=== PATIENT | female | born 1945 | race Caucasian/White ===

== ENCOUNTER 2022-11-18 10:42 | Inpatient (IN) | payer OTHER ==
[2022-11-18 11:19] LABS: Absolute Lymphocytes (CBC) 1.4 K/uL (0.7-4.9); Hematocrit 30.8 % (36.0-45.0); Lymphocytes % 15.8 % (15.3-44.8); MCV 83.5 fL (80-100); MPV 6.8 fL (7.6-11.3); RBC Red Blood Cell Count 3.69 M/uL (3.86-4.86)
[2022-11-18 11:48] LABS: Potassium 4.5 mmol/L (3.5-5.1)
--- NOTE | 2022-11-18 12:35 | EDPHYS ---
Physician Documentation [facility] Name: Trinidad Cardenas Age: 77 yrs Sex: Female : 1945 Arrival Date: 11/18/2022 Time: 10:48 Bed 14 Private MD: ED Physician Ridge Barillas HPI: 11/18 11:14 This 77 yrs old Female presents to ER via EMS with complaints of Abnormal Lab Results. ms3 11:14 77-year-old female with past medical history of COPD, diabetes, GERD presents via clued ms3 EMS for abnormal labs that were drawn earlier today. Patient's sodium returned at 116 and chloride at 82. Patient is asymptomatic at this time.. Historical: - Allergies: 10:53 Sulfa (Sulfonamide Antibiotics); db - PMHx: 10:56 chronic obstructive pulmonary disease; Diabetes mellitus; Gastroesophageal reflux db disease; Cerebrovascular accident; Hypothyroidism; Hypercholesterolemia; Congestive heart failure; - Immunization history:: Client reports receiving the 2nd dose of the Covid vaccine. - Social history:: Smoking status: Patient denies any tobacco usage or history of. ROS: 11:14 Constitutional: Negative for fever, and chills. Neck: Negative for injury, pain, and ms3 swelling, Cardiovascular: Negative for chest pain, and palpitations. Respiratory: Negative for shortness of breath, cough, wheezing, and pleuritic chest pain, Abdomen/GI: Negative for abdominal pain, nausea, vomiting, diarrhea, and constipation, MS/Extremity: Negative for injury and deformity, Skin: Negative for injury, rash, and discoloration, Neuro: Negative for headache, weakness, numbness, tingling. Exam: 11:14 Constitutional: This is a well developed, well nourished patient who is awake, alert, ms3 and in no acute distress. Head/Face: Normocephalic, atraumatic. Neck: Trachea midline, no cervical lymphadenopathy. Supple, full range of motion without nuchal rigidity, or vertebral point tenderness. No Meningismus. Chest/axilla: Normal chest wall appearance and motion. Nontender with no deformity. Cardiovascular: Regular rate and rhythm with a normal S1 and S2. No gallops, murmurs, or rubs. Normal PMI, no JVD. No pulse deficits. Respiratory: Lungs have equal breath sounds bilaterally, clear to auscultation and percussion. No rales, rhonchi or wheezes noted. No increased work of breathing, no retractions or nasal flaring. Abdomen/GI: Soft, non-tender, with normal bowel sounds. No distension or tympany. No guarding or rebound. No evidence of tenderness throughout. Skin: Warm, dry with normal turgor. Normal color with no rashes, no lesions, and no evidence of cellulitis. MS/ Extremity: Pulses equal, no cyanosis. Neurovascular intact. Full, normal range of motion. Vital Signs: 10:42 BP 155 / 67; Pulse 67; Resp 18; Temp 98.1(O); Pulse Ox 97% on R/A; db 10:54 Weight 51.26 kg; Height 4 ft. 11 in. (149.86 cm); db 12:20 BP 118 / 49; Pulse 68; Resp 16; Pulse Ox 95% on R/A; db 13:15 BP 133 / 52; Pulse 75; Resp 18; Pulse Ox 97% on R/A; db 14:00 BP 154 / 56; Pulse 77; Resp 18; Pulse Ox 96% on R/A; db 15:00 BP 152 / 52; Pulse 79; Resp 18; Pulse Ox 96% on R/A; db 16:00 Pulse 82; Resp 16; Pulse Ox 97% ; db 17:00 BP 134 / 48; Pulse 76; Resp 18; Pulse Ox 95% on R/A; db 10:54 Body Mass Index 22.82 (51.26 kg, 149.86 cm) db MDM: 10:57 Patient medically screened. ms3 11:14 Differential Diagnosis Hyponatremia vs hypochloremia vs lab abnormality. ms3 12:35 Data reviewed: vital signs, nurses notes, lab test result(s), and as a result, I will ms3 admit patient. Consideration of Admission/Observation Patient was admitted/placed on observation. Management of patient was discussed with the following: Hospitalist: Dr Yang. Independent interpretation of the following test(s) in the Emergency Department. Historians other than the Patient: EMS: [place]. Counseling: I had a detailed discussion with the patient and/or guardian regarding: the historical points, exam findings, and any diagnostic results supporting the discharge/admit diagnosis, lab results, the need for further work-up and treatment in the hospital. ED course: Discussed case with Dr. Salamanca. He accepts patient as admission. All questions were answered.. 11/18 10:55 Order name: CBC with Diff; Complete Time: 12:31 ms3 11/18 10:55 Order name: BMP; Complete Time: 12:31 ms3 11/18 12:32 Order name: Urine Sodium Random ms3 11/18 12:32 Order name: Urine Osmolality ms3 11/18 13:06 Order name: SARS RAPID ms3 11/18 14:32 Order name: Urine Dipstick-Ancillary EDMS 11/18 15:30 Order name: Creatine Phosphokinase EDMS 11/18 15:30 Order name: Lipid Profile EDMS 11/18 15:30 Order name: Magnesium EDMS 11/18 15:30 Order name: Phosphorus EDMS 11/18 15:30 Order name: T4 Free EDMS 11/18 15:30 Order name: Thyroid Stimulating Hormone EDMS 11/18 15:30 Order name: Urinalysis EDMS 11/18 15:30 Order name: Basic Metabolic Panel EDMS 11/18 15:30 Order name: 60g Consistent Carbohydrate (ADA 1800/2000) EDMS 11/18 15:30 Order name: Basic Metabolic Panel EDMS 11/18 15:30 Order name: CBC with Automated Diff EDMS 11/18 15:30 Order name: CBC with Automated Diff EDMS 11/18 17:02 Order name: Sodium Level EDMS Administered Medications: No medications were administered Disposition Summary: 11/18/22 12:35 Hospitalization Ordered Hospitalization Status: Inpatient Admission ms3 Provider: Deborah Yang ms3 Location: Intensive Care Unit ms3 Condition: Stable ms3 Problem: new ms3 Bed/Room Type: Standard ms3 Symptoms: are unchanged(11/18/22 12:35) ms3 Room Assignment: 3-(11/18/22 17:07) bd Diagnosis - Hypo-osmolality and hyponatremia ms3 - Anemia, unspecified ms3 - Hypochloremia ms3 - Essential (primary) hypertension ms3 Forms: - Medication Reconciliation Form ms3 - SBAR form ms3 Signatures: Dispatcher [employer] EDMS Ariana Tanner Irene, RN RN iw Sims, Marcus, DO DO ms3 Sandra Spicer RN RN db Corrections: (The following items were deleted from the chart) 12:35 12:35 are resolved ms3 ms3 16:25 12:35 ms3 bd 16: 16:25 7- bd iw 17:07 16:31 1- iw bd
--- NOTE | 2022-11-18 12:35 | ER ---
Nurse's Notes [facility] Name: Trinidad Cardenas Age: 77 yrs Sex: Female : 1945 Arrival Date: 11/18/2022 Time: 10:48 Bed 14 Private MD: Diagnosis: Hypo-osmolality and hyponatremia;Anemia, unspecified;Hypochloremia;Essential (primary) hypertension Presentation: 11/18 10:42 Chief complaint: EMS states: patient from [place]. came to ER for low Na and low Cl. db patient is tired. Coronavirus screen: Client denies travel out of the [place] in the last 14 days. At this time, the client does not indicate any symptoms associated with coronavirus-19. Ebola Screen: Patient negative for fever greater than or equal to 101.5 degrees Fahrenheit, and additional compatible Ebola Virus Disease symptoms Patient denies exposure to infectious person. Patient denies travel to an Ebola-affected area in the 21 days before illness onset. No symptoms or risks identified at this time. Initial Sepsis Screen: Does the patient meet any 2 criteria? No. Patient's initial sepsis screen is negative. Does the patient have a suspected source of infection? No. Patient's initial sepsis screen is negative. Risk Assessment: Do you want to hurt yourself or someone else? Patient reports no desire to harm self or others. Onset of symptoms was November 18, 2022. 10:42 Method Of Arrival: EMS db 10:42 Acuity: JOHN 3 db Triage Assessment: 10:54 General: Appears in no apparent distress. comfortable, Behavior is calm, cooperative. db Pain: Denies pain. Historical: - Allergies: 10:53 Sulfa (Sulfonamide Antibiotics); db - PMHx: 10:56 chronic obstructive pulmonary disease; Diabetes mellitus; Gastroesophageal reflux db disease; Cerebrovascular accident; Hypothyroidism; Hypercholesterolemia; Congestive heart failure; - Immunization history:: Client reports receiving the 2nd dose of the Covid vaccine. - Social history:: Smoking status: Patient denies any tobacco usage or history of. Screenin:46 [facility] ED Fall Risk Assessment (Adult) History of falling in the last 3 months, db including since admission No falls in past 3 months (0 pts) Confusion or Disorientation No (0 pts) Intoxicated or Sedated No (0 pts) Impaired Gait Yes (1 pt) Mobility Assist Device Used Yes (1 pt) Altered Elimination Yes (1 pt) Score/Fall Risk Level 3 or more points = High Risk Oriented to surroundings, Maintained a safe environment, Educated pt \T\ family on fall prevention, incl call for assistance when getting out of bed. [facility] ED Fall Risk Assessment (Adult) Score/Fall Risk Level 3 or more points = High Risk Hourly rounding (assess needs \T\ fall precautionary measures) done. Abuse screen: Denies threats or abuse. Denies injuries from another. Nutritional screening: No deficits noted. Tuberculosis screening: No symptoms or risk factors identified. Assessment: 10:58 Reassessment: Patient appears in no apparent distress at this time. Patient and/or db family updated on plan of care and expected duration. Pain level reassessed. Patient is alert, oriented x 3, equal unlabored respirations, skin warm/dry/pink. SEE TRIAGE FOR INITIAL ASSESSMENT, PATIENT HERE FOR abnormal labs. 11:00 Reassessment: Patient appears in no apparent distress at this time. General: Appears in db no apparent distress. comfortable, Behavior is calm, cooperative, appropriate for age, quiet. Pain: Denies pain. Neuro: Level of Consciousness is awake, alert, obeys commands, Oriented to person, place, time, situation, Moves all extremities. Speech is normal, Facial symmetry appears normal. Cardiovascular: No deficits noted. Respiratory: No deficits noted. Airway is patent Respiratory effort is even, labored, Respiratory pattern is regular, symmetrical. GI: No deficits noted. No signs and/or symptoms were reported involving the gastrointestinal system. : No deficits noted. No signs and/or symptoms were reported regarding the genitourinary system. EENT: No deficits noted. No signs and/or symptoms were reported regarding the EENT system. Derm: No deficits noted. No signs and/or symptoms reported regarding the dermatologic system. 12:00 Reassessment: Patient appears in no apparent distress at this time. Patient and/or db family updated on plan of care and expected duration. Pain level reassessed. Patient is alert, oriented x 3, equal unlabored respirations, skin warm/dry/pink. 13:00 Reassessment: Patient ambulatory to the restroom. Steady gate. States sometimes uses a db walker. 14:30 Reassessment: Patient appears in no apparent distress at this time. Patient is alert, db oriented x 3, equal unlabored respirations, skin warm/dry/pink. PATIENT talkative and social. No complaints. Lights dimmed. 15:37 Reassessment: Patient appears in no apparent distress at this time. No changes from db previously documented assessment. Patient and/or family updated on plan of care and expected duration. Pain level reassessed. Patient is alert, oriented x 3, equal unlabored respirations, skin warm/dry/pink. 16:00 Reassessment: Patient appears in no apparent distress at this time. Patient and/or db family updated on plan of care and expected duration. Pain level reassessed. Patient is alert, oriented x 3, equal unlabored respirations, skin warm/dry/pink. PATIENT RESTING watching tv. 17:00 Reassessment: Patient appears in no apparent distress at this time. Patient and/or db family updated on plan of care and expected duration. Pain level reassessed. Patient is alert, oriented x 3, equal unlabored respirations, skin warm/dry/pink. Vital Signs: 10:42 BP 155 / 67; Pulse 67; Resp 18; Temp 98.1(O); Pulse Ox 97% on R/A; db 10:54 Weight 51.26 kg; Height 4 ft. 11 in. (149.86 cm); db 12:20 BP 118 / 49; Pulse 68; Resp 16; Pulse Ox 95% on R/A; db 13:15 BP 133 / 52; Pulse 75; Resp 18; Pulse Ox 97% on R/A; db 14:00 BP 154 / 56; Pulse 77; Resp 18; Pulse Ox 96% on R/A; db 15:00 BP 152 / 52; Pulse 79; Resp 18; Pulse Ox 96% on R/A; db 16:00 Pulse 82; Resp 16; Pulse Ox 97% ; db 17:00 BP 134 / 48; Pulse 76; Resp 18; Pulse Ox 95% on R/A; db 10:54 Body Mass Index 22.82 (51.26 kg, 149.86 cm) db Vitals: 17:00 Cardiac Rhythm Assessment Sinus rhythm. db ED Course: 10:48 Patient arrived in ED. iw 10:49 Ridge Barillas DO is Attending Physician. ms3 10:50 Sandra Spicer, RN is Primary Nurse. db 10:53 Triage completed. db 10:56 Arm band placed on right wrist. db 12:03 Inserted saline lock: 22 gauge in left antecubital area, using aseptic technique. Blood rs5 collected. 12:30 Patient has correct armband on for positive identification. Bed in low position. Call db light in reach. Side rails up X2. Client placed on continuous cardiac and pulse oximetry monitoring. NIBP monitoring applied. Door closed. Lights dimmed. Warm blanket given. 12:34 Deborah Yang MD is Hospitalizing Provider. ms3 17:42 No provider procedures requiring assistance completed. Patient admitted, IV remains in db place. Administered Medications: No medications were administered Medication: 17:42 VIS not applicable for this client. db Outcome: 12:35 Decision to Hospitalize by Provider. ms3 17:38 Patient left the ED. zm 17:42 Admitted to ICU accompanied by nurse, via stretcher, with oxygen, on monitor. db 17:42 Condition: stable 17:42 Instructed on the need for admit. Signatures: Nicolasa Bustamante, RN MONTEZ iw Ridge Barillas DO DO ms3 Delmy Martin zm Sandra Spicer, RN RN db Baldemar Levine rs5 Corrections: (The following items were deleted from the chart) 15:37 13:00 Reassessment: Patient appears in no apparent distress at this time. No changes db from previously documented assessment. Patient and/or family updated on plan of care and expected duration. Pain level reassessed. Patient is alert, oriented x 3, equal unlabored respirations, skin warm/dry/pink. db
[2022-11-18 14:32] LABS: Urine Blood Negative (Negative); Urine Glucose Negative (Negative); Urine Protein 2+ (Negative); Urine pH 5.5 (5.0-7.0)
[2022-11-18] MEDS ORDERED: HYDROCODONE/APAP 5/325 MG TAB PO PRN (15:23)
[2022-11-18] MEDS ORDERED: ACETAMINOPHEN 325 MG TABLET PO PRN (15:23)
[2022-11-18] MEDS ORDERED: ONDANSETRON 4 MG/2 ML VIAL IV PRN (15:27)
--- NOTE | 2022-11-18 15:33 | P.HP ---
Certification for Inpatient Patient admitted to: Inpatient With expected LOS: >2 Midnights Patient will require the following post-hospital care: None Practitioner: I am a practitioner with admitting privileges, knowledge of patient current condition, hospital course, and medical plan of care. Services: Services provided to patient in accordance with Admission requirements found in Title 42 Section 412.3 of the Code of Federal Regulations Patient History Date of Service: 11/18/22 Reason for admission: Abnormal labs History of Present Illness: Patient is a 77-year-old female with a past medical history significant for COPD, DM 2, GERD, CVA, hypothyroidism, HLD, who presents with complaint of abnormal labs. Patient is a resident of a longterm [place] longterm. Patient reported that she has been having bilateral lower extremity cramping for the past 3 days and had labs drawn in a longterm. Patient sodium level was noted to be low. Patient reports low back pain rated as 7/10 in severity and described as aching in quality. Patient reported that back pain has been ongoing for the past 1 week. Patient denies any other signs or symptoms. Symptoms are aggravated or relieved by nothing. Patient was brought to the hospital for medical management. Allergies Sulfa (Sulfonamide Antibiotics) Allergy (Verified 11/18/22 18:57) Rash Home Medications: Acetaminophen [Tylenol] 650 mg PO Q6H PRN 11/18/22 Amlodipine [Norvasc*] 10 mg PO DAILY 11/18/22 Atorvastatin Calcium [Lipitor] 20 mg PO BEDTIME 11/18/22 Carboxymethylcellulose Sodium [Artificial Tears] 1 drop EACH EYE TID 11/18/22 Carvedilol [Coreg] 25 mg PO BID 11/18/22 Cholecalciferol (Vitamin D3) [Vitamin D3] 50 mcg PO DAILY 11/18/22 Cranberry Conc/C/Bacill Coag [Cranberry Tablet] 450 mg PO DAILY 11/18/22 Fluticasone/Umeclidin/Vilanter [Trelegy Ellipta 100-62.5-25] 1 puff IH BID 11/18/22 Furosemide 40 mg PO DAILY 11/18/22 Hydralazine HCl 100 mg PO Q8H 11/18/22 Loratadine [Claritin*] 10 mg PO DAILY 11/18/22 Losartan Potassium [Cozaar*] 100 mg PO DAILY 11/18/22 Metformin HCl [Glucophage*] 500 mg PO BIDAC 11/18/22 Olopatadine HCl 1 gtt EACH EYE BID 11/18/22 Pantoprazole Sodium [Protonix] 20 mg PO DAILY 11/18/22 Polyethylene Glycol 3350 [Miralax] 17 gm PO DAILY PRN 11/18/22 Promethazine Tab [Phenergan*] 1 tab PO Q8H PRN 11/18/22 Spironolactone [Aldactone*] 25 mg PO DAILY 11/18/22 - Past Medical/Surgical History -: GERD -: HTN -: CVA -: HLD Past Surgical History: Reviewed- Non-Contributory - Family History Father -: Heart disease, Liver disease Mother -: Heart disease Brother -: Diabetes, Cancer Notes: COPD - Social History Smoking Status: Former smoker Alcohol use: No CD- Drugs: No Caffeine use: Yes Place of Residence: Home Review of Systems General: Unremarkable Eyes: Unremarkable ENT: Unremarkable Respiratory: Unremarkable Cardiovascular: Unremarkable Gastrointestinal: Unremarkable Genitourinary: Unremarkable Musculoskeletal: Back Pain, Other (BLE cramping) Integumentary: Unremarkable Neurological: Unremarkable Lymphatics: Unremarkable Physical Examination - Physical Exam General: Alert, In no apparent distress, Oriented x3, Cooperative HEENT: Atraumatic, PERRLA, Mucous membr. moist/pink, EOMI, Sclerae nonicteric Neck: Supple, 2+ carotid pulse no bruit, No LAD, Without JVD or thyroid abnormality Respiratory: Clear to auscultation bilaterally, Normal air movement Cardiovascular: No edema, Regular rate/rhythm, Normal S1 S2 Capillary refill: <2 Seconds Gastrointestinal: Normal bowel sounds, Soft and benign, No tenderness Musculoskeletal: No clubbing, No swelling, No contractures, No tenderness Integumentary: No rashes, No significant lesion, No tenderness/swelling Neurological: Normal speech, Normal tone, Normal affect Lymphatics: No axilla or inguinal lymphadenopathy - Studies Laboratory Data (last 24 hrs) 11/18/22 11:05: Sodium 115 L*, Potassium 4.5 D, BUN 18, Creatinine 1.06 H, Glucose 135 H 11/18/22 11:05: WBC 8.70, Hgb 10.7 L, Hct 30.8 L, Plt Count 242 Assessment and Plan - Plan --Hyponatremia. Urine\serum osmolality, urine\serum sodium pending. Nephrology consulted. We will await further recommendations -- COPD. Stable. Continue home medications. --DM2. BS monitoring with sliding scale insulin. --Hyperlipidemia. Continue statin. --History of CVA. Continue aspirin and statin. --Hypertension. Poorly controlled. Continue home medications and hydralazine. -- GERD. Continue home medication. --Anemia of chronic disease. H&H stable. We will continue to monitor hemoglobin and transfuse if less than 7.0. --CHU on CKD 2. Further management per eap specialist. --UTI POA. Continue antibiotics. Urine cultures pending. Acute pain. We will manage pain on current pain medication regimen. -- Allergic rhinitis. Continue home medications. --DVT prophylaxis with heparin subQ. Discharge Plan: Home Plan to discharge in: Greater than 2 days - Advance Directives Does patient have a Living Will: No Does patient have a Durable POA for Healthcare: No - Code Status/Comfort Care Code Status Assessed: Yes Physician Review: Patient Assessed, Agree with Above Assessment and Plan Critical Care: Yes
[2022-11-18 15:57] LABS: SARS-CoV-2 Antigen Rapid Res Negative (Negative)
[2022-11-18] MEDS: INSULIN -REGULAR HUMAN 50 UNIT/0.5 ML ML SQ SCH ×2 (16:30→21:00)
[2022-11-18 16:52] LABS: Magnesium 1.7 mg/dL (1.6-2.4); Phosphorus 2.6 mg/dL (2.5-4.9); Thyroid Stimulating Hormone 0.831 uIU/mL (0.358-3.740)
--- NOTE | 2022-11-18 16:58 | P.PN ---
Brief Renal note (Chart review only, full consult to follow). Acute on chronic hyponatremia with Na level 127 earlier in the mo, no other historic labs present with which to compare. Pt asymptomatic per reports. 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 No therapy administered yet per SCENE PAINTER. Na level recheck ordered by admitting team. Will order hypertonic saline bolus with 100 ml of 3%NS as Na level was < 120 on admission. Requested RN to place a larger peripheral IV to support the bolus which can be given slowly at 40 cc/hr. Will assess response to that and f/u with additional orders. Bennie Hyde MD, MARIA R
[2022-11-18] MEDS ORDERED: NA CHLORIDE 3% 100 ML IV SCH (17:00)
[2022-11-18 17:07] VITALS: BMI 22.8
[2022-11-18] MEDS: CEFTRIAXONE 1,000 MG in NA CHLORIDE 0.9% 50 ML IVPB SCH (18:21)
[2022-11-18] MEDS ORDERED: POLYETHYL GLY 3350 17 GM/DOSE PO PRN (20:51)
[2022-11-18] MEDS: OLOPATADINE EYE OPTH SCH (21:00)
[2022-11-18] MEDS: HYDRALAZINE HCL 25 MG TABLET PO SCH (22:08)
[2022-11-18] MEDS: carvediloL 25 MG TAB PO SCH (22:08)
[2022-11-18] MEDS: HEPARIN 5000 UNIT/ML 1 ML VIAL SQ SCH (22:09)
[2022-11-18] MEDS: ATORVASTATIN 20 MG TAB PO SCH (22:09)
[2022-11-18 22:41] LABS: Potassium 3.8 mmol/L (3.5-5.1)
[2022-11-18] MEDS ORDERED: NA CHLORIDE 3% 500 ML IV SCH (23:45)
[2022-11-19] MEDS ORDERED: NA CHLORIDE 3% 500 ML IV SCH (03:00)
--- NOTE | 2022-11-19 03:48 | P.PN ---
Subjective Date of Service: 11/19/22 Patient with chronic hyponatremia-patient has been dealing with this for the last 2-3 years. Sodium normally runs in the 120s according to the pt. Correcting real slowly at this time. We restarted on 3% saline this morning. Review of Systems 10-point ROS is otherwise unremarkable Physical Examination - Vital Signs Temperature: 98.1 F Blood Pressure: 128/36 Pulse: 71 Respirations: 14 Pulse Ox (%): 96 - Physical Exam General: Alert, In no apparent distress, Oriented x2 Neck: Supple, JVD not distended Respiratory: Clear to auscultation bilaterally, Normal air movement Cardiovascular: Regular rate/rhythm, Normal S1 S2 Gastrointestinal: Normal bowel sounds, No tenderness Musculoskeletal: No tenderness Integumentary: No rashes Neurological: Normal speech, Normal tone, Normal affect Lymphatics: No axilla or inguinal lymphadenopathy - Studies Laboratory Data (last 24 hrs) 11/18/22 11:05: Sodium 115 L*, Potassium 4.5 D, BUN 18, Creatinine 1.06 H, Glucose 135 H 11/18/22 11:05: WBC 8.70, Hgb 10.7 L, Hct 30.8 L, Plt Count 242 Medications List Reviewed: Yes Assessment & Plan - Problems (Diagnosis) (1) Hyponatremia Current Visit: Yes Status: Acute (2) HTN (hypertension) Current Visit: Yes Status: Acute (3) COPD (chronic obstructive pulmonary disease) Current Visit: Yes Status: Acute - Plan 1. Continue with 3% saline; correct sodium level by no more than 10 meq/day 2. Continue monitoring labs closely; once patient is in the 120s patient should be stable for discharge. Fluid restriction and possibly salt tablets at discharge. 3. Strict blood pressure control 4. Monitor labs closely; most likely SIADH 5. Appreciate nephrology consultation 6. Gi DVT prophylaxis Discharge Plan: Home Plan to discharge in: Greater than 2 days - Advance Directives Does patient have a Living Will: No Does patient have a Durable POA for Healthcare: No - Code Status/Comfort Care Code Status Assessed: Yes Code Status: Full Code Critical Care: No Time Spent Managing PTS Care (In Minutes): 35
[2022-11-19 04:20] LABS: Absolute Lymphocytes (CBC) 1.1 K/uL (0.7-4.9); Hematocrit 29.4 % (36.0-45.0); Lymphocytes % 18.4 % (15.3-44.8); MCV 83.7 fL (80-100); MPV 7.2 fL (7.6-11.3); RBC Red Blood Cell Count 3.51 M/uL (3.86-4.86)
[2022-11-19 04:49] LABS: Potassium 3.7 mmol/L (3.5-5.1)
--- NOTE | 2022-11-19 07:09 | RAD REPORT ---
EXAM DESCRIPTION: RAD - Chest Single View - 11/19/2022 5:20 am CLINICAL HISTORY: pneumonia COMPARISON: None TECHNIQUE: AP portable chest image was obtained 11/19/2022 5:20 am . FINDINGS: Prominent interstitial pattern is present probably baseline for the patient. There are no comparison studies. Acute failure or volume overload are doubtful. Retrocardiac left base is dense wi th obscured left hemidiaphragm. Left base pneumonia is suspected but can be correlated with two-view chest imaging if tolerable by the patient. Heart and vasculature are normal. No measurable pleural effusion and no pneumothorax. No acute bony abnormality seen. No acute aortic findings suspected. IMPRESSION: Suspected retrocardiac left base pneumonia.
[2022-11-19] MEDS: ASPIRIN 81 MG CHEWABLE TABLET PO SCH (07:21)
[2022-11-19] MEDS: HYDRALAZINE HCL 25 MG TABLET PO SCH ×2 (07:21→17:38)
[2022-11-19] MEDS: LORATADINE 10 MG TAB PO SCH (07:22)
[2022-11-19] MEDS: carvediloL 25 MG TAB PO SCH ×2 (07:22→19:34)
[2022-11-19] MEDS: AMLODIPINE 10 MG TAB PO SCH (07:23)
[2022-11-19] MEDS: HEPARIN 5000 UNIT/ML 1 ML VIAL SQ SCH ×2 (07:23→19:35)
[2022-11-19] MEDS: VITAMIN D 1000 UNIT TAB PO SCH (07:25)
[2022-11-19] MEDS: CEFTRIAXONE 1,000 MG in NA CHLORIDE 0.9% 50 ML IVPB SCH (07:25)
[2022-11-19] MEDS ORDERED: PANTOPRAZOLE 40MG TABLET PO SCH (07:30)
[2022-11-19] MEDS: INSULIN -REGULAR HUMAN 50 UNIT/0.5 ML ML SQ SCH ×4 (07:30→21:00)
[2022-11-19] MEDS: ARTIFICIAL TEARS OPTH SCH ×3 (09:00→21:00)
[2022-11-19] MEDS: OLOPATADINE EYE OPTH SCH ×2 (09:00→21:00)
[2022-11-19] MEDS ORDERED: NA CHLORIDE 3% 250 ML IV SCH (09:20)
--- NOTE | 2022-11-19 09:24 | P.CNS ---
Date of Consult: 11/19/22 Reason for Consult: Hyponatremia Requesting Physician: Deborah Yang Chief Complaint: Abnormal labs History of Present Illness: Patient is a elderly female with a past medical history significant for COPD, chronic HTN on anti hypertensives, GERD, reports of prior unspecified CVA, and other who has a hx of hyponatremia and reports a prior hospitalization at [facility] two years ago for it and who reports recent fatigue, weakness, intermittent nausea and treatment for a U[place] where she [facility] a [facility]. Pt was apparently referred over for abnormal labs including marked hyponatremia with Na level < 120 on admission. She has received hypertonic saline boluses with only mild rise in Na levels thus far. Allergies Sulfa (Sulfonamide Antibiotics) Allergy (Verified 11/18/22 18:57) Rash Home Medications: Acetaminophen [Tylenol] 650 mg PO Q6H PRN 11/18/22 Amlodipine [Norvasc*] 10 mg PO DAILY 11/18/22 Atorvastatin Calcium [Lipitor] 20 mg PO BEDTIME 11/18/22 Carboxymethylcellulose Sodium [Artificial Tears] 1 drop EACH EYE TID 11/18/22 Carvedilol [Coreg] 25 mg PO BID 11/18/22 Cholecalciferol (Vitamin D3) [Vitamin D3] 50 mcg PO DAILY 11/18/22 Cranberry Conc/C/Bacill Coag [Cranberry Tablet] 450 mg PO DAILY 11/18/22 Fluticasone/Umeclidin/Vilanter [Trelegy Ellipta 100-62.5-25] 1 puff IH BID 11/18/22 Furosemide 40 mg PO DAILY 11/18/22 Hydralazine HCl 100 mg PO Q8H 11/18/22 Loratadine [Claritin*] 10 mg PO DAILY 11/18/22 Losartan Potassium [Cozaar*] 100 mg PO DAILY 11/18/22 Metformin HCl [Glucophage*] 500 mg PO BIDAC 11/18/22 Olopatadine HCl 1 gtt EACH EYE BID 11/18/22 Pantoprazole Sodium [Protonix] 20 mg PO DAILY 11/18/22 Polyethylene Glycol 3350 [Miralax] 17 gm PO DAILY PRN 11/18/22 Promethazine Tab [Phenergan*] 1 tab PO Q8H PRN 11/18/22 Spironolactone [Aldactone*] 25 mg PO DAILY 11/18/22 - Past Medical/Surgical History Diabetic: No -: GERD -: HTN -: CVA -: HLD -: Gallbladder -: Hysterectomy -: Teeth pulled - Family History Father Medical History: Heart disease, Liver disease Mother Medical History: Heart disease Brother Medical History: Diabetes, Cancer Notes: COPD - Social History Alcohol use: No CD- Drugs: No Caffeine use: Yes Place of Residence: Home Review of Systems General: Weakness, Other (Fatigue) Eyes: Unremarkable ENT: Unremarkable Respiratory: Shortness of Breath, As per HPI Cardiovascular: As per HPI Gastrointestinal: Nausea, Other, As per HPI Genitourinary: As per HPI Musculoskeletal: As per HPI Integumentary: Unremarkable Neurological: As per HPI Lymphatics: Unremarkable Physical Examination Temp Pulse Resp BP Pulse Ox 98.4 F 76 16 154/54 H 99 11/19/22 04:00 11/19/22 07:23 11/19/22 06:00 11/19/22 07:23 11/19/22 06:00 General: Alert, In no apparent distress, Oriented x3 HEENT: Atraumatic, Normocephalic, PERRLA Neck: Supple Respiratory: Normal air movement, Diminished (slightly reduced BS Lt base) Cardiovascular: No edema, Regular rate/rhythm, Normal S1 S2 Gastrointestinal: Soft and benign, Non-distended, No tenderness Musculoskeletal: No swelling, No contractures, No erythema Integumentary: No rashes, No breakdown Neurological: Normal speech, Normal tone, Normal affect Laboratory Data (last 24 hrs) 11/18/22 11:05: Sodium 115 L*, Potassium 4.5 D, BUN 18, Creatinine 1.06 H, Glucose 135 H 11/18/22 11:05: WBC 8.70, Hgb 10.7 L, Hct 30.8 L, Plt Count 242 Conclusions/Impression: A/P) 1 Acute on chronic hyponatremia with Na level 127 earlier in the mo, no other historic labs present with which to compare. Pt symptomatic but not confused. Random Valeria > 40, Uosm > 100 on admission would appear c/w SIADH, cause unspecified although there may be drug contributing such as PPI other. Pt may have also been on chronic loop diuretic therapy so that may be contributory but if hypovolemia alone was to account for Na, we would have seen greater improve ment with saline administration thus far. 2. S/p hypertonic saline boluses of 3%NS as Na level was < 120 on admission. Na level slow to improve, 118 this AM. Will order additional bolus of 250 ml at 40 ml/hr and recheck Na level 4h after. 3. Will inquire if pharmacy can obtain Tolvaptan dose. 4. Will place on free water restriction of < 1000 cc/24h for now 5. BP mod elevated, ok to cont home anti hypertensives 6. Abnormal findings in urine unspecified. Reports of recent UTI, check UCx Bennie Hyde MD, FASN
[2022-11-19 10:51] LABS: Potassium 3.8 mmol/L (3.5-5.1)
[2022-11-19 14:43] LABS: Potassium 4.2 mmol/L (3.5-5.1)
[2022-11-19 14:51] LABS: Specific Gravity 1.009 (1.005-1.030); Urine Bacteria 20-50 /HPF (<20); Urine Bilirubin NEGATIVE (Negative); Urine Blood Trace (Negative); Urine Clarity Turbid (Clear); Urine Color Light-Yellow (Yellow); Urine Glucose NEGATIVE (Negative); Urine Protein TRACE (Negative); Urine RBC 21-50 /HPF (None Seen); Urine Urobilinogen Normal (Normal); Urine WBC Clump Occasional /HPF (None Seen); Urine pH 6.5 (5.0-7.0)
[2022-11-19] MEDS ORDERED: TOLVAPTAN 15 MG TABLET PO ONE (17:00)
[2022-11-19] MEDS: ATORVASTATIN 20 MG TAB PO SCH (19:35)
[2022-11-19 21:08] LABS: Potassium 3.9 mmol/L (3.5-5.1)
[2022-11-20] MEDS: HYDRALAZINE HCL 25 MG TABLET PO SCH ×2 (02:00→08:41)
[2022-11-20 05:22] LABS: Albumin 3.6 g/dL (3.4-5.0); Bilirubin Direct 0.1 mg/dL (0-0.2); Bilirubin Total 0.4 mg/dL (0.2-1.0); Potassium 3.9 mmol/L (3.5-5.1)
--- NOTE | 2022-11-20 05:50 | P.PN ---
Date of Service: 11/20/22 Subjective Review of Systems 10-point ROS is otherwise unremarkable Physical Examination - Vital Signs reviewed - Physical Exam General: Alert, In no apparent distress, Oriented x2 Respiratory: Clear to auscultation bilaterally, Normal air movement Cardiovascular: Regular rate/rhythm, Normal S1 S2 Gastrointestinal: Normal bowel sounds, No tenderness Neurological: Normal speech, Normal tone, Normal affect Assessment & Plan - Problems (Diagnosis) (1) Hyponatremia Current Visit: Yes Status: Acute (2) HTN (hypertension) Current Visit: Yes Status: Acute (3) COPD (chronic obstructive pulmonary disease) Current Visit: Yes Status: Acute - Plan Continue with plan of care as mentioned below: 1. Continue with 3% saline; correct sodium level by no more than 10 meq/day 2. Continue monitoring labs closely; once patient is in the 120s patient should be stable for discharge. Fluid restriction and possibly salt tablets at discharge. 3. Strict blood pressure control 4. Monitor labs closely; most likely SIADH 5. Appreciate nephrology consultation 6. GI/DVT prophylaxis
[2022-11-20] MEDS ORDERED: D5W 250 ML IV SCH (06:00)
[2022-11-20] MEDS: INSULIN -REGULAR HUMAN 50 UNIT/0.5 ML ML SQ SCH ×2 (07:10→11:30)
[2022-11-20] MEDS: ARTIFICIAL TEARS OPTH SCH ×2 (07:11→13:43)
[2022-11-20] MEDS: OLOPATADINE EYE OPTH SCH (07:14)
[2022-11-20] MEDS: VITAMIN D 1000 UNIT TAB PO SCH (08:38)
[2022-11-20] MEDS: AMLODIPINE 10 MG TAB PO SCH (08:39)
[2022-11-20] MEDS: carvediloL 25 MG TAB PO SCH (08:40)
[2022-11-20] MEDS: HEPARIN 5000 UNIT/ML 1 ML VIAL SQ SCH (08:41)
[2022-11-20] MEDS: LORATADINE 10 MG TAB PO SCH (08:41)
[2022-11-20] MEDS: ASPIRIN 81 MG CHEWABLE TABLET PO SCH (08:41)
[2022-11-20] MEDS: CEFTRIAXONE 1,000 MG in NA CHLORIDE 0.9% 50 ML IVPB SCH (08:42)
[2022-11-20] MEDS ORDERED: FAMOTIDINE 20 MG TAB PO SCH (09:00)
--- NOTE | 2022-11-20 10:08 | P.PN ---
Nephrology note: (S) Na level has improved s/p Tolvaptan 7.5 mg dose x 1, pt feels much better, denies nausea, has had appropriate free water diuresis General: Alert, In no apparent distress, Oriented x3 HEENT: Atraumatic, Normocephalic, PERRLA Neck: Supple Respiratory: Normal air movement, Diminished (slightly reduced BS Lt base) Cardiovascular: No edema, Regular rate/rhythm, Normal S1 S2 Gastrointestinal: Soft and benign, Non-distended, No tenderness Musculoskeletal: No swelling, No contractures, No erythema Integumentary: No rashes, No breakdown Neurological: Normal speech, Normal tone, Normal affect Laboratory Data (last 24 hrs) Reviewed in the EMR Conclusions/Impression: A/P) 1 Acute on chronic hyponatremia with Na level 127 earlier in the mo, no other historic labs present with which to compare. Pt symptomatic but was not confused. Random Valeria > 40, Uosm > 100 on admission would appear c/w SIADH, cause unspecified although there may be drug contributing such as PPI other. Pt may have also been on chronic loop diuretic therapy so that may be contributory but if hypovolemia alone was to account for Na, we would have seen greater improvement with saline administration thus far. 2. S/p hypertonic saline boluses of 3%NS as Na level was < 120 on admission. Na level slow to improve. Did dose Tolvaptan 7.5 mg once yesterday at 5 PM and Na level now 127-128, no further doses planned today 3. Will temp lift fluid restriction given the slightly rapid rise and during the half life of Tolvaptan 4. On discharge, will consider placing pt on urea-Na to maintain Na levels through osmotic diuresis 5. BP better post water diuresis 6. Abnormal findings in urine unspecified on admission. Reports of recent UTI, f/u UCx Bennie Hyde MD, MARIA R
[2022-11-20 11:07] VITALS: TEMP 97.1
[2022-11-20 13:01] VITALS: O2SAT 98
[2022-11-20 13:30] VITALS: BP 132/40
--- NOTE | 2022-11-28 00:41 | P.DS ---
Discharge Date: 11/20/22 Disposition: TRANSFER TO SNF - MEDICAL Discharge Condition: GOOD Reason for Admission: Abnormal labs - Problems (1) Hyponatremia Status: Acute (2) HTN (hypertension) Status: Acute (3) COPD (chronic obstructive pulmonary disease) Status: Acute Brief History of Present Illness: Patient is a 77-year-old female with a past medical history significant for COPD, DM 2, GERD, CVA, hypothyroidism, HLD, who presents with complaint of abnormal labs. Patient is a resident of a long term [facility] long term. Patient reported that she has been having bilateral lower extremity cramping for the past 3 days and had labs drawn in a long term. Patient sodium level was noted to be low. Patient reports low back pain rated as 7/10 in severity and described as aching in quality. Patient reported that back pain has been ongoing for the past 1 week. Patient denies any other signs or symptoms. Symptoms are aggravated or relieved by nothing. Patient was brought to the hospital for medical management. Hospital Course: Patient has done well during hospital stay. Clinically, patient is much better. At this time, patient is stable for discharge home. Patient will follow-up with consultants and PCP as an outpatient. Vital Signs/Physical Exam: Temp Pulse Resp BP Pulse Ox 97.1 F 73 20 132/40 L 97 11/20/22 12:00 11/20/22 13:00 11/20/22 13:00 11/20/22 13:00 11/20/22 13:00 General: Alert, In no apparent distress, Oriented x3 Laboratory Data at Discharge: WBC Cancelled 11/19/22 23:45 Hgb Cancelled 11/19/22 23:45 Hct Cancelled 11/19/22 23:45 Plt Count Cancelled 11/19/22 23:45 Sodium 127 mmol/L (136-145) L 11/20/22 09:05 Potassium Cancelled 11/20/22 09:00 BUN Cancelled 11/20/22 09:00 Creatinine Cancelled 11/20/22 09:00 Glucose Cancelled 11/20/22 09:00 Phosphorus 2.6 mg/dL (2.5-4.9) 11/18/22 16:14 Magnesium 1.7 mg/dL (1.6-2.4) 11/18/22 16:14 Total Bilirubin 0.4 mg/dL (0.2-1.0) 11/20/22 04:34 AST 22 U/L (15-37) 11/20/22 04:34 ALT 25 U/L (13-56) 11/20/22 04:34 Alkaline Phosphatase 77 U/L (45-117) 11/20/22 04:34 Triglycerides 133 mg/dL (<150) 11/19/22 03:44 Cholesterol 133 mg/dL (<200) 11/19/22 03:44 HDL Cholesterol 45 mg/dL (40-60) 11/19/22 03:44 Cholesterol/HDL Ratio 2.96 11/19/22 03:44 Home Medications: Acetaminophen [Tylenol] 650 mg PO Q6H PRN 11/18/22 Amlodipine [Norvasc*] 10 mg PO DAILY 11/18/22 Atorvastatin Calcium [Lipitor*] 20 mg PO BEDTIME 11/18/22 Carboxymethylcellulose Sodium [Artificial Tears] 1 drop EACH EYE TID 11/18/22 Carvedilol [Coreg] 25 mg PO BID 11/18/22 Cholecalciferol (Vitamin D3) [Vitamin D3] 50 mcg PO DAILY 11/18/22 Cranberry Conc/C/Bacill Coag [Cranberry Tablet] 450 mg PO DAILY 11/18/22 Fluticasone/Umeclidin/Vilanter [Trelegy Ellipta 100-62.5-25] 1 puff IH BID 11/18/22 Furosemide 40 mg PO DAILY 11/18/22 Hydralazine HCl 100 mg PO Q8H 11/18/22 Loratadine [Claritin*] 10 mg PO DAILY 11/18/22 Losartan Potassium [Cozaar*] 100 mg PO DAILY 11/18/22 Metformin HCl [Glucophage*] 500 mg PO BIDAC 11/18/22 Olopatadine HCl 1 gtt EACH EYE BID 11/18/22 Pantoprazole Sodium [Protonix] 20 mg PO DAILY 11/18/22 Polyethylene Glycol 3350 [Miralax] 17 gm PO DAILY PRN 11/18/22 Promethazine Tab [Phenergan*] 1 tab PO Q8H PRN 11/18/22 Spironolactone [Aldactone*] 25 mg PO DAILY 11/18/22 Aspirin Chewable [Aspirin Chewable*] 81 mg PO DAILY #30 tab.chew 11/20/22 Urea [Ure-Na] 15 gm PO DAILY #30 packet 11/20/22 New Medications: Aspirin Chewable [Aspirin Chewable*] 81 mg PO DAILY #30 tab.chew Urea [Ure-Na] 15 gm PO DAILY #30 packet Physician Discharge Instructions: PROBLEM: Hyponatremia GOAL: Clear understanding of disease process INSTRUCTIONS: PHYSICIAN'S DISCHARGE INSTRUCTIONS -DC IV and DC to long term -Follow-up with PCP in 1 to 2 weeks -Follow-up with Nephrology, Dr. Hyde, in 1 to 2 weeks -Please call Dr. Yang at [phone] if any questions regarding hospital stay -Please call nursing station at [phone] if any nursing or medication questions -Return to the emergency room if symptoms worsen Follow up with a Cab Supervisor of your choice: MAUREEN CERVANTES DO [address] [place] [address] OTTO SANCHEZ, [facility] [address] [place] [address] SHRADDHA SANCHEZ, [facility] [address], [place] [address] [address], [address] [place] [address] DEENA CARPENTER MD [address] [place] [address] DODIE LOMELI MDITH [address], [facility] [place] [address] KELLY OLIVER MD[address] [address] Diet: Regular Activity: Fall precautions DME DME: Date Ordered: Name of Company: [employer] Services Needed: Senior Living Name of Company: Date or Referral: IMMUNIZATION Influenza Vaccine Indicated: No Influenza Vaccine Given: Date Given: Pneumonia Vaccine Indicated: No Pneumonia Vaccine Given: Date Given: PHYSICIAN'S DISCHARGE INSTRUCTIONS -DC IV and DC to long term -Follow-up with PCP in 1 to 2 weeks -Follow-up with Nephrology, Dr. Hyde, in 1 to 2 weeks -Please call Dr. Yang at [phone] if any questions regarding hospital stay -Please call nursing station at [phone] if any nursing or medication questions -Return to the emergency room if symptoms worsen Diet: Regular Activity: Fall precautions Followup: NONE,NONE [Primary Care Provider] - Time spent managing pt's care (in minutes): 35
== END 2022-11-20 15:10 | DRG 644 ==
LOC: ER 10:42 → ERHOLD 15:19 → 3RD-ICU 17:05
PROVIDERS: ADMIT Hospitalist; ATTEND Hospitalist
DX: E22.2 Syndrome of inappropriate secretion of antidiuretic hormone (principal); N17.9 Acute kidney failure, unspecified; N39.0 Urinary tract infection, site not specified; J44.9 Chronic obstructive pulmonary disease, unspecified; I12.9 Hypertensive chronic kidney disease with stage 1 through stage 4 chronic kidney disease, or unspecified chronic kidney disease; N18.2 Chronic kidney disease, stage 2 (mild); E11.22 Type 2 diabetes mellitus with diabetic chronic kidney disease; K21.9 Gastro-esophageal reflux disease without esophagitis; E03.9 Hypothyroidism, unspecified; D64.9 Anemia, unspecified; J30.9 Allergic rhinitis, unspecified; E87.8 Other disorders of electrolyte and fluid balance, not elsewhere classified; E78.5 Hyperlipidemia, unspecified; M54.9 Dorsalgia, unspecified; Z88.1 Allergy status to other antibiotic agents; Z79.01 Long term (current) use of anticoagulants; Z79.82 Long term (current) use of aspirin; Z86.73 Personal history of transient ischemic attack (TIA), and cerebral infarction without residual deficits; Z79.84 Long term (current) use of oral hypoglycemic drugs; Z90.710 Acquired absence of both cervix and uterus; Z79.899 Other long term (current) drug therapy; Z87.891 Personal history of nicotine dependence; Z20.822 Contact with and (suspected) exposure to COVID-19
CPT/HCPCS: 36415; 71045; 80048; 80061; 80076; 81001; 81003; 82533; 82550; 82947; 83036; 83735; 83930; 83935; 84100; 84145; 84295; 84300; 84439; 84443; 85025; 87086; 87088; 87811; 99285; J1644; J7131; J8499

== ENCOUNTER 2023-03-25 09:29 | Inpatient (IN) | payer OTHER ==
--- OUTSIDE RECORDS SUMMARY | 2023-03-25 09:43 | XMS REPORT | Continuity of Care Document ---
:[address] [facility] t Address [address] [place] [address] Care Team Providers Name Role Phone CLAUDIO VIDAL Primary Care Physician Unavailable Nubia Solis RN Attending Clinician Unavailable DEBORAH YANG Attending Clinician Unavailable Poonam High MD Attending Clinician Deborah Yang MD Attending Clinician IZABELLA GUERIN Attending Clinician Unavailable Eric Hirsch DO Attending Clinician Stas Massey DO Attending Clinician Izabella Guerin MD Attending Clinician Po Peña MD Attending Clinician POONAM HIGH Attending Clinician Unavailable SEBAS WHELAN Attending Clinician Unavailable DEBORAH YANG Admitting Clinician Unavailable Deborah Yang MD Admitting Clinician IZABELLA GUERIN Admitting Clinician Unavailable Izabella Guerin MD Admitting Clinician Po Peña MD Admitting Clinician PO PEÑA Admitting Clinician Unavailable Payers Payer Name Policy Type Policy Number Effective Date Expiration Date S nettie TAYLOR 3 [id number] 2021 00:00:00 Problems Condition Condition Condition Status Onset Resolution Last Treating Co mments Source Name Details Category Date Date Treatment Clinician Date SOB SOB Disease Active Univers (shortness (shortness 3-25 it y of of breath) [place] breath[place] 00 [place] Hyponatrem Hyponatrem Disease Active U nivers ia ia 3-15 ity of 00:00: [place] 00 Medical Branch COPD COPD Disease Active Univers exacerbati exacerbati 3-09 it y of on on 00:00: [place] [facility] Acute on Acute on Disease Active Unive rs chronic chronic 309 ity of diastolic diastolic 00:[place] congestive congestive 00 Me dical heart heart Branch failure failure Primary Primary Disease Active Univers hypertensi hypertensi 3-09 it y of on on 00:00: [place] 00 Medical Branch Other Other Disease Active Univers hyperlipid hyperlipid 309 it y of emia emia 00:00: [place] 00 Medical Branch Type 2 Type 2 Disease Active Univers diabetes diabetes 3-09 ity of mellitus mellitus 00:00: [place] without without 00 Medical complicati complicati Br anch on, on, without without long-term long-term current current use of use of insulin insulin Dyspnea Dyspnea Disease Active Univers 3-08 ity of 00:00: [place] 00 Medical Branch Allergies, Adverse Reactions, Alerts Allergy Allergy Status Severity Reaction(s) Onset Inactive Treating Comm ents Source Name Type Date Date Clinician Codeine Propensi Active Unknown - Univ ers ty to See comments 3 ity of adverse 00:00: [place] reaction 00 Medical s Branch CODEINE DRUG Active Unknown-Cmnt Uni vers INGREDI 3-08 ity of 00:00: [place] 00 Medical Branch NO KNOWN Drug Active Univers ALLERGIE Class ity of S [place] [facility] Social History Social Habit Start Date Stop Date Quantity Comments Source History of tobacco Current smoker Un iversity of use [place] [facility] History SDOH Social Unive rsity of [facility] Branch History SDOH Social Unive rsity of Connections [facility] [place] [facility] History SDOH Social Unive rsity of Connections [place] [facility] Membership Branch History SDOH Social Unive rsity of Connections [place] [facility] Meetings Branch History SDOH University o f Housing Places [place] Medi nelson Lived Branch History SDOH 2023-01-20 2023-01-20 1 University o f Alcohol Frequency 00:00:00 00:00:00 [place] M edical Branch History SDOH 2023-01-20 2023-01-20 0 University o f Alcohol Std Drinks 00:00:00 00:00:00 [place] [facility] History SDOH 2023-01-20 2023-01-20 1 University o f Alcohol Binge 00:00:00 00:00:00 [place] Medic al Branch History SDOH Social 2023-01-20 2023-01-20 5 Unive rsity of Connections Phone 00:00:00 00:00:00 [place] M edical Branch History SDOH Social 2023-01-20 2023-01-20 5 Unive rsity of Connections Living 00:00:00 00:00:00 [place] [facility] History SDOH 2023-01-20 2023-01-20 0 University o f Physical Activity 00:00:00 00:00:00 [place] M edical DPW Branch History SDOH 2023-01-20 2023-01-20 0 University o f Physical Activity 00:00:00 00:00:00 [place] M edical MPS Branch History SDOH 2023-01-20 2023-01-20 5 University o f Financial 00:00:00 00:00:00 [place] [facility] History SDOH Food 2023-01-20 2023-01-20 1 Univers ity of Worry 00:00:00 00:00:00 [place] [facility] History SDOH Food 2023-01-20 2023-01-20 1 Univers ity of Scarcity 00:00:00 00:00:00 [place] [facility] History SDOH 2023-01-20 2023-01-20 2 University o f Transport Med 00:00:00 00:00:00 [place] Medic al Branch History SDOH 2023-01-20 2023-01-20 2 University o f Transport Non-Med 00:00:00 00:00:00 [place] M edical Branch History SDOH 2023-01-20 2023-01-20 2 University o f Housing Unable to 00:00:00 00:00:00 [place] M edical Pay Branch History SDOH 2023-01-20 2023-01-20 2 University o f Housing Homeless 00:00:00 00:00:00 [place] Me dical Last Year Branch Exposure to 2023-01-08 2023-01-18 Not sure [facility] SARS-CoV-2 (event) 00:00:00 19:01:00 [facility] Alcohol intake 2023-01-18 2023-01-18 Ex-drinker [facility] 00:00:00 00:00:00 (finding) [facility] Tobacco use and 2022-01-08 2022-01-08 Former smokeless Uni versity of exposure 00:00:00 00:00:00 tobacco user [facility] Education 2022-01-08 2022-01-[address] [place] [address] 00:00:00 00:00:00 [facility] Tobacco Comment 2022-01-08 2022-01-08 quit 23 yrs ago [facility] of 00:00:00 00:00:00 [facility] Sex Ass[birth year] [facility] y of 00:00:00 00:00:00 [facility] Smoking Status Start Date Stop Date Source Ex-smoker 2022-01-08 00:00:00 2022-01-08 00:00:00 [facility] Medications Ordered Filled Start Stop Current Ordering Indication Dosage Frequency Signature Comments Components Source Medication Medication Date Date Medication? Clinician (SIG) Name Name furosemide Yes 20mg 20 mg, Unive rs (LASIX) 01-24 Oral, ity of tablet 20 14:00: DAILY, [place] mg 00 First dose Medical on Fri [place] 01/24/23 at 0900, Until Discontinu ed, Routine sodium Yes 1g 1 g, Oral, Unive rs chloride 01-24 BID, First ity o f tablet 1 g 01:00: dose on s [place] [facility] 01/23/23 at Branch 2000, Until Discontinu ed, Routine thiamine 2022- Yes [id number] 100mg Take 1 U nivers 100 mg 01-24 05- tablet by ity of tablet 00:00: 04:59 mouth in [place] 00 :00 the Medical morning Branch for 30 days. thiamine 0 2023- Yes [id number] 100mg Take 1 U nivers 100 mg 3-31 05-01 tablet by ity of tablet 00:00: 04:59 mouth in [place] 00 :00 the Medical morning Branch for 30 days. carvediloL 2022-0 Yes 25mg Take 1 Unive rs 25 mg 3-30 tablet by ity of tablet 16:33: mouth in [place] [address] the Medical morning Branch and 1 tablet in the evening. Take with meals. Hold if B/P <110/60 or HR <60 atorvastati 2022-0 Yes 20mg Take 20 mg Univers n 20 mg 3-30 by mouth ity of tablet 16:33: daily. [place] [address] Medical Branch fluticasone 2022-0 Yes 1{puff} Inhale 1 Univers /umeclidin/ 3-30 Puff 2 ity of vilanter 16:33: (two) [place] (TRELEGY 58 times Medical ELLIPTA daily. Branch INHALE) amLODIPine 0 Yes 10mg Take 1 Unive rs 10 mg 3-30 tablet by ity of tablet 16:33: mouth in [place] [address] the Medical morning. Branch Hold if B/P <110/60 or HR <60 dextran 2022-0 Yes 1[drp] Place 1 Unive rs 70-hypromel 3-30 Drop in ity o f lose 16:33: both eyes [place] (ARTIFICIAL 58 in the Medica l TEARS,DEXT7 morning Branc h 0-HYPRO,) and 1 Drop 0.1-0.3 % at noon and 1 Drop in the evening. losartan 2022-0 Yes 100mg Take 1 Univer s (COZAAR) 3-30 tablet by ity of 100 mg 16:33: mouth in [place] tablet 58 the Medical morning. Branch Hold if B/P <110/60 or HR <60 CRANBERRY 2022-0 Yes 450mg Take 450 Uni vers ORAL 3-30 mg by ity of 16:33: mouth in [place] [address] the Medical morning. Branch Give Two tablets a day prophylact ic supplement s guaiFENesin 2022-0 Yes 100mg Take 5 mL Univers 100 mg/5 mL 3-30 by mouth ity of solution 16:33: every 4 [place] [address] (four) Medical hours as Branch needed for Cough. ipratropium 2023-0 Yes 3mL 3 mL every Univers -albuteroL 3-30 8 (eight) ity of 0.5 mg-3 16:33: hours as [place] mg(2.5 mg 58 needed Medical base)/3 mL (Secretion [facility] nebulizer s). solution loratadine 2022-0 Yes 10mg Take 1 Unive rs 10 mg 3-30 tablet by ity of tablet 16:33: mouth in [place] 58 the Medical morning. Branch For Allergies Melatonin 5 2022-0 Yes 5mg Take 1 Univ ers mg tablet 3-30 tablet by ity o f 16:33: mouth at [place] 58 bedtime. Medical Branch metformin 2022-0 Yes 500mg Take 500 Uni vers HCl 3-30 mg by ity of (METFORMIN 16:33: mouth in [place] as ORAL) 58 the Medical morning Branch and 500 mg in the evening. One tab by mouth daily Olopatadine 2022-[address] in [place] 0.2 % 3-30 each eye ity of ophthalmic 16:33: daily. [place] drops 58 Both eyes Medical once a day Branch for seasonal allergies. tramadol 3-0 Yes 50mg Take 50 mg Uni vers HCl 3-30 by mouth ity of (TRAMADOL 16:33: every 6 [place] ORAL) 58 (six) Medical hours as Branch needed (Severe to moderate pain). One tablet by mouth every 6 hours as needed for moderate and severe pain acetaminoph 3-0 Yes 325mg Take 325 U nivers en 3-30 mg by ity of (TYLENOL) 16:33: mouth [place] 325 mg Cap 58 every 6 Medica l (six) Branch hours as needed for Fever (Mild pain). Cholecalcif 2022-0 Yes Take by Uni vers neal, 3-30 mouth ity of Vitamin D3, 16:33: daily. [place] 25 mcg 58 Give two Medical (1,000 tablets by Branch unit) mouth capsule daily. carvediloL 3-0 Yes 25mg Take 1 Unive rs 25 mg 3-30 tablet by ity of tablet 16:33: mouth in [place] 58 the Medical morning Branch and 1 tablet in the evening. Take with meals. Hold if B/P <110/60 or HR <60 atorvastati 3-0 Yes 20mg Take 20 mg Univers n 20 mg 3-30 by mouth ity of tablet 16:33: daily. [place] [address] Medical Branch fluticasone 2022-0 Yes 1{puff} Inhale 1 Univers /umeclidin/ 3-30 Puff 2 ity of vilanter 16:33: (two) [place] (TRELEGY 58 times Medical ELLIPTA daily. Branch INHALE) amLODIPine 2022-0 Yes 10mg Take 1 Unive rs 10 mg 3-30 tablet by ity of tablet 16:33: mouth in [place] [address] the Medical morning. Branch Hold if B/P <110/60 or HR <60 dextran 2022-0 Yes 1[drp] Place 1 Unive rs 70-hypromel 3-30 Drop in ity o f lose 16:33: both eyes [place] (ARTIFICIAL 58 in the Medica l TEARS,DEXT7 morning Branc h 0-HYPRO,) and 1 Drop 0.1-0.3 % at noon and 1 Drop in the evening. losartan 2022-0 Yes 100mg Take 1 Univer s (COZAAR) 3-30 tablet by ity of 100 mg 16:33: mouth in [place] tablet 58 the Medical morning. Branch Hold if B/P <110/60 or HR <60 CRANBERRY 2022-0 Yes 450mg Take 450 Uni vers ORAL 3-30 mg by ity of 16:33: mouth in [place] [address] the Medical morning. Branch Give Two tablets a day prophylact ic supplement s guaiFENesin 2022-0 Yes 100mg Take 5 mL Univers 100 mg/5 mL 3-30 by mouth ity of solution 16:33: every 4 [place] 58 (four) Medical hours as Branch needed for Cough. ipratropium 2022-0 Yes 3mL 3 mL every Univers -albuteroL 3-30 8 (eight) ity of 0.5 mg-3 16:33: hours as [place] mg(2.5 mg 58 needed Medical base)/3 mL (Secretion [facility] nebulizer s). solution loratadine 2022-0 Yes 10mg Take 1 Unive rs 10 mg 3-30 tablet by ity of tablet 16:33: mouth in [place] [address] the Medical morning. Branch For Allergies Melatonin 5 2022-0 Yes 5mg Take 1 Univ ers mg tablet 3-30 tablet by ity o f 16:33: mouth at [place] [address] bedtime. Medical Branch metformin 2023-0 Yes 500mg Take 500 Uni vers HCl 3-30 mg by ity of (METFORMIN 16:33: mouth in [place] as ORAL) 58 the Medical morning Branch and 500 mg in the evening. One tab by mouth daily Olopatadine Yes Place in Un [place] 0.2 % 3-30 each eye ity of ophthalmic 16:33: daily. [place] drops 58 Both eyes Medical once a day Branch for seasonal allergies. tramadol Yes 50mg Take 50 mg Uni vers HCl 3-30 by mouth ity of (TRAMADOL 16:33: every 6 [place] ORAL) 58 (six) Medical hours as Branch needed (Severe to moderate pain). One tablet by mouth every 6 hours as needed for moderate and severe pain acetaminoph Yes 325mg Take 325 U nivers en 3-30 mg by ity of (TYLENOL) 16:33: mouth [place] 325 mg Cap 58 every 6 Medica l (six) Branch hours as needed for Fever (Mild pain). Cholecalcif Yes Take by Uni vers neal, 3-30 mouth ity of Vitamin D3, 16:33: daily. [place] 25 mcg 58 Give two Medical (1,000 tablets by Branch unit) mouth capsule daily. spironolact 2022- No 25mg Take 1 Uni vers one 3-30 03-30 tablet by ity of (ALDACTONE) 14:14: 00:00 mouth in [place] 25 mg 06 :00 the Medical tablet morning. Branch hydrALAZINE 2022- No 100mg Take 2 Un [place] 50 mg 3-30 03-30 tablets by ity of tablet 14:14: 00:00 mouth [place] 06 :00 every 8 Medical (eight) Branch hours. Hold if B/P <110/60 or HR <60 related to Essential (primary) Hypertensi on SODIUM 2022- No 1000mg Take 1,000 [place] CHLORIDE 3-30 03-30 mg by ity of ORAL 14:14: 00:00 mouth in [place] 06 :00 the Medical morning. Branch Give one tablet daily related to Hypo-osmol ality and Hyponatrem ia trazodone 2022-0 2022- No 25mg Take 25 mg U nivers HCl 3-30 03-30 by mouth ity of (TRAZODONE 14:14: 00:00 at [place] ORAL) 06 :00 bedtime. Medical At bedtime Branch for restlessne ss losartan Yes 100mg 100 mg, Unive rs (COZAAR) 330 Oral, ity of tablet 100 14:00: DAILY, [place] mg 00 First dose Medical (after Branch last modificati on) on [place] 01/23/23 at 0900, Until Discontinu ed, Routine sodium 2022- Yes [id number] 1g Take 1 Univ ers chloride 1 01-23-30 tablet by ity of gram tablet 00:00: 04:59 mouth in [place] 00 :00 the Medical morning Branch and 1 tablet in the evening. Take with meals. Do all this for 30 days. sodium 2022- Yes [id number] 1g Take 1 Univ ers chloride 1 01-23-30 tablet by ity of gram tablet 00:00: 04:59 mouth in [place] 00 :00 the Medical morning Branch and 1 tablet in the evening. Take with meals. Do all this for 30 days. nystatin 2022- Yes [id number] Take 5 mL Univers 100,000 01-23-06 by mouth 4 ity o f unit/mL 00:00: 04:59 (four) [place] suspension 00 :00 times Medical daily for Branch 6 days. nystatin 2022- Yes [id number] Take 5 mL Univers 100,000 01-23 04-06 by mouth 4 ity o f unit/mL 00:00: 04:59 (four) [place] suspension 00 :00 times Medical daily for Branch 6 days. hydralAZINE Yes 10mg 10 mg, Univ ers (APRESOLINE 01-22 Slow IV ity o f ) injection 20:43: Push, [place] 10 mg 19 Q4HPRN, Medical Starting Branch on Fri01/22/23 at 1543, Until Discontinu ed, Routine, DBP=>10 0; SBP=>160, For SBP > 160 furosemide 2022-2022- No 20mg 20 mg, Univ ers (LASIX) 01-22 Slow IV ity of injection 17:15: 16:49 Push, [place] 20 mg 00 :00 ONCE, 1 Medical dose, On Branch Fri01/22/23 at 1215, Routine Vancomycin 2022- Yes 750mg 750 mg, IV Univers 750 mg in 01-22 04-12 Piggyback, ity of NaCl 0.9% 16:30: 16:29 Q12H ABX, [place] (NS) 250 mL 00 :00 28 doses, Med ical VIAL-learning support services director dose Bran ch on Fri01/22/23 at 1130, Last dose on Fri02/04/23 at 2330, Administer over 60 Minutes, 250 mL
Reas on for Anti-Infec tive: Documented Infection< br>Documen jasmin Infection Site: Respirator y
Durat ion of Therapy: 7 days nystatin Yes 5mL 500,000 Univer s (NILSTAT) 01-22 Units (5 ity of 100,000 03:45: mL), Oral, [place] unit/mL 00 QID, First Medica l suspension dose on Branch 500,000 Tue Units 01/21/23 at 2245, Until Discontinu ed, NOLBERTO losartan 2022- No 50mg 50 mg, Univer s (COZAAR) 01-21 Oral, ity of tablet 50 14:15: 17:21 DAILY, [place] mg 00 :25 First dose Medical on Fri01/21/23 at 0915, Until Discontinu ed, Routine thiamine Yes 100mg 100 mg, Unive rs (VITAMIN 01-21 Oral, ity of B1) tablet 14:00: DAILY, [place] 100 mg 00 First dose Medical on Fri01/21/23 at 0900, Until Discontinu ed, Routine azithromyci 2022- No 500mg 500 mg, U nivers n 01-21 Oral, ity of (ZITHROMAX) 14:00: 12:47 DAILY, 1 [place] tablet 500 00 :00 dose, Medical mg First dose Branch on Fri01/21/23 at 0900, NOLBERTO
Re ason for Anti-Infec tive: Documented Infection< br>Documen jasmin Infection Site: Respirator y
Durat ion of Therapy: Other (see Comments) acetaminoph 2023-0 Yes 650mg 650 mg, [place] en 01-21 Oral, ity of (TYLENOL) 02:36: Q6HPRN, [place] tablet 650 28 Starting Medic al mg on Fri01/20/23 at 2136, Until Discontinu ed, Routine, Pain (scale 1-3) traMADoL 0 Yes 50mg 50 mg, Univers (ULTRAM) 01-21 Oral, ity of tablet 50 02:36: Q6HPRN, [place] mg 00 Starting Medical on Fri01/20/23 at 2136, Until Discontinu ed, Routine, Pain (scale 4-6) budesonide- 0 Yes 2{puff} 2 Puff, Univers formoteroL 01-21 Inhalation ity of (SYMBICORT) 01:00: , BID, [place] 80-4.5 00 First dose Medical mcg/actuati on Fri on inhaler 01/20/23 at 2 Puff 1999, Until Discontinu ed, Routine cefTRIAXone 2022- Yes 1000mg 1,000 mg, Univers (ROCEPHIN) 01-21 04-04 IV ity of 1,000 mg in 01:00: 00:59 Piggyback, [place] NaCl 0.9% 00 :00 Q24H ABX, Medic al (NS) 100 mL 7 doses, Bran ch MINI-BAG First dose on Fri01/20/23 at 2000, Last dose on Fri01/26/23 at 1999, Administer over 30 Minutes, 100 mL
Reas on for Anti-Infec tive: Documented Infection< br>Documen jasmin Infection Site: Respirator y
Durat ion of Therapy: 7 days cetirizine Yes 10mg 10 mg, Unive rs (ZYRTEC) 01-20 Oral, ity of tablet 10 16:45: DAILY, [place] mg 00 First dose Medical on Fri Branch 01/20/23 at 1145, Until Discontinu ed, Routine D5W IV 2022- No 1000mL at 50 Univers infusion 01-20 03-28 mL/hr, IV ity o f 1,000 mL 15:00: 04:49 Infusion, [place] as 00 :00 ONCE, 1 Medical dose, On Branch Fri01/20/23 at 1000, Routine methylPREDN 2023-0 2023- No 40mg 40 mg, Uni vers ISolone sod 01-20 Intravenou i ty of succ 14:00: 13:27 s, DAILY, [place] (SOLU-MEDRO 00 :00 4 doses, Medi nelson L (PF)) First dose Branch injection (after 40 mg last modificati on) on Fri01/20/23 at 0900, Last dose on [place] 01/23/23 at 0900, 1 mL NaCl 0.9% 2022- No [id number] at 75 Un [place] (NS) IV 01-20 mL/hr, IV ity of infusion 11:00: 14:01 Infusion, [place] 00 :09 CONTINUOUS Medical , Starting Branch on Fri01/20/23 at 0600, Until Fri01/20/23 at 0901, NOLBERTO artificial Yes 1[drp] 1 Drop, [place] tears(hypro 01-20 Both Eyes, it y of mellose) 08:09: PRN, [place] (ISOPTO-TEA 07 Starting Medi nelson RS) 0.5 % on Fri Branch ophthalmic 01/20/23 at drops 1 0309, Drop Until Discontinu ed, Routine, Dry eyes azithromyci 2022- No 500mg 500 mg, IV Univers n 01-20 Piggyback, ity of (ZITHROMAX) 04:45: 15:22 Q24H ABX, [place] 500 mg in 00 :42 2 doses, Medica l NaCl 0.9% First dose Bran ch (NS) 250 mL on Sun VIAL-MATE 01/19/23 at IV 2345, Last piggyback dose on Fri01/20/23 at 2345, Administer over 60 Minutes, 250 mL
Reas on for Anti-Infec tive: Documented Infection& lt;br>Docu mented Infection Site: Respirator y
Durat ion of Therapy: Other (see Comments) vancomycin 2022- No 1000mg 1,000 mg, Univers (VANCOCIN) 01-20 IV ity of 1,000 mg in 04:30: 12:54 Piggyback, [place] NaCl 0.9% 00 :28 Q24H, 4 Medical (NS) 250 mL doses, Branch VIAL-learning support services director dose IV (after piggyback last modificati on) on [place] 01/19/23 at 2330, Last dose on Fri01/22/23 at 2330, Administer over 60 Minutes, 250 mL
Reas on for Anti-Infec tive: Documented Infection< br>Documen jasmin Infection Site: Respirator y
Durat ion of Therapy: 7 days clonazePAM 0 Yes .5mg 0.5 mg, Univ ers (KLONOPIN) 01-19 Oral, ity of tablet 0.5 17:32: BIDPRN, [place] mg 43 Starting Medical on [facility] 01/19/23 at 1232, Until Discontinu ed, Routine, Anxiety Sliding Yes Subcutaneo Univ ers Scale 01-19 us, TID ity of Insulin - 17:00: MEALS+HS, [place] as Lispro 00 First dose Medical (HumaLOG) + on [facility] Fsbg 01/19/23 at Testing 1200, Until Discontinu ed, Routine glucagon Yes 1mg 1 mg, Univers (GLUCAGEN 01-19 Intramuscu ity of DIAGNOSTIC 16:49: lar, PRN, [place] KIT) 09 Starting Medical injection 1 on [facility] mg 01/19/23 at 1149, Until Discontinu ed, NOLBERTO, Blood Glucose < or = 70 mg/dL and patient is NPO, unable to swallow or has mental changes. dextrose 50 Yes 25mL 25 mL, Univ ers % in water 01-19 Slow IV ity of (D50W) 16:49: Push, PRN, [place] injection 09 Starting Medica l 25 mL on [facility] 01/19/23 at 1149, Until Discontinu ed, NOLBERTO, Blood Glucose < or = 70 mg/dL and patient is NPO, unable to swallow or has mental status changes. polyethylen 0 Yes 17g 17 g, Unive rs e glycol 01-19 Oral, ity of 3350 powder 14:00: DAILY, [place] 17 g 00 First dose Medical on [facility] 01/19/23 at 0900, Until Discontinu ed, Routine atorvastati Yes 20mg 20 mg, Univ ers n (LIPITOR) 01-19 Oral, ity of tablet 20 14:00: DAILY, [place] mg 00 First dose Medical on [facility] 01/19/23 at 0900, Until Discontinu ed, Routine aspirin 0 Yes 81mg 81 mg, Univers chewable 01-19 Oral, ity of tablet 81 14:00: DAILY, [place] mg 00 First dose Medical on [facility] 01/19/23 at 0900, Until Discontinu ed, Routine pantoprazol Yes 40mg 40 mg, Univ ers e 01-19 Oral, ity of (PROTONIX) 14:00: DAILY, [place] EC tablet 00 First dose Medi nelson 40 mg on [facility] 01/19/23 at 0900, Until Discontinu ed, Routine
Indicatio n for use: Severe Sepsis enoxaparin Yes 40mg 40 mg, Unive rs (LOVENOX) 01-19 Subcutaneo ity of injection 14:00: us, DAILY, [place] 40 mg 00 First dose Medical on [facility] 01/19/23 at 0900, Until Discontinu ed, Routine carvediloL Yes 25mg 25 mg, Unive rs (COREG) 01-19 Oral, BID ity of tablet 25 13:00: MEALS, [place] mg 00 First dose Medical on [facility] 01/19/23 at 0800, Until Discontinu ed, Routine levalbutero 2022- No 1.25mg 1.25 mg, Univers l (XOPENEX) 01-19 Inhalation i ty of nebulizer 13:00: 16:47 , QID, [place] solution 00 :59 First dose Medic al 1.25 mg (after Branch last modificati on) on [place] 01/19/23 at 0800, Until Discontinu ed, Routine ceFEPIme 2022- No 1000mg 1,000 mg, U nivers (MAXIPIME) 01-19 IV ity of 1,000 mg in 13:00: 15:20 [place]back, [place] NaCl 0.9% 00 :51 Q12H, 7 Medical (NS) 100 mL doses, Branch MINI-BAG First dose on [place] 01/19/23 at 0800, Last dose on Fri01/22/23 at 0800, Administer over 4 Hours, 100 mL
Reas on for Anti-Infec tive: Documented Infection< br>Documen jasmin Infection Site: Respirator y
Durat ion of Therapy: 7 days magnesium 2022- No 2g 2 g, IV Univ ers sulfate in 01-19 Piggyback, it y of water 2 12:00: 13:46 Administer [place] gram/50 mL 00 :00 over 60 Medica l (4 %) Minutes, Branch infusion 2 ONCE, 1 g dose, On 01/19/23 at 0700, Routine NaCl 0.9% 2022- No 1000mL at 70 Univ ers (NS) IV 01-19 mL/hr, IV ity of infusion 11:30: 16:50 Infusion, [place] 1,000 mL 00 :32 CONTINUOUS Medic al , Starting Branch on 01/19/23 at 0630, Until 01/19/23 at 1150, Routine methylpredn 2022- No 60mg 60 mg, Uni vers isolone sod 01-19 Intravenou i ty of succ 09:15: 13:23 s, Q6H [place] (SOLU-MEDRO 00 :03 ABX, First Me dical L) dose on Branch injection Sun 60 mg 01/19/23 at 0415, Until Discontinu ed, 2 mL ipratropium Yes .5mg 0.5 mg, Uni vers (ATROVENT) 01-19 Inhalation ity of 0.02 % 09:00: , QID, [place] nebulizer 00 First dose Medi nelson solution on Sun Branch 0.5 mg 01/19/23 at 0400, Until Discontinu ed, Routine levalbutero 2022- No 1.25mg 1.25 mg, Univers l (XOPENEX) 01-19 Inhalation i ty of nebulizer 09:00: 12:00 , TID, [place] solution 00 :05 First dose Medic al 1.25 mg on Sun Branch 01/19/23 at 0400, Until Discontinu ed, Routine benzonatate Yes 200mg 200 mg, Un [place] (TESSALON 01-19 Oral, ity of PERLES) 07:58: Q8HPRN, [place] capsule 200 43 Starting Medi nelson mg on Sun Branch 01/19/23 at 0258, Until Discontinu ed, Routine, Cough, Other, cough NaCl 0.9% 2022- No 1000mL at 100 Uni vers (NS) IV 01-19 mL/hr, IV ity of infusion 05:30: 11:20 Infusion, [place] 1,000 mL 00 :47 CONTINUOUS Medic al , Starting Branch on 01/19/23 at 0030, Until 01/19/23 at 0620, Routine Vancomycin 2022- No 15mg/kg 750 mg U nivers 750 mg in 01-19 (rounded ity o f NaCl 0.9% 04:30: 21:06 from 694.5 [place] (NS) 250 mL 00 :46 mg = 15 Medic al VIAL-MATE mg/kg Branch ?46.3 kg), IV Piggyback, Q24H, 5 doses, First dose on 01/18/23 at 2330, Last dose on 01/22/23 at 2330, Administer over 60 Minutes, 250 mL
Reas on for Anti-Infec tive: Documented Infection< br>Documen jasmin Infection Site: Respirator y
Durat ion of Therapy: 7 days NaCl 0.9% Yes 5mL 5 mL, Slow Un roberth (NS) 01-19 IV Push, ity of injection 5 03:01: PRN - [place] mL 07 [facility] Medical NS, Branch Starting on 01/18/23 at 2201, Until Discontinu ed, 10 mL iopamidol 2022- No [id number] 100mL 100 mL, Univers (ISOVUE 01-19 Intravenou ity o f 370-500 mL) 03:00: 03:00 s, ONCE, 1 [place] injection 00 :00 dose, On Medica l 100 mL Sat Branch 01/18/23 at 2200, Routine magnesium 2022- No 800mg 800 mg, Uni vers oxide 01-19 Oral, ONCE ity of (MAG-OX 02:30: 02:17 NOW, 1 [place] 400) tablet 00 :00 dose, On Medi nelson 800 mg Sat Branch 01/18/23 at 2130, NOLBERTO magnesium 2022- No 2g 2 g, IV Univ ers sulfate in 01-19 Piggyback, it y of water 2 01:00: 01:28 Administer [place] gram/50 mL 00 :00 over 60 Medica l (4 %) Minutes, Branch infusion 2 ONCE, 1 g dose, On 01/18/23 at 1999, Routine levalbutero 2022- No 1.25mg 1.25 mg, Univers l (XOPENEX) 01-19 Inhalation i ty of nebulizer 01:00: 00:05 , ONCE, 1 [place] solution 00 :00 dose, On Medical 1.25 mg Sat Branch 01/18/23 at 1999, Routine morpHINE (2 2022- No 2mg 2 mg, Slow Univers mg/mL) 01-19 IV Push, ity of injection 2 00:15: 00:33 ONCE, 1 [place] mg 00 :00 dose, On Medical Sat Branch 01/18/23 at 1915, STAT aspirin 81 Yes [id number] 81mg Take 1 Univers mg chewable 3-22 tablet by ity of tablet 00:00: mouth [place] 00 daily. Medical Branch polyethylen Yes [id number] 17g Take 1 Univers e glycol 3-22 Packet by ity of 3350 17 00:00: mouth [place] gram powder 00 daily. Medica l Branch sennosides- Yes [id number] 1{tbl} Take 1 Univers docusate 3-22 tablet by ity of sodium 00:00: mouth [place] 8.6-50 mg 00 daily. Medical per tablet Branch aspirin 81 Yes [id number] 81mg Take 1 Univers mg chewable 3-22 tablet by ity of tablet 00:00: mouth [place] 00 daily. Medical Branch polyethylen Yes [id number] 17g Take 1 Univers e glycol 3-22 Packet by ity of 3350 17 00:00: mouth [place] gram powder 00 daily. Medica l Branch sennosides- Yes [id number] 1{tbl} Take 1 Univers docusate 3-22 tablet by ity of sodium 00:00: mouth [place] 8.6-50 mg 00 daily. Medical per tablet Branch aspirin 81 Yes [id number] 81mg Take 1 Univers mg chewable 3-22 tablet by ity of tablet 00:00: mouth [place] 00 daily. Medical Branch polyethylen Yes [id number] 17g Take 1 Univers e glycol 3-22 Packet by ity of 3350 17 00:00: mouth [place] gram powder 00 daily. Medica l Branch sennosides- Yes [id number] 1{tbl} Take 1 Univers docusate 3-22 tablet by ity of sodium 00:00: mouth [place] 8.6-50 mg 00 daily. Medical per tablet Branch aspirin 81 0 Yes [id number] 81mg Take 1 Univers mg chewable 3-22 tablet by ity of tablet 00:00: mouth [place] 00 daily. Medical Branch polyethylen Yes [id number] 17g Take 1 Univers e glycol 3-22 Packet by ity of 3350 17 00:00: mouth [place] gram powder 00 daily. Medica l Branch sennosides- Yes [id number] 1{tbl} Take 1 Univers docusate 3-22 tablet by ity of sodium 00:00: mouth [place] 8.6-50 mg 00 daily. Medical per tablet Branch aspirin 81 Yes [id number] 81mg Take 1 Univers mg chewable 3-22 tablet by ity of tablet 00:00: mouth [place] 00 daily. Medical Branch polyethylen Yes [id number] 17g Take 1 Univers e glycol 3-22 Packet by ity of 3350 17 00:00: mouth [place] gram powder 00 daily. Medica l Branch sennosides- Yes [id number] 1{tbl} Take 1 Univers docusate 3-22 tablet by ity of sodium 00:00: mouth [place] 8.6-50 mg 00 daily. Medical per tablet Branch losartan 2021- No [id number] 100mg Take 1 U nivers 100 mg 3-22 -22 tablet by ity of tablet 00:00: 04:59 mouth [place] 00 :00 daily for Medical 30 days. Branch amLODIPine 2021- No [id number] 5mg Take 1 Univers 5 mg tablet 3-22 -22 tablet by it y of 00:00: 04:59 mouth [place] 00 :00 daily for Medical 30 days. Branch losartan 2021- No [id number] 100mg Take 1 U nivers 100 mg 01-15- tablet by ity of tablet 00:00: 04:59 mouth [place] 00 :00 daily for Medical 30 days. Branch amLODIPine 2021-2021- No [id number] 5mg Take 1 Univers 5 mg tablet 01-15- tablet by it y of 00:00: 04:59 mouth [place] 00 :00 daily for Medical 30 days. Branch losartan 2021-0 2021- No [id number] 100mg Take 1 U nivers 100 mg -15 02- tablet by ity of tablet 00:00: 04:59 mouth [place] 00 :00 daily for Medical 30 days. Branch amLODIPine 2021-0 2021- No [id number] 5mg Take 1 Univers 5 mg tablet 01-15- tablet by it y of 00:00: 04:59 mouth [place] 00 :00 daily for Medical 30 days. Branch carvediloL 2021-0 Yes 25mg Take 25 mg U nivers (COREG) 25 3-21 by mouth 2 ity of mg tablet 19:01: (two) [place] [address] times Medical daily with Branch meals. atorvastati 2021-0 Yes 20mg Take 20 mg Univers n 20 mg 3-21 by mouth ity of tablet 19:01: daily. [place] [address] Medical Branch fluticasone 2021-0 Yes 1{puff} Inhale 1 Univers /umeclidin/ 3-21 Puff 2 ity of vilanter 19:01: (two) [place] [facility] ELLIPTA daily. Branch INHALE) carvediloL 2021-0 Yes 25mg Take 25 mg U nivers (COREG) 25 3-21 by mouth 2 ity of mg tablet 19:01: (two) [place] 43 times Medical daily with Branch meals. atorvastati 2021-0 Yes 20mg Take 20 mg Univers n 20 mg 3-21 by mouth ity of tablet 19:01: daily. [place] [address] Medical Branch fluticasone 2021-0 Yes 1{puff} Inhale 1 Univers /umeclidin/ 3-21 Puff 2 ity of vilanter 19:01: (two) [place] (TRELEGY 43 times Medical ELLIPTA daily. Branch INHALE) carvediloL 2021-0 Yes 25mg Take 25 mg U nivers (COREG) 25 01-14 by mouth 2 ity of mg tablet 19:01: (two) [place] 43 times Medical daily with Branch meals. atorvastati 0 Yes 20mg Take 20 mg Univers n 20 mg 01-14 by mouth ity of tablet 19:01: daily. [place] 43 Medical Branch fluticasone 2021-0 Yes 1{puff} Inhale 1 Univers /umeclidin/ 01-14 Puff 2 ity of vilanter 19:01: (two) [place] (TRELEGY 43 times Medical ELLIPTA daily. Branch INHALE) demeclocycl Yes 300mg 300 mg, Un roberth ine 3-21 Oral, ity of (DECLOMYCIN 15:30: DAILY, [place] ) tablet 00 First dose Medic al 300 mg on Fri [place] 01/14/22 at 1030, Until Discontinu ed, NOLBERTO
Re ason for Anti-Infec tive: Documented Infection< br>Documen jsamin Infection Site: Urine
D uration of Therapy: 7 days demeclocycl 2021-0 Yes 300mg 300 mg, Un roberth ine - Oral, ity of (DECLOMYCIN 15:30: DAILY, [place] ) tablet 00 First dose Medic al 300 mg on Fri [place] 01/14/22 at 1030, Until Discontinu ed, NOLBERTO
Re ason for Anti-Infec tive: Documented Infection< br>Documen jasmin Infection Site: Urine
D uration of Therapy: 7 days losartan 50 2021-0 2021- No 50mg Take 50 mg Univers mg tablet 01-14 by mouth ity o f 14:34: 00:00 daily. [place] 58 :00 [facility] predniSONE 2021-0 2021- No 10mg Take 10 mg Univers 10 mg 01-14 by mouth 2 ity of tablet 14:34: 00:00 (two) [place] 58 :00 times Medical daily. Branch losartan 50 2021-0 2021- No 50mg Take 50 mg Univers mg tablet 01-14 by mouth ity o f 14:34: 00:00 daily. [place] 58 :00 [facility] predniSONE 2-0 2022- No 10mg Take 10 mg Univers 10 mg 3-21 03-21 by mouth 2 ity of tablet 14:34: 00:00 (two) [place] 58 :00 times Medical daily. Branch demeclocycl 2021- No [id number] 150mg Take 1 Univers ine 150 mg 3-21 -21 tablet by ity of tablet 00:00: 04:59 mouth 2 [place] 00 :00 (two) Medical times Branch daily for 30 days. demeclocycl 2021- No [id number] 150mg Take 1 Univers ine 150 mg 3-21 04-21 tablet by ity of tablet 00:00: 04:59 mouth 2 [place] 00 :00 (two) Medical times Branch daily for 30 days. demeclocycl 2021- No [id number] 150mg Take 1 Univers ine 150 mg 3-21 -21 tablet by ity of tablet 00:00: 04:59 mouth 2 [place] 00 :00 (two) Medical times Branch daily for 30 days. tolvaptan 2021- No 15mg 15 mg, Unive rs (SAMSCA) 01-12 Oral, ONCE ity of tablet 15 22:15: 21:28 NOW, 1 [place] mg 00 :00 dose, On Medical Sat Branch 01/12/22 at 1715, Routine
member services representative approving Restricted medication : JI DE LA ROSA tolvaptan 2021- No 15mg 15 mg, Unive rs ([facility] UCL[facility]) 01-12 Oral, ONCE ity of tablet 15 22:15: 21:28 NOW, 1 [place] mg 00 :00 dose, On Medical Sat Branch 01/12/22 at 1715, Routine
member services representative approving Restricted medication : JI DE LA ROSA D5W IV 2021- No 1000mL at 75 Univers infusion 01-12 mL/hr, IV ity o f 1,000 mL 04:45: 04:06 Infusion, [place] 00 :00 ONCE, 1 Medical dose, On Branch 01/11/22 at 2345, Routine D5W IV 2021- No 1000mL at 75 Univers infusion 01-12 mL/hr, IV ity o f 1,000 mL 04:45: 04:06 Infusion, [place] 00 :00 ONCE, 1 Medical dose, On Branch Fri01/11/22 at 2345, Routine melatonin 2021-0 Yes 6mg 6 mg, Univers (MELATIN) 3-19 Oral, ity of tablet 6 mg 03:42: QHSPRN, [place] 06 Starting Medical on Fri [place] 01/11/22 at 2242, Until Discontinu ed, Routine, Insomnia melatonin 2022-0 Yes 6mg 6 mg, Univers (MELATIN) 3-19 Oral, ity of tablet 6 mg 03:42: QHSPRN, [place] 06 Starting Medical on Fri [place] 01/11/22 at 2242, Until Discontinu ed, Routine, Insomnia alum-mag 2021-0 Yes 30mL 30 mL, Univers hydroxide-s 3-19 Oral, ity of imeth 03:41: Q6HPRNCullen, [place] (MAALOX 57 Starting Medical PLUS / on Fri [facility] 01/11/22 at PLUS) 2241, 200-200-20 Until mg/5 mL Discontinu suspension ed, 30 mL Routine, Indigestio n alum-mag 2021-0 Yes 30mL 30 mL, Univers hydroxide-s 3-19 Oral, ity of imeth 03:41: Q6RNCullen, [place] (MAALOX 57 Starting Medical PLUS / on Fri [facility] 2241, 200-200-20 Until mg/5 mL Discontinu suspension ed, 30 mL Routine, Indigestio n amLODIPine 2021-0 Yes 5mg 5 mg, Univer s (NORVASC) 3-18 Oral, ity of tablet 5 mg 14:00: DAILY, [place] 00 First dose Medical on Fri [place] 01/11/22 at 0900, Until Discontinu ed, Routine KCL 2022-0 Yes 20meq 20 mEq, Univers (KLOR-CON 3-18 Oral, ity of M20) tablet 14:00: DAILY, [place] 20 mEq 00 First dose Medical on Fri [place] 01/11/22 at 0900, Until Discontinu ed, Routine losartan 2-0 Yes 100mg 100 mg, Unive rs (COZAAR) 3-18 Oral, ity of tablet 100 14:00: DAILY, [place] mg 00 First dose Medical (after Branch last modificati on) on Fri01/11/22 at 0900, Until Discontinu ed, Routine amLODIPine Yes 5mg 5 mg, Univer s (NORVASC) 18 Oral, ity of tablet 5 mg 14:00: DAILY, [place] 00 First dose Medical on Fri Branch 01/11/22 at 0900, Until Discontinu ed, Routine KCL Yes 20meq 20 mEq, Univers (KLOR-CON 01-11 Oral, ity of M20) tablet 14:00: DAILY, [place] 20 mEq 00 First dose Medical on Fri Branch 01/11/22 at 0900, Until Discontinu ed, Routine losartan Yes 100mg 100 mg, Unive rs (COZAAR) 01-11 Oral, ity of tablet 100 14:00: DAILY, [place] mg 00 First dose Medical (after Branch last modificati on) on Fri01/11/22 at 0900, Until Discontinu ed, Routine KCL 2021- No 20meq 20 mEq, Univers (KLOR-CON 01-11 Oral, ity of M20) tablet 14:00: 13:29 ONCE, 1 [place] 20 mEq 00 :00 dose, On Medical Fri Branch 01/11/22 at 0900, Routine tolvaptan 2021- No 15mg 15 mg, Unive rs (SAMSCA) 01-11 Oral, ity of tablet 15 14:00: 15:12 ONCE, 1 [place] mg 00 :00 dose, On Medical Fri Branch 01/11/22 at 0900, Routine
member services representative approving Restricted medication : JI DE LA ROSA KCL 2021- No 20meq 20 mEq, Univers (KLOR-CON 01-11 Oral, ity of M20) tablet 14:00: 13:29 ONCE, 1 [place] 20 mEq 00 :00 dose, On Medical Fri Branch 01/11/22 at 0900, Routine tolvaptan 2021- No 15mg 15 mg, Unive rs (SAMSCA) 01-11 Oral, ity of tablet 15 14:00: 15:12 ONCE, 1 [place] mg 00 :00 dose, On Medical Fri Branch 01/11/22 at 0900, Routine
member services representative approving Restricted medication : JI DE LA ROSA sodium 2021- No 1g 1 g, Oral, Univ ers chloride 01-1117 ONCE, 1 ity of tablet 1 g 00:00: 23:15 dose, On [place] 00 :00 [facility] 01/10/22 at Branch 1900, Routine sodium 2021- No 1g 1 g, Oral, Univ ers chloride 01-11 ONCE, 1 ity of tablet 1 g 00:00: 23:15 dose, On [place] 00 :00 [facility] 01/10/22 at Branch 1900, Routine ipratropium 2021-0 Yes 3mL 3 mL, Unive rs -albuteroL 17 Inhalation ity of (DUONEB) 21:00: , QIDPRN, [place] 0.5 mg-3 00 Starting Medical mg(2.5 mg on [facility] Branch base)/3 mL 01/10/22 at nebulizer 1600, solution 3 Until mL Discontinu ed, Routine, Wheezing ipratropium 0 Yes 3mL 3 mL, Unive rs -albuteroL -17 Inhalation ity of (DUONEB) 21:00: , QIDPRN, [place] 0.5 mg-3 00 Starting Medical mg(2.5 mg on [facility] Branch base)/3 mL 01/10/22 at nebulizer 1600, solution 3 Until mL Discontinu ed, Routine, Wheezing losartan No 50mg 50 mg, Univer s (COZAAR) 01-1017 Oral, ity of tablet 50 14:45: 14:03 ONCE, 1 [place] mg 00 :00 dose, On [facility] Branch 01/10/22 at 0945, Routine losartan 2021- No 50mg 50 mg, Univer s (COZAAR) 01-1017 Oral, ity of tablet 50 14:45: 14:03 ONCE, 1 [place] mg 00 :00 dose, On [facility] Branch 01/10/22 at 0945, Routine polyethylen 2021-0 Yes 17g 17 g, Unive rs e glycol 3-17 Oral, ity of 3350 powder 14:00: DAILY, [place] 17 g 00 First dose Medical on [facility] Branch 01/10/22 at 0900, Until Discontinu ed, Routine polyethylen 2021-0 Yes 17g 17 g, Unive rs e glycol 3-17 Oral, ity of 3350 powder 14:00: DAILY, [place] 17 g 00 First dose Medical on [facility] Branch 01/10/22 at 0900, Until Discontinu ed, Routine sodium 2021- No 1g 1 g, Oral, Univ ers chloride 01-10 ONCE, 1 ity of tablet 1 g 03:30: 02:34 dose, [place] 00 :00 [facility] Medical 01/09/22 at Branch 2230, Routine sodium 2021-2021- No 1g 1 g, Oral, [facility] ers chloride 01-10 ONCE, 1 ity of tablet 1 g 03:30: 02:34 dose, On [place] 00 :00 [facility] Medical 01/09/22 at Branch 2230, Routine furosemide 2021- No 20mg 20 mg, Univ ers (LASIX) 01-10-18 Slow IV ity of injection 01:00: 12:40 Push, [place] 20 mg 00 :42 Q12H, Medical First dose Branch on Fri01/09/22 at 2000, Until Discontinu ed, Routine furosemide 2021-0 2021- No 20mg 20 mg, Univ ers (LASIX) 01-10-18 Slow IV ity of injection 01:00: 12:40 Push, [place] 20 mg 00 :42 Q12H, Medical First dose Branch on Fri01/09/22 at 2000, Until Discontinu ed, Routine sennosides- 2021-0 Yes 1{tbl} 1 tablet, Univers docusate 3-16 Oral, ity of sodium 21:00: DAILY, [place] (SENOKOT-S) First dose Me dical 8.6-50 mg on [facility] Branch per tablet 01/09/22 at 1 tablet 1600, Until Discontinu ed, Routine sennosides- 2021-0 Yes 1{tbl} 1 tablet, Univers docusate 3-16 Oral, ity of sodium 21:00: DAILY, [place] (SENOKOT-S) 00 First dose Me dical 8.6-50 mg on Fri Branch per tablet 01/09/22 at 1 tablet 1600, Until Discontinu ed, Routine ondansetron 2022-0 Yes 4mg 4 mg, Slow Univers (ZOFRAN 3-16 IV Push, ity of (PF)) 18:12: Q6HPRN, [place] injection 4 31 Nausea and Me dical mg Vomiting Branch (N/V), Starting on Fri01/09/22 at 1312
Do ses of ondansetro n 16 mg and above need to be administer ed via IV piggyback. For Dose >=24mg ECG monitoring is advisable.
ondansetron 2022-0 Yes 4mg 4 mg, Slow Univers (ZOFRAN 3-16 IV Push, ity of (PF)) 18:12: Q6HPRN, [place] injection 4 31 Nausea and Me dical mg Vomiting Branch (N/V), Starting on Fri01/09/22 at 1312
Do ses of ondansetro n 16 mg and above need to be administer ed via IV piggyback. For Dose >=24mg ECG monitoring is advisable.
sodium 2022-0 2022- No 2g 2 g, Oral, Univ ers chloride 3-16 03-16 ONCE, 1 ity of tablet 2 g 18:00: 17:56 dose, On [place] 00 :00 [facility] Medical 01/09/22 at Branch 1300, Routine sodium 2022-0 2022- No 2g 2 g, Oral, Univ ers chloride 3- 03-16 ONCE, 1 ity of tablet 2 g 18:00: 17:56 dose, On [place] 00 :00 [facility] Medical 01/09/22 at Branch 1300, Routine aspirin 2-0 Yes 81mg 81 mg, Univers chewable 3-16 Oral, ity of tablet 81 14:00: DAILY, [place] mg 00 First dose Medical on Fri Branch 01/09/22 at 0900, Until Discontinu ed, Routine atorvastati 2-0 Yes 20mg 20 mg, Univ ers n (LIPITOR) 3-16 Oral, ity of tablet 20 14:00: DAILY, [place] mg 00 First dose Medical on Fri Branch 01/09/22 at 0900, Until Discontinu ed, Routine enoxaparin 2021-0 Yes 40mg 40 mg, Unive rs (LOVENOX) 3-16 Subcutaneo ity of injection 14:00: us, DAILY, [place] 40 mg 00 First dose Medical on Fri01/09/22 at 0900, Until Discontinu ed, Routine aspirin 2021-0 Yes 81mg 81 mg, Univers chewable 3-16 Oral, ity of tablet 81 14:00: DAILY, [place] mg 00 First dose Medical on Fri01/09/22 at 0900, Until Discontinu ed, Routine atorvastati 2021-0 Yes 20mg 20 mg, Univ ers n (LIPITOR) 3-16 Oral, ity of tablet 20 14:00: DAILY, [place] mg 00 First dose Medical on Fri01/09/22 at 0900, Until Discontinu ed, Routine enoxaparin 2021-0 Yes 40mg 40 mg, Unive rs (LOVENOX) 3-16 Subcutaneo ity of injection 14:00: us, DAILY, [place] 40 mg 00 First dose Medical on Fri [place] 01/09/22 at 0900, Until Discontinu ed, Routine losartan 2021-0 2021- No 50mg 50 mg, Univer s (COZAAR) 01-09-17 Oral, ity of tablet 50 14:00: 13:31 DAILY, [place] mg 00 :52 First dose Medical on Fri [place] 01/09/22 at 0900, Until Discontinu ed, Routine losartan 2021-0 2022- No 50mg 50 mg, Univer s (COZAAR) 01-09-17 Oral, ity of tablet 50 14:00: 13:31 DAILY, [place] mg 00 :52 First dose Medical on Fri [place] 01/09/22 at 0900, Until Discontinu ed, Routine famotidine 2021-0 Yes 20mg 20 mg, Unive rs (PEPCID AC) 3-16 Oral, BID, it y of tablet 20 13:00: First dose [place] mg 00 on Fri01/09/22 at Branch 0800, Until Discontinu ed, Routine famotidine 2021-0 Yes 20mg 20 mg, Unive rs (PEPCID AC) 3-16 Oral, BID, it y of tablet 20 13:00: First dose [place] mg 00 on Fri01/09/22 at Branch 0800, Until Discontinu ed, Routine KCL 2021- No 20meq 20 mEq, Univers (KLOR-CON 01-09 Oral, ity of M20) tablet 04:45: 05:02 ONCE, 1 [place] 20 mEq 00 :00 dose, On [facility] 01/08/22 at 2345, Routine KCL 2021- No 20meq 20 mEq, Univers (KLOR-CON 01-09 Oral, ity of M20) tablet 04:45: 05:02 ONCE, 1 [place] 20 mEq 00 :00 dose, On [facility] 01/08/22 at 2345, Routine [facility]iding [facility]-16 us, TID ity of Insulin - 02:00: MEALS+HS, [place] Lispro 00 First dose Medical (HumaLOG) + on [facility] 01/08/22 at Testing 2100, Until Discontinu ed, Routine Sliding Yes [facility] ers Scale 3-16 us, TID ity of Insulin - 02:00: MEALS+HS, [place] Lispro 00 First dose Medical (HumaLOG) + on [facility] 01/08/22 at Testing 2100, Until Discontinu ed, Routine desmopressi 2021- No 2ug 2 mcg, Uni vers n (DDAVP) 01-09 Intravenou ity of injection 2 01:15: 01:02 s, ONCE, 1 [place] mcg 00 :00 dose, On [facility] 01/08/22 at 2014, STAT D5W IV 2021- No 1000mL at 100 Univer s infusion 01-09 mL/hr, IV ity o f 1,000 mL 01:15: 01:02 Infusion, [place] 00 :00 ONCE, 1 Medical dose, On [facility] 01/08/22 at 2014, Routine desmopressi 2021- No 2ug 2 mcg, Uni vers n (DDAVP) 01-09 Intravenou ity of injection 2 01:15: 01:02 s, ONCE, 1 [place] mcg 00 :00 dose, On [facility] 01/08/22 at 2014, STAT D5W IV 2021-0 2021- No 1000mL at 100 Univer s infusion 16 -16 mL/hr, IV ity o f 1,000 mL 01:15: 01:02 Infusion, [place] 00 :00 ONCE, 1 Medical dose, On Branch 01/08/22 at 2015, Routine ipratropium 2021-0 2021- No 3mL 3 mL, Univ ers -albuteroL -16 -17 Inhalation it y of (DUONEB) 01:00: 21:00 , QID, [place] 0.5 mg-3 00 :02 First dose Medic al mg(2.5 mg (after Branch base)/3 mL last nebulizer modificati solution 3 on) on [facility] 01/08/22 at 1999, Until Discontinu ed, Routine ipratropium 2021-0 2021- No 3mL 3 mL, Univ ers -albuteroL 01-09-17 Inhalation it y of (DUONEB) 01:00: 21:00 , QID, [place] 0.5 mg-3 00 :02 First dose Medic al mg(2.5 mg (after Branch base)/3 mL last nebulizer modificati solution 3 on) on [facility] 01/08/22 at 2000, Until Discontinu ed, Routine carvediloL 2021-0 Yes 25mg 25 mg, Unive rs (COREG) 3-16 Oral, BID ity of tablet 25 00:30: MEALS, [place] mg 00 First dose Medical (after Branch last modificati on) on 01/08/22 at 1930, Until Discontinu ed, Routine carvediloL 2021-0 Yes 25mg 25 mg, Unive rs (COREG) 3-16 Oral, BID ity of tablet 25 00:30: MEALS, [place] mg 00 First dose Medical (after Branch last modificati on) on Fri01/08/22 at 1930, Until Discontinu ed, Routine hydralAZINE 2021-0 Yes 10mg 10 mg, Univ ers (APRESOLINE 3-16 Slow IV ity o f ) injection 00:25: Push, [place] 10 mg 21 Q6HPRN, Medical Starting Branch on Fri01/08/22 at 1925, Until Discontinu ed, Routine, DBP=>10 0; SBP=>160, For SBP > 160
Ind ication: Hypertensi ve Emergency hydralAZINE 2021-0 Yes 10mg 10 mg, Univ ers (APRESOLINE 3-16 Slow IV ity o f ) injection 00:25: Push, [place] 10 mg 21 Q6HPRN, Medical Starting Branch on [facility] 01/08/22 at 1925, Until Discontinu ed, Routine, DBP=>10 0; SBP=>160, For SBP > 160
Ind ication: Hypertensi ve Emergency artificial 2021-0 Yes 1[drp] 1 Drop, Un [place] tears(hypro 3-16 Both Eyes, it y of mellose) 00:09: PRNVijay (ISOPTO-TEA 23 Starting Medi nelson RS) 0.5 % on [facility] ophthalmic 01/08/22 at drops 1 1908, Drop Until Discontinu ed, Routine, Dry eyes artificial 2021-0 Yes 1[drp] 1 Drop, Un [place] tears(hypro 3-16 Both Eyes, it y of mellose) 00:09: PRNVijay (ISOPTO-TEA 23 Starting Medi nelson RS) 0.5 % on [facility] ophthalmic 01/08/22 at drops 1 1909, Drop Until Discontinu ed, Routine, Dry eyes acetaminoph 2-0 Yes 650mg 650 mg, Un roberth en 3-16 Oral, ity of (TYLENOL) 00:09: Q8HPRN, [place] tablet 650 20 Starting Medic al mg on [facility] Branch 01/08/22 at 1909, Until Discontinu ed, Routine, Pain (scale 1-3), Temp > 38.5 C acetaminoph 2022-0 Yes 650mg 650 mg, Un roberth en 3-16 Oral, ity of (TYLENOL) 00:09: Q8HPNCullen, [place] tablet 650 20 Starting Medic al mg on [facility] Branch 01/08/22 at 1909, Until Discontinu ed, Routine, Pain (scale 1-3), Temp > 38.5 C glucagon 2-0 Yes 1mg 1 mg, Univers (GLUCAGEN 3-16 Intramuscu ity of DIAGNOSTIC 00:08: lar, PRN, [place] KIT) 29 Starting Medical injection 1 on [facility] Branch mg 01/08/22 at 1908, Until Discontinu ed, NOLBERTO, Blood Glucose < or = 70 mg/dL and patient is unable to swallow or has mental changes. glucagon 2021-0 Yes 1mg 1 mg, Univers (GLUCAGEN -16 Intramuscu ity of DIAGNOSTIC 00:08: [place], PRN, [place] KIT) 29 Starting Medical injection 1 on [facility] mg 01/08/22 at 1908, Until Discontinu ed, NOLBERTO, Blood Glucose < or = 70 mg/dL and patient is unable to swallow or has mental changes. dextrose 50 2021-0 Yes 25mL 25 mL, Univ ers % in water 3-16 Slow IV ity of (D50W) 00:08: Push, PRN, [place] injection 28 Starting Medica l 25 mL on [facility] 01/08/22 at 1908, Until Discontinu ed, NOLBERTO, Blood Glucose < or = 70 mg/dL and patient is unable to swallow or has mental status changes. dextrose 50 2021-0 Yes 25mL 25 mL, Univ ers % in water 16 Slow IV ity of (D50W) 00:08: Push, PRN, [place] injection 28 Starting Medica l 25 mL on [facility] 01/08/22 at 1908, Until Discontinu ed, NOLBERTO, Blood Glucose < or = 70 mg/dL and patient is unable to swallow or has mental status changes. NaCl 0.9% 0 2021- No 1000mL at 200 Uni vers (NS) bolus 3 03-15 mL/hr, ity of infusion 18:00: 19:02 1,000 mL, [place] 1,000 mL 00 :00 IV Medical Infusion, Branch ONCE, 1 dose, On Fri01/08/22 at 1300, STAT NaCl 0.9% 2021-0 2021- No 1000mL at 200 Uni vers (NS) bolus 3 03-15 mL/hr, ity of infusion 18:00: 19:02 1,000 mL, [place] 1,000 mL 00 :00 IV Medical Infusion, Branch ONCE, 1 dose, On Fri01/08/22 at 1300, STAT furosemide 2021-0 2021- No 40mg 40 mg, Univ ers (LASIX) 3-15 03-15 Slow IV ity of injection 17:00: 22:00 Push, Q6H, [place] 40 mg 00 :58 First dose Medical on [facility] 01/08/22 at 1200, Until Discontinu ed, Routine furosemide No 40mg 40 mg, Univ ers (LASIX) 01-08 Slow IV ity of injection 17:00: 22:00 Push, Q6H, [place] 40 mg 00 :58 First dose Medical on [facility] 01/08/22 at 1200, Until Discontinu ed, Routine losartan 50 0 Yes 50mg Take 50 mg Univers mg tablet 3-12 by mouth ity of 12:53: daily. [address] carvediloL 0 Yes 25mg Take 25 mg U nivers (COREG) 25 3-12 by mouth 2 ity of mg tablet 12:53: (two) [place] [id number] times Medical daily with Branch meals. atorvastati 0 Yes 20mg Take 20 mg Univers n 20 mg 3-12 by mouth ity of tablet 12:53: daily. [address] predniSONE 0 Yes 10mg Take 10 mg U nivers 10 mg 3-12 by mouth 2 ity of tablet 12:53: (two) [place] 53 times Medical daily. [place] fluticasone Yes 1{puff} Inhale 1 Univers /umeclidin/ 3-12 Puff 2 ity of vilanter 12:53: (two) [place] (TRELEGY 53 times Medical ELLIPTA daily. Branch INHALE) losartan 50 0 Yes 50mg Take 50 mg Univers mg tablet 3-12 by mouth ity of 12:53: daily. [address] carvediloL 0 Yes 25mg Take 25 mg U nivers (COREG) 25 3-12 by mouth 2 ity of mg tablet 12:53: (two) [place] 53 times Medical daily with Branch meals. atorvastati 2021-0 Yes 20mg Take 20 mg Univers n 20 mg 3-12 by mouth ity of tablet 12:53: daily. [address] predniSONE 2021-0 Yes 10mg Take 10 mg U nivers 10 mg 3-12 by mouth 2 ity of tablet 12:53: (two) [place] 53 times Medical daily. [place] fluticasone Yes 1{puff} Inhale 1 Univers /umeclidin/ 3-12 Puff 2 ity of vilanter 12:53: (two) [place] (TRELEGY 53 times Medical ELLIPTA daily. Branch INHALE) amLODIPine 2021- No 10mg Take 10 mg Univers (NORVASC) 01-0512 by mouth ity o f 10 mg 10:37: 00:00 daily. [place] tablet 06 :00 Medical Branch furosemide 2021- No 20mg Take 20 mg Univers (LASIX) 20 01-05 by mouth ity of mg tablet 10:37: 00:00 daily. [place] 06 :00 Medical Branch traZODone 2021- No 50mg Take 50 mg U nivers 50 mg 01-05 by mouth ity of tablet 10:37: 00:00 at [place] 06 :00 bedtime. Medical Branch budesonide- 2021- No 160mg Inhale 160 Univers glycopyr-fo 01-0512 mg as ity of rmoterol 10:37: 00:00 needed. [place] (BREZTRI 06 :00 Medical AEROSPHERE) Branch 160-9-4.8 mcg/actuati on HFAA furosemide 2021- No [id number] 20mg Take 1 Univers 20 mg -09 29-12 tablet by ity of tablet 00:00: 04:59 mouth [place] 00 :00 every Medical morning Branch and evening for 30 days. metFORMIN 2021- No [id number] 500mg Take 1 Univers 500 mg 01-05-12 tablet by ity of tablet 00:00: 04:59 mouth 2 [place] 00 :00 (two) Medical times Branch daily with meals for 30 days. metFORMIN 2021- No [id number] 500mg Take 1 Univers 500 mg 3-12 04-12 tablet by ity of tablet 00:00: 04:59 mouth 2 [place] 00 :00 (two) Medical times Branch daily with meals for 30 days. furosemide 2021- No [id number] 20mg Take 1 Univers 20 mg -12 -12 tablet by ity of tablet 00:00: 04:59 mouth [place] 00 :00 every Medical morning Branch and evening for 30 days. metFORMIN 2021- No [id number] 500mg Take 1 Univers 500 mg 01-05-12 tablet by ity of tablet 00:00: 04:59 mouth 2 [place] 00 :00 ([facility]) Medical times Branch daily with meals for 30 days. metFORMIN 2021- No [id number] 500mg Take 1 Univers 500 mg 3-12 tablet by ity of tablet 00:00: 04:59 mouth 2 [place] 00 :00 ([facility]) Medical times Branch daily with meals for 30 days. metFORMIN 2021- No [id number] 500mg Take 1 Univers 500 mg 01-05-12 tablet by ity of tablet 00:00: 04:59 mouth 2 [place] 00 :00 ([facility]) Medical times [place] daily with meals for 30 days. furosemide 2021- No [id number] 20mg Take 1 Univers 20 mg 01-05- tablet by ity of tablet 00:00: 00:00 mouth [place] 00 :00 every Medical morning Branch and evening for 30 days. demeclocycl 2021- No [id number] 150mg Take 1 Univers ine 150 mg 01-05-21 tablet by ity of tablet 00:00: 00:00 mouth 2 [place] 00 :00 ([facility]) Medical times Branch daily for 7 days. furosemide 2021- No [id number] 20mg Take 1 Univers 20 mg 01-05-21 tablet by ity of tablet 00:00: 00:00 mouth [place] 00 :00 every Medical morning Branch and evening for 30 days. demeclocycl 2021- No [id number] 150mg Take 1 Univers ine 150 mg 01-05-21 tablet by ity of tablet 00:00: 00:00 mouth 2 [place] 00 :00 ([facility]) Medical times Branch daily for 7 days. demeclocycl 2021- No [id number] 150mg Take 1 Univers ine 150 mg 01-05-20 tablet by ity of tablet 00:00: 04:59 mouth 2 [place] 00 :00 (two) Medical times Branch daily for 7 days. furosemide Yes [id number] 20mg 20 mg, Univers (LASIX) 3-11 Oral, ity of tablet 20 23:00: QAM+PM, [place] mg 00 First dose Medical on Fri Branch 01/04/22 at 1700, Until Discontinu ed, Routine Sliding Yes Subcutaneo Univ ers Scale -11 us, TID ity of Insulin - 23:00: MEALS+HS, [place] Lispro 00 First dose Medical (HumaLOG) + on Fri Branch Fsbg 01/04/22 at Testing 1700, Until Discontinu ed, Routine glucagon Yes 1mg 1 mg, Univers (GLUCAGEN 01-04 Intramuscu ity of DIAGNOSTIC 19:22: lar, PRN, [place] KIT) 16 Starting Medical injection 1 on Fri Branch mg 01/04/22 at 1322, Until Discontinu ed, NOLBERTO, Blood Glucose < or = 70 mg/dL and patient is unable to swallow or has mental changes. dextrose 50 Yes 25mL 25 mL, Univ ers % in water 01-04 Slow IV ity of (D50W) 19:22: Push, PRN, [place] injection 16 Starting Medica l 25 mL on Fri Branch 01/04/22 at 1322, Until Discontinu ed, NOLBERTO, Blood Glucose < or = 70 mg/dL and patient is unable to swallow or has mental status changes. tolvaptan 2021- No [id number] 15mg 15 mg, U nivers (SAMSCA) 01-04 Oral, ity of tablet 15 16:15: 17:31 ONCE, 1 [place] mg 00 :00 dose, On Medical Fri Branch 01/04/22 at 1015, NOLBERTO
Fa culty member approving Restricted medication : JESÚSSAMIDRIS KCL 2021- No [id number] 20meq 20 mEq, Univ ers (KLOR-CON 01-03 Oral, ity of M20) tablet 14:45: 15:10 ONCE, 1 [place] 20 mEq 00 :00 dose, On Medical Ngoc Branch 01/03/22 at 0845, Routine tolvaptan 2021- No [id number] 15mg 15 mg, U nivers (SAMSCA) 01-03 Oral, ity of tablet 15 13:36: 15:13 ONCE, 1 [place] mg 00 :00 dose, On Medical Ngoc Branch 01/03/22 at 0745, NOLBERTO
Fa culty member approving Restricted medication : WALLY ESPINOSA metoclopram 2021- No 10mg 10 mg, Uni vers ganesh HCl 01-03 Slow IV ity of (REGLAN) 13:15: 12:15 Push, [place] injection 00 :00 ONCE, 1 Medical 10 mg dose, On Branch Ngoc 01/03/22 at 0715, Routine artificial Yes 1[drp] 1 Drop, Un roberth tears(hypro 01-03 Both Eyes, it y of mellose) 09:33: PRN, [place] (ISOPTO-TEA 23 Starting Medi nelson RS) 0.5 % on [facility] Branch ophthalmic 01/03/22 at drops 1 0333, Drop Until Discontinu ed, Routine, Dry eyes predniSONE 2021- No 20mg 20 mg, Univ ers (DELTASONE) 01-02 Oral, QPM, i ty of tablet 20 23:00: 21:59 4 doses, [place] mg 00 :00 First dose Medical on Fri Branch 01/02/22 at 1700, Last dose on 01/05/22 at 1700, Routine tolvaptan 2021- No [id number] 15mg 15 mg, U nivers (SAMSCA) 01-02 Oral, ity of tablet 15 17:30: 18:38 ONCE, 1 [place] mg 00 :00 dose, On Medical 01/02/22 Branch at 1130, NOLBERTO
Fa culty member approving Restricted medication : WALLY ESPINOSA losartan Yes 50mg 50 mg, Univers (COZAAR) 01-02 Oral, ity of tablet 50 15:00: DAILY, [place] mg 00 First dose Medical on Fri Branch 01/02/22 at 0900, Until Discontinu ed, Routine enoxaparin Yes 30mg 30 mg, Unive rs (LOVENOX) 01-02 Subcutaneo ity of injection 15:00: us, DAILY, [place] 30 mg 00 First dose Medical on Fri Branch 01/02/22 at 0900, Until Discontinu ed, Routine KCL 2021- No 40meq 40 mEq, Univers (KLOR-CON 01-0211 Oral, ity of M20) tablet 15:00: 15:16 DAILY, [place] 40 mEq 00 :56 First dose Medical on Fri Branch 01/02/22 at 0900, Until Discontinu ed, Routine carvediloL Yes 25mg 25 mg, Unive rs (COREG) 01-02 Oral, BID ity of tablet 25 14:00: MEALS, [place] mg 00 First dose Medical on Fri Branch 01/02/22 at 0800, Until Discontinu ed, Routine furosemide 2021- No 40mg 40 mg, IV U nivers (LASIX) 01-0211 Push, ity of injection 14:00: 20:24 Q12H, [place] 40 mg 00 :46 First dose Medical (after Branch last reorder) on Fri01/02/22 at 0800, Until Discontinu ed, NOLBERTO levoFLOXaci Yes 750mg 750 mg, IV Univers n in D5W 01-02 Piggyback, ity o f (LEVAQUIN) 08:15: Q24H ABX, [place] 750 mg/150 00 First dose Med ical mL on Fri Branch Piggyback 01/02/22 at 750 mg 0215, Until Discontinu ed, Administer over 90 Minutes, 150 mL
Reas on for Anti-Infec tive: Empiric Therapy for Suspected Infection< br>Empiric Therapy Site: Urine
D uration of therapy: 7 days budesonide Yes .5mg 0.5 mg, Univ ers (PULMICORT 01-02 Inhalation ity of RESPULE) 07:15: , BID, [place] nebulizer 00 First dose Medi nelson solution on Fri 0.5 mg 01/02/22 at 0115, Until Discontinu ed, Routine ipratropium Yes 3mL 3 mL, Unive rs -albuteroL 01-02 Inhalation ity of (DUONEB) 07:15: , QID, [place] 0.5 mg-3 00 First dose Medic al mg(2.5 mg on Fri Branch base)/3 mL 01/02/22 at nebulizer 0115, solution 3 Until mL Discontinu ed, Routine predniSONE 2022-0 Yes 10mg 10 mg, Unive rs (DELTASONE) 3 Oral, BID, it y of tablet 10 07:15: First dose [place] mg 00 on Fri Medical 01/02/22 at Branch 0115, Until Discontinu ed, Routine aspirin Yes 81mg 81 mg, Univers chewable 01-02 Oral, QAM ity of tablet 81 07:15: WITH [place] mg 00 BREAKFAST, Medical First dose Branch on Fri01/02/22 at 0115, Until Discontinu ed, Routine atorvastati Yes 40mg 40 mg, Univ ers n (LIPITOR) 01-02 Oral, QHS, it y of tablet 40 07:15: First dose [place] mg 00 on Fri Medical 01/02/22 at Branch 0115, Until Discontinu ed, Routine traZODone 2021- No 50mg 50 mg, Unive rs (DESYREL) 01-02-11 Oral, QHS, ity of tablet 50 07:15: 15:05 First dose [place] mg 00 :29 on Fri [facility] 01/02/22 at Branch 0115, Until Discontinu ed, Routine spironolact 2021- No 25mg 25 mg, Uni vers one 01-02 Oral, BID, ity of (ALDACTONE) 07:15: 20:27 First dose [place] tablet 25 00 :02 on Fri Medical mg 01/02/22 at Branch 0115, Until Discontinu ed, Routine acetaminoph Yes 650mg 650 mg, Un roberth en 01-02 Oral, ity of (TYLENOL) 07:04: Q8HPRN, [place] tablet 650 47 Starting Medic al mg on Fri Branch 01/02/22 at 0104, Until Discontinu ed, Routine, Pain (scale 1-3), Temp > 38.5 C FENTanyl PF Yes 50ug 50 mcg, Uni vers (SUBLIMAZE 01-02 Slow IV ity of (PF)) 07:04: Push, [place] injection 37 Q4HPRN, Medical 50 mcg Starting Branch on Fri01/02/22 at 0104, Until Discontinu ed, Routine, Pain (scale 7-10) docusate Yes 100mg 100 mg, Unive rs (COLACE) 3 Oral, BID, ity o f capsule 100 06:45: First dose [place] mg 00 on Fri Medical 01/02/22 at Branch 0045, Until Discontinu ed, Routine ondansetron Yes 4mg 4 mg, Slow Univers (ZOFRAN 01-02 IV Push, ity of (PF)) 06:30: Q6HPRN, [place] injection 4 45 Starting Medi nelson mg on Fri Branch 01/02/22 at 0030, Until Discontinu ed, Routine, Nausea and Vomiting (N/V) furosemide 2021- No 40mg 40 mg, IV U nivers (LASIX) 01-02 Push, ity of injection 01:15: 00:39 ONCE, 1 [place] 40 mg 00 :00 dose, On Fri01/01/22 Branch at 1915, NOLBERTO Immunizations Ordered Filled Immunization Date Status Comments [facility] e Immunization Name Name Pneumococcal 2022-01-14 Completed University o f Polysaccharide, 00:00:00 [place] Med ical PPSV23 (PNEUMOVAX) Branch Pneumococcal 2022-01-14 Completed University o f Polysaccharide, 00:00:00 [place] Med ical PPSV23 (PNEUMOVAX) Branch Pneumococcal 2022-01-14 Completed University o f Polysaccharide, 00:00:00 [place] Med ical PPSV23 (PNEUMOVAX) Branch Pneumococcal 2022-01-14 Completed University o f Polysaccharide, 00:00:00 [place] Med ical PPSV23 (PNEUMOVAX) Branch Pneumococcal 2022-01-14 Completed University o f Polysaccharide, 00:00:00 [place] Med ical PPSV23 (PNEUMOVAX) Branch SARS-COV-2 COVID-19 2021-04-10 Completed Unive rsity of MODERNA VACCINE 00:00:00 [place] Med ical Branch SARS-COV-2 COVID-19 2021-04-10 Completed Unive rsity of MODERNA VACCINE 00:00:00 [place] Med ical Branch SARS-COV-2 COVID-19 2021-04-10 Completed Unive rsity of MODERNA VACCINE 00:00:00 [place] Med ical Branch SARS-COV-2 COVID-19 2021-04-10 Completed Unive rsity of MODERNA 12+ YRS 00:00:00 [place] Med ical VACCINE Branch SARS-COV-2 COVID-19 2021-04-10 Completed Unive rsity of MODERNA 12+ YRS 00:00:00 [place] Med ical VACCINE Branch SARS-COV-2 COVID-19 2021-03-09 Completed Unive rsity of MODERNA VACCINE 00:00:00 [place] Med ical Branch SARS-COV-2 COVID-19 2021-03-09 Completed Unive rsity of MODERNA VACCINE 00:00:00 [place] Med ical Branch SARS-COV-2 COVID-19 2021-03-09 Completed Unive rsity of MODERNA VACCINE 00:00:00 [place] Med ical Branch SARS-COV-2 COVID-19 2021-03-09 Completed Unive rsity of MODERNA 12+ YRS 00:00:00 [place] Med ical VACCINE Branch SARS-COV-2 COVID-19 2021-03-09 Completed Unive rsity of MODERNA 12+ YRS 00:00:00 [facility] ical VACCINE Branch Vital Signs Vital Name Observation Time Observation Value Comments Source Systolic blood 2023-01-23 20:58:00 149 mm[Hg] Univer sity of pressure [facility] Diastolic blood 2023-01-23 20:58:00 72 mm[Hg] Unive rsity of pressure [facility] Heart rate 2023-01-23 20:58:00 78 /min General acute hospital Body temperature 2023-01-23 20:58:00 35.94 Dee [facility] Respiratory rate 2023-01-23 20:58:00 18 /min [facility] Oxygen saturation in 2023-01-23 20:58:00 96 /min [facility] Arterial blood by [facility] Pulse oximetry Branch Body weight 2023-01-23 09:00:00 48.988 kg General acute hospital BMI 2023-01-23 09:00:00 21.81 kg/m2 General acute hospital Body height 2023-01-19 05:26:00 149.9 cm General acute hospital Systolic blood 2022-01-14 21:31:00 152 mm[Hg] Univer sity of pressure [facility] Diastolic blood 2022-01-14 21:31:00 67 mm[Hg] Unive rsity of pressure [facility] Heart rate 2022-01-14 21:31:00 85 /min Universi ty of [facility] Body temperature 2022-01-14 21:31:00 36.78 Dee [facility] ersity of [facility] Respiratory rate 2022-01-14 21:31:00 18 /min [facility] ersity of [facility] Oxygen saturation in 2022-01-14 21:31:00 95 /min University of Arterial blood by [facility] Pulse oximetry Branch Body weight 2022-01-11 13:00:00 46.5 kg Universi ty of [facility] BMI 2022-01-11 13:00:00 20.71 kg/m2 Universi ty of [facility] Body height 2022-01-08 22:19:00 149.9 cm Universi ty of [facility] Systolic blood 2022-01-05 17:18:00 180 mm[Hg] Univer sit of [facility] Diastolic blood 2022-01-05 17:18:00 83 mm[Hg] [facility] Heart rate 2022-01-05 17:18:00 91 /min Universi ty of [facility] Body temperature 2022-01-05 17:18:00 36.67 Dee [facility] Respiratory rate 2022-01-05 17:18:00 20 /min [facility] Oxygen saturation in 2022-01-05 17:18:00 100 /min University of Arterial blood by [facility] Pulse oximetry Branch Body height 2022-01-02 21:10:00 149.9 cm Universi ty of [facility] Body weight 2022-01-02 21:10:00 49.896 kg Universi ty of [facility] BMI 2022-01-02 21:10:00 22.22 kg/m2 [facility] Procedures Procedure Date / Time Performing Clinician Source Performed COVID-19 (ID NOW RAPID 2023-01-23 17:46:00 [facility] TESTING) [facility] VANCOMYCIN TROUGH 2023-01-23 16:42:00 Samia Koenig [facility] POCT GLUCOSE (AUTOMATED) 2023-01-23 16:42:00 Deborah Yang [facility] POCT GLUCOSE (AUTOMATED) 2023-01-23 12:35:00 Deborah Yang A. U nivFormerly [facility] MAGNESIUM 2023-01-23 09:42:00 Nyssa [facility] BASIC METABOLIC PANEL 2023-01-23 09:42:00 Stas Massey [facility] (NA, K, CL, CO2, GLUCOSE, Medica l Branch BUN, CREATININE, CA) CBC WITH DIFF 2023-01-23 09:42:00 Nyssa [facility] POCT GLUCOSE (AUTOMATED) 2023-01-23 01:28:00 Bette Yangd A. U nivFormerly [facility] POCT GLUCOSE (AUTOMATED) 2023-01-22 21:32:00 Gladys Yangammad A. U nivFormerly [facility] POCT GLUCOSE (AUTOMATED) 2023-01-22 16:19:00 Gladys Yangammad A. U nivFormerly [facility] POCT GLUCOSE (AUTOMATED) 2023-01-22 12:33:00 Gladys Yangammad A. U nivFormerly [facility] PHOSPHORUS 2023-01-22 08:52:00 Truong [facility] MAGNESIUM 2023-01-22 08:52:00 [facility] 2023-01-22 08:52:00 [facility] (NA, K, CL, CO2, GLUCOSE, Medica l Branch BUN, CREATININE, CA) CBC WITH DIFF 2023-01-22 08:52:00 [facility] VANCOMYCIN TROUGH 2023-01-22 04:10:00 Samia Koenig [facility] POCT GLUCOSE (AUTOMATED) 2023-01-22 01:43:00 Gladys Yangammad A. U nivFormerly [facility] POCT GLUCOSE (AUTOMATED) 2023-01-21 22:40:00 Gladys Yangammad A. U nivFormerly [facility] POCT GLUCOSE (AUTOMATED) 2023-01-21 16:30:00 Edna Mohammad A. U [facility] POCT GLUCOSE (AUTOMATED) 2023-01-21 12:39:00 Deborah Yang [facility] CORTISOL AM 2023-01-21 09:05:00 Clem [facility] PHOSPHORUS 2023-01-21 09:04:00 Truong [facility] MAGNESIUM 2023-01-21 09:04:00 Truong [facility] FERRITIN SERUM 2023-01-21 09:04:00 Truong [facility] IRON 2023-01-21 09:04:00 Truong [facility] VITAMIN B12, LEVEL 2023-01-21 09:04:00 Truong [facility] FOLATE 2023-01-21 09:04:00 Truong [facility] TOTAL IRON BINDING 2023-01-21 09:04:00 Truong [facility] BASIC METABOLIC PANEL 2023-01-21 09:04:00 Clem, [facility] (NA, K, CL, CO2, GLUCOSE, [facility] BUN, CREATININE, CA) CBC WITH DIFF 2023-01-21 09:04:00 Truong [facility] N-TERMINAL PRO-BNP 2023-01-21 09:04:00 Truong [facility] MAGNESIUM, URINE RANDOM 2023-01-21 03:41:00 Clem [facility] BASIC METABOLIC PANEL 2023-01-21 03:41:00 Clem, [facility] (NA, K, CL, CO2, GLUCOSE, [facility] BUN, CREATININE, CA) TSH RECEPTOR ANTIBODY 2023-01-21 03:41:00 Clem, [facility] (TRAB) [facility] CREATININE, URINE RANDOM 2023-01-21 03:41:00 Mika Nj [facility] Ji J [facility] POCT GLUCOSE (AUTOMATED) 2023-01-21 02:22:00 Deborah Yang [facility] BASIC METABOLIC PANEL 2023-01-20 22:29:00 Clem [facility] (NA, K, CL, CO2, GLUCOSE, Ji J Medica l Branch BUN, CREATININE, CA) POCT GLUCOSE (AUTOMATED) 2023-01-20 21:14:00 Deborah Yang [facility] POCT GLUCOSE (AUTOMATED) 2023-01-20 16:48:00 Deborah Yang [facility] BASIC METABOLIC PANEL 2023-01-20 15:20:00 Clem [facility] (NA, K, CL, CO2, GLUCOSE, Ji J Medica l Branch BUN, CREATININE, CA) CBC WITH DIFF 2023-01-20 15:20:00 Izabella Guerin [facility] POCT GLUCOSE (AUTOMATED) 2023-01-20 12:47:00 Deborah Yang [facility] URIC ACID 2023-01-20 10:17:00 Jesús [facility] MAGNESIUM 2023-01-20 10:17:00 Jesús [facility] OSMOLALITY, SERUM OR 2023-01-20 10:17:00 Jesús [facility] PLASMA [facility] OSMOLALITY URINE 2023-01-20 10:17:00 Jesús [facility] RENAL PANEL 2023-01-20 10:17:00 Jesús [facility] COMP. METABOLIC PANEL 2023-01-20 10:17:00 Deborah Yang [facility] ([id number]) [facility] Branch CBC WITH DIFF 2023-01-20 10:17:00 Jesús [facility] N-TERMINAL PRO-BNP 2023-01-20 10:17:00 Jesús [facility] POTASSIUM, URINE RANDOM 2023-01-20 10:17:00 Jesús [facility] SODIUM, URINE RANDOM 2023-01-20 10:17:00 [facility] BASIC METABOLIC PANEL 2023-01-20 05:02:00 Deborah Yang [facility] (NA, K, CL, CO2, GLUCOSE, Medica l Branch BUN, CREATININE, CA) POCT GLUCOSE (AUTOMATED) 2023-01-20 04:19:00 Deborah Yang [facility] POCT GLUCOSE (AUTOMATED) 2023-01-20 01:13:00 Deborah Yang [facility] BASIC METABOLIC PANEL 2023-01-19 23:18:00 Deborah Yang [facility] (NA, K, CL, CO2, GLUCOSE, Medica l Branch BUN, CREATININE, CA) POCT GLUCOSE (AUTOMATED) 2023-01-19 21:41:00 Deborah Yang [facility] SPUTUM CULTURE 2023-01-19 18:28:00 [place] [facility] CBC WITH DIFF 2023-01-19 13:38[facility]00 [facility] 2023-01-19 13:31:00 Deborah Yang [facility] (NA, K, CL, CO2, GLUCOSE, Medica l Branch BUN, CREATININE, CA) N-TERMINAL PRO-BNP 2023-01-19 13:31:00 Deborah Yang [facility] POCT GLUCOSE (AUTOMATED) 2023-01-19 12:05:00 Deborah Yang [facility] LACTIC ACID WHOLE BLOOD 2023-01-19 08:24:00 Deborah Yang ivFormerly [facility] MAGNESIUM 2023-01-19 08:17:00 [facility] BASIC METABOLIC PANEL 2023-01-19 08:17:00 Deborah Yang [facility] (NA, K, CL, CO2, GLUCOSE, Medica l Branch BUN, CREATININE, CA) PNEUMOCOCCAL ANTIGEN 2023-01-19 04:36:00 [place] [facility] MRSA / MSSA SCREEN BY 2023-01-19 04:28:00 Deborah Yang [facility] A[facility] 2023-01-19 04:28:00 Deborah Yang [facility] SURVEILLANCE BY [facility] (INFECTION CONTROL PURPOSES) TROPONIN I 2023-01-19 02:17:00 [place] [facility] CT CHEST PULMONARY 2023-01-19 02:00:12 [place] High [facility] ANGIOGRAM [facility] Branch BLOOD CULTURE SCREEN 2023-01-19 00:26:00 [place] [facility] ACUTE CARE ARTERIAL BLOOD 2023-01-19 00:26:00 [facility] [facility] HB ECG ROUTINE & RHYTHM 2023-01-19 00:22:27 [place] [facility] STRIP [facility] RAPID INFLUENZA A/B 2023-01-19 00:18:00 [place] [facility] COVID-19 (ID NOW RAPID 2023-01-19 00:18:00 [place] [facility] TESTING) Medical Branch LAB ONLY COVID 2023-01-19 00:18:00 [place] [facility] INTERPRETATION [facility] Branch MAGNESIUM 2023-01-19 00:17:00 [place] [facility] COMP. METABOLIC PANEL 2023-01-19 00:17:00 [place]am High [facility] ([id number]) [facility] Branch CBC WITH DIFF 2023-01-19 00:17:00 [place] [facility] N-TERMINAL PRO-BNP 2023-01-19 00:17:00 [facility] [facility] POCT GLUCOSE (AUTOMATED) 2022-01-14 16:49:00 Izabella [facility] POCT GLUCOSE (AUTOMATED) 2022-01-14 12:40:00 Izabella [facility] BASIC METABOLIC PANEL 2022-01-14 10:06:00 [facility] (NA, K, CL, CO2, GLUCOSE, Medica l Branch BUN, CREATININE, CA) CBC WITH DIFF 2022-01-14 10:06:[address] [facility] BASIC METABOLIC PANEL 2022-01-14 03:24:00 Clem [facility] (NA, K, CL, CO2, GLUCOSE, Ji J Medica l Branch BUN, CREATININE, CA) POCT GLUCOSE (AUTOMATED) 2022-01-14 01:51:00 Izabella [facility] POCT GLUCOSE (AUTOMATED) 2022-01-13 22:05:00 Izabella [facility] POCT GLUCOSE (AUTOMATED) 2022-01-13 16:36:00 [facility]AUTOMATED) 2022-01-13 13:06:00 [facility] MAGNESIUM 2022-01-13 09:00:00 Truong [facility] BASIC METABOLIC PANEL 2022-01-13 09:00:00 [facility] (NA, K, CL, CO2, GLUCOSE, Medica l Branch BUN, CREATININE, CA) BASIC METABOLIC PANEL 2022-01-13 01:49:00 Clem [facility] (NA, K, CL, CO2, GLUCOSE, Ji J Medica l Branch BUN, CREATININE, CA) POCT GLUCOSE (AUTOMATED) 2022-01-12 21:52:00 [facility] BASIC METABOLIC PANEL 2022-01-12 18:44:00 Neville-Ene [facility] (NA, K, CL, CO2, GLUCOSE, Ji J Medica l Branch BUN, CREATININE, CA) POCT GLUCOSE (AUTOMATED) 2022-01-12 16:38:00 [facility] POCT GLUCOSE (AUTOMATED) 2022-01-12 13:21:00 Stas Massey [facility] PHOSPHORUS 2022-01-12 09:45:00 Truong [facility] ALBUMIN 2022-01-12 09:45:[address] [facility] MAGNESIUM 2022-01-12 09:45:00 Truong [facility] BASIC METABOLIC PANEL 2022-01-12 09:45:[facility] ([facility], K, CL, CO2, GLUCOSE, Medica l Branch BUN, CREATININE, CA) POCT GLUCOSE (AUTOMATED) 2022-01-12 01:37:00 [facility] POCT GLUCOSE (AUTOMATED) 2022-01-11 23:38:00 [facility] BASIC METABOLIC PANEL 2022-01-11 21:49:00 Clem [facility] (NA, K, CL, CO2, GLUCOSE, Ji J Medica l Branch BUN, CREATININE, CA) POCT GLUCOSE (AUTOMATED) 2022-01-11 21:04:00 Stas Massey [facility] POCT GLUCOSE (AUTOMATED) 2022-01-11 16:23:00 [facility] POCT GLUCOSE (AUTOMATED) 2022-01-11 12:35:00 [facility] OSMOLALITY URINE 2022-01-11 11:10:00 Wally Espinosa [facility] PHOSPHORUS 2022-01-11 10:00:00 Truong [facility] ALBUMIN 2022-01-11 10:00:[address] [facility] MAGNESIUM 2022-01-11 10:00:00 Truong [facility] BASIC METABOLIC PANEL 2022-01-11 10:00:00 [facility] ([facility], K, CL, CO2, GLUCOSE, Medica l Branch BUN, CREATININE, CA) BASIC METABOLIC PANEL 2022-01-11 02:08[facility] ([facility], [facility], CL, CO2, GLUCOSE, Ji J Medica l Branch BUN, CREATININE, CA) POCT GLUCOSE (AUTOMATED) 2022-01-11 01:33:00 [facility] BASIC METABOLIC PANEL 2022-01-10 21:15:00 Stas Massey [facility] (NA, K, CL, CO2, GLUCOSE, Medica l Branch BUN, CREATININE, CA) POCT GLUCOSE (AUTOMATED) 2022-01-10 17:17:00 [facility] POCT GLUCOSE (AUTOMATED) 2022-01-10 16:26:00 [facility] BASIC METABOLIC PANEL 2022-01-10 13:25:00 Stas Massey [facility] (NA, K, CL, CO2, GLUCOSE, Medica l Branch BUN, CREATININE, CA) POCT GLUCOSE (AUTOMATED) 2022-01-10 12:37:00 [facility] PHOSPHORUS 2022-01-10 09:30[facility]-10 [facility]:30[facility]00 [facility]UM 2022-01-10 09:30:00 [facility]OL[facility] PANEL 2022-01-10 09:30:00 Stas Massey [facility] (NA, K, CL, CO2, GLUCOSE, Medica l Branch BUN, CREATININE, CA) POCT GLUCOSE (AUTOMATED) 2022-01-10 02:21:00 [facility] TROPONIN I 2022-01-10 00:47:00 Stas Massey [facility] BASIC METABOLIC PANEL 2022-01-10 00:47:00 Stas Massey [facility] (NA, K, CL, CO2, GLUCOSE, Medica l Branch BUN, CREATININE, CA) POCT GLUCOSE (AUTOMATED) 2022-01-09 21:10:00 [facility] TROPONIN I 2022-01-09 20:21:00 Stas Massey [facility] BASIC METABOLIC PANEL 2022-01-09 20:21:00 Clem [facility] (NA, K, CL, CO2, GLUCOSE, Ji J Medica l Branch BUN, CREATININE, CA) POCT GLUCOSE (AUTOMATED) 2022-01-09 16:12:00 [facility] BASIC METABOLIC PANEL 2022-01-09 15:15:00 Clem [facility] (NA, K, CL, CO2, GLUCOSE, Ji J Medica l Branch BUN, CREATININE, CA) POCT GLUCOSE (AUTOMATED) 2022-01-09 12:16:00 [facility] OSMOLALITY URINE 2022-01-09 11:44:00 Jesús [facility] POTASSIUM, URINE RANDOM 2022-01-09 11:43:00 Jesús [facility] MAGNESIUM 2022-01-09 09:22:00 Jesús [facility] CORTISOL AM 2022-01-09 09:22:00 [facility] 2022-01-09 09:22:00 [facility] PANEL 2022-01-09 09:22:00 Clem [facility] (NA, K, CL, CO2, GLUCOSE, Ji J Medica l Branch BUN, CREATININE, CA) CBC WITH DIFF 2022-01-09 09:21:00 Jesús [facility] OSMOLALITY URINE 2022-01-09 03:52:00 [facility]OLIC PANEL 2022-01-09 03:52:00 Clem [facility] (NA, K, CL, CO2, GLUCOSE, Ji J Medica l Branch BUN, CREATININE, CA) POTASSIUM, URINE RANDOM 2022-01-09 03:52:00 Jesús [facility] SODIUM, URINE RANDOM 2022-01-09 03:52:00 Wally Espinosa [facility] POCT GLUCOSE (AUTOMATED) 2022-01-09 01:00:00 [facility] TSH RECEPTOR ANTIBODY 2022-01-09 00:52:00 Clem, [facility] (TRAB) [facility] SODIUM 2022-01-09 00:50:00 Clem, [facility] BASIC METABOLIC PANEL 2022-01-09 00:50:00 Clem, [facility] (NA, K, CL, CO2, GLUCOSE, Ji J Medica l Branch BUN, CREATININE, CA) LIPID PANEL ([id number])(TOTAL 2022-01-09 00:50:00 Clem, U [facility] CHOLESTEROL, [facility] TRIGLYCERIDES, HDL) GLYCOSYLATED HEMOGLOBIN 2022-01-09 00:50:00 Stas Massey [facility] (A1C) [facility] MRSA / MSSA SCREEN BY 2022-01-09 00:50:00 Stas Massey [facility] PCR, [facility] CORTISOL PM SERUM 2022-01-09 00:05:00 Clem, [facility] SODIUM 2022-01-08 21:55:00 Jesús [facility] PHOSPHORUS 2022-01-08 21:55:00 Jesús [facility] URIC ACID 2022-01-08 21:55:00 Jesús [facility] MAGNESIUM 2022-01-08 21:55:00 Jesús [facility] OSMOLALITY, SERUM OR 2022-01-08 21:55:00 Wally Espinosa [facility] PLASMA [facility] BASIC METABOLIC PANEL 2022-01-08 21:55:00 Stas Massey [facility] (NA, K, CL, CO2, GLUCOSE, Medica l Branch BUN, CREATININE, CA) COVID-19 (ID NOW RAPID 2022-01-08 19:04:00 Singer Eric [facility] TESTING) Medical Branch LAB ONLY COVID 2022-01-08 19:04:00 Singer [facility] INTERPRETATION [facility] BASIC METABOLIC PANEL 2022-01-08 18:13:00 [facility] (NA, K, CL, CO2, GLUCOSE, Medica l Branch BUN, CREATININE, CA) HB ECG ROUTINE & RHYTHM 2022-01-08 16:55:13 Singer [facility] STRIP Medical Branch URINALYSIS 2022-01-08 16:53:00 [facility] TROPONIN I 2022-01-08 16:47:00 [facility] COMP. METABOLIC PANEL 2022-01-08 16:47:00 [facility] ([id number]) Medical Branch CBC WITH DIFF 2022-01-08 16:47:00 Singer [facility] N-TERMINAL PRO-BNP 2022-01-08 16:47:00 [facility] XR CHEST 1 VW 2022-01-08 16:46:03 [facility] POCT GLUCOSE (AUTOMATED) 2022-01-05 17:25:00 [place] [facility] POCT GLUCOSE (AUTOMATED) 2022-01-05 14:23:00 [place] Un [facility] POCT GLUCOSE (AUTOMATED) 2022-01-05 13:26:00 [place] Un [facility] PHOSPHORUS 2022-01-05 09:26:00 Wally Espinosa [facility] MAGNESIUM 2022-01-05 09:26:00 Stas Massey [facility] BASIC METABOLIC PANEL 2022-01-05 09:26:00 Stas Massey [facility] (NA, K, CL, CO2, GLUCOSE, Medica l Branch BUN, CREATININE, CA) CBC WITH DIFF 2022-01-05 09:26:00 Stas Massey [facility] POCT GLUCOSE (AUTOMATED) 2022-01-05 02:18:00 [place] High [facility] POCT GLUCOSE (AUTOMATED) 2022-01-04 22:36:00 [place] [facility] POTASSIUM SERUM 2022-01-04 17:37:00 Jesús, [facility] OSMOLALITY URINE 2022-01-04 17:36:00 Jesús, [facility] SODIUM, URINE RANDOM 2022-01-04 17:36:00 Jesús, [facility] BASIC METABOLIC PANEL 2022-01-04 09:57:00 Thomas Maradiaga [facility] (NA, K, CL, CO2, GLUCOSE, Medica l Branch BUN, CREATININE, CA) [facility] 2022-01-03 10:31:00 Jesús, [facility] WITH RATIO Medical Branch PHOSPHORUS 2022-01-03 10:24:00 Mariana juanito [facility] MAGNESIUM 2022-01-03 10:24:00 Bryson [facility] COMP. METABOLIC PANEL 2022-01-03 10:24:00 Mariana juanito [facility] ([id number]) [facility] ANTI-NUCLEAR ANTIBODY 2022-01-03 10:24:00 Jesús, [facility] [place] SCREEN [facility] HEPATITIS B SURFACE 2022-01-03 10:24:00 Jesús, [facility] ANTIBODY [facility] HEPATITIS B SURFACE 2022-01-03 10:24:00 Jesús, [facility] ANTIGEN [facility] HCV ANTIBODY 2022-01-03 10:24:00 Jesús, [facility] HBC ANTIBODY (IGM & IGG) 2022-01-03 10:24:00 Jesús [facility] RPR (QUANTITATIVE) 2022-01-03 10:24:00 Jesús, [facility] N-TERMINAL PRO-BNP 2022-01-03 10:24:00 Po Peña [facility] HIV 1/2 AG-AB WITH REFLEX 2022-01-03 10:24:00 Wally Espinosa [facility] CBC WITH DIFF 2022-01-03 10:23:00 Stas Massey [facility] OSMOLALITY, SERUM OR 2022-01-03 01:50:00 JesúsWally bianchi [facility] PLASMA [facility] ELECTROLYTES PANEL 2022-01-03 00:48:00 [facility] ([id number])(NA, K, CL, CO2) Medical Branch TRANSTHORACIC ECHO (TTE) 2022-01-02 21:10:39 Po Peña [facility] ACUTE CARE ARTERIAL BLOOD 2022-01-02 17:20:00 JesúsWally bianchi [facility] GAS [facility] OSMOLALITY URINE 2022-01-02 17:15:00 Jesús, [facility] POTASSIUM, URINE RANDOM 2022-01-02 17:15:00 Wally Espinosa [facility] SODIUM, URINE RANDOM 2022-01-02 17:15:00 JesúsWally bianchi [facility] PROTEIN CREAT RATIO URINE 2022-01-02 17:15:00 Wally Espinosa [facility] OSMOLALITY URINE 2022-01-02 15:19:00 Po Peña [facility] UREA NITROGEN, URINE 2022-01-02 15:19:00 Po Peña [facility] SODIUM, URINE RANDOM 2022-01-02 15:19:00 Po Peña [facility] PROTEIN CREAT RATIO URINE 2022-01-02 15:19:00 Po Peña [facility] TROPONIN I 2022-01-02 15:18:00 Po Peña [facility] PHOSPHORUS 2022-01-02 11:28:00 Po Peña [facility] URIC ACID 2022-01-02 11:28:00 Po Peña [facility] MAGNESIUM 2022-01-02 11:28:00 Po Peña [facility] OSMOLALITY, SERUM OR 2022-01-02 11:28:00 Po Peña [facility] PLASMA [facility] TROPONIN I 2022-01-02 11:28:00 Mariana juanito [facility] THYROID STIMULATING 2022-01-02 11:28:00 Po Peña [facility] HORMONE [facility] COMP. METABOLIC PANEL 2022-01-02 11:28:00 Po Peña [facility] ([id number]) Medical Branch LIPID PANEL ([id number])(TOTAL 2022-01-02 11:28:00 Po Peña [facility] CHOLESTEROL, [facility] TRIGLYCERIDES, HDL) CBC WITH DIFF 2022-01-02 11:28:00 Mariana juanito [facility] PROTHROMBIN TIME / INR 2022-01-02 11:28:00 Po Peña [facility] N-TERMINAL PRO-BNP 2022-01-02 11:28:00 Po Peña [facility] PROCALCITONIN 2022-01-02 11:28:00 Mariana [facility] PHOSPHORUS 2022-01-02 07:35:00 Mariana [facility] MAGNESIUM 2022-01-02 07:35:00 Mariana [facility] TROPONIN I 2022-01-02 07:35:00 Mariana [facility] SEDIMENTATION RATE 2022-01-02 07:35:00 Po Peña [facility] HB ECG ROUTINE & RHYTHM 2022-01-02 07:24:[address] [facility] URINE CULTURE 2022-01-02 03:26:00 [place] [facility] URINALYSIS 2022-01-02 01:56:00 Singer Eric [facility] XR CHEST 1 VW 2022-01-02 00:31:49 Singer [facility] TROPONIN I 2022-01-02 00:29:00 Singer [facility] COMP. METABOLIC PANEL 2022-01-02 00:29:00 [facility] ([id number]) Medical Branch CBC WITH DIFF 2022-01-02 00:29:00 Singer [facility] GLYCOSYLATED HEMOGLOBIN 2022-01-02 00:29:00 Po Peña [facility] (A1C) Medical Branch RAPID INFLUENZA A/B 2022-01-02 00:29:00 Eric Hirsch [facility] ty [facility] N-TERMINAL PRO-BNP 2022-01-02 00:29:00 Eric Hirsch [facility] COVID-19 (ID NOW RAPID 2022-01-02 00:29:00 Eric Hirsch [facility] TESTING) Medical Branch LAB ONLY COVID 2022-01-02 00:29:00 Hirsch, [facility] INTERPRETATION [facility] NOTICE OF PRIVACY 2022-01-01 23:26:50 Doctor Unassigned, [facility] PRACTICES [place] Medical [facility] Encounters Start End Encounter Admission Attending Care Care Encounter Source Date/Time Date/Time Type Type Clinicians Facility Department ID 2023-01-24 2023-01-24 Transition CHER [facility]is [id number] Univers 00:00:00 00:00:00 of Care Nubia PARIKHY [id number] [facility] MAURY 4.2.7.2.686 [facility] [id number] [facility] 403 Branch 2023-01-18 2023-01-23 Inpatient X EDNA MIADITHYA [facility] [id number] Univers 18:59:00 16:17:00 DEBORAH tineo o [facility] 2023-01-18 2023-01-23 Hospital [facility] 1.2.840. [id number] Univers 18:59:00 16:17:00 Encounter Deborah Yang 350.1.13. 10 [facility] ASH 4.2.7.2.686 [facility] [id number] [facility] 080 Branch 2022-01-15 2022-01-15 Transition CHER [facility] [id number] Univers 00:00:00 00:00:00 of Care Nubia PARIKHY 350.1.13.10 [place] [id number] [facility] 403 Branch 2022-01-08 2022-01-14 Inpatient X TRUONG [facility] CJ [id number] Univers 11:37:00 19:01:00 [facility] 2022-01-08 2022-01-14 [facility] 1.2.840.1 [id number] Univers 11:37:00 19:01:00 Encounter Stas Massey 350.1.13.10 ity of Izabella Guerin 4.2.7.2.686 [facility] [id number] [facility] 081 Branch 2022-01-07 2022-01-07 Transition CHER [facility]is [id number] Univers 00:00:00 00:00:00 of Care Nubia PARIKHY 350.1.13.10 [place] [id number] [facility] 403 Branch 2022-01-01 2022-01-05 [facility] 1.2.840.1 [id number] Univers 17:38:00 12:30:00 Encounter [place] Hillary SELF 350.1.13.1 0 ity of [place] 4.2.7.2.686 [facility] [id number] [place] [id number] Branch 2022-01-01 2022-01-05 Inpatient X ABNER [facility] CJ [id number] Univers 17:38:00 12:30:00 POONAM tineo [facility] 2021-11-06 2021-11-06 Outpatient CECILE WHELAN [id number] Cecile 10:00:00 10:00:00 SEBAS granda 2021-07-29 2021-07-29 Outpatient PRIV PRIV [id number] [id number] [facility] 00:00:00 00:00:00 [id number] Medica l 2021-07-29 2021-07-29 Outpatient PRIV PRIV [id number] 1-2 [facility] 00:00:00 00:00:00 [id number] Medica l Results Test Description Test Time Test Comments Results Result Comments Source POCT GLUCOSE (AUTOMATED) 2023-01-23 16:55:07 Test Item Value Reference Range Interpretation Comme nts POCT GLU (test code = 1549141030) 214 mg/dL 70-110 H Lab Interpretation (test code = 18417-1) Abnormal [facility] GLUCOSE (AUTOMATED)2023-01-23 12:44:05 Test Item Value Reference Range Interpretation Comments POCT GLU (test code = 4691197249) 110 mg/dL 70-110 Lab Interpretation (test code = Normal 81914-2) [facility] GLUCOSE (AUTOMATED)2023-01-23 01:29:13 Test Item Value Reference Range Interpretation Comments POCT GLU (test code = 7557107756) 251 mg/dL 70-110 H Lab Interpretation (test code = Abnormal 60406-1) [facility] GLUCOSE (AUTOMATED)2023-01-22 21:37:10 Test Item Value Reference Range Interpretation Comments POCT GLU (test code = 5186666664) 192 mg/dL 70-110 H Lab Interpretation (test code = Abnormal 05597-2) [facility] RECEPTOR ANTIBODY (TRAB)2023-01-22 21:09:14 Test Item Value Reference Range Interpretation Comments TSH AB (test code = <0.80 See_Comment Performe d By: GERALD [id number]) [address] [address]Stgjovbuxy Director: Casper zimmerman MD, PhD [Automated mess age] The system which ge nerated this result transmit jasmin reference range : <=1.75 IU/L. The refer ence range was not used to interpret this result as normal/abnormal . [facility] GLUCOSE (AUTOMATED)2023-01-22 16:24:30 Test Item Value Reference Range Interpretation Comments POCT GLU (test code = 1034773632) 270 mg/dL 70-110 H Lab Interpretation (test code = Abnormal 72333-2) [facility] GLUCOSE (AUTOMATED)2023-01-22 12:44:39 Test Item Value Reference Range Interpretation Comments POCT GLU (test code = 1196539565) 137 mg/dL 70-110 H Lab Interpretation (test code = Abnormal 30578-0) [facility] 10:06:17 Test Item Value Reference Range Interpretation Comments MAGNESIUM (test code = 3622188919) 2.0 mg/dL 1.7-2.4 Lab Interpretation (test code = Normal 98200-7) [facility] (NA, K, CL, CO2, GLUCOSE, BUN, CREATININE, CA)2023-01-22 10:05:57 Test Item Value Reference Range Interpretation Comments NA (test code = 129 mmol/L 135-145 L 4141623305) K (test code = 4.8 mmol/L 3.5-5.0 8623317885) CL (test code = 98 mmol/L 98-108 4769276183) CO2 TOTAL (test code = 28 mmol/L 23-31 7492552656) AGAP (test code = 3 2-16 5054821495) BUN (test code = 10 mg/dL 7-23 9883810826) GLUCOSE (test code = 131 mg/dL 70-110 H 3304938443) CREATININE (test code = 0.45 mg/dL 0.50-1.04 L 9495029654) CALCIUM (test code = 8.8 mg/dL 8.6-10.6 4618421139) eGFR (test code = 134.4 mL/min/1.73m2 0593026552) EUGENIO (test code = EUGENIO) Association of Glomerular Filtration Rate (GFR) and Staging of Kidney Disease* + --+ --+ ------+| GFR (mL/min/1.73 m2) ?| With Kidney Damage ?| ?Without Kidney Damage+ --------+ --------+ +| ?>90 ?| ?Stage one ?| ? Normal ?+ ---+ ---+ -------+| ?60-89 ?| ?Stage two ?| ? Decreased GFR ? + --+ --+ ------+| ?30-59 ?| ?Stage three ?| ? Stage three ? + --+ --+ ------+| ?15-29 ?| ?Stage four ? | ? Stage four ?+ ---+ ---+ -------+| ?<15 (or dialysis) ? ?| ?Stage five ? | ? Stage five ?+ ---+ ---+ -------+ *Each stage assumes the associated GFR level has been in effect for at least three months. ?Stages 1 to 5, with or without kidney disease, indicate chronic kidney disease. Notes: Determination of stages one and two (with eGFR >59mL/min/1.73 m2) requires estimation of kidney damage for at least three months as defined by structural or functional abnormalities of the kidney, manifested by either:Pathological abnormalities or Markers of kidney damage (including abnormalities in the composition of the blood or urine or abnormalities in imaging tests). Lab Interpretation Abnormal (test code = 93640-6) [facility] 10:05:56 Test Item Value Reference Range Interpretation Comments PHOSPHORUS (test code = 8446838451) 2.3 mg/dL 2.5-5.0 L Lab Interpretation (test code = Abnormal 83323-3) [facility] WITH [id number] 09:49:55 Test Item Value Reference Range Interpretation Comments WBC (test code = 14.76 See_Comment H [Automated 8490-2) message] The system which generated this result transmit jasmin reference range : 4.30 - 11.10 10*3/?L. The reference range was not used to interpret this result as normal/abnormal . RBC (test code = 3.43 See_Comment L [Automated 009-8) message] The system which generated this result transmit jasmin reference range : 3.93 - 5.25 10*6/?L. The reference range was not used to interpret this result as normal/abnormal . HGB (test code = 9.4 g/dL 11.6-15.0 L 718-7) HCT (test code = 28.7 % 35.7-45.2 L 4544-3) MCV (test code = 83.7 fL 80.6-95.5 787-2) MCH (test code = 27.4 pg 25.9-32.8 785-6) MCHC (test code = 32.8 g/dL 31.6-35.1 786-4) RDW-SD (test code = 42.5 fL 39.0-49.9 95737-8) RDW-CV (test code = 13.9 % 12.0-15.5 788-0) PLT (test code = 219 See_Comment [Automated 777-3) message] The system which generated this result transmit jasmin reference range : 166 - 358 10*3/ ?L. The reference range was not u sed to interpret th is result as normal/abnormal . MPV (test code = 9.4 fL 9.5-12.9 L 34384-8) NRBC/100 WBC (test 0.0 See_Comment [Automat ed code = 2432650088) message] The system which generated this result transmit jasmin reference range : 0.0 - 10.0 /100 WBCs. The reference range was not used to interpret this result as normal/abnormal . NRBC x10^3 (test code See_Comment [Auto mated = 4716563833) message] The system which generated this result transmit jasmin reference range : 10*3/?L. The reference range was not used to interpret this result as normal/abnormal . GRAN MAT (NEUT) % 87.3 % (test code = 770-8) IMM GRAN % (test code 0.70 % = 9473341161) LYMPH % (test code = 5.8 % 736-9) MONO % (test code = 6.1 % 5905-5) EOS % (test code = 0.0 % 713-8) BASO % (test code = 0.1 % 706-2) GRAN MAT x10^3(ANC) 12.88 10*3/uL 1.88-7.09 H (test code = 8383380349) IMM GRAN x10^3 (test 0.11 10*3/uL 0.00-0.06 H code = 3216018189) LYMPH x10^3 (test code 0.85 10*3/uL 1.32-3.29 L = 731-0) MONO x10^3 (test code 0.90 10*3/uL 0.33-0.92 = 742-7) EOS x10^3 (test code = 0.03-0.39 L 711-2) BASO x10^3 (test code 0.01-0.07 = 704-7) Lab Interpretation Abnormal (test code = 14432-9) [facility] GLUCOSE (AUTOMATED)2023-01-22 01:45:57 Test Item Value Reference Range Interpretation Comments POCT GLU (test code = 0019298670) 211 mg/dL 70-110 H Lab Interpretation (test code = Abnormal 25491-1) [facility] GLUCOSE (AUTOMATED)2023-01-21 22:42:57 Test Item Value Reference Range Interpretation Comments POCT GLU (test code = 2263174634) 208 mg/dL 70-110 H Lab Interpretation (test code = Abnormal 10622-6) [facility], [id number] 17:20:14 Test Item Value Reference Range Interpretation Comments VIT B12 (test code = 420 pg/mL 240-930 8372692048) EUGENIO (test code = EUGENIO) Biotin has been reported to cause a positive bias, interpret results relative to patient's use of biotin. Lab Interpretation (test Normal code = 14323-1) [facility]23-[facility]28 17:20:14 Test Item Value Reference Range Interpretation Comments FOLATE SER (test code = 8.0 ng/mL 3.0-20.0 Slig ht hemolysis 6004127987) Lab Interpretation (test Normal code = 08680-8) [facility] GLUCOSE (AUTOMATED)2023-01-21 16:37:13 Test Item Value Reference Range Interpretation Comments POCT GLU (test code = 9146904982) 172 mg/dL 70-110 H Lab Interpretation (test code = Abnormal 59779-3) [facility] FQ1866-01-[facility] 15:39:05 Test Item Value Reference Range Interpretation Comments NARGIS AM (test code = 7.3 ug/dL 4.5-23.0 [id number]) EUGENIO (test code = EUGENIO) Biotin has been reported to cause a positive bias, interpret results relative to patient's use of biotin. Lab Interpretation (test Normal code = 15863-1) [facility] GLUCOSE (AUTOMATED)2023-01-21 12:41:36 Test Item Value Reference Range Interpretation Comments POCT GLU (test code = 4408165960) 191 mg/dL 70-110 H Lab Interpretation (test code = Abnormal 17102-0) [facility]59 Test Item Value Reference Range Interpretation Comments IRON (test code = 32 ug/dL 50-160 L Slight hem olysis 8448780734) Lab Interpretation (test Abnormal code = 79310-7) [facility] [id number] 11:25:35 Test Item Value Reference Range Interpretation Comments FERRITIN (test code = 124.0 ng/mL 11.0-264.0 6198391264) EUGENIO (test code = EUGENIO) Biotin has been reported to cause a negative bias, interpret results relative to patient's use of biotin. Lab Interpretation (test Normal code = 47629-9) [facility] WITH [id number] 11:09:19 Test Item Value Reference Range Interpretation Comments WBC (test code = 17.72 See_Comment H [Automated 4191-2) message] The system which generated this result transmit jasmin reference range : 4.30 - 11.10 10*3/?L. The reference range was not used to interpret this result as normal/abnormal . RBC (test code = 3.26 See_Comment L [Automated 799-8) message] The system which generated this result transmit jasmin reference range : 3.93 - 5.25 10*6/?L. The reference range was not used to interpret this result as normal/abnormal . HGB (test code = 8.8 g/dL 11.6-15.0 L 718-7) HCT (test code = 26.8 % 35.7-45.2 L 4544-3) MCV (test code = 82.2 fL 80.6-95.5 787-2) MCH (test code = 27.0 pg 25.9-32.8 785-6) MCHC (test code = 32.8 g/dL 31.6-35.1 786-4) RDW-SD (test code = 41.1 fL 39.0-49.9 42757-6) RDW-CV (test code = 13.9 % 12.0-15.5 788-0) PLT (test code = 210 See_Comment [Automated 497-3) message] The system which generated this result transmit jasmin reference range : 166 - 358 10*3/ ?L. The reference range was not u sed to interpret th is result as normal/abnormal . MPV (test code = 9.1 fL 9.5-12.9 L 90980-1) NRBC/100 WBC (test 0.0 See_Comment [Automat ed code = 0722278799) message] The system which generated this result transmit jasmin reference range : 0.0 - 10.0 /100 WBCs. The reference range was not used to interpret this result as normal/abnormal . NRBC x10^3 (test code See_Comment [Auto mated = 7749004229) message] The system which generated this result transmit jasmin reference range : 10*3/?L. The reference range was not used to interpret this result as normal/abnormal . SEG % (test code = 92 % 33-76 H 94370-3) LYMPH % (test code = 4 % 14-54 L 75986-3) MONO % (test code = 4 % 0-4 40757-9) ANC (test code = 16.30 10*3/uL 1.88-7.09 H 753-4) Lab Interpretation Abnormal (test code = 55794-4) [facility] METABOLIC PANEL (NA, K, CL, CO2, GLUCOSE, BUN, CREATININE, CA)2023-01-21 11:00:47 Test Item Value Reference Range Interpretation Comments NA (test code = 128 mmol/L 135-145 L 7847097068) K (test code = 5.0 mmol/L 3.5-5.0 5564089837) CL (test code = 99 mmol/L 98-108 7180247157) CO2 TOTAL (test code = 25 mmol/L 23-31 8125720857) AGAP (test code = 4 2-16 5806639855) BUN (test code = 13 mg/dL 7-23 8553358171) GLUCOSE (test code = 155 mg/dL 70-110 H 7046398003) CREATININE (test code = 0.59 mg/dL 0.50-1.04 6351968985) CALCIUM (test code = 8.4 mg/dL 8.6-10.6 L 6457395870) eGFR (test code = 98.3 mL/min/1.73m2 2569671744) EUGENIO (test code = EUGENIO) Association of Glomerular Filtration Rate (GFR) and Staging of Kidney Disease* + --+ --+ ------+| GFR (mL/min/1.73 m2) ?| With Kidney Damage ?| ?Without Kidney Damage+ --------+ --------+ +| ?>90 ?| ?Stage one ?| ? Normal ?+ ---+ ---+ -------+| ?60-89 ?| ?Stage two ?| ? Decreased GFR ? + --+ --+ ------+| ?30-59 ?| ?Stage three ?| ? Stage three ? + --+ --+ ------+| ?15-29 ?| ?Stage four ? | ? Stage four ?+ ---+ ---+ -------+| ?<15 (or dialysis) ? ?| ?Stage five ? | ? Stage five ?+ ---+ ---+ -------+ *Each stage assumes the associated GFR level has been in effect for at least three months. ?Stages 1 to 5, with or without kidney disease, indicate chronic kidney disease. Notes: Determination of stages one and two (with eGFR >59mL/min/1.73 m2) requires estimation of kidney damage for at least three months as defined by structural or functional abnormalities of the kidney, manifested by either:Pathological abnormalities or Markers of kidney damage (including abnormalities in the composition of the blood or urine or abnormalities in imaging tests). Lab Interpretation Abnormal (test code = 11475-3) [facility] [id number] 10:59:36 Test Item Value Reference Range Interpretation Comments NT-proBNP (test code = 1850 pg/mL <=450 H 3276443173) EUGENIO (test code = EUGENIO) Biotin has been reported to cause a negative bias, interpret results relative to patient's use of biotin. Lab Interpretation (test Abnormal code = 21373-2) [facility] [id number] 10:58:30 Test Item Value Reference Range Interpretation Comments TIBC (test code = 0980912427) 232 ug/dL 250-410 L Lab Interpretation (test code = Abnormal 26662-1) [facility]23-[facility]-28 10:48:31 Test Item Value Reference Range Interpretation Comments MAGNESIUM (test code = 1042387343) 2.4 mg/dL 1.7-2.4 Lab Interpretation (test code = Normal 60673-2) [facility]23-[facility]-28 10:48:11 Test Item Value Reference Range Interpretation Comments PHOSPHORUS (test code = 2458920078) 2.2 mg/dL 2.5-5.0 L Lab Interpretation (test code = Abnormal 23962-1) [facility] METABOLIC PANEL (NA, K, CL, CO2, GLUCOSE, BUN, CREATININE, CA)2023-01-21 04:18:49 Test Item Value Reference Range Interpretation Comments NA (test code = 123 mmol/L 135-145 L 1325825758) K (test code = 4.2 mmol/L 3.5-5.0 6524602788) CL (test code = 94 mmol/L 98-108 L 2916844551) CO2 TOTAL (test code = 22 mmol/L 23-31 L 7148335357) AGAP (test code = 7 2-16 0570448804) BUN (test code = 13 mg/dL 7-23 0407862752) GLUCOSE (test code = 276 mg/dL 70-110 H 0518166206) CREATININE (test code = 0.67 mg/dL 0.50-1.04 4088405047) CALCIUM (test code = 8.1 mg/dL 8.6-10.6 L 3697741255) eGFR (test code = 84.9 mL/min/1.73m2 3179544751) EUGENIO (test code = EUGENIO) Association of Glomerular Filtration Rate (GFR) and Staging of Kidney Disease* + --+ --+ ------+| GFR (mL/min/1.73 m2) ?| With Kidney Damage ?| ?Without Kidney Damage+ --------+ --------+ +| ?>90 ?| ?Stage one ?| ? Normal ?+ ---+ ---+ -------+| ?60-89 ?| ?Stage two ?| ? Decreased GFR ? + --+ --+ ------+| ?30-59 ?| ?Stage three ?| ? Stage three ? + --+ --+ ------+| ?15-29 ?| ?Stage four ? | ? Stage four ?+ ---+ ---+ -------+| ?<15 (or dialysis) ? ?| ?Stage five ? | ? Stage five ?+ ---+ ---+ -------+ *Each stage assumes the associated GFR level has been in effect for at least three months. ?Stages 1 to 5, with or without kidney disease, indicate chronic kidney disease. Notes: Determination of stages one and two (with eGFR >59mL/min/1.73 m2) requires estimation of kidney damage for at least three months as defined by structural or functional abnormalities of the kidney, manifested by either:Pathological abnormalities or Markers of kidney damage (including abnormalities in the composition of the blood or urine or abnormalities in imaging tests). Lab Interpretation Abnormal (test code = 37257-9) [facility] 04:18:49 Test Item Value Reference Range Interpretation Comments MAGNESIUM (test code = 9651982138) 2.4 mg/dL 1.7-2.4 Lab Interpretation (test code = Normal 48319-7) [facility] GLUCOSE (AUTOMATED)2023-01-21 02:24:25 Test Item Value Reference Range Interpretation Comments POCT GLU (test code = 1586105692) 258 mg/dL 70-110 H Lab Interpretation (test code = Abnormal 05349-3) [facility] GLUCOSE (AUTOMATED)2023-01-20 21:18:50 Test Item Value Reference Range Interpretation Comments POCT GLU (test code = 8319872336) 253 mg/dL 70-110 H Lab Interpretation (test code = Abnormal 93781-5) [facility] GLUCOSE (AUTOMATED)2023-01-20 16:50:26 Test Item Value Reference Range Interpretation Comments POCT GLU (test code = 4372096109) 196 mg/dL 70-110 H Lab Interpretation (test code = Abnormal 91284-1) [facility] GLUCOSE (AUTOMATED)2023-01-20 12:49:45 Test Item Value Reference Range Interpretation Comments POCT GLU (test code = 5607937762) 208 mg/dL 70-110 H Lab Interpretation (test code = Abnormal 55091-6) [facility] (NA, K, CL, CO2, GLUCOSE, BUN, CREATININE, CA)2023-01-20 05:54:42 Test Item Value Reference Range Interpretation Comments NA (test code = 120 mmol/L 135-145 L 1445622370) K (test code = 3.8 mmol/L 3.5-5.0 5798525564) CL (test code = 91 mmol/L 98-108 L 5411224241) CO2 TOTAL (test code = 22 mmol/L 23-31 L 3154138758) AGAP (test code = 7 2-16 4103366980) BUN (test code = 18 mg/dL 7-23 2773524918) GLUCOSE (test code = 141 mg/dL 70-110 H 8052188708) CREATININE (test code = 0.78 mg/dL 0.50-1.04 3669865273) CALCIUM (test code = 8.0 mg/dL 8.6-10.6 L 5352891459) eGFR (test code = 71.2 mL/min/1.73m2 2293814715) EUGENIO (test code = EUGENIO) Association of Glomerular Filtration Rate (GFR) and Staging of Kidney Disease* + --+ --+ ------+| GFR (mL/min/1.73 m2) ?| With Kidney Damage ?| ?Without Kidney Damage+ --------+ --------+ +| ?>90 ?| ?Stage one ?| ? Normal ?+ ---+ ---+ -------+| ?60-89 ?| ?Stage two ?| ? Decreased GFR ? + --+ --+ ------+| ?30-59 ?| ?Stage three ?| ? Stage three ? + --+ --+ ------+| ?15-29 ?| ?Stage four ? | ? Stage four ?+ ---+ ---+ -------+| ?<15 (or dialysis) ? ?| ?Stage five ? | ? Stage five ?+ ---+ ---+ -------+ *Each stage assumes the associated GFR level has been in effect for at least three months. ?Stages 1 to 5, with or without kidney disease, indicate chronic kidney disease. Notes: Determination of stages one and two (with eGFR >59mL/min/1.73 m2) requires estimation of kidney damage for at least three months as defined by structural or functional abnormalities of the kidney, manifested by either:Pathological abnormalities or Markers of kidney damage (including abnormalities in the composition of the blood or urine or abnormalities in imaging tests). Lab Interpretation Abnormal (test code = 09699-9) [facility] GLUCOSE (AUTOMATED)2023-01-20 04:20:27 Test Item Value Reference Range Interpretation Comments POCT GLU (test code = 4767295957) 184 mg/dL 70-110 H Lab Interpretation (test code = Abnormal 19893-7) [facility] GLUCOSE (AUTOMATED)2023-01-20 01:14:24 Test Item Value Reference Range Interpretation Comments POCT GLU (test code = 0239488532) 312 mg/dL 70-110 H Lab Interpretation (test code = Abnormal 25583-3) [facility] GLUCOSE (AUTOMATED)2023-01-19 21:42:42 Test Item Value Reference Range Interpretation Comments POCT GLU (test code = 0618517218) 185 mg/dL 70-110 H Lab Interpretation (test code = Abnormal 31029-8) [facility] GLUCOSE (AUTOMATED)2023-01-19 12:08:42 Test Item Value Reference Range Interpretation Comments POCT GLU (test code = 8536037509) 125 mg/dL 70-110 H Lab Interpretation (test code = Abnormal 76512-6) [facility] METABOLIC PANEL (54481)2023-01-19 01:08:59 Test Item Value Reference Range Interpretation Comments NA (test code = 116 mmol/L 135-145 LL 8091947218) K (test code = 4.6 mmol/L 3.5-5.0 1271485271) CL (test code = 84 mmol/L 98-108 L 5179093825) CO2 TOTAL (test code = 19 mmol/L 23-31 L 5420603786) AGAP (test code = 13 2-16 3174268683) BUN (test code = 14 mg/dL 7-23 4552941683) GLUCOSE (test code = 115 mg/dL 70-110 H 6364164725) CREATININE (test code = 0.91 mg/dL 0.50-1.04 8754308412) TOTAL BILI (test code = 0.9 mg/dL 0.1-1.7 5352194897) CALCIUM (test code = 8.6 mg/dL 8.6-10.6 2752179891) T PROTEIN (test code = 6.2 g/dL 6.3-8.2 L 5160887444) ALBUMIN (test code = 3.3 g/dL 3.5-5.0 L 7632501482) ALK PHOS (test code = 67 U/L 34-122 1205548994) ALTv (test code = 18 U/L 5-35 1742-6) AST(SGOT) (test code = 30 U/L 13-40 2284942110) eGFR (test code = 59.6 mL/min/1.73m2 6531835195) EUGENIO (test code = EUGENIO) Association of Glomerular Filtration Rate (GFR) and Staging of Kidney Disease* + --+ --+ ------+| GFR (mL/min/1.73 m2) ?| With Kidney Damage ?| ?Without Kidney Damage+ --------+ --------+ +| ?>90 ?| ?Stage one ?| ? Normal ?+ ---+ ---+ -------+| ?60-89 ?| ?Stage two ?| ? Decreased GFR ? + --+ --+ ------+| ?30-59 ?| ?Stage three ?| ? Stage three ? + --+ --+ ------+| ?15-29 ?| ?Stage four ? | ? Stage four ?+ ---+ ---+ -------+| ?<15 (or dialysis) ? ?| ?Stage five ? | ? Stage five ?+ ---+ ---+ -------+ *Each stage assumes the associated GFR level has been in effect for at least three months. ?Stages 1 to 5, with or without kidney disease, indicate chronic kidney disease. Notes: Determination of stages one and two (with eGFR >59mL/min/1.73 m2) requires estimation of kidney damage for at least three months as defined by structural or functional abnormalities of the kidney, manifested by either:Pathological abnormalities or Markers of kidney damage (including abnormalities in the composition of the blood or urine or abnormalities in imaging tests). Lab Interpretation Abnormal (test code = 32461-2) [facility] [id number] 01:08:54 Test Item Value Reference Range Interpretation Comments NT-proBNP (test code = 1490 pg/mL <=450 H 6922642908) EUGENIO (test code = EUGENIO) Biotin has been reported to cause a negative bias, interpret results relative to patient's use of biotin. Lab Interpretation (test Abnormal code = 90765-4) [facility] 01:00:11 Test Item Value Reference Range Interpretation Comments MAGNESIUM (test code = 8671672431) 1.6 mg/dL 1.7-2.4 L Lab Interpretation (test code = Abnormal 71818-6) [facility] WITH [id number] 00:50:10 Test Item Value Reference Range Interpretation Comments WBC (test code = 15.52 See_Comment H [Automated 0390-2) message] The system which generated this result transmit jasmin reference range : 4.30 - 11.10 10*3/?L. The reference range was not used to interpret this result as normal/abnormal . RBC (test code = 4.12 See_Comment [Automated 789-8) message] The system which generated this result transmit jasmin reference range : 3.93 - 5.25 10*6/?L. The reference range was not used to interpret this result as normal/abnormal . HGB (test code = 11.2 g/dL 11.6-15.0 L 718-7) HCT (test code = 33.3 % 35.7-45.2 L 4544-3) MCV (test code = 80.8 fL 80.6-95.5 787-2) MCH (test code = 27.2 pg 25.9-32.8 785-6) MCHC (test code = 33.6 g/dL 31.6-35.1 786-4) RDW-SD (test code = 39.3 fL 39.0-49.9 31597-9) RDW-CV (test code = 13.4 % 12.0-15.5 788-0) PLT (test code = 237 See_Comment [Automated 777-3) message] The system which generated this result transmit jasmin reference range : 166 - 358 10*3/ ?L. The reference range was not u sed to interpret th is result as normal/abnormal . MPV (test code = 9.2 fL 9.5-12.9 L 63998-4) NRBC/100 WBC (test 0.0 See_Comment [Automat ed code = 9986704079) message] The system which generated this result transmit jasmin reference range : 0.0 - 10.0 /100 WBCs. The reference range was not used to interpret this result as normal/abnormal . NRBC x10^3 (test code See_Comment [Auto mated = 4210060065) message] The system which generated this result transmit jasmin reference range : 10*3/?L. The reference range was not used to interpret this result as normal/abnormal . GRAN MAT (NEUT) % 86.3 % (test code = 770-8) IMM GRAN % (test code 0.60 % = 9110947885) LYMPH % (test code = 3.4 % 736-9) MONO % (test code = 9.4 % 5905-5) EOS % (test code = 0.1 % 713-8) BASO % (test code = 0.2 % 706-2) GRAN MAT x10^3(ANC) 13.39 10*3/uL 1.88-7.09 H (test code = 0459419815) IMM GRAN x10^3 (test 0.09 10*3/uL 0.00-0.06 H code = 2640820711) LYMPH x10^3 (test code 0.53 10*3/uL 1.32-3.29 L = 731-0) MONO x10^3 (test code 1.46 10*3/uL 0.33-0.92 H = 742-7) EOS x10^3 (test code = 0.03-0.39 L 711-2) BASO x10^3 (test code 0.03 10*3/uL 0.01-0.07 = 704-7) Lab Interpretation Abnormal (test code = 20490-7) [facility] GLUCOSE (AUTOMATED)2022-01-14 17:25:30 Test Item Value Reference Range Interpretation Comments POCT GLU (test code = 7398616238) 120 mg/dL 70-110 H Lab Interpretation (test code = Abnormal 33597-9) [facility] GLUCOSE (AUTOMATED)2022-01-14 17:25:30 Test Item Value Reference Range Interpretation Comments POCT GLU (test code = 4310495590) 120 mg/dL 70-110 H Lab Interpretation (test code = Abnormal 24334-0) [facility] GLUCOSE (AUTOMATED)2022-01-14 12:48:48 Test Item Value Reference Range Interpretation Comments POCT GLU (test code = 3428337596) 104 mg/dL 70-110 Lab Interpretation (test code = Normal 72626-7) [facility]-01-14 12:48:48 Test Item Value Reference Range Interpretation Comments POCT GLU (test code = 2335706348) 104 mg/dL 70-110 Lab Interpretation (test code = Normal 10181-4) [facility] METABOLIC PANEL (NA, K, CL, CO2, GLUCOSE, BUN, CREATININE, CA)2022-01-14 10:45:18 Test Item Value Reference Range Interpretation Comments NA (test code = 130 mmol/L 135-145 L 0895972881) K (test code = 4.6 mmol/L 3.5-5.0 1154498158) CL (test code = 96 mmol/L 98-108 L 2358032725) CO2 TOTAL (test code = 28 mmol/L 23-31 7437642753) AGAP (test code = 2-16 9009548406) BUN (test code = 19 mg/dL 7-23 7983921312) GLUCOSE (test code = 91 mg/dL 70-110 1988588499) CREATININE (test code = 0.90 mg/dL 0.50-1.04 6431020379) CALCIUM (test code = 8.4 mg/dL 8.6-10.6 L 7474239841) eGFR (test code = mL/min/1.73m2 3547073509) EUGENIO (test code = EUGENIO) Association of Glomerular Filtration Rate (GFR) and Staging of Kidney Disease* + --+ --+ ------+| GFR (mL/min/1.73 m2) ?| With Kidney Damage ?| ?Without Kidney Damage+ --------+ --------+ +| ?>90 ?| ?Stage one ?| ? Normal ?+ ---+ ---+ -------+| ?60-89 ?| ?Stage two ?| ? Decreased GFR ? + --+ --+ ------+| ?30-59 ?| ?Stage three ?| ? Stage three ? + --+ --+ ------+| ?15-29 ?| ?Stage four ? | ? Stage four ?+ ---+ ---+ -------+| ?<15 (or dialysis) ? ?| ?Stage five ? | ? Stage five ?+ ---+ ---+ -------+ *Each stage assumes the associated GFR level has been in effect for at least three months. ?Stages 1 to 5, with or without kidney disease, indicate chronic kidney disease. Notes: Determination of stages one and two (with eGFR >59mL/min/1.73 m2) requires estimation of kidney damage for at least three months as defined by structural or functional abnormalities of the kidney, manifested by either:Pathological abnormalities or Markers of kidney damage (including abnormalities in the composition of the blood or urine or abnormalities in imaging tests). Lab Interpretation Abnormal (test code = 41689-7) [facility] METABOLIC PANEL (NA, K, CL, CO2, GLUCOSE, BUN, CREATININE, CA)2022-01-14 10:45:18 Test Item Value Reference Range Interpretation Comments NA (test code = 130 mmol/L 135-145 L 7996958129) K (test code = 4.6 mmol/L 3.5-5.0 3369802833) CL (test code = 96 mmol/L 98-108 L 3135867556) CO2 TOTAL (test code = 28 mmol/L 23-31 5980460329) AGAP (test code = 2-16 1219652510) BUN (test code = 19 mg/dL 7-23 3905496046) GLUCOSE (test code = 91 mg/dL 70-110 8254352363) CREATININE (test code = 0.90 mg/dL 0.50-1.04 6915970128) CALCIUM (test code = 8.4 mg/dL 8.6-10.6 L 2323742840) eGFR (test code = mL/min/1.73m2 9590323236) EUGENIO (test code = EUGENIO) Association of Glomerular Filtration Rate (GFR) and Staging of Kidney Disease* + --+ --+ ------+| GFR (mL/min/1.73 m2) ?| With Kidney Damage ?| ?Without Kidney Damage+ --------+ --------+ +| ?>90 ?| ?Stage one ?| ? Normal ?+ ---+ ---+ -------+| ?60-89 ?| ?Stage two ?| ? Decreased GFR ? + --+ --+ ------+| ?30-59 ?| ?Stage three ?| ? Stage three ? + --+ --+ ------+| ?15-29 ?| ?Stage four ? | ? Stage four ?+ ---+ ---+ -------+| ?<15 (or dialysis) ? ?| ?Stage five ? | ? Stage five ?+ ---+ ---+ -------+ *Each stage assumes the associated GFR level has been in effect for at least three months. ?Stages 1 to 5, with or without kidney disease, indicate chronic kidney disease. Notes: Determination of stages one and two (with eGFR >59mL/min/1.73 m2) requires estimation of kidney damage for at least three months as defined by structural or functional abnormalities of the kidney, manifested by either:Pathological abnormalities or Markers of kidney damage (including abnormalities in the composition of the blood or urine or abnormalities in imaging tests). Lab Interpretation Abnormal (test code = 86609-8) [facility] WITH [id number] 10:25:36 Test Item Value Reference Range Interpretation Comments WBC (test code = See_Comment [Automated 6490-2) message] The sy stem which generated this result transmitted reference range : 4.30 - 11.10 10*3/?L. The reference range was not used to interpret this result as normal/abnormal . RBC (test code = See_Comment L [Automated 789-8) message] The sy stem which generated this result transmitted reference range : 3.93 - 5.25 10*6/?L. The reference range was not used to interpret this result as normal/abnormal . HGB (test code = 10.0 g/dL 11.6-15.0 L 718-7) HCT (test code = 30.3 % 35.7-45.2 L 4544-3) MCV (test code = 85.8 fL 80.6-95.5 787-2) MCH (test code = 28.3 pg 25.9-32.8 785-6) MCHC (test code = 33.0 g/dL 31.6-35.1 786-4) RDW-SD (test code = 44.8 fL 39.0-49.9 40488-7) RDW-CV (test code = 14.4 % 12.0-15.5 788-0) PLT (test code = See_Comment [Automated 777-3) message] The sy stem which generated this result transmitted reference range : 166 - 358 10*3/ ?L. The reference r rigo was not used to interpret this result as normal/abnormal . MPV (test code = 9.1 fL 9.5-12.9 L 98234-2) NRBC/100 WBC (test See_Comment [Automat ed code = 6531450732) message] The system which generated this result transmitted reference range : 0.0 - 10.0 /100 WBCs. The refer ence range was not u sed to interpret th is result as normal/abnormal . NRBC x10^3 (test code <0.01 See_Comment [Auto mated = 3914385581) message] The s ystem which generated this result transmitted reference range : 10*3/?L. The reference range was not used to interpret this result as normal/abnormal . GRAN MAT (NEUT) % 66.4 % (test code = 770-8) IMM GRAN % (test code 0.80 % = 3757375134) LYMPH % (test code = 16.1 % 736-9) MONO % (test code = 8.4 % 5905-5) EOS % (test code = 8.0 % 713-8) BASO % (test code = 0.3 % 706-2) GRAN MAT x10^3(ANC) 6.51 10*3/uL 1.88-7.09 (test code = 6618938594) IMM GRAN x10^3 (test 0.08 10*3/uL 0.00-0.06 H code = 7454345480) LYMPH x10^3 (test code 1.58 10*3/uL 1.32-3.29 = 731-0) MONO x10^3 (test code 0.82 10*3/uL 0.33-0.92 = 742-7) EOS x10^3 (test code = 0.78 10*3/uL 0.03-0.39 H 711-2) BASO x10^3 (test code 0.03 10*3/uL 0.01-0.07 = 704-7) Lab Interpretation Abnormal (test code = 26148-3) [facility] WITH [id number] 10:25:36 Test Item Value Reference Range Interpretation Comments WBC (test code = See_Comment [Automated 6690-2) message] The sy stem which generated this result transmitted reference range : 4.30 - 11.10 10*3/?L. The reference range was not used to interpret this result as normal/abnormal . RBC (test code = See_Comment L [Automated 789-8) message] The sy stem which generated this result transmitted reference range : 3.93 - 5.25 10*6/?L. The reference range was not used to interpret this result as normal/abnormal . HGB (test code = 10.0 g/dL 11.6-15.0 L 718-7) HCT (test code = 30.3 % 35.7-45.2 L 4544-3) MCV (test code = 85.8 fL 80.6-95.5 787-2) MCH (test code = 28.3 pg 25.9-32.8 785-6) MCHC (test code = 33.0 g/dL 31.6-35.1 786-4) RDW-SD (test code = 44.8 fL 39.0-49.9 76516-6) RDW-CV (test code = 14.4 % 12.0-15.5 788-0) PLT (test code = See_Comment [Automated 777-3) message] The sy stem which generated this result transmitted reference range : 166 - 358 10*3/ ?L. The reference r rigo was not used to interpret this result as normal/abnormal . MPV (test code = 9.1 fL 9.5-12.9 L 53773-5) NRBC/100 WBC (test See_Comment [Automat ed code = [id number]) message] The system which generated this result transmitted reference range : 0.0 - 10.0 /100 WBCs. The refer ence range was not u sed to interpret th is result as normal/abnormal . NRBC x10^3 (test code <0.01 See_Comment [Auto mated = [id number]) message] The s ystem which generated this result transmitted reference range : 10*3/?L. The reference range was not used to interpret this result as normal/abnormal . GRAN MAT (NEUT) % 66.4 % (test code = 770-8) IMM GRAN % (test code 0.80 % = 5095531374) LYMPH % (test code = 16.1 % 736-9) MONO % (test code = 8.4 % 5905-5) EOS % (test code = 8.0 % 713-8) BASO % (test code = 0.3 % 706-2) GRAN MAT x10^3(ANC) 6.51 10*3/uL 1.88-7.09 (test code = 6306885398) IMM GRAN x10^3 (test 0.08 10*3/uL 0.00-0.06 H code = 7427867832) LYMPH x10^3 (test code 1.58 10*3/uL 1.32-3.29 = 731-0) MONO x10^3 (test code 0.82 10*3/uL 0.33-0.92 = 742-7) EOS x10^3 (test code = 0.78 10*3/uL 0.03-0.39 H 711-2) BASO x10^3 (test code 0.03 10*3/uL 0.01-0.07 = 704-7) Lab Interpretation Abnormal (test code = 13021-1) [facility] METABOLIC PANEL (NA, K, CL, CO2, GLUCOSE, BUN, CREATININE, CA)2022-01-14 03:57:50 Test Item Value Reference Range Interpretation Comments NA (test code = 132 mmol/L 135-145 L 7635920447) K (test code = 4.7 mmol/L 3.5-5.0 1437876138) CL (test code = 98 mmol/L 98-108 9287849326) CO2 TOTAL (test code = 30 mmol/L 23-31 9608285397) AGAP (test code = 2-16 5622113829) BUN (test code = 22 mg/dL 7-23 5142774942) GLUCOSE (test code = 113 mg/dL 70-110 H 1446501997) CREATININE (test code = 1.00 mg/dL 0.50-1.04 9074883181) CALCIUM (test code = 8.9 mg/dL 8.6-10.6 2494751849) eGFR (test code = mL/min/1.73m2 7801835118) EUGENIO (test code = EUGENIO) Association of Glomerular Filtration Rate (GFR) and Staging of Kidney Disease* + --+ --+ ------+| GFR (mL/min/1.73 m2) ?| With Kidney Damage ?| ?Without Kidney Damage+ --------+ --------+ +| ?>90 ?| ?Stage one ?| ? Normal ?+ ---+ ---+ -------+| ?60-89 ?| ?Stage two ?| ? Decreased GFR ? + --+ --+ ------+| ?30-59 ?| ?Stage three ?| ? Stage three ? + --+ --+ ------+| ?15-29 ?| ?Stage four ? | ? Stage four ?+ ---+ ---+ -------+| ?<15 (or dialysis) ? ?| ?Stage five ? | ? Stage five ?+ ---+ ---+ -------+ *Each stage assumes the associated GFR level has been in effect for at least three months. ?Stages 1 to 5, with or without kidney disease, indicate chronic kidney disease. Notes: Determination of stages one and two (with eGFR >59mL/min/1.73 m2) requires estimation of kidney damage for at least three months as defined by structural or functional abnormalities of the kidney, manifested by either:Pathological abnormalities or Markers of kidney damage (including abnormalities in the composition of the blood or urine or abnormalities in imaging tests). Lab Interpretation Abnormal (test code = 06012-7) [facility] METABOLIC PANEL (NA, K, CL, CO2, GLUCOSE, BUN, CREATININE, CA)2022-01-14 03:57:50 Test Item Value Reference Range Interpretation Comments NA (test code = 132 mmol/L 135-145 L 0576481671) K (test code = 4.7 mmol/L 3.5-5.0 7829068839) CL (test code = 98 mmol/L 98-108 8515378719) CO2 TOTAL (test code = 30 mmol/L 23-31 7454911357) AGAP (test code = 2-16 0149642076) BUN (test code = 22 mg/dL 7-23 1381730420) GLUCOSE (test code = 113 mg/dL 70-110 H 0786454110) CREATININE (test code = 1.00 mg/dL 0.50-1.04 4959419508) CALCIUM (test code = 8.9 mg/dL 8.6-10.6 4397122367) eGFR (test code = mL/min/1.73m2 1545486131) EUGENIO (test code = EUGENIO) Association of Glomerular Filtration Rate (GFR) and Staging of Kidney Disease* + --+ --+ ------+| GFR (mL/min/1.73 m2) ?| With Kidney Damage ?| ?Without Kidney Damage+ --------+ --------+ +| ?>90 ?| ?Stage one ?| ? Normal ?+ ---+ ---+ -------+| ?60-89 ?| ?Stage two ?| ? Decreased GFR ? + --+ --+ ------+| ?30-59 ?| ?Stage three ?| ? Stage three ? + --+ --+ ------+| ?15-29 ?| ?Stage four ? | ? Stage four ?+ ---+ ---+ -------+| ?<15 (or dialysis) ? ?| ?Stage five ? | ? Stage five ?+ ---+ ---+ -------+ *Each stage assumes the associated GFR level has been in effect for at least three months. ?Stages 1 to 5, with or without kidney disease, indicate chronic kidney disease. Notes: Determination of stages one and two (with eGFR >59mL/min/1.73 m2) requires estimation of kidney damage for at least three months as defined by structural or functional abnormalities of the kidney, manifested by either:Pathological abnormalities or Markers of kidney damage (including abnormalities in the composition of the blood or urine or abnormalities in imaging tests). Lab Interpretation Abnormal (test code = 35442-4) [facility] GLUCOSE (AUTOMATED)2022-01-14 01:54:20 Test Item Value Reference Range Interpretation Comments POCT GLU (test code = 2622800991) 103 mg/dL 70-110 Lab Interpretation (test code = Normal 41675-3) [facility] GLUCOSE (AUTOMATED)2022-01-14 01:54:20 Test Item Value Reference Range Interpretation Comments POCT GLU (test code = 4644332928) 103 mg/dL 70-110 Lab Interpretation (test code = Normal 71856-7) [facility] GLUCOSE (AUTOMATED)2022-01-13 22:15:58 Test Item Value Reference Range Interpretation Comments POCT GLU (test code = 3187041296) 192 mg/dL 70-110 H Lab Interpretation (test code = Abnormal 38529-5) [facility] GLUCOSE (AUTOMATED)2022-01-13 22:15:58 Test Item Value Reference Range Interpretation Comments POCT GLU (test code = 3727120811) 192 mg/dL 70-110 H Lab Interpretation (test code = Abnormal 24858-1) [facility] RECEPTOR ANTIBODY (TRAB)2022-01-13 21:49:56 Test Item Value Reference Range Interpretation Comments TSH AB (test code = <0.80 See_Comment Performe d By: [facility] 5385-0) [address] [id number] Director: Yaneli Peña MD [Automated mess age] The system which ge nerated this result transmit jasmin reference range : <=1.75 IU/L. The refer ence range was not used to interpret this result as normal/abnormal . [facility] RECEPTOR ANTIBODY (TRAB)2022-01-13 21:49:56 Test Item Value Reference Range Interpretation Comments TSH AB (test code = <0.80 See_Comment Performe d By: [facility] 5385-0) [address] [address]Picihljlzo Director: Yaneli Peña MD [Automated mess age] The system which ge nerated this result transmit jasmin reference range : <=1.75 IU/L. The refer ence range was not used to interpret this result as normal/abnormal . [facility] GLUCOSE (AUTOMATED)2022-01-13 17:02:54 Test Item Value Reference Range Interpretation Comments POCT GLU (test code = 7087988247) 72 mg/dL 70-110 Lab Interpretation (test code = Normal 80404-3) [facility] GLUCOSE (AUTOMATED)2022-01-13 17:02:54 Test Item Value Reference Range Interpretation Comments POCT GLU (test code = 4572428319) 72 mg/dL 70-110 Lab Interpretation (test code = Normal 43970-2) [facility] GLUCOSE (AUTOMATED)2022-01-13 13:11:57 Test Item Value Reference Range Interpretation Comments POCT GLU (test code = 6469847773) 211 mg/dL 70-110 H Lab Interpretation (test code = Abnormal 25187-8) [facility] GLUCOSE (AUTOMATED)2022-01-13 13:11:57 Test Item Value Reference Range Interpretation Comments POCT GLU (test code = 0953631824) 211 mg/dL 70-110 H Lab Interpretation (test code = Abnormal 73558-0) [facility] Test Item Value Reference Range Interpretation Comments MAGNESIUM (test code = 7103135854) 2.2 mg/dL 1.7-2.4 Lab Interpretation (test code = Normal 32957-2) [facility] Test Item Value Reference Range Interpretation Comments MAGNESIUM (test code = 4704323165) 2.2 mg/dL 1.7-2.4 Lab Interpretation (test code = Normal 86421-5) [facility] METABOLIC PANEL (NA, K, CL, CO2, GLUCOSE, BUN, CREATININE, CA)2022-01-13 10:54:40 Test Item Value Reference Range Interpretation Comments NA (test code = 131 mmol/L 135-145 L 8381460608) K (test code = 4.8 mmol/L 3.5-5.0 2370169917) CL (test code = 94 mmol/L 98-108 L 3899315511) CO2 TOTAL (test code = 31 mmol/L 23-31 1670887993) AGAP (test code = 2-16 0232251238) BUN (test code = 17 mg/dL 7-23 0892544192) GLUCOSE (test code = 96 mg/dL 70-110 3788860560) CREATININE (test code = 0.88 mg/dL 0.50-1.04 2910217423) CALCIUM (test code = 9.2 mg/dL 8.6-10.6 8600521074) eGFR (test code = mL/min/1.73m2 1088235936) EUGENIO (test code = EUGENIO) Association of Glomerular Filtration Rate (GFR) and Staging of Kidney Disease* + --+ --+ ------+| GFR (mL/min/1.73 m2) ?| With Kidney Damage ?| ?Without Kidney Damage+ --------+ --------+ +| ?>90 ?| ?Stage one ?| ? Normal ?+ ---+ ---+ -------+| ?60-89 ?| ?Stage two ?| ? Decreased GFR ? + --+ --+ ------+| ?30-59 ?| ?Stage three ?| ? Stage three ? + --+ --+ ------+| ?15-29 ?| ?Stage four ? | ? Stage four ?+ ---+ ---+ -------+| ?<15 (or dialysis) ? ?| ?Stage five ? | ? Stage five ?+ ---+ ---+ -------+ *Each stage assumes the associated GFR level has been in effect for at least three months. ?Stages 1 to 5, with or without kidney disease, indicate chronic kidney disease. Notes: Determination of stages one and two (with eGFR >59mL/min/1.73 m2) requires estimation of kidney damage for at least three months as defined by structural or functional abnormalities of the kidney, manifested by either:Pathological abnormalities or Markers of kidney damage (including abnormalities in the composition of the blood or urine or abnormalities in imaging tests). Lab Interpretation Abnormal (test code = 34416-3) [facility] METABOLIC PANEL (NA, K, CL, CO2, GLUCOSE, BUN, CREATININE, CA)2022-01-13 10:54:40 Test Item Value Reference Range Interpretation Comments NA (test code = 131 mmol/L 135-145 L 4866531776) K (test code = 4.8 mmol/L 3.5-5.0 9397333457) CL (test code = 94 mmol/L 98-108 L 2410574442) CO2 TOTAL (test code = 31 mmol/L 23-31 4806502855) AGAP (test code = 2-16 6021202353) BUN (test code = 17 mg/dL 7-23 7743385958) GLUCOSE (test code = 96 mg/dL 70-110 8360933660) CREATININE (test code = 0.88 mg/dL 0.50-1.04 0780278708) CALCIUM (test code = 9.2 mg/dL 8.6-10.6 5335455096) eGFR (test code = mL/min/1.73m2 2551921434) EUGENIO (test code = EUGENIO) Association of Glomerular Filtration Rate (GFR) and Staging of Kidney Disease* + --+ --+ ------+| GFR (mL/min/1.73 m2) ?| With Kidney Damage ?| ?Without Kidney Damage+ --------+ --------+ +| ?>90 ?| ?Stage one ?| ? Normal ?+ ---+ ---+ -------+| ?60-89 ?| ?Stage two ?| ? Decreased GFR ? + --+ --+ ------+| ?30-59 ?| ?Stage three ?| ? Stage three ? + --+ --+ ------+| ?15-29 ?| ?Stage four ? | ? Stage four ?+ ---+ ---+ -------+| ?<15 (or dialysis) ? ?| ?Stage five ? | ? Stage five ?+ ---+ ---+ -------+ *Each stage assumes the associated GFR level has been in effect for at least three months. ?Stages 1 to 5, with or without kidney disease, indicate chronic kidney disease. Notes: Determination of stages one and two (with eGFR >59mL/min/1.73 m2) requires estimation of kidney damage for at least three months as defined by structural or functional abnormalities of the kidney, manifested by either:Pathological abnormalities or Markers of kidney damage (including abnormalities in the composition of the blood or urine or abnormalities in imaging tests). Lab Interpretation Abnormal (test code = 02069-5) [facility] (NA, K, CL, CO2, GLUCOSE, BUN, CREATININE, CA)2022-01-13 02:52:53 Test Item Value Reference Range Interpretation Comments NA (test code = 127 mmol/L 135-145 L 4132812876) K (test code = 4.8 mmol/L 3.5-5.0 5208839249) CL (test code = 94 mmol/L 98-108 L 8993224825) CO2 TOTAL (test code = 30 mmol/L 23-31 0804407852) AGAP (test code = 2-16 9429244761) BUN (test code = 18 mg/dL 7-23 0542267043) GLUCOSE (test code = 184 mg/dL 70-110 H 1243982614) CREATININE (test code = 0.99 mg/dL 0.50-1.04 7060052035) CALCIUM (test code = 8.6 mg/dL 8.6-10.6 9258390390) eGFR (test code = mL/min/1.73m2 8818407902) EUGENIO (test code = EUGENIO) Association of Glomerular Filtration Rate (GFR) and Staging of Kidney Disease* + --+ --+ ------+| GFR (mL/min/1.73 m2) ?| With Kidney Damage ?| ?Without Kidney Damage+ --------+ --------+ +| ?>90 ?| ?Stage one ?| ? Normal ?+ ---+ ---+ -------+| ?60-89 ?| ?Stage two ?| ? Decreased GFR ? + --+ --+ ------+| ?30-59 ?| ?Stage three ?| ? Stage three ? + --+ --+ ------+| ?15-29 ?| ?Stage four ? | ? Stage four ?+ ---+ ---+ -------+| ?<15 (or dialysis) ? ?| ?Stage five ? | ? Stage five ?+ ---+ ---+ -------+ *Each stage assumes the associated GFR level has been in effect for at least three months. ?Stages 1 to 5, with or without kidney disease, indicate chronic kidney disease. Notes: Determination of stages one and two (with eGFR >59mL/min/1.73 m2) requires estimation of kidney damage for at least three months as defined by structural or functional abnormalities of the kidney, manifested by either:Pathological abnormalities or Markers of kidney damage (including abnormalities in the composition of the blood or urine or abnormalities in imaging tests). Lab Interpretation Abnormal (test code = 33784-9) [facility] METABOLIC PANEL (NA, K, CL, CO2, GLUCOSE, BUN, CREATININE, CA)2022-01-13 02:52:53 Test Item Value Reference Range Interpretation Comments NA (test code = 127 mmol/L 135-145 L 7400223098) K (test code = 4.8 mmol/L 3.5-5.0 2084787683) CL (test code = 94 mmol/L 98-108 L 0790323513) CO2 TOTAL (test code = 30 mmol/L 23-31 3867571979) AGAP (test code = 2-16 5891232116) BUN (test code = 18 mg/dL 7-23 1129152060) GLUCOSE (test code = 184 mg/dL 70-110 H 7712211106) CREATININE (test code = 0.99 mg/dL 0.50-1.04 4526442768) CALCIUM (test code = 8.6 mg/dL 8.6-10.6 9492441625) eGFR (test code = mL/min/1.73m2 4633124268) EUGENIO (test code = EUGENIO) Association of Glomerular Filtration Rate (GFR) and Staging of Kidney Disease* + --+ --+ ------+| GFR (mL/min/1.73 m2) ?| With Kidney Damage ?| ?Without Kidney Damage+ --------+ --------+ +| ?>90 ?| ?Stage one ?| ? Normal ?+ ---+ ---+ -------+| ?60-89 ?| ?Stage two ?| ? Decreased GFR ? + --+ --+ ------+| ?30-59 ?| ?Stage three ?| ? Stage three ? + --+ --+ ------+| ?15-29 ?| ?Stage four ? | ? Stage four ?+ ---+ ---+ -------+| ?<15 (or dialysis) ? ?| ?Stage five ? | ? Stage five ?+ ---+ ---+ -------+ *Each stage assumes the associated GFR level has been in effect for at least three months. ?Stages 1 to 5, with or without kidney disease, indicate chronic kidney disease. Notes: Determination of stages one and two (with eGFR >59mL/min/1.73 m2) requires estimation of kidney damage for at least three months as defined by structural or functional abnormalities of the kidney, manifested by either:Pathological abnormalities or Markers of kidney damage (including abnormalities in the composition of the blood or urine or abnormalities in imaging tests). Lab Interpretation Abnormal (test code = 09313-9) [facility] GLUCOSE (AUTOMATED)2022-01-12 22:09:05 Test Item Value Reference Range Interpretation Comments POCT GLU (test code = 8672733868) 122 mg/dL 70-110 H Lab Interpretation (test code = Abnormal 89809-2) [facility] GLUCOSE (AUTOMATED)2022-01-12 22:09:05 Test Item Value Reference Range Interpretation Comments POCT GLU (test code = 7748575190) 122 mg/dL 70-110 H Lab Interpretation (test code = Abnormal 06184-8) [facility] METABOLIC PANEL (NA, K, CL, CO2, GLUCOSE, BUN, CREATININE, CA)2022-01-12 19:36:14 Test Item Value Reference Range Interpretation Comments NA (test code = 127 mmol/L 135-145 L 1557129551) K (test code = 5.0 mmol/L 3.5-5.0 7817959974) CL (test code = 92 mmol/L 98-108 L 2948256165) CO2 TOTAL (test code = 29 mmol/L 23-31 7580891139) AGAP (test code = 2-16 9703780231) BUN (test code = 14 mg/dL 7-23 1524641279) GLUCOSE (test code = 146 mg/dL 70-110 H 5975657551) CREATININE (test code = 0.79 mg/dL 0.50-1.04 8945646696) CALCIUM (test code = 8.5 mg/dL 8.6-10.6 L 3874307529) eGFR (test code = mL/min/1.73m2 7558652500) EUGENIO (test code = EUGENIO) Association of Glomerular Filtration Rate (GFR) and Staging of Kidney Disease* + --+ --+ ------+| GFR (mL/min/1.73 m2) ?| With Kidney Damage ?| ?Without Kidney Damage+ --------+ --------+ +| ?>90 ?| ?Stage one ?| ? Normal ?+ ---+ ---+ -------+| ?60-89 ?| ?Stage two ?| ? Decreased GFR ? + --+ --+ ------+| ?30-59 ?| ?Stage three ?| ? Stage three ? + --+ --+ ------+| ?15-29 ?| ?Stage four ? | ? Stage four ?+ ---+ ---+ -------+| ?<15 (or dialysis) ? ?| ?Stage five ? | ? Stage five ?+ ---+ ---+ -------+ *Each stage assumes the associated GFR level has been in effect for at least three months. ?Stages 1 to 5, with or without kidney disease, indicate chronic kidney disease. Notes: Determination of stages one and two (with eGFR >59mL/min/1.73 m2) requires estimation of kidney damage for at least three months as defined by structural or functional abnormalities of the kidney, manifested by either:Pathological abnormalities or Markers of kidney damage (including abnormalities in the composition of the blood or urine or abnormalities in imaging tests). Lab Interpretation Abnormal (test code = 43727-0) [facility] METABOLIC PANEL (NA, K, CL, CO2, GLUCOSE, BUN, CREATININE, CA)2022-01-12 19:36:14 Test Item Value Reference Range Interpretation Comments NA (test code = 127 mmol/L 135-145 L 1225458304) K (test code = 5.0 mmol/L 3.5-5.0 3119044307) CL (test code = 92 mmol/L 98-108 L 5047379710) CO2 TOTAL (test code = 29 mmol/L 23-31 6637759384) AGAP (test code = 2-16 8064568410) BUN (test code = 14 mg/dL 7-23 5975626957) GLUCOSE (test code = 146 mg/dL 70-110 H 4941216108) CREATININE (test code = 0.79 mg/dL 0.50-1.04 5740370763) CALCIUM (test code = 8.5 mg/dL 8.6-10.6 L 4403805976) eGFR (test code = mL/min/1.73m2 3720216236) EUGENIO (test code = EUGENIO) Association of Glomerular Filtration Rate (GFR) and Staging of Kidney Disease* + --+ --+ ------+| GFR (mL/min/1.73 m2) ?| With Kidney Damage ?| ?Without Kidney Damage+ --------+ --------+ +| ?>90 ?| ?Stage one ?| ? Normal ?+ ---+ ---+ -------+| ?60-89 ?| ?Stage two ?| ? Decreased GFR ? + --+ --+ ------+| ?30-59 ?| ?Stage three ?| ? Stage three ? + --+ --+ ------+| ?15-29 ?| ?Stage four ? | ? Stage four ?+ ---+ ---+ -------+| ?<15 (or dialysis) ? ?| ?Stage five ? | ? Stage five ?+ ---+ ---+ -------+ *Each stage assumes the associated GFR level has been in effect for at least three months. ?Stages 1 to 5, with or without kidney disease, indicate chronic kidney disease. Notes: Determination of stages one and two (with eGFR >59mL/min/1.73 m2) requires estimation of kidney damage for at least three months as defined by structural or functional abnormalities of the kidney, manifested by either:Pathological abnormalities or Markers of kidney damage (including abnormalities in the composition of the blood or urine or abnormalities in imaging tests). Lab Interpretation Abnormal (test code = 21234-8) [facility] GLUCOSE (AUTOMATED)2022-01-12 16:42:32 Test Item Value Reference Range Interpretation Comments POCT GLU (test code = 0640926906) 129 mg/dL 70-110 H Lab Interpretation (test code = Abnormal 53573-7) [facility] GLUCOSE (AUTOMATED)2022-01-12 16:42:32 Test Item Value Reference Range Interpretation Comments POCT GLU (test code = 4337448343) 129 mg/dL 70-110 H Lab Interpretation (test code = Abnormal 27071-8) [facility] GLUCOSE (AUTOMATED)2022-01-12 13:26:41 Test Item Value Reference Range Interpretation Comments POCT GLU (test code = 4280328016) 158 mg/dL 70-110 H Lab Interpretation (test code = Abnormal 32135-0) [facility] GLUCOSE (AUTOMATED)2022-01-12 13:26:41 Test Item Value Reference Range Interpretation Comments POCT GLU (test code = 8977964057) 158 mg/dL 70-110 H Lab Interpretation (test code = Abnormal 97484-8) [facility] METABOLIC PANEL (NA, K, CL, CO2, GLUCOSE, BUN, CREATININE, CA)2022-01-12 12:22:06 Test Item Value Reference Range Interpretation Comments NA (test code = 128 mmol/L 135-145 L 2672075551) K (test code = 4.5 mmol/L 3.5-5.0 4462589067) CL (test code = 92 mmol/L 98-108 L 6734089306) CO2 TOTAL (test code = 32 mmol/L 23-31 H 5305965768) AGAP (test code = 2-16 7324857305) BUN (test code = 15 mg/dL 7-23 5045820337) GLUCOSE (test code = 144 mg/dL 70-110 H 7119522338) CREATININE (test code = 0.66 mg/dL 0.50-1.04 7579720632) CALCIUM (test code = 8.4 mg/dL 8.6-10.6 L 1739533985) eGFR (test code = mL/min/1.73m2 3596141933) EUGENIO (test code = EUGENIO) Association of Glomerular Filtration Rate (GFR) and Staging of Kidney Disease* + --+ --+ ------+| GFR (mL/min/1.73 m2) ?| With Kidney Damage ?| ?Without Kidney Damage+ --------+ --------+ +| ?>90 ?| ?Stage one ?| ? Normal ?+ ---+ ---+ -------+| ?60-89 ?| ?Stage two ?| ? Decreased GFR ? + --+ --+ ------+| ?30-59 ?| ?Stage three ?| ? Stage three ? + --+ --+ ------+| ?15-29 ?| ?Stage four ? | ? Stage four ?+ ---+ ---+ -------+| ?<15 (or dialysis) ? ?| ?Stage five ? | ? Stage five ?+ ---+ ---+ -------+ *Each stage assumes the associated GFR level has been in effect for at least three months. ?Stages 1 to 5, with or without kidney disease, indicate chronic kidney disease. Notes: Determination of stages one and two (with eGFR >59mL/min/1.73 m2) requires estimation of kidney damage for at least three months as defined by structural or functional abnormalities of the kidney, manifested by either:Pathological abnormalities or Markers of kidney damage (including abnormalities in the composition of the blood or urine or abnormalities in imaging tests). Lab Interpretation Abnormal (test code = 59835-4) [facility]06 Test Item Value Reference Range Interpretation Comments MAGNESIUM (test code = 7772629918) 2.0 mg/dL 1.7-2.4 Lab Interpretation (test code = Normal 54933-0) [facility] (NA, K, CL, CO2, GLUCOSE, BUN, CREATININE, CA)2022-01-12 12:22:06 Test Item Value Reference Range Interpretation Comments NA (test code = 128 mmol/L 135-145 L 6116060574) K (test code = 4.5 mmol/L 3.5-5.0 0503769585) CL (test code = 92 mmol/L 98-108 L 1302751925) CO2 TOTAL (test code = 32 mmol/L 23-31 H 9646747389) AGAP (test code = 2-16 7268075021) BUN (test code = 15 mg/dL 7-23 2473872447) GLUCOSE (test code = 144 mg/dL 70-110 H 7122078429) CREATININE (test code = 0.66 mg/dL 0.50-1.04 0415432688) CALCIUM (test code = 8.4 mg/dL 8.6-10.6 L 2814040402) eGFR (test code = mL/min/1.73m2 0817913547) EUGENIO (test code = EUGENIO) Association of Glomerular Filtration Rate (GFR) and Staging of Kidney Disease* + --+ --+ ------+| GFR (mL/min/1.73 m2) ?| With Kidney Damage ?| ?Without Kidney Damage+ --------+ --------+ +| ?>90 ?| ?Stage one ?| ? Normal ?+ ---+ ---+ -------+| ?60-89 ?| ?Stage two ?| ? Decreased GFR ? + --+ --+ ------+| ?30-59 ?| ?Stage three ?| ? Stage three ? + --+ --+ ------+| ?15-29 ?| ?Stage four ? | ? Stage four ?+ ---+ ---+ -------+| ?<15 (or dialysis) ? ?| ?Stage five ? | ? Stage five ?+ ---+ ---+ -------+ *Each stage assumes the associated GFR level has been in effect for at least three months. ?Stages 1 to 5, with or without kidney disease, indicate chronic kidney disease. Notes: Determination of stages one and two (with eGFR >59mL/min/1.73 m2) requires estimation of kidney damage for at least three months as defined by structural or functional abnormalities of the kidney, manifested by either:Pathological abnormalities or Markers of kidney damage (including abnormalities in the composition of the blood or urine or abnormalities in imaging tests). Lab Interpretation Abnormal (test code = 71293-2) [facility] 12:22:06 Test Item Value Reference Range Interpretation Comments MAGNESIUM (test code = 5837243359) 2.0 mg/dL 1.7-2.4 Lab Interpretation (test code = Normal 27483-8) [facility] 12:21:46 Test Item Value Reference Range Interpretation Comments PHOSPHORUS (test code = 1448930311) 2.9 mg/dL 2.5-5.0 Lab Interpretation (test code = Normal 81024-0) [facility]46 Test Item Value Reference Range Interpretation Comments PHOSPHORUS (test code = 9558152174) 2.9 mg/dL 2.5-5.0 Lab Interpretation (test code = Normal 38704-5) [facility] 12:18[facility]25 Test Item Value Reference Range Interpretation Comments ALBUMIN (test code = 4812433709) 3.1 g/dL 3.5-5.0 L Lab Interpretation (test code = Abnormal 25707-8) [facility] 12:18:25 Test Item Value Reference Range Interpretation Comments ALBUMIN (test code = 3090620283) 3.1 g/dL 3.5-5.0 L Lab Interpretation (test code = Abnormal 94469-8) [facility]12 01:39:41 Test Item Value Reference Range Interpretation Comments POCT GLU (test code = 6327202530) 115 mg/dL 70-110 H Lab Interpretation (test code = Abnormal 00561-5) [facility] GLUCOSE (AUTOMATED)2022-01-12 01:39:41 Test Item Value Reference Range Interpretation Comments POCT GLU (test code = 8444086809) 115 mg/dL 70-110 H Lab Interpretation (test code = Abnormal 49223-0) [facility] GLUCOSE (AUTOMATED)2022-01-11 23:39:52 Test Item Value Reference Range Interpretation Comments POCT GLU (test code = 5790385053) 175 mg/dL 70-110 H Lab Interpretation (test code = Abnormal 44307-9) [facility] GLUCOSE (AUTOMATED)2022-01-11 23:39:52 Test Item Value Reference Range Interpretation Comments POCT GLU (test code = 1039457781) 175 mg/dL 70-110 H Lab Interpretation (test code = Abnormal 43240-3) [facility] METABOLIC PANEL (NA, K, CL, CO2, GLUCOSE, BUN, CREATININE, CA)2022-01-11 22:42:01 Test Item Value Reference Range Interpretation Comments NA (test code = 128 mmol/L 135-145 L 0521401585) K (test code = 3.7 mmol/L 3.5-5.0 5479188612) CL (test code = 98 mmol/L 98-108 8126093654) CO2 TOTAL (test code = 27 mmol/L 23-31 3070836686) AGAP (test code = 2-16 0674471134) BUN (test code = 15 mg/dL 7-23 7081674469) GLUCOSE (test code = 94 mg/dL 70-110 9405843978) CREATININE (test code = 0.58 mg/dL 0.50-1.04 3823233874) CALCIUM (test code = 7.4 mg/dL 8.6-10.6 L 5313520506) eGFR (test code = mL/min/1.73m2 1491520405) EUGENIO (test code = EUGENIO) Association of Glomerular Filtration Rate (GFR) and Staging of Kidney Disease* + --+ --+ ------+| GFR (mL/min/1.73 m2) ?| With Kidney Damage ?| ?Without Kidney Damage+ --------+ --------+ +| ?>90 ?| ?Stage one ?| ? Normal ?+ ---+ ---+ -------+| ?60-89 ?| ?Stage two ?| ? Decreased GFR ? + --+ --+ ------+| ?30-59 ?| ?Stage three ?| ? Stage three ? + --+ --+ ------+| ?15-29 ?| ?Stage four ? | ? Stage four ?+ ---+ ---+ -------+| ?<15 (or dialysis) ? ?| ?Stage five ? | ? Stage five ?+ ---+ ---+ -------+ *Each stage assumes the associated GFR level has been in effect for at least three months. ?Stages 1 to 5, with or without kidney disease, indicate chronic kidney disease. Notes: Determination of stages one and two (with eGFR >59mL/min/1.73 m2) requires estimation of kidney damage for at least three months as defined by structural or functional abnormalities of the kidney, manifested by either:Pathological abnormalities or Markers of kidney damage (including abnormalities in the composition of the blood or urine or abnormalities in imaging tests). Lab Interpretation Abnormal (test code = 39715-7) [facility] METABOLIC PANEL (NA, K, CL, CO2, GLUCOSE, BUN, CREATININE, CA)2022-01-11 22:42:01 Test Item Value Reference Range Interpretation Comments NA (test code = 128 mmol/L 135-145 L 0709558325) K (test code = 3.7 mmol/L 3.5-5.0 7337358417) CL (test code = 98 mmol/L 98-108 8478247311) CO2 TOTAL (test code = 27 mmol/L 23-31 2033481764) AGAP (test code = 2-16 8263203902) BUN (test code = 15 mg/dL 7-23 6225461395) GLUCOSE (test code = 94 mg/dL 70-110 1800202731) CREATININE (test code = 0.58 mg/dL 0.50-1.04 2172201919) CALCIUM (test code = 7.4 mg/dL 8.6-10.6 L 6274184795) eGFR (test code = mL/min/1.73m2 0034115601) EUGENIO (test code = EUGENIO) Association of Glomerular Filtration Rate (GFR) and Staging of Kidney Disease* + --+ --+ ------+| GFR (mL/min/1.73 m2) ?| With Kidney Damage ?| ?Without Kidney Damage+ --------+ --------+ +| ?>90 ?| ?Stage one ?| ? Normal ?+ ---+ ---+ -------+| ?60-89 ?| ?Stage two ?| ? Decreased GFR ? + --+ --+ ------+| ?30-59 ?| ?Stage three ?| ? Stage three ? + --+ --+ ------+| ?15-29 ?| ?Stage four ? | ? Stage four ?+ ---+ ---+ -------+| ?<15 (or dialysis) ? ?| ?Stage five ? | ? Stage five ?+ ---+ ---+ -------+ *Each stage assumes the associated GFR level has been in effect for at least three months. ?Stages 1 to 5, with or without kidney disease, indicate chronic kidney disease. Notes: Determination of stages one and two (with eGFR >59mL/min/1.73 m2) requires estimation of kidney damage for at least three months as defined by structural or functional abnormalities of the kidney, manifested by either:Pathological abnormalities or Markers of kidney damage (including abnormalities in the composition of the blood or urine or abnormalities in imaging tests). Lab Interpretation Abnormal (test code = 43804-6) [facility] GLUCOSE (AUTOMATED)2022-01-11 21:07:15 Test Item Value Reference Range Interpretation Comments POCT GLU (test code = 0061663430) 130 mg/dL 70-110 H Lab Interpretation (test code = Abnormal 35514-4) [facility] GLUCOSE (AUTOMATED)2022-01-11 21:07:15 Test Item Value Reference Range Interpretation Comments POCT GLU (test code = 1423675328) 130 mg/dL 70-110 H Lab Interpretation (test code = Abnormal 56750-7) [facility] GLUCOSE (AUTOMATED)2022-01-11 16:25:32 Test Item Value Reference Range Interpretation Comments POCT GLU (test code = 1436535280) 128 mg/dL 70-110 H Lab Interpretation (test code = Abnormal 44754-8) [facility] GLUCOSE (AUTOMATED)2022-01-11 16:25:32 Test Item Value Reference Range Interpretation Comments POCT GLU (test code = 3672678421) 128 mg/dL 70-110 H Lab Interpretation (test code = Abnormal 03277-2) [facility] GLUCOSE (AUTOMATED)2022-01-11 12:45:41 Test Item Value Reference Range Interpretation Comments POCT GLU (test code = 3504778289) 134 mg/dL 70-110 H Lab Interpretation (test code = Abnormal 43502-6) [facility] GLUCOSE (AUTOMATED)2022-01-11 12:45:41 Test Item Value Reference Range Interpretation Comments POCT GLU (test code = 9143099268) 134 mg/dL 70-110 H Lab Interpretation (test code = Abnormal 28592-1) [facility] Test Item Value Reference Range Interpretation Comments MAGNESIUM (test code = 0222065497) 1.8 mg/dL 1.7-2.4 Lab Interpretation (test code = Normal 10857-6) [facility]22 Test Item Value Reference Range Interpretation Comments MAGNESIUM (test code = 4629655204) 1.8 mg/dL 1.7-2.4 Lab Interpretation (test code = Normal 63419-2) [facility] METABOLIC PANEL (NA, K, CL, CO2, GLUCOSE, BUN, CREATININE, CA)2022-01-11 11:19:02 Test Item Value Reference Range Interpretation Comments NA (test code = 123 mmol/L 135-145 L 5110489985) K (test code = 3.7 mmol/L 3.5-5.0 2971406052) CL (test code = 89 mmol/L 98-108 L 3094599256) CO2 TOTAL (test code = 29 mmol/L 23-31 9865707426) AGAP (test code = 2-16 3194890726) BUN (test code = 14 mg/dL 7-23 7427464968) GLUCOSE (test code = 132 mg/dL 70-110 H 4353200597) CREATININE (test code = 0.63 mg/dL 0.50-1.04 9997015176) CALCIUM (test code = 8.1 mg/dL 8.6-10.6 L 1698055584) eGFR (test code = mL/min/1.73m2 3885209847) EUGENIO (test code = EUGENIO) Association of Glomerular Filtration Rate (GFR) and Staging of Kidney Disease* + --+ --+ ------+| GFR (mL/min/1.73 m2) ?| With Kidney Damage ?| ?Without Kidney Damage+ --------+ --------+ +| ?>90 ?| ?Stage one ?| ? Normal ?+ ---+ ---+ -------+| ?60-89 ?| ?Stage two ?| ? Decreased GFR ? + --+ --+ ------+| ?30-59 ?| ?Stage three ?| ? Stage three ? + --+ --+ ------+| ?15-29 ?| ?Stage four ? | ? Stage four ?+ ---+ ---+ -------+| ?<15 (or dialysis) ? ?| ?Stage five ? | ? Stage five ?+ ---+ ---+ -------+ *Each stage assumes the associated GFR level has been in effect for at least three months. ?Stages 1 to 5, with or without kidney disease, indicate chronic kidney disease. Notes: Determination of stages one and two (with eGFR >59mL/min/1.73 m2) requires estimation of kidney damage for at least three months as defined by structural or functional abnormalities of the kidney, manifested by either:Pathological abnormalities or Markers of kidney damage (including abnormalities in the composition of the blood or urine or abnormalities in imaging tests). Lab Interpretation Abnormal (test code = 79989-0) [facility]:02 Test Item Value Reference Range Interpretation Comments PHOSPHORUS (test code = 6974022186) 2.6 mg/dL 2.5-5.0 Lab Interpretation (test code = Normal 90679-6) [facility] (NA, K, CL, CO2, GLUCOSE, BUN, CREATININE, CA)2022-01-11 11:19:02 Test Item Value Reference Range Interpretation Comments NA (test code = 123 mmol/L 135-145 L 7916699012) K (test code = 3.7 mmol/L 3.5-5.0 5489099590) CL (test code = 89 mmol/L 98-108 L 8677647298) CO2 TOTAL (test code = 29 mmol/L 23-31 0252096823) AGAP (test code = 2-16 7437129397) BUN (test code = 14 mg/dL 7-23 4463148454) GLUCOSE (test code = 132 mg/dL 70-110 H 7644165828) CREATININE (test code = 0.63 mg/dL 0.50-1.04 9281344945) CALCIUM (test code = 8.1 mg/dL 8.6-10.6 L 3223616829) eGFR (test code = mL/min/1.73m2 1208323371) EUGENIO (test code = EUGENIO) Association of Glomerular Filtration Rate (GFR) and Staging of Kidney Disease* + --+ --+ ------+| GFR (mL/min/1.73 m2) ?| With Kidney Damage ?| ?Without Kidney Damage+ --------+ --------+ +| ?>90 ?| ?Stage one ?| ? Normal ?+ ---+ ---+ -------+| ?60-89 ?| ?Stage two ?| ? Decreased GFR ? + --+ --+ ------+| ?30-59 ?| ?Stage three ?| ? Stage three ? + --+ --+ ------+| ?15-29 ?| ?Stage four ? | ? Stage four ?+ ---+ ---+ -------+| ?<15 (or dialysis) ? ?| ?Stage five ? | ? Stage five ?+ ---+ ---+ -------+ *Each stage assumes the associated GFR level has been in effect for at least three months. ?Stages 1 to 5, with or without kidney disease, indicate chronic kidney disease. Notes: Determination of stages one and two (with eGFR >59mL/min/1.73 m2) requires estimation of kidney damage for at least three months as defined by structural or functional abnormalities of the kidney, manifested by either:Pathological abnormalities or Markers of kidney damage (including abnormalities in the composition of the blood or urine or abnormalities in imaging tests). Lab Interpretation Abnormal (test code = 76541-3) [facility] 11:[facility]:02 Test Item Value Reference Range Interpretation Comments PHOSPHORUS (test code = 2075804945) 2.6 mg/dL 2.5-5.0 Lab Interpretation (test code = Normal 63525-3) [facility] 11:12:37 Test Item Value Reference Range Interpretation Comments ALBUMIN (test code = 1080106867) 3.1 g/dL 3.5-5.0 L Lab Interpretation (test code = Abnormal 84362-2) [facility] 11:12:37 Test Item Value Reference Range Interpretation Comments ALBUMIN (test code = 6412537700) 3.1 g/dL 3.5-5.0 L Lab Interpretation (test code = Abnormal 22371-2) [facility] GLUCOSE (AUTOMATED)2022-01-11 05:53:24 Test Item Value Reference Range Interpretation Comments POCT GLU (test code = 9853416678) 132 mg/dL 70-110 H Lab Interpretation (test code = Abnormal 25028-5) [facility] GLUCOSE (AUTOMATED)2022-01-11 05:53:24 Test Item Value Reference Range Interpretation Comments POCT GLU (test code = 8580961667) 132 mg/dL 70-110 H Lab Interpretation (test code = Abnormal 64667-1) [facility] (NA, K, CL, CO2, GLUCOSE, BUN, CREATININE, CA)2022-01-11 03:02:36 Test Item Value Reference Range Interpretation Comments NA (test code = 124 mmol/L 135-145 L 9361846340) K (test code = 4.5 mmol/L 3.5-5.0 7631688861) CL (test code = 89 mmol/L 98-108 L 8788682391) CO2 TOTAL (test code = 29 mmol/L 23-31 4660847629) AGAP (test code = 2-16 8767119503) BUN (test code = 15 mg/dL 7-23 9631375047) GLUCOSE (test code = 127 mg/dL 70-110 H 2487767115) CREATININE (test code = 0.80 mg/dL 0.50-1.04 1973108712) CALCIUM (test code = 8.1 mg/dL 8.6-10.6 L 3975315868) eGFR (test code = mL/min/1.73m2 3010272221) EUGENIO (test code = EUGENIO) Association of Glomerular Filtration Rate (GFR) and Staging of Kidney Disease* + --+ --+ ------+| GFR (mL/min/1.73 m2) ?| With Kidney Damage ?| ?Without Kidney Damage+ --------+ --------+ +| ?>90 ?| ?Stage one ?| ? Normal ?+ ---+ ---+ -------+| ?60-89 ?| ?Stage two ?| ? Decreased GFR ? + --+ --+ ------+| ?30-59 ?| ?Stage three ?| ? Stage three ? + --+ --+ ------+| ?15-29 ?| ?Stage four ? | ? Stage four ?+ ---+ ---+ -------+| ?<15 (or dialysis) ? ?| ?Stage five ? | ? Stage five ?+ ---+ ---+ -------+ *Each stage assumes the associated GFR level has been in effect for at least three months. ?Stages 1 to 5, with or without kidney disease, indicate chronic kidney disease. Notes: Determination of stages one and two (with eGFR >59mL/min/1.73 m2) requires estimation of kidney damage for at least three months as defined by structural or functional abnormalities of the kidney, manifested by either:Pathological abnormalities or Markers of kidney damage (including abnormalities in the composition of the blood or urine or abnormalities in imaging tests). Lab Interpretation Abnormal (test code = 19496-6) [facility] METABOLIC PANEL (NA, K, CL, CO2, GLUCOSE, BUN, CREATININE, CA)2022-01-11 03:02:36 Test Item Value Reference Range Interpretation Comments NA (test code = 124 mmol/L 135-145 L 2582686653) K (test code = 4.5 mmol/L 3.5-5.0 2743744559) CL (test code = 89 mmol/L 98-108 L 4722622484) CO2 TOTAL (test code = 29 mmol/L 23-31 3747894079) AGAP (test code = 2-16 7549057757) BUN (test code = 15 mg/dL 7-23 3913373070) GLUCOSE (test code = 127 mg/dL 70-110 H 2632914530) CREATININE (test code = 0.80 mg/dL 0.50-1.04 2378349979) CALCIUM (test code = 8.1 mg/dL 8.6-10.6 L 3799198337) eGFR (test code = mL/min/1.73m2 4057091142) EUGENIO (test code = EUGENIO) Association of Glomerular Filtration Rate (GFR) and Staging of Kidney Disease* + --+ --+ ------+| GFR (mL/min/1.73 m2) ?| With Kidney Damage ?| ?Without Kidney Damage+ --------+ --------+ +| ?>90 ?| ?Stage one ?| ? Normal ?+ ---+ ---+ -------+| ?60-89 ?| ?Stage two ?| ? Decreased GFR ? + --+ --+ ------+| ?30-59 ?| ?Stage three ?| ? Stage three ? + --+ --+ ------+| ?15-29 ?| ?Stage four ? | ? Stage four ?+ ---+ ---+ -------+| ?<15 (or dialysis) ? ?| ?Stage five ? | ? Stage five ?+ ---+ ---+ -------+ *Each stage assumes the associated GFR level has been in effect for at least three months. ?Stages 1 to 5, with or without kidney disease, indicate chronic kidney disease. Notes: Determination of stages one and two (with eGFR >59mL/min/1.73 m2) requires estimation of kidney damage for at least three months as defined by structural or functional abnormalities of the kidney, manifested by either:Pathological abnormalities or Markers of kidney damage (including abnormalities in the composition of the blood or urine or abnormalities in imaging tests). Lab Interpretation Abnormal (test code = 55132-1) [facility] (NA, K, CL, CO2, GLUCOSE, BUN, CREATININE, CA)2022-01-10 22:12:33 Test Item Value Reference Range Interpretation Comments NA (test code = 123 mmol/L 135-145 L 7990054649) K (test code = 3.6 mmol/L 3.5-5.0 3831795887) CL (test code = 91 mmol/L 98-108 L 3066930637) CO2 TOTAL (test code = 28 mmol/L 23-31 9521866507) AGAP (test code = 2-16 9686306189) BUN (test code = 12 mg/dL 7-23 6567583960) GLUCOSE (test code = 134 mg/dL 70-110 H 7185819309) CREATININE (test code = 0.62 mg/dL 0.50-1.04 4544699127) CALCIUM (test code = 7.5 mg/dL 8.6-10.6 L 0457215879) eGFR (test code = mL/min/1.73m2 5449021297) EUGENIO (test code = EUGENIO) Association of Glomerular Filtration Rate (GFR) and Staging of Kidney Disease* + --+ --+ ------+| GFR (mL/min/1.73 m2) ?| With Kidney Damage ?| ?Without Kidney Damage+ --------+ --------+ +| ?>90 ?| ?Stage one ?| ? Normal ?+ ---+ ---+ -------+| ?60-89 ?| ?Stage two ?| ? Decreased GFR ? + --+ --+ ------+| ?30-59 ?| ?Stage three ?| ? Stage three ? + --+ --+ ------+| ?15-29 ?| ?Stage four ? | ? Stage four ?+ ---+ ---+ -------+| ?<15 (or dialysis) ? ?| ?Stage five ? | ? Stage five ?+ ---+ ---+ -------+ *Each stage assumes the associated GFR level has been in effect for at least three months. ?Stages 1 to 5, with or without kidney disease, indicate chronic kidney disease. Notes: Determination of stages one and two (with eGFR >59mL/min/1.73 m2) requires estimation of kidney damage for at least three months as defined by structural or functional abnormalities of the kidney, manifested by either:Pathological abnormalities or Markers of kidney damage (including abnormalities in the composition of the blood or urine or abnormalities in imaging tests). Lab Interpretation Abnormal (test code = 12615-6) [facility] METABOLIC PANEL (NA, K, CL, CO2, GLUCOSE, BUN, CREATININE, CA)2022-01-10 22:12:33 Test Item Value Reference Range Interpretation Comments NA (test code = 123 mmol/L 135-145 L 3962031083) K (test code = 3.6 mmol/L 3.5-5.0 8859765953) CL (test code = 91 mmol/L 98-108 L 3396704994) CO2 TOTAL (test code = 28 mmol/L 23-31 2296585258) AGAP (test code = 2-16 8084230395) BUN (test code = 12 mg/dL 7-23 3010734080) GLUCOSE (test code = 134 mg/dL 70-110 H 0138618743) CREATININE (test code = 0.62 mg/dL 0.50-1.04 1598677971) CALCIUM (test code = 7.5 mg/dL 8.6-10.6 L 7981940449) eGFR (test code = mL/min/1.73m2 6308450758) EUGENIO (test code = EUGENIO) Association of Glomerular Filtration Rate (GFR) and Staging of Kidney Disease* + --+ --+ ------+| GFR (mL/min/1.73 m2) ?| With Kidney Damage ?| ?Without Kidney Damage+ --------+ --------+ +| ?>90 ?| ?Stage one ?| ? Normal ?+ ---+ ---+ -------+| ?60-89 ?| ?Stage two ?| ? Decreased GFR ? + --+ --+ ------+| ?30-59 ?| ?Stage three ?| ? Stage three ? + --+ --+ ------+| ?15-29 ?| ?Stage four ? | ? Stage four ?+ ---+ ---+ -------+| ?<15 (or dialysis) ? ?| ?Stage five ? | ? Stage five ?+ ---+ ---+ -------+ *Each stage assumes the associated GFR level has been in effect for at least three months. ?Stages 1 to 5, with or without kidney disease, indicate chronic kidney disease. Notes: Determination of stages one and two (with eGFR >59mL/min/1.73 m2) requires estimation of kidney damage for at least three months as defined by structural or functional abnormalities of the kidney, manifested by either:Pathological abnormalities or Markers of kidney damage (including abnormalities in the composition of the blood or urine or abnormalities in imaging tests). Lab Interpretation Abnormal (test code = 07473-7) [facility] GLUCOSE (AUTOMATED)2022-01-10 17:19:48 Test Item Value Reference Range Interpretation Comments POCT GLU (test code = 8321521555) 200 mg/dL 70-110 H Lab Interpretation (test code = Abnormal 12737-8) [facility] GLUCOSE (AUTOMATED)2022-01-10 17:19:48 Test Item Value Reference Range Interpretation Comments POCT GLU (test code = 3858100005) 200 mg/dL 70-110 H Lab Interpretation (test code = Abnormal 90180-3) [facility] GLUCOSE (AUTOMATED)2022-01-10 16:30:13 Test Item Value Reference Range Interpretation Comments POCT GLU (test code = 7007485146) 65 mg/dL 70-110 L Lab Interpretation (test code = Abnormal 07648-9) [facility] GLUCOSE (AUTOMATED)2022-01-10 16:30:13 Test Item Value Reference Range Interpretation Comments POCT GLU (test code = 1025949044) 65 mg/dL 70-110 L Lab Interpretation (test code = Abnormal 40523-7) [facility] METABOLIC PANEL (NA, K, CL, CO2, GLUCOSE, BUN, CREATININE, CA)2022-01-10 14:43:12 Test Item Value Reference Range Interpretation Comments NA (test code = 124 mmol/L 135-145 L 8475645440) K (test code = 3.7 mmol/L 3.5-5.0 7664599011) CL (test code = 93 mmol/L 98-108 L 8548334559) CO2 TOTAL (test code = 24 mmol/L 23-31 4446967965) AGAP (test code = 2-16 3465653205) BUN (test code = 9 mg/dL 7-23 5683554111) GLUCOSE (test code = 101 mg/dL 70-110 3312498018) CREATININE (test code = 0.59 mg/dL 0.50-1.04 9500333029) CALCIUM (test code = 7.8 mg/dL 8.6-10.6 L 8235420647) eGFR (test code = mL/min/1.73m2 1111522924) EUGENIO (test code = EUGENIO) Association of Glomerular Filtration Rate (GFR) and Staging of Kidney Disease* + --+ --+ ------+| GFR (mL/min/1.73 m2) ?| With Kidney Damage ?| ?Without Kidney Damage+ --------+ --------+ +| ?>90 ?| ?Stage one ?| ? Normal ?+ ---+ ---+ -------+| ?60-89 ?| ?Stage two ?| ? Decreased GFR ? + --+ --+ ------+| ?30-59 ?| ?Stage three ?| ? Stage three ? + --+ --+ ------+| ?15-29 ?| ?Stage four ? | ? Stage four ?+ ---+ ---+ -------+| ?<15 (or dialysis) ? ?| ?Stage five ? | ? Stage five ?+ ---+ ---+ -------+ *Each stage assumes the associated GFR level has been in effect for at least three months. ?Stages 1 to 5, with or without kidney disease, indicate chronic kidney disease. Notes: Determination of stages one and two (with eGFR >59mL/min/1.73 m2) requires estimation of kidney damage for at least three months as defined by structural or functional abnormalities of the kidney, manifested by either:Pathological abnormalities or Markers of kidney damage (including abnormalities in the composition of the blood or urine or abnormalities in imaging tests). Lab Interpretation Abnormal (test code = 14315-1) [facility] METABOLIC PANEL (NA, K, CL, CO2, GLUCOSE, BUN, CREATININE, CA)2022-01-10 14:43:12 Test Item Value Reference Range Interpretation Comments NA (test code = 124 mmol/L 135-145 L 1069091540) K (test code = 3.7 mmol/L 3.5-5.0 4566222951) CL (test code = 93 mmol/L 98-108 L 7808556880) CO2 TOTAL (test code = 24 mmol/L 23-31 1295749812) AGAP (test code = 2-16 0984788615) BUN (test code = 9 mg/dL 7-23 2651801769) GLUCOSE (test code = 101 mg/dL 70-110 1701849347) CREATININE (test code = 0.59 mg/dL 0.50-1.04 5833627191) CALCIUM (test code = 7.8 mg/dL 8.6-10.6 L 6029746252) eGFR (test code = mL/min/1.73m2 9475644735) EUGENIO (test code = EUGENIO) Association of Glomerular Filtration Rate (GFR) and Staging of Kidney Disease* + --+ --+ ------+| GFR (mL/min/1.73 m2) ?| With Kidney Damage ?| ?Without Kidney Damage+ --------+ --------+ +| ?>90 ?| ?Stage one ?| ? Normal ?+ ---+ ---+ -------+| ?60-89 ?| ?Stage two ?| ? Decreased GFR ? + --+ --+ ------+| ?30-59 ?| ?Stage three ?| ? Stage three ? + --+ --+ ------+| ?15-29 ?| ?Stage four ? | ? Stage four ?+ ---+ ---+ -------+| ?<15 (or dialysis) ? ?| ?Stage five ? | ? Stage five ?+ ---+ ---+ -------+ *Each stage assumes the associated GFR level has been in effect for at least three months. ?Stages 1 to 5, with or without kidney disease, indicate chronic kidney disease. Notes: Determination of stages one and two (with eGFR >59mL/min/1.73 m2) requires estimation of kidney damage for at least three months as defined by structural or functional abnormalities of the kidney, manifested by either:Pathological abnormalities or Markers of kidney damage (including abnormalities in the composition of the blood or urine or abnormalities in imaging tests). Lab Interpretation Abnormal (test code = 61343-4) [facility] (NA, K, CL, CO2, GLUCOSE, BUN, CREATININE, CA)2022-01-10 14:11:30 Test Item Value Reference Range Interpretation Comments NA (test code = 124 mmol/L 135-145 L 2452632064) K (test code = 3.5 mmol/L 3.5-5.0 4851475742) CL (test code = 91 mmol/L 98-108 L 1883733078) CO2 TOTAL (test code = 26 mmol/L 23-31 4756834215) AGAP (test code = 2-16 5223012771) BUN (test code = 8 mg/dL 7-23 5659750110) GLUCOSE (test code = 182 mg/dL 70-110 H 8175397501) CREATININE (test code = 0.52 mg/dL 0.50-1.04 8616824450) CALCIUM (test code = 7.6 mg/dL 8.6-10.6 L 2571471016) eGFR (test code = mL/min/1.73m2 6623703042) EUGENIO (test code = EUGENIO) Association of Glomerular Filtration Rate (GFR) and Staging of Kidney Disease* + --+ --+ ------+| GFR (mL/min/1.73 m2) ?| With Kidney Damage ?| ?Without Kidney Damage+ --------+ --------+ +| ?>90 ?| ?Stage one ?| ? Normal ?+ ---+ ---+ -------+| ?60-89 ?| ?Stage two ?| ? Decreased GFR ? + --+ --+ ------+| ?30-59 ?| ?Stage three ?| ? Stage three ? + --+ --+ ------+| ?15-29 ?| ?Stage four ? | ? Stage four ?+ ---+ ---+ -------+| ?<15 (or dialysis) ? ?| ?Stage five ? | ? Stage five ?+ ---+ ---+ -------+ *Each stage assumes the associated GFR level has been in effect for at least three months. ?Stages 1 to 5, with or without kidney disease, indicate chronic kidney disease. Notes: Determination of stages one and two (with eGFR >59mL/min/1.73 m2) requires estimation of kidney damage for at least three months as defined by structural or functional abnormalities of the kidney, manifested by either:Pathological abnormalities or Markers of kidney damage (including abnormalities in the composition of the blood or urine or abnormalities in imaging tests). Lab Interpretation Abnormal (test code = 35475-9) [facility] METABOLIC PANEL (NA, K, CL, CO2, GLUCOSE, BUN, CREATININE, CA)2022-01-10 14:11:30 Test Item Value Reference Range Interpretation Comments NA (test code = 124 mmol/L 135-145 L 8708780667) K (test code = 3.5 mmol/L 3.5-5.0 8304402826) CL (test code = 91 mmol/L 98-108 L 7197462095) CO2 TOTAL (test code = 26 mmol/L 23-31 0699228048) AGAP (test code = 2-16 5247252898) BUN (test code = 8 mg/dL 7-23 3822298594) GLUCOSE (test code = 182 mg/dL 70-110 H 4484186777) CREATININE (test code = 0.52 mg/dL 0.50-1.04 6654612965) CALCIUM (test code = 7.6 mg/dL 8.6-10.6 L 8523588241) eGFR (test code = mL/min/1.73m2 6549399378) EUGENIO (test code = EUGENIO) Association of Glomerular Filtration Rate (GFR) and Staging of Kidney Disease* + --+ --+ ------+| GFR (mL/min/1.73 m2) ?| With Kidney Damage ?| ?Without Kidney Damage+ --------+ --------+ +| ?>90 ?| ?Stage one ?| ? Normal ?+ ---+ ---+ -------+| ?60-89 ?| ?Stage two ?| ? Decreased GFR ? + --+ --+ ------+| ?30-59 ?| ?Stage three ?| ? Stage three ? + --+ --+ ------+| ?15-29 ?| ?Stage four ? | ? Stage four ?+ ---+ ---+ -------+| ?<15 (or dialysis) ? ?| ?Stage five ? | ? Stage five ?+ ---+ ---+ -------+ *Each stage assumes the associated GFR level has been in effect for at least three months. ?Stages 1 to 5, with or without kidney disease, indicate chronic kidney disease. Notes: Determination of stages one and two (with eGFR >59mL/min/1.73 m2) requires estimation of kidney damage for at least three months as defined by structural or functional abnormalities of the kidney, manifested by either:Pathological abnormalities or Markers of kidney damage (including abnormalities in the composition of the blood or urine or abnormalities in imaging tests). Lab Interpretation Abnormal (test code = 91718-1) [facility] Test Item Value Reference Range Interpretation Comments MAGNESIUM (test code = 3152516120) 1.8 mg/dL 1.7-2.4 Lab Interpretation (test code = Normal 90521-0) [facility]02 Test Item Value Reference Range Interpretation Comments MAGNESIUM (test code = 1935676432) 1.8 mg/dL 1.7-2.4 Lab Interpretation (test code = Normal 41971-3) [facility] 13:30:42 Test Item Value Reference Range Interpretation Comments PHOSPHORUS (test code = 6340446109) 2.3 mg/dL 2.5-5.0 L Lab Interpretation (test code = Abnormal 93592-8) [facility] 13:30:42 Test Item Value Reference Range Interpretation Comments PHOSPHORUS (test code = 4656942432) 2.3 mg/dL 2.5-5.0 L Lab Interpretation (test code = Abnormal 57424-5) [facility] 13:27:46 Test Item Value Reference Range Interpretation Comments ALBUMIN (test code = 8947748560) 2.9 g/dL 3.5-5.0 L Lab Interpretation (test code = Abnormal 02208-6) [facility] 13:27:46 Test Item Value Reference Range Interpretation Comments ALBUMIN (test code = 2377165404) 2.9 g/dL 3.5-5.0 L Lab Interpretation (test code = Abnormal 78327-0) [facility] GLUCOSE (AUTOMATED)2022-01-10 12:40:09 Test Item Value Reference Range Interpretation Comments POCT GLU (test code = 4103807477) 227 mg/dL 70-110 H Lab Interpretation (test code = Abnormal 96141-0) [facility] GLUCOSE (AUTOMATED)2022-01-10 12:40:09 Test Item Value Reference Range Interpretation Comments POCT GLU (test code = 6496502265) 227 mg/dL 70-110 H Lab Interpretation (test code = Abnormal 10234-5) [facility] GLUCOSE (AUTOMATED)2022-01-10 02:24:28 Test Item Value Reference Range Interpretation Comments POCT GLU (test code = 3580019438) 130 mg/dL 70-110 H Lab Interpretation (test code = Abnormal 85595-8) [facility]22-[facility]-10 02:24:28 Test Item Value Reference Range Interpretation Comments POCT GLU (test code = 8178581630) 130 mg/dL 70-110 H Lab Interpretation (test code = Abnormal 20961-0) [facility] [id number] 01:30:29 Test Item Value Reference Interpretation Comments Range TROPONIN I (test 0.007 ng/mL See_Comment [Automated code = 5780383962) message] The system which generated this result transmitted reference range : <=0.034. The reference range was not used to interpret this result as normal/abnormal . EUGENIO (test code = Reference (Normal) EUGENIO) Range (defined by the 99th percentile reference limit): <= 0.034 ng/mL Note: Cardiac troponin begins to rise 3-4 hours after the onset of ischemia. Repeat in 4-6 hours if the sample was drawn within 3-4 hours of the onset of the symptom and found normal. Diagnosis of myocardial injury is made with acute changes in cTn concentrations with at least one serial sample above the 99th percentile upper reference limit (URL), taken together with the patient's clinical presentation. Biotin has been reported to cause a negative bias, interpret results relative to patient's use of biotin. Lab Interpretation Normal (test code = 63907-6) [facility] [id number] 01:30:29 Test Item Value Reference Interpretation Comments Range TROPONIN I (test 0.007 ng/mL See_Comment [Automated code = 0947511667) message] The system which generated this result transmitted reference range : <=0.034. The reference range was not used to interpret this result as normal/abnormal . EUGENIO (test code = Reference (Normal) EUGENIO) Range (defined by the 99th percentile reference limit): <= 0.034 ng/mL Note: Cardiac troponin begins to rise 3-4 hours after the onset of ischemia. Repeat in 4-6 hours if the sample was drawn within 3-4 hours of the onset of the symptom and found normal. Diagnosis of myocardial injury is made with acute changes in cTn concentrations with at least one serial sample above the 99th percentile upper reference limit (URL), taken together with the patient's clinical presentation. Biotin has been reported to cause a negative bias, interpret results relative to patient's use of biotin. Lab Interpretation Normal (test code = 72963-0) [facility] METABOLIC PANEL (NA, K, CL, CO2, GLUCOSE, BUN, CREATININE, CA)2022-01-10 01:20:26 Test Item Value Reference Range Interpretation Comments NA (test code = 120 mmol/L 135-145 L 4821475697) K (test code = 3.9 mmol/L 3.5-5.0 4382142630) CL (test code = 89 mmol/L 98-108 L 5667512154) CO2 TOTAL (test code = 29 mmol/L 23-31 8895978275) AGAP (test code = 2-16 0817590001) BUN (test code = 11 mg/dL 7-23 8887742894) GLUCOSE (test code = 140 mg/dL 70-110 H 0243012615) CREATININE (test code = 0.65 mg/dL 0.50-1.04 4655353820) CALCIUM (test code = 7.3 mg/dL 8.6-10.6 L 6079121366) eGFR (test code = mL/min/1.73m2 4746936283) EUGENIO (test code = EUGENIO) Association of Glomerular Filtration Rate (GFR) and Staging of Kidney Disease* + --+ --+ ------+| GFR (mL/min/1.73 m2) ?| With Kidney Damage ?| ?Without Kidney Damage+ --------+ --------+ +| ?>90 ?| ?Stage one ?| ? Normal ?+ ---+ ---+ -------+| ?60-89 ?| ?Stage two ?| ? Decreased GFR ? + --+ --+ ------+| ?30-59 ?| ?Stage three ?| ? Stage three ? + --+ --+ ------+| ?15-29 ?| ?Stage four ? | ? Stage four ?+ ---+ ---+ -------+| ?<15 (or dialysis) ? ?| ?Stage five ? | ? Stage five ?+ ---+ ---+ -------+ *Each stage assumes the associated GFR level has been in effect for at least three months. ?Stages 1 to 5, with or without kidney disease, indicate chronic kidney disease. Notes: Determination of stages one and two (with eGFR >59mL/min/1.73 m2) requires estimation of kidney damage for at least three months as defined by structural or functional abnormalities of the kidney, manifested by either:Pathological abnormalities or Markers of kidney damage (including abnormalities in the composition of the blood or urine or abnormalities in imaging tests). Lab Interpretation Abnormal (test code = 86933-4) [facility] METABOLIC PANEL (NA, K, CL, CO2, GLUCOSE, BUN, CREATININE, CA)2022-01-10 01:20:26 Test Item Value Reference Range Interpretation Comments NA (test code = 120 mmol/L 135-145 L 2109656742) K (test code = 3.9 mmol/L 3.5-5.0 2283545781) CL (test code = 89 mmol/L 98-108 L 0100633521) CO2 TOTAL (test code = 29 mmol/L 23-31 5032252356) AGAP (test code = 2-16 6536185508) BUN (test code = 11 mg/dL 7-23 2272323425) GLUCOSE (test code = 140 mg/dL 70-110 H 3213425004) CREATININE (test code = 0.65 mg/dL 0.50-1.04 2468737255) CALCIUM (test code = 7.3 mg/dL 8.6-10.6 L 3167396032) eGFR (test code = mL/min/1.73m2 7747980289) EUGENIO (test code = EUGENIO) Association of Glomerular Filtration Rate (GFR) and Staging of Kidney Disease* + --+ --+ ------+| GFR (mL/min/1.73 m2) ?| With Kidney Damage ?| ?Without Kidney Damage+ --------+ --------+ +| ?>90 ?| ?Stage one ?| ? Normal ?+ ---+ ---+ -------+| ?60-89 ?| ?Stage two ?| ? Decreased GFR ? + --+ --+ ------+| ?30-59 ?| ?Stage three ?| ? Stage three ? + --+ --+ ------+| ?15-29 ?| ?Stage four ? | ? Stage four ?+ ---+ ---+ -------+| ?<15 (or dialysis) ? ?| ?Stage five ? | ? Stage five ?+ ---+ ---+ -------+ *Each stage assumes the associated GFR level has been in effect for at least three months. ?Stages 1 to 5, with or without kidney disease, indicate chronic kidney disease. Notes: Determination of stages one and two (with eGFR >59mL/min/1.73 m2) requires estimation of kidney damage for at least three months as defined by structural or functional abnormalities of the kidney, manifested by either:Pathological abnormalities or Markers of kidney damage (including abnormalities in the composition of the blood or urine or abnormalities in imaging tests). Lab Interpretation Abnormal (test code = 78926-9) [facility] [id number] 23:23:21 Test Item Value Reference Interpretation Comments Range TROPONIN I (test 0.008 ng/mL See_Comment [Automated code = 2126387064) message] The system which generated this result transmitted reference range : <=0.034. The reference range was not used to interpret this result as normal/abnormal . EUGENIO (test code = Reference (Normal) EUGENIO) Range (defined by the 99th percentile reference limit): <= 0.034 ng/mL Note: Cardiac troponin begins to rise 3-4 hours after the onset of ischemia. Repeat in 4-6 hours if the sample was drawn within 3-4 hours of the onset of the symptom and found normal. Diagnosis of myocardial injury is made with acute changes in cTn concentrations with at least one serial sample above the 99th percentile upper reference limit (URL), taken together with the patient's clinical presentation. Biotin has been reported to cause a negative bias, interpret results relative to patient's use of biotin. Lab Interpretation Normal (test code = 62391-4) [facility] [id number] 23:23:21 Test Item Value Reference Interpretation Comments Range TROPONIN I (test 0.008 ng/mL See_Comment [Automated code = 9842333297) message] The system which generated this result transmitted reference range : <=0.034. The reference range was not used to interpret this result as normal/abnormal . EUGENIO (test code = Reference (Normal) EUGENIO) Range (defined by the 99th percentile reference limit): <= 0.034 ng/mL Note: Cardiac troponin begins to rise 3-4 hours after the onset of ischemia. Repeat in 4-6 hours if the sample was drawn within 3-4 hours of the onset of the symptom and found normal. Diagnosis of myocardial injury is made with acute changes in cTn concentrations with at least one serial sample above the 99th percentile upper reference limit (URL), taken together with the patient's clinical presentation. Biotin has been reported to cause a negative bias, interpret results relative to patient's use of biotin. Lab Interpretation Normal (test code = 74838-6) [facility] GLUCOSE (AUTOMATED)2022-01-09 21:14:40 Test Item Value Reference Range Interpretation Comments POCT GLU (test code = 0172840472) 165 mg/dL 70-110 H Lab Interpretation (test code = Abnormal 55320-5) [facility] GLUCOSE (AUTOMATED)2022-01-09 21:14:40 Test Item Value Reference Range Interpretation Comments POCT GLU (test code = 1911174544) 165 mg/dL 70-110 H Lab Interpretation (test code = Abnormal 04220-1) [facility] (NA, K, CL, CO2, GLUCOSE, BUN, CREATININE, CA)2022-01-09 21:06:29 Test Item Value Reference Range Interpretation Comments NA (test code = 119 mmol/L 135-145 LL 6943188442) K (test code = 4.3 mmol/L 3.5-5.0 9566101092) CL (test code = 91 mmol/L 98-108 L 0718748269) CO2 TOTAL (test code = 26 mmol/L 23-31 6536700753) AGAP (test code = 2-16 2544929716) BUN (test code = 12 mg/dL 7-23 9696837894) GLUCOSE (test code = 169 mg/dL 70-110 H 8698625972) CREATININE (test code = 0.56 mg/dL 0.50-1.04 9251261511) CALCIUM (test code = 7.4 mg/dL 8.6-10.6 L 3393562612) eGFR (test code = mL/min/1.73m2 4821435157) EUGENIO (test code = EUGENIO) Association of Glomerular Filtration Rate (GFR) and Staging of Kidney Disease* + --+ --+ ------+| GFR (mL/min/1.73 m2) ?| With Kidney Damage ?| ?Without Kidney Damage+ --------+ --------+ +| ?>90 ?| ?Stage one ?| ? Normal ?+ ---+ ---+ -------+| ?60-89 ?| ?Stage two ?| ? Decreased GFR ? + --+ --+ ------+| ?30-59 ?| ?Stage three ?| ? Stage three ? + --+ --+ ------+| ?15-29 ?| ?Stage four ? | ? Stage four ?+ ---+ ---+ -------+| ?<15 (or dialysis) ? ?| ?Stage five ? | ? Stage five ?+ ---+ ---+ -------+ *Each stage assumes the associated GFR level has been in effect for at least three months. ?Stages 1 to 5, with or without kidney disease, indicate chronic kidney disease. Notes: Determination of stages one and two (with eGFR >59mL/min/1.73 m2) requires estimation of kidney damage for at least three months as defined by structural or functional abnormalities of the kidney, manifested by either:Pathological abnormalities or Markers of kidney damage (including abnormalities in the composition of the blood or urine or abnormalities in imaging tests). Lab Interpretation Abnormal (test code = 53697-2) [facility] (NA, K, CL, CO2, GLUCOSE, BUN, CREATININE, CA)2022-01-09 21:06:29 Test Item Value Reference Range Interpretation Comments NA (test code = 119 mmol/L 135-145 LL 0864403358) K (test code = 4.3 mmol/L 3.5-5.0 7342715533) CL (test code = 91 mmol/L 98-108 L 3313227523) CO2 TOTAL (test code = 26 mmol/L 23-31 3650452280) AGAP (test code = 2-16 4662444974) BUN (test code = 12 mg/dL 7-23 6082665292) GLUCOSE (test code = 169 mg/dL 70-110 H 1168536707) CREATININE (test code = 0.56 mg/dL 0.50-1.04 4133933154) CALCIUM (test code = 7.4 mg/dL 8.6-10.6 L 1622245562) eGFR (test code = mL/min/1.73m2 4234043621) EUGENIO (test code = EUGENIO) Association of Glomerular Filtration Rate (GFR) and Staging of Kidney Disease* + --+ --+ ------+| GFR (mL/min/1.73 m2) ?| With Kidney Damage ?| ?Without Kidney Damage+ --------+ --------+ +| ?>90 ?| ?Stage one ?| ? Normal ?+ ---+ ---+ -------+| ?60-89 ?| ?Stage two ?| ? Decreased GFR ? + --+ --+ ------+| ?30-59 ?| ?Stage three ?| ? Stage three ? + --+ --+ ------+| ?15-29 ?| ?Stage four ? | ? Stage four ?+ ---+ ---+ -------+| ?<15 (or dialysis) ? ?| ?Stage five ? | ? Stage five ?+ ---+ ---+ -------+ *Each stage assumes the associated GFR level has been in effect for at least three months. ?Stages 1 to 5, with or without kidney disease, indicate chronic kidney disease. Notes: Determination of stages one and two (with eGFR >59mL/min/1.73 m2) requires estimation of kidney damage for at least three months as defined by structural or functional abnormalities of the kidney, manifested by either:Pathological abnormalities or Markers of kidney damage (including abnormalities in the composition of the blood or urine or abnormalities in imaging tests). Lab Interpretation Abnormal (test code = 45258-1) [facility] [id number] 17:29:16 Test Item Value Reference Range Interpretation Comments NARGIS AM (test code = 12.0 ug/dL 4.5-23.0 0217562797) EUGENIO (test code = EUGENIO) Biotin has been reported to cause a positive bias, interpret results relative to patient's use of biotin. Lab Interpretation (test Normal code = 88894-6) [facility] [id number] 17:29:16 Test Item Value Reference Range Interpretation Comments NARGIS AM (test code = 12.0 ug/dL 4.5-23.0 5050988699) EUGENIO (test code = EUGENIO) Biotin has been reported to cause a positive bias, interpret results relative to patient's use of biotin. Lab Interpretation (test Normal code = 04237-7) [facility] GLUCOSE (AUTOMATED)2022-01-09 16:15:39 Test Item Value Reference Range Interpretation Comments POCT GLU (test code = 2224639548) 143 mg/dL 70-110 H Lab Interpretation (test code = Abnormal 62929-2) [facility] GLUCOSE (AUTOMATED)2022-01-09 16:15:39 Test Item Value Reference Range Interpretation Comments POCT GLU (test code = 5611412515) 143 mg/dL 70-110 H Lab Interpretation (test code = Abnormal 51204-8) [facility] METABOLIC PANEL (NA, K, CL, CO2, GLUCOSE, BUN, CREATININE, CA)2022-01-09 16:07:27 Test Item Value Reference Range Interpretation Comments NA (test code = 117 mmol/L 135-145 LL 7966231939) K (test code = 4.2 mmol/L 3.5-5.0 5032874433) CL (test code = 88 mmol/L 98-108 L 3922923381) CO2 TOTAL (test code = 25 mmol/L 23-31 6162858588) AGAP (test code = 2-16 6872818057) BUN (test code = 11 mg/dL 7-23 4332001975) GLUCOSE (test code = 159 mg/dL 70-110 H 9016484371) CREATININE (test code = 0.55 mg/dL 0.50-1.04 7956880280) CALCIUM (test code = 7.5 mg/dL 8.6-10.6 L 4342640654) eGFR (test code = mL/min/1.73m2 8676605635) EUGENIO (test code = UEGENIO) Association of Glomerular Filtration Rate (GFR) and Staging of Kidney Disease* + --+ --+ ------+| GFR (mL/min/1.73 m2) ?| With Kidney Damage ?| ?Without Kidney Damage+ --------+ --------+ +| ?>90 ?| ?Stage one ?| ? Normal ?+ ---+ ---+ -------+| ?60-89 ?| ?Stage two ?| ? Decreased GFR ? + --+ --+ ------+| ?30-59 ?| ?Stage three ?| ? Stage three ? + --+ --+ ------+| ?15-29 ?| ?Stage four ? | ? Stage four ?+ ---+ ---+ -------+| ?<15 (or dialysis) ? ?| ?Stage five ? | ? Stage five ?+ ---+ ---+ -------+ *Each stage assumes the associated GFR level has been in effect for at least three months. ?Stages 1 to 5, with or without kidney disease, indicate chronic kidney disease. Notes: Determination of stages one and two (with eGFR >59mL/min/1.73 m2) requires estimation of kidney damage for at least three months as defined by structural or functional abnormalities of the kidney, manifested by either:Pathological abnormalities or Markers of kidney damage (including abnormalities in the composition of the blood or urine or abnormalities in imaging tests). Lab Interpretation Abnormal (test code = 36994-4) [facility] (NA, K, CL, CO2, GLUCOSE, BUN, CREATININE, CA)2022-01-09 16:07:27 Test Item Value Reference Range Interpretation Comments NA (test code = 117 mmol/L 135-145 LL 4852070646) K (test code = 4.2 mmol/L 3.5-5.0 1396683973) CL (test code = 88 mmol/L 98-108 L 5613266807) CO2 TOTAL (test code = 25 mmol/L 23-31 5298984690) AGAP (test code = 2-16 1557395018) BUN (test code = 11 mg/dL 7-23 0953794322) GLUCOSE (test code = 159 mg/dL 70-110 H 2272884553) CREATININE (test code = 0.55 mg/dL 0.50-1.04 6444922496) CALCIUM (test code = 7.5 mg/dL 8.6-10.6 L 5890566042) eGFR (test code = mL/min/1.73m2 4755663962) EUGENIO (test code = EUGENIO) Association of Glomerular Filtration Rate (GFR) and Staging of Kidney Disease* + --+ --+ ------+| GFR (mL/min/1.73 m2) ?| With Kidney Damage ?| ?Without Kidney Damage+ --------+ --------+ +| ?>90 ?| ?Stage one ?| ? Normal ?+ ---+ ---+ -------+| ?60-89 ?| ?Stage two ?| ? Decreased GFR ? + --+ --+ ------+| ?30-59 ?| ?Stage three ?| ? Stage three ? + --+ --+ ------+| ?15-29 ?| ?Stage four ? | ? Stage four ?+ ---+ ---+ -------+| ?<15 (or dialysis) ? ?| ?Stage five ? | ? Stage five ?+ ---+ ---+ -------+ *Each stage assumes the associated GFR level has been in effect for at least three months. ?Stages 1 to 5, with or without kidney disease, indicate chronic kidney disease. Notes: Determination of stages one and two (with eGFR >59mL/min/1.73 m2) requires estimation of kidney damage for at least three months as defined by structural or functional abnormalities of the kidney, manifested by either:Pathological abnormalities or Markers of kidney damage (including abnormalities in the composition of the blood or urine or abnormalities in imaging tests). Lab Interpretation Abnormal (test code = 34683-7) [facility] GLUCOSE (AUTOMATED)2022-01-09 13:19:34 Test Item Value Reference Range Interpretation Comments POCT GLU (test code = 2939366164) 134 mg/dL 70-110 H Lab Interpretation (test code = Abnormal 57019-6) [facility] GLUCOSE (AUTOMATED)2022-01-09 13:19:34 Test Item Value Reference Range Interpretation Comments POCT GLU (test code = 0173431045) 134 mg/dL 70-110 H Lab Interpretation (test code = Abnormal 81629-3) [facility] METABOLIC PANEL (NA, K, CL, CO2, GLUCOSE, BUN, CREATININE, CA)2022-01-09 11:28:51 Test Item Value Reference Range Interpretation Comments NA (test code = 118 mmol/L 135-145 LL 0392910983) K (test code = 3.6 mmol/L 3.5-5.0 8322756103) CL (test code = 88 mmol/L 98-108 L 6289471635) CO2 TOTAL (test code = 27 mmol/L 23-31 0675026895) AGAP (test code = 2-16 6263064554) BUN (test code = 13 mg/dL 7-23 0213373150) GLUCOSE (test code = 134 mg/dL 70-110 H 6008922159) CREATININE (test code = 0.47 mg/dL 0.50-1.04 L 5716708620) CALCIUM (test code = 7.4 mg/dL 8.6-10.6 L 3271544172) eGFR (test code = mL/min/1.73m2 4516011050) EUGENIO (test code = EUGENIO) Association of Glomerular Filtration Rate (GFR) and Staging of Kidney Disease* + --+ --+ ------+| GFR (mL/min/1.73 m2) ?| With Kidney Damage ?| ?Without Kidney Damage+ --------+ --------+ +| ?>90 ?| ?Stage one ?| ? Normal ?+ ---+ ---+ -------+| ?60-89 ?| ?Stage two ?| ? Decreased GFR ? + --+ --+ ------+| ?30-59 ?| ?Stage three ?| ? Stage three ? + --+ --+ ------+| ?15-29 ?| ?Stage four ? | ? Stage four ?+ ---+ ---+ -------+| ?<15 (or dialysis) ? ?| ?Stage five ? | ? Stage five ?+ ---+ ---+ -------+ *Each stage assumes the associated GFR level has been in effect for at least three months. ?Stages 1 to 5, with or without kidney disease, indicate chronic kidney disease. Notes: Determination of stages one and two (with eGFR >59mL/min/1.73 m2) requires estimation of kidney damage for at least three months as defined by structural or functional abnormalities of the kidney, manifested by either:Pathological abnormalities or Markers of kidney damage (including abnormalities in the composition of the blood or urine or abnormalities in imaging tests). Lab Interpretation Abnormal (test code = 03065-8) [facility] METABOLIC PANEL (NA, K, CL, CO2, GLUCOSE, BUN, CREATININE, [place])2022-01-09 11:28:51 Test Item Value Reference Range Interpretation Comments NA (test code = 118 mmol/L 135-145 LL [id number]) K (test code = 3.6 mmol/L 3.5-5.0 4120194050) CL (test code = 88 mmol/L 98-108 L 0213956429) CO2 TOTAL (test code = 27 mmol/L 23-31 8922927298) AGAP (test code = 2-16 2374995369) BUN (test code = 13 mg/dL 7-23 6203246247) GLUCOSE (test code = 134 mg/dL 70-110 H 2925104498) CREATININE (test code = 0.47 mg/dL 0.50-1.04 L 5888097895) CALCIUM (test code = 7.4 mg/dL 8.6-10.6 L 9100294270) eGFR (test code = mL/min/1.73m2 6812949429) EUGENIO (test code = EUGENIO) Association of Glomerular Filtration Rate (GFR) and Staging of Kidney Disease* + --+ --+ ------+| GFR (mL/min/1.73 m2) ?| With Kidney Damage ?| ?Without Kidney Damage+ --------+ --------+ +| ?>90 ?| ?Stage one ?| ? Normal ?+ ---+ ---+ -------+| ?60-89 ?| ?Stage two ?| ? Decreased GFR ? + --+ --+ ------+| ?30-59 ?| ?Stage three ?| ? Stage three ? + --+ --+ ------+| ?15-29 ?| ?Stage four ? | ? Stage four ?+ ---+ ---+ -------+| ?<15 (or dialysis) ? ?| ?Stage five ? | ? Stage five ?+ ---+ ---+ -------+ *Each stage assumes the associated GFR level has been in effect for at least three months. ?Stages 1 to 5, with or without kidney disease, indicate chronic kidney disease. Notes: Determination of stages one and two (with eGFR >59mL/min/1.73 m2) requires estimation of kidney damage for at least three months as defined by structural or functional abnormalities of the kidney, manifested by either:Pathological abnormalities or Markers of kidney damage (including abnormalities in the composition of the blood or urine or abnormalities in imaging tests). Lab Interpretation Abnormal (test code = 22881-0) [id number] 11:27:40 Test Item Value Reference Range Interpretation Comments ALBUMIN (test code = 2.8 g/dL 3.5-5.0 L 3179024976) CALCIUM (test code = 7.4 mg/dL 8.6-10.6 L 3039647190) CO2 TOTAL (test code = 27 mmol/L 23-31 0294800221) CREATININE (test code = 0.47 mg/dL 0.50-1.04 L 7237139331) GLUCOSE (test code = 134 mg/dL 70-110 H 6982189640) K (test code = 3.6 mmol/L 3.5-5.0 7932683431) NA (test code = 118 mmol/L 135-145 LL 9398773920) BUN (test code = 13 mg/dL 7-23 9588910909) PHOSPHORUS (test code = 2.5 mg/dL 2.5-5.0 1797364383) eGFR (test code = mL/min/1.73m2 6164394696) EUGENIO (test code = EUGENIO) Association of Glomerular Filtration Rate (GFR) and Staging of Kidney Disease* + --+ --+ ------+| GFR (mL/min/1.73 m2) ?| With Kidney Damage ?| ?Without Kidney Damage+ --------+ --------+ +| ?>90 ?| ?Stage one ?| ? Normal ?+ ---+ ---+ -------+| ?60-89 ?| ?Stage two ?| ? Decreased GFR ? + --+ --+ ------+| ?30-59 ?| ?Stage three ?| ? Stage three ? + --+ --+ ------+| ?15-29 ?| ?Stage four ? | ? Stage four ?+ ---+ ---+ -------+| ?<15 (or dialysis) ? ?| ?Stage five ? | ? Stage five ?+ ---+ ---+ -------+ *Each stage assumes the associated GFR level has been in effect for at least three months. ?Stages 1 to 5, with or without kidney disease, indicate chronic kidney disease. Notes: Determination of stages one and two (with eGFR >59mL/min/1.73 m2) requires estimation of kidney damage for at least three months as defined by structural or functional abnormalities of the kidney, manifested by either:Pathological abnormalities or Markers of kidney damage (including abnormalities in the composition of the blood or urine or abnormalities in imaging tests). Lab Interpretation Abnormal (test code = 89774-0) [facility] [id number] 11:27:40 Test Item Value Reference Range Interpretation Comments ALBUMIN (test code = 2.8 g/dL 3.5-5.0 L 7861338707) CALCIUM (test code = 7.4 mg/dL 8.6-10.6 L 8243115701) CO2 TOTAL (test code = 27 mmol/L 23-31 1413838743) CREATININE (test code = 0.47 mg/dL 0.50-1.04 L 2013616003) GLUCOSE (test code = 134 mg/dL 70-110 H 4957332597) K (test code = 3.6 mmol/L 3.5-5.0 6306283801) NA (test code = 118 mmol/L 135-145 LL 1441241935) BUN (test code = 13 mg/dL 7-23 9257153926) PHOSPHORUS (test code = 2.5 mg/dL 2.5-5.0 0969581264) eGFR (test code = mL/min/1.73m2 9124589300) EUGENIO (test code = EUGENIO) Association of Glomerular Filtration Rate (GFR) and Staging of Kidney Disease* + --+ --+ ------+| GFR (mL/min/1.73 m2) ?| With Kidney Damage ?| ?Without Kidney Damage+ --------+ --------+ +| ?>90 ?| ?Stage one ?| ? Normal ?+ ---+ ---+ -------+| ?60-89 ?| ?Stage two ?| ? Decreased GFR ? + --+ --+ ------+| ?30-59 ?| ?Stage three ?| ? Stage three ? + --+ --+ ------+| ?15-29 ?| ?Stage four ? | ? Stage four ?+ ---+ ---+ -------+| ?<15 (or dialysis) ? ?| ?Stage five ? | ? Stage five ?+ ---+ ---+ -------+ *Each stage assumes the associated GFR level has been in effect for at least three months. ?Stages 1 to 5, with or without kidney disease, indicate chronic kidney disease. Notes: Determination of stages one and two (with eGFR >59mL/min/1.73 m2) requires estimation of kidney damage for at least three months as defined by structural or functional abnormalities of the kidney, manifested by either:Pathological abnormalities or Markers of kidney damage (including abnormalities in the composition of the blood or urine or abnormalities in imaging tests). Lab Interpretation Abnormal (test code = 79769-3) [facility] Test Item Value Reference Range Interpretation Comments MAGNESIUM (test code = 6681517465) 1.7 mg/dL 1.7-2.4 Lab Interpretation (test code = Normal 94906-1) [facility] 11[facility]21[facility]32 Test Item Value Reference Range Interpretation Comments MAGNESIUM (test code = 9049725788) 1.7 mg/dL 1.7-2.4 Lab Interpretation (test code = Normal 05286-9) [facility] WITH [id number] 10:54:06 Test Item Value Reference Range Interpretation Comments WBC (test code = See_Comment [Automated 6690-2) message] The sy stem which generated this result transmitted reference range : 4.30 - 11.10 10*3/?L. The reference range was not used to interpret this result as normal/abnormal . RBC (test code = See_Comment L [Automated 089-8) message] The sy stem which generated this result transmitted reference range : 3.93 - 5.25 10*6/?L. The reference range was not used to interpret this result as normal/abnormal . HGB (test code = 10.0 g/dL 11.6-15.0 L 718-7) HCT (test code = 29.1 % 35.7-45.2 L 4544-3) MCV (test code = 82.2 fL 80.6-95.5 787-2) MCH (test code = 28.2 pg 25.9-32.8 785-6) MCHC (test code = 34.4 g/dL 31.6-35.1 786-4) RDW-SD (test code = 40.4 fL 39.0-49.9 53244-0) RDW-CV (test code = 13.4 % 12.0-15.5 788-0) PLT (test code = See_Comment [Automated 777-3) message] The sy stem which generated this result transmitted reference range : 166 - 358 10*3/ ?L. The reference r rigo was not used to interpret this result as normal/abnormal . MPV (test code = 9.4 fL 9.5-12.9 L 49747-4) NRBC/100 WBC (test See_Comment [Automat ed code = 5011793202) message] The system which generated this result transmitted reference range : 0.0 - 10.0 /100 WBCs. The refer ence range was not u sed to interpret th is result as normal/abnormal . NRBC x10^3 (test code <0.01 See_Comment [Auto mated = 2136622894) message] The s ystem which generated this result transmitted reference range : 10*3/?L. The reference range was not used to interpret this result as normal/abnormal . GRAN MAT (NEUT) % 73.9 % (test code = 770-8) IMM GRAN % (test code 1.00 % = 5005325795) LYMPH % (test code = 11.4 % 736-9) MONO % (test code = 9.3 % 5905-5) EOS % (test code = 4.1 % 713-8) BASO % (test code = 0.3 % 706-2) GRAN MAT x10^3(ANC) 7.26 10*3/uL 1.88-7.09 H (test code = 3186554644) IMM GRAN x10^3 (test 0.10 10*3/uL 0.00-0.06 H code = 8028315755) LYMPH x10^3 (test code 1.12 10*3/uL 1.32-3.29 L = 731-0) MONO x10^3 (test code 0.91 10*3/uL 0.33-0.92 = 742-7) EOS x10^3 (test code = 0.40 10*3/uL 0.03-0.39 H 711-2) BASO x10^3 (test code 0.03 10*3/uL 0.01-0.07 = 704-7) Lab Interpretation Abnormal (test code = 98758-8) [facility] WITH [id number] 10:54:06 Test Item Value Reference Range Interpretation Comments WBC (test code = See_Comment [Automated 6690-2) message] The sy stem which generated this result transmitted reference range : 4.30 - 11.10 10*3/?L. The reference range was not used to interpret this result as normal/abnormal . RBC (test code = See_Comment L [Automated 789-8) message] The sy stem which generated this result transmitted reference range : 3.93 - 5.25 10*6/?L. The reference range was not used to interpret this result as normal/abnormal . HGB (test code = 10.0 g/dL 11.6-15.0 L 718-7) HCT (test code = 29.1 % 35.7-45.2 L 4544-3) MCV (test code = 82.2 fL 80.6-95.5 787-2) MCH (test code = 28.2 pg 25.9-32.8 785-6) MCHC (test code = 34.4 g/dL 31.6-35.1 786-4) RDW-SD (test code = 40.4 fL 39.0-49.9 87232-5) RDW-CV (test code = 13.4 % 12.0-15.5 788-0) PLT (test code = See_Comment [Automated 777-3) message] The sy stem which generated this result transmitted reference range : 166 - 358 10*3/ ?L. The reference r rigo was not used to interpret this result as normal/abnormal . MPV (test code = 9.4 fL 9.5-12.9 L 08641-1) NRBC/100 WBC (test See_Comment [Automat ed code = 9891278341) message] The system which generated this result transmitted reference range : 0.0 - 10.0 /100 WBCs. The refer ence range was not u sed to interpret th is result as normal/abnormal . NRBC x10^3 (test code <0.01 See_Comment [Auto mated = 5993263513) message] The s ystem which generated this result transmitted reference range : 10*3/?L. The reference range was not used to interpret this result as normal/abnormal . GRAN MAT (NEUT) % 73.9 % (test code = 770-8) IMM GRAN % (test code 1.00 % = 2956244105) LYMPH % (test code = 11.4 % 736-9) MONO % (test code = 9.3 % 5905-5) EOS % (test code = 4.1 % 713-8) BASO % (test code = 0.3 % 706-2) GRAN MAT x10^3(ANC) 7.26 10*3/uL 1.88-7.09 H (test code = 7626252330) IMM GRAN x10^3 (test 0.10 10*3/uL 0.00-0.06 H code = 3847025855) LYMPH x10^3 (test code 1.12 10*3/uL 1.32-3.29 L = 731-0) MONO x10^3 (test code 0.91 10*3/uL 0.33-0.92 = 742-7) EOS x10^3 (test code = 0.40 10*3/uL 0.03-0.39 H 711-2) BASO x10^3 (test code 0.03 10*3/uL 0.01-0.07 = 704-7) Lab Interpretation Abnormal (test code = 78288-5) [facility] [id number] 06:38:53 Test Item Value Reference Range Interpretation Comments NARGIS PM (test code = 12.9 ug/dL 1.7-14.0 3342802540) EUGENIO (test code = EUGENIO) Biotin has been reported to cause a positive bias, interpret results relative to patient's use of biotin. Lab Interpretation (test Normal code = 93726-1) [facility] [id number] 06:38:53 Test Item Value Reference Range Interpretation Comments NARGIS PM (test code = 12.9 ug/dL 1.7-14.0 1337387039) EUGENIO (test code = EUGENIO) Biotin has been reported to cause a positive bias, interpret results relative to patient's use of biotin. Lab Interpretation (test Normal code = 03800-8) [facility] METABOLIC PANEL (NA, K, CL, CO2, GLUCOSE, BUN, CREATININE, CA)2022-01-09 04:17:37 Test Item Value Reference Range Interpretation Comments NA (test code = 119 mmol/L 135-145 LL 1816737714) K (test code = 3.3 mmol/L 3.5-5.0 L 1527660331) CL (test code = 88 mmol/L 98-108 L 1227320757) CO2 TOTAL (test code = 29 mmol/L 23-31 7260817343) AGAP (test code = 2-16 1282098249) BUN (test code = 17 mg/dL 7-23 9063862736) GLUCOSE (test code = 151 mg/dL 70-110 H 9717180944) CREATININE (test code = 0.46 mg/dL 0.50-1.04 L 0550248699) CALCIUM (test code = 6.7 mg/dL 8.6-10.6 L 2027219792) eGFR (test code = mL/min/1.73m2 1259332046) EUGENIO (test code = EUGENIO) Association of Glomerular Filtration Rate (GFR) and Staging of Kidney Disease* + --+ --+ ------+| GFR (mL/min/1.73 m2) ?| With Kidney Damage ?| ?Without Kidney Damage+ --------+ --------+ +| ?>90 ?| ?Stage one ?| ? Normal ?+ ---+ ---+ -------+| ?60-89 ?| ?Stage two ?| ? Decreased GFR ? + --+ --+ ------+| ?30-59 ?| ?Stage three ?| ? Stage three ? + --+ --+ ------+| ?15-29 ?| ?Stage four ? | ? Stage four ?+ ---+ ---+ -------+| ?<15 (or dialysis) ? ?| ?Stage five ? | ? Stage five ?+ ---+ ---+ -------+ *Each stage assumes the associated GFR level has been in effect for at least three months. ?Stages 1 to 5, with or without kidney disease, indicate chronic kidney disease. Notes: Determination of stages one and two (with eGFR >59mL/min/1.73 m2) requires estimation of kidney damage for at least three months as defined by structural or functional abnormalities of the kidney, manifested by either:Pathological abnormalities or Markers of kidney damage (including abnormalities in the composition of the blood or urine or abnormalities in imaging tests). Lab Interpretation Abnormal (test code = 21585-1) [facility] METABOLIC PANEL (NA, K, CL, CO2, GLUCOSE, BUN, CREATININE, CA)2022-01-09 04:17:37 Test Item Value Reference Range Interpretation Comments NA (test code = 119 mmol/L 135-145 LL 9883072748) K (test code = 3.3 mmol/L 3.5-5.0 L 8017719676) CL (test code = 88 mmol/L 98-108 L 4527902094) CO2 TOTAL (test code = 29 mmol/L 23-31 2988376308) AGAP (test code = 2-16 7513705375) BUN (test code = 17 mg/dL 7-23 8210631017) GLUCOSE (test code = 151 mg/dL 70-110 H 3141240132) CREATININE (test code = 0.46 mg/dL 0.50-1.04 L 9447743881) CALCIUM (test code = 6.7 mg/dL 8.6-10.6 L 3907333936) eGFR (test code = mL/min/1.73m2 9764232651) EUGENIO (test code = EUGENIO) Association of Glomerular Filtration Rate (GFR) and Staging of Kidney Disease* + --+ --+ ------+| GFR (mL/min/1.73 m2) ?| With Kidney Damage ?| ?Without Kidney Damage+ --------+ --------+ +| ?>90 ?| ?Stage one ?| ? Normal ?+ ---+ ---+ -------+| ?60-89 ?| ?Stage two ?| ? Decreased GFR ? + --+ --+ ------+| ?30-59 ?| ?Stage three ?| ? Stage three ? + --+ --+ ------+| ?15-29 ?| ?Stage four ? | ? Stage four ?+ ---+ ---+ -------+| ?<15 (or dialysis) ? ?| ?Stage five ? | ? Stage five ?+ ---+ ---+ -------+ *Each stage assumes the associated GFR level has been in effect for at least three months. ?Stages 1 to 5, with or without kidney disease, indicate chronic kidney disease. Notes: Determination of stages one and two (with eGFR >59mL/min/1.73 m2) requires estimation of kidney damage for at least three months as defined by structural or functional abnormalities of the kidney, manifested by either:Pathological abnormalities or Markers of kidney damage (including abnormalities in the composition of the blood or urine or abnormalities in imaging tests). Lab Interpretation Abnormal (test code = 16290-2) [facility] OR [id number] 04:15:11 Test Item Value Reference Range Interpretation Comments OSMOLALITY (test code = See_Comment L [Au tomated message] 2692-2) The system IPXI generated this result transmitted ref erence range: 278 - 30 5 mOsm/kg. The reference range was not used to int erpret this result as normal/abnormal . Lab Interpretation (test Abnormal code = 70735-4) [facility], SERUM OR [id number] 04:15:11 Test Item Value Reference Range Interpretation Comments OSMOLALITY (test code = See_Comment L [Au tomated message] 2692-2) The system IPXI generated this result transmitted ref erence range: 278 - 30 5 mOsm/kg. The reference range was not used to int erpret this result as normal/abnormal . Lab Interpretation (test Abnormal code = 13292-8) [facility]wood[facility]cosylated Hemoglobin (A1C)2022-01-09 01:56:54 Test Item Value Reference Range Interpretation Comments HGB A1C (test code = 6.8 % 4.0-5.7 H 4548-4) EUGENIO (test code = EUGENIO) Reference RangesNormal: <5.7%Prediabetes: 5.7 - 6.4%Diabetes: > 6.5% Lab Interpretation (test Abnormal code = 38624-9) [facility]woodGlycos[facility] Hemoglobin (A1C)2022-01-09 01:56:54 Test Item Value Reference Range Interpretation Comments HGB A1C (test code = 6.8 % 4.0-5.7 H 4548-4) EUGENIO (test code = EUGENIO) Reference RangesNormal: <5.7%Prediabetes: 5.7 - 6.4%Diabetes: > 6.5% Lab Interpretation (test Abnormal code = 89589-5) [facility]woodLIPID PAN[facility] (00291)(TOTAL CHOLESTEROL, TRIGLYCERIDES, HDL)2022-01-09 01:25:15 Test Item Value Reference Range Interpretation Comments CHOL (test code = 133 mg/dL 120-200 2754520957) HDL (test code = 41 mg/dL >50 L 9290089953) HDLC RATIO (test code = See_Comment [Au tomated message] 6667294919) The system IPXI generated this result transmit jasmin reference range : <=4.5. The refe rence range was not u sed to interpret th is result as normal/abnormal . TRIG (test code = 109 mg/dL 30-170 8724298580) LDL CHOL (test code = 70 mg/dL See_Comment [Auto mated message] 39450-9) The system IPXI generated this result transmit jasmin reference range : <=160. The refe rence range was not u sed to interpret th is result as normal/abnormal . VLDL (test code = 22 mg/dL 5-60 9435362318) Lab Interpretation (test Abnormal code = 22371-1) [facility]wood[facility] (35410)(TOTAL CHOLESTEROL, TRIGLYCERIDES, HDL)2022-01-09 01:25:15 Test Item Value Reference Range Interpretation Comments CHOL (test code = 133 mg/dL 120-200 7036984211) HDL (test code = 41 mg/dL >50 L 4398465901) HDLC RATIO (test code = See_Comment [Au tomated message] 1449508684) The system IPXI generated this result transmit jasmin reference range : <=4.5. The refe rence range was not u sed to interpret th is result as normal/abnormal . TRIG (test code = 109 mg/dL 30-170 9198200090) LDL CHOL (test code = 70 mg/dL See_Comment [Auto mated message] 80223-3) The system whic h generated this result transmit jasmin reference range : <=160. The refe rence range was not u sed to interpret th is result as normal/abnormal . VLDL (test code = 22 mg/dL 5-60 4276593942) Lab Interpretation (test Abnormal code = 99315-9) [facility] METABOLIC PANEL (NA, K, CL, CO2, GLUCOSE, BUN, CREATININE, CA)2022-01-09 01:24:55 Test Item Value Reference Range Interpretation Comments NA (test code = 121 mmol/L 135-145 L 6617424555) K (test code = 3.8 mmol/L 3.5-5.0 3755661524) CL (test code = 88 mmol/L 98-108 L 2026472511) CO2 TOTAL (test code = 30 mmol/L 23-31 0774852594) AGAP (test code = 2-16 2610524344) BUN (test code = 16 mg/dL 7-23 6201285677) GLUCOSE (test code = 136 mg/dL 70-110 H 1610038054) CREATININE (test code = 0.55 mg/dL 0.50-1.04 4508670857) CALCIUM (test code = 7.1 mg/dL 8.6-10.6 L 7570925074) eGFR (test code = mL/min/1.73m2 2540560604) EUGENIO (test code = EUGENIO) Association of Glomerular Filtration Rate (GFR) and Staging of Kidney Disease* + --+ --+ ------+| GFR (mL/min/1.73 m2) ?| With Kidney Damage ?| ?Without Kidney Damage+ --------+ --------+ +| ?>90 ?| ?Stage one ?| ? Normal ?+ ---+ ---+ -------+| ?60-89 ?| ?Stage two ?| ? Decreased GFR ? + --+ --+ ------+| ?30-59 ?| ?Stage three ?| ? Stage three ? + --+ --+ ------+| ?15-29 ?| ?Stage four ? | ? Stage four ?+ ---+ ---+ -------+| ?<15 (or dialysis) ? ?| ?Stage five ? | ? Stage five ?+ ---+ ---+ -------+ *Each stage assumes the associated GFR level has been in effect for at least three months. ?Stages 1 to 5, with or without kidney disease, indicate chronic kidney disease. Notes: Determination of stages one and two (with eGFR >59mL/min/1.73 m2) requires estimation of kidney damage for at least three months as defined by structural or functional abnormalities of the kidney, manifested by either:Pathological abnormalities or Markers of kidney damage (including abnormalities in the composition of the blood or urine or abnormalities in imaging tests). Lab Interpretation Abnormal (test code = 35127-6) [facility] METABOLIC PANEL (NA, K, CL, CO2, GLUCOSE, BUN, CREATININE, CA)2022-01-09 01:24:55 Test Item Value Reference Range Interpretation Comments NA (test code = 121 mmol/L 135-145 L 7142875330) K (test code = 3.8 mmol/L 3.5-5.0 0892567977) CL (test code = 88 mmol/L 98-108 L 6033774710) CO2 TOTAL (test code = 30 mmol/L 23-31 8946733538) AGAP (test code = 2-16 5491754408) BUN (test code = 16 mg/dL 7-23 0390038964) GLUCOSE (test code = 136 mg/dL 70-110 H 8491931217) CREATININE (test code = 0.55 mg/dL 0.50-1.04 5575281538) CALCIUM (test code = 7.1 mg/dL 8.6-10.6 L 9449347481) eGFR (test code = mL/min/1.73m2 0488027066) EUGENIO (test code = EUGENIO) Association of Glomerular Filtration Rate (GFR) and Staging of Kidney Disease* + --+ --+ ------+| GFR (mL/min/1.73 m2) ?| With Kidney Damage ?| ?Without Kidney Damage+ --------+ --------+ +| ?>90 ?| ?Stage one ?| ? Normal ?+ ---+ ---+ -------+| ?60-89 ?| ?Stage two ?| ? Decreased GFR ? + --+ --+ ------+| ?30-59 ?| ?Stage three ?| ? Stage three ? + --+ --+ ------+| ?15-29 ?| ?Stage four ? | ? Stage four ?+ ---+ ---+ -------+| ?<15 (or dialysis) ? ?| ?Stage five ? | ? Stage five ?+ ---+ ---+ -------+ *Each stage assumes the associated GFR level has been in effect for at least three months. ?Stages 1 to 5, with or without kidney disease, indicate chronic kidney disease. Notes: Determination of stages one and two (with eGFR >59mL/min/1.73 m2) requires estimation of kidney damage for at least three months as defined by structural or functional abnormalities of the kidney, manifested by either:Pathological abnormalities or Markers of kidney damage (including abnormalities in the composition of the blood or urine or abnormalities in imaging tests). Lab Interpretation Abnormal (test code = 32743-9) [facility]2022-03-16 01:21:34 Test Item Value Reference Range Interpretation Comments NA (test code = 5461658759) 121 mmol/L 135-145 L Lab Interpretation (test code = Abnormal 35495-5) [facility]2022-03-16 01:21:34 Test Item Value Reference Range Interpretation Comments NA (test code = 2560644208) 121 mmol/L 135-145 L Lab Interpretation (test code = Abnormal 30825-6) [facility] GLUCOSE (AUTOMATED)2022-01-09 01:16:52 Test Item Value Reference Range Interpretation Comments POCT GLU (test code = 5294912425) 167 mg/dL 70-110 H Lab Interpretation (test code = Abnormal 85623-2) [facility] GLUCOSE (AUTOMATED)2022-01-09 01:16:52 Test Item Value Reference Range Interpretation Comments POCT GLU (test code = 8346239333) 167 mg/dL 70-110 H Lab Interpretation (test code = Abnormal 22254-3) [facility] METABOLIC PANEL (NA, K, CL, CO2, GLUCOSE, BUN, CREATININE, CA)2022-01-08 22:56:40 Test Item Value Reference Range Interpretation Comments NA (test code = 121 mmol/L 135-145 L 5511430203) K (test code = 3.4 mmol/L 3.5-5.0 L 0024851903) CL (test code = 87 mmol/L 98-108 L 6381053312) CO2 TOTAL (test code = 27 mmol/L 23-31 0401783560) AGAP (test code = 2-16 2539244448) BUN (test code = 17 mg/dL 7-23 6378380005) GLUCOSE (test code = 122 mg/dL 70-110 H 8640701441) CREATININE (test code = 0.55 mg/dL 0.50-1.04 9643562889) CALCIUM (test code = 7.4 mg/dL 8.6-10.6 L 0212692928) eGFR (test code = mL/min/1.73m2 0551976887) EUGENIO (test code = EUGENIO) Association of Glomerular Filtration Rate (GFR) and Staging of Kidney Disease* + --+ --+ ------+| GFR (mL/min/1.73 m2) ?| With Kidney Damage ?| ?Without Kidney Damage+ --------+ --------+ +| ?>90 ?| ?Stage one ?| ? Normal ?+ ---+ ---+ -------+| ?60-89 ?| ?Stage two ?| ? Decreased GFR ? + --+ --+ ------+| ?30-59 ?| ?Stage three ?| ? Stage three ? + --+ --+ ------+| ?15-29 ?| ?Stage four ? | ? Stage four ?+ ---+ ---+ -------+| ?<15 (or dialysis) ? ?| ?Stage five ? | ? Stage five ?+ ---+ ---+ -------+ *Each stage assumes the associated GFR level has been in effect for at least three months. ?Stages 1 to 5, with or without kidney disease, indicate chronic kidney disease. Notes: Determination of stages one and two (with eGFR >59mL/min/1.73 m2) requires estimation of kidney damage for at least three months as defined by structural or functional abnormalities of the kidney, manifested by either:Pathological abnormalities or Markers of kidney damage (including abnormalities in the composition of the blood or urine or abnormalities in imaging tests). Lab Interpretation Abnormal (test code = 36962-0) [facility] METABOLIC PANEL (NA, K, CL, CO2, GLUCOSE, BUN, CREATININE, CA)2022-01-08 22:56:40 Test Item Value Reference Range Interpretation Comments NA (test code = 121 mmol/L 135-145 L 6349817682) K (test code = 3.4 mmol/L 3.5-5.0 L 9929817141) CL (test code = 87 mmol/L 98-108 L 1944391938) CO2 TOTAL (test code = 27 mmol/L 23-31 9008743715) AGAP (test code = 2-16 2224873279) BUN (test code = 17 mg/dL 7-23 9846037484) GLUCOSE (test code = 122 mg/dL 70-110 H 0429675745) CREATININE (test code = 0.55 mg/dL 0.50-1.04 1036962322) CALCIUM (test code = 7.4 mg/dL 8.6-10.6 L 6062614268) eGFR (test code = mL/min/1.73m2 9184621967) EUGENIO (test code = EUGENIO) Association of Glomerular Filtration Rate (GFR) and Staging of Kidney Disease* + --+ --+ ------+| GFR (mL/min/1.73 m2) ?| With Kidney Damage ?| ?Without Kidney Damage+ --------+ --------+ +| ?>90 ?| ?Stage one ?| ? Normal ?+ ---+ ---+ -------+| ?60-89 ?| ?Stage two ?| ? Decreased GFR ? + --+ --+ ------+| ?30-59 ?| ?Stage three ?| ? Stage three ? + --+ --+ ------+| ?15-29 ?| ?Stage four ? | ? Stage four ?+ ---+ ---+ -------+| ?<15 (or dialysis) ? ?| ?Stage five ? | ? Stage five ?+ ---+ ---+ -------+ *Each stage assumes the associated GFR level has been in effect for at least three months. ?Stages 1 to 5, with or without kidney disease, indicate chronic kidney disease. Notes: Determination of stages one and two (with eGFR >59mL/min/1.73 m2) requires estimation of kidney damage for at least three months as defined by structural or functional abnormalities of the kidney, manifested by either:Pathological abnormalities or Markers of kidney damage (including abnormalities in the composition of the blood or urine or abnormalities in imaging tests). Lab Interpretation Abnormal (test code = 81185-2) [facility] [id number] 22:16:45 Test Item Value Reference Range Interpretation Comments MAGNESIUM (test code = 2176691526) 1.7 mg/dL 1.7-2.4 Lab Interpretation (test code = Normal 97671-5) [facility] 22:16:45 Test Item Value Reference Range Interpretation Comments MAGNESIUM (test code = 6788368610) 1.7 mg/dL 1.7-2.4 Lab Interpretation (test code = Normal 49184-7) [facility]wood[facility]osph[facility] [id number] 22:16:25 Test Item Value Reference Range Interpretation Comments PHOSPHORUS (test code = 7745057979) 3.0 mg/dL 2.5-5.0 Lab Interpretation (test code = Normal 22158-5) [facility]wood[facility] [id number] 22:16:25 Test Item Value Reference Range Interpretation Comments PHOSPHORUS (test code = 3461056273) 3.0 mg/dL 2.5-5.0 Lab Interpretation (test code = Normal 82957-1) [facility]woodURIC [id number] 22:16:05 Test Item Value Reference Range Interpretation Comments URIC ACID (test code = 0187508579) 3.5 mg/dL 2.9-6.0 Lab Interpretation (test code = Normal 52257-6) [facility] [id number] 22:16:05 Test Item Value Reference Range Interpretation Comments URIC ACID (test code = 3555964437) 3.5 mg/dL 2.9-6.0 Lab Interpretation (test code = Normal 73672-2) [facility]wood[facility]2022-03-15 22:12:26 Test Item Value Reference Range Interpretation Comments NA (test code = 4284953051) 121 mmol/L 135-145 L Lab Interpretation (test code = Abnormal 16100-3) [facility]2022-[facility]-15 22:12:26 Test Item Value Reference Range Interpretation Comments NA (test code = 0577850412) 121 mmol/L 135-145 L Lab Interpretation (test code = Abnormal 72412-2) [facility] (NA, K, CL, CO2, GLUCOSE, BUN, CREATININE, CA)2022-01-08 18:38:48 Test Item Value Reference Range Interpretation Comments NA (test code = 114 mmol/L 135-145 LL 0842148941) K (test code = 4.1 mmol/L 3.5-5.0 8974730199) CL (test code = 81 mmol/L 98-108 L 2128194019) CO2 TOTAL (test code = 27 mmol/L 23-31 6214235718) AGAP (test code = 2-16 4815961642) BUN (test code = 20 mg/dL 7-23 1759509221) GLUCOSE (test code = 126 mg/dL 70-110 H 5227775138) CREATININE (test code = 0.60 mg/dL 0.50-1.04 3130730401) CALCIUM (test code = 7.7 mg/dL 8.6-10.6 L 5733422283) eGFR (test code = mL/min/1.73m2 7366548745) EUGENIO (test code = EUGENIO) Association of Glomerular Filtration Rate (GFR) and Staging of Kidney Disease* + --+ --+ ------+| GFR (mL/min/1.73 m2) ?| With Kidney Damage ?| ?Without Kidney Damage+ --------+ --------+ +| ?>90 ?| ?Stage one ?| ? Normal ?+ ---+ ---+ -------+| ?60-89 ?| ?Stage two ?| ? Decreased GFR ? + --+ --+ ------+| ?30-59 ?| ?Stage three ?| ? Stage three ? + --+ --+ ------+| ?15-29 ?| ?Stage four ? | ? Stage four ?+ ---+ ---+ -------+| ?<15 (or dialysis) ? ?| ?Stage five ? | ? Stage five ?+ ---+ ---+ -------+ *Each stage assumes the associated GFR level has been in effect for at least three months. ?Stages 1 to 5, with or without kidney disease, indicate chronic kidney disease. Notes: Determination of stages one and two (with eGFR >59mL/min/1.73 m2) requires estimation of kidney damage for at least three months as defined by structural or functional abnormalities of the kidney, manifested by either:Pathological abnormalities or Markers of kidney damage (including abnormalities in the composition of the blood or urine or abnormalities in imaging tests). Lab Interpretation Abnormal (test code = 40215-0) [facility] METABOLIC PANEL (NA, K, CL, CO2, GLUCOSE, BUN, CREATININE, CA)2022-01-08 18:38:48 Test Item Value Reference Range Interpretation Comments NA (test code = 114 mmol/L 135-145 LL 3063885960) K (test code = 4.1 mmol/L 3.5-5.0 4059645927) CL (test code = 81 mmol/L 98-108 L 1547570564) CO2 TOTAL (test code = 27 mmol/L 23-31 4255442149) AGAP (test code = 2-16 8405333002) BUN (test code = 20 mg/dL 7-23 4458928918) GLUCOSE (test code = 126 mg/dL 70-110 H 8969822090) CREATININE (test code = 0.60 mg/dL 0.50-1.04 2922439031) CALCIUM (test code = 7.7 mg/dL 8.6-10.6 L 1054390499) eGFR (test code = mL/min/1.73m2 8961129720) EUGENIO (test code = EUGENIO) Association of Glomerular Filtration Rate (GFR) and Staging of Kidney Disease* + --+ --+ ------+| GFR (mL/min/1.73 m2) ?| With Kidney Damage ?| ?Without Kidney Damage+ --------+ --------+ +| ?>90 ?| ?Stage one ?| ? Normal ?+ ---+ ---+ -------+| ?60-89 ?| ?Stage two ?| ? Decreased GFR ? + --+ --+ ------+| ?30-59 ?| ?Stage three ?| ? Stage three ? + --+ --+ ------+| ?15-29 ?| ?Stage four ? | ? Stage four ?+ ---+ ---+ -------+| ?<15 (or dialysis) ? ?| ?Stage five ? | ? Stage five ?+ ---+ ---+ -------+ *Each stage assumes the associated GFR level has been in effect for at least three months. ?Stages 1 to 5, with or without kidney disease, indicate chronic kidney disease. Notes: Determination of stages one and two (with eGFR >59mL/min/1.73 m2) requires estimation of kidney damage for at least three months as defined by structural or functional abnormalities of the kidney, manifested by either:Pathological abnormalities or Markers of kidney damage (including abnormalities in the composition of the blood or urine or abnormalities in imaging tests). Lab Interpretation Abnormal (test code = 07731-1) [facility]. METABOLIC PANEL ([id number])2022-01-08 17:39:48 Test Item Value Reference Range Interpretation Comments NA (test code = 112 mmol/L 135-145 LL 1946783951) K (test code = 4.7 mmol/L 3.5-5.0 1733682531) CL (test code = 80 mmol/L 98-108 L 0259051752) CO2 TOTAL (test code = 25 mmol/L 23-31 3563098181) AGAP (test code = 2-16 0993196354) BUN (test code = 21 mg/dL 7-23 5872627805) GLUCOSE (test code = 148 mg/dL 70-110 H 7820700894) CREATININE (test code = 0.65 mg/dL 0.50-1.04 8540817717) TOTAL BILI (test code = 0.7 mg/dL 0.1-1.3 5084979843) CALCIUM (test code = 7.6 mg/dL 8.6-10.6 L 9838343740) T PROTEIN (test code = 5.4 g/dL 6.3-8.2 L 7879207067) ALBUMIN (test code = 3.0 g/dL 3.5-5.0 L 5729481010) ALK PHOS (test code = 55 U/L 34-122 4260075265) ALTv (test code = 20 U/L 5-35 1742-6) AST(SGOT) (test code = 33 U/L 13-40 8771010632) eGFR (test code = mL/min/1.73m2 3352900040) EUGENIO (test code = EUGENIO) Association of Glomerular Filtration Rate (GFR) and Staging of Kidney Disease* + --+ --+ ------+| GFR (mL/min/1.73 m2) ?| With Kidney Damage ?| ?Without Kidney Damage+ --------+ --------+ +| ?>90 ?| ?Stage one ?| ? Normal ?+ ---+ ---+ -------+| ?60-89 ?| ?Stage two ?| ? Decreased GFR ? + --+ --+ ------+| ?30-59 ?| ?Stage three ?| ? Stage three ? + --+ --+ ------+| ?15-29 ?| ?Stage four ? | ? Stage four ?+ ---+ ---+ -------+| ?<15 (or dialysis) ? ?| ?Stage five ? | ? Stage five ?+ ---+ ---+ -------+ *Each stage assumes the associated GFR level has been in effect for at least three months. ?Stages 1 to 5, with or without kidney disease, indicate chronic kidney disease. Notes: Determination of stages one and two (with eGFR >59mL/min/1.73 m2) requires estimation of kidney damage for at least three months as defined by structural or functional abnormalities of the kidney, manifested by either:Pathological abnormalities or Markers of kidney damage (including abnormalities in the composition of the blood or urine or abnormalities in imaging tests). Lab Interpretation Abnormal (test code = 37605-0) [facility]. METABOLIC PANEL ([id number])2022-01-08 17:39:48 Test Item Value Reference Range Interpretation Comments NA (test code = 112 mmol/L 135-145 LL 0493019893) K (test code = 4.7 mmol/L 3.5-5.0 0423581904) CL (test code = 80 mmol/L 98-108 L 1677434468) CO2 TOTAL (test code = 25 mmol/L 23-31 8079842523) AGAP (test code = 2-16 8806387398) BUN (test code = 21 mg/dL 7-23 9404755022) GLUCOSE (test code = 148 mg/dL 70-110 H 3537517414) CREATININE (test code = 0.65 mg/dL 0.50-1.04 2545923925) TOTAL BILI (test code = 0.7 mg/dL 0.1-1.5 8454300487) CALCIUM (test code = 7.6 mg/dL 8.6-10.6 L 5897429393) T PROTEIN (test code = 5.4 g/dL 6.3-8.2 L 0165470532) ALBUMIN (test code = 3.0 g/dL 3.5-5.0 L 5782116893) ALK PHOS (test code = 55 U/L 34-122 8207421455) ALTv (test code = 20 U/L 5-35 1742-6) AST(SGOT) (test code = 33 U/L 13-40 7735887266) eGFR (test code = mL/min/1.73m2 1067820042) EUGENIO (test code = EUGENIO) Association of Glomerular Filtration Rate (GFR) and Staging of Kidney Disease* + --+ --+ ------+| GFR (mL/min/1.73 m2) ?| With Kidney Damage ?| ?Without Kidney Damage+ --------+ --------+ +| ?>90 ?| ?Stage one ?| ? Normal ?+ ---+ ---+ -------+| ?60-89 ?| ?Stage two ?| ? Decreased GFR ? + --+ --+ ------+| ?30-59 ?| ?Stage three ?| ? Stage three ? + --+ --+ ------+| ?15-29 ?| ?Stage four ? | ? Stage four ?+ ---+ ---+ -------+| ?<15 (or dialysis) ? ?| ?Stage five ? | ? Stage five ?+ ---+ ---+ -------+ *Each stage assumes the associated GFR level has been in effect for at least three months. ?Stages 1 to 5, with or without kidney disease, indicate chronic kidney disease. Notes: Determination of stages one and two (with eGFR >59mL/min/1.73 m2) requires estimation of kidney damage for at least three months as defined by structural or functional abnormalities of the kidney, manifested by either:Pathological abnormalities or Markers of kidney damage (including abnormalities in the composition of the blood or urine or abnormalities in imaging tests). Lab Interpretation Abnormal (test code = 71348-3) [facility]wood[facility] [id number] 17:31:41 Test Item Value Reference Interpretation Comments Range TROPONIN I (test 0.008 ng/mL See_Comment [Automated code = 0000292742) message] The system which generated this result transmitted reference range : <=0.034. The reference range was not used to interpret this result as normal/abnormal . EUGENIO (test code = Reference (Normal) EUGENIO) Range (defined by the 99th percentile reference limit): <= 0.034 ng/mL Note: Cardiac troponin begins to rise 3-4 hours after the onset of ischemia. Repeat in 4-6 hours if the sample was drawn within 3-4 hours of the onset of the symptom and found normal. Diagnosis of myocardial injury is made with acute changes in cTn concentrations with at least one serial sample above the 99th percentile upper reference limit (URL), taken together with the patient's clinical presentation. Biotin has been reported to cause a negative bias, interpret results relative to patient's use of biotin. Lab Interpretation Normal (test code = 41413-9) [facility]woodTROP[facility] [id number] 17:31:41 Test Item Value Reference Interpretation Comments Range TROPONIN I (test 0.008 ng/mL See_Comment [Automated code = 7223271391) message] The system which generated this result transmitted reference range : <=0.034. The reference range was not used to interpret this result as normal/abnormal . EUGENIO (test code = Reference (Normal) EUGENIO) Range (defined by the 99th percentile reference limit): <= 0.034 ng/mL Note: Cardiac troponin begins to rise 3-4 hours after the onset of ischemia. Repeat in 4-6 hours if the sample was drawn within 3-4 hours of the onset of the symptom and found normal. Diagnosis of myocardial injury is made with acute changes in cTn concentrations with at least one serial sample above the 99th percentile upper reference limit (URL), taken together with the patient's clinical presentation. Biotin has been reported to cause a negative bias, interpret results relative to patient's use of biotin. Lab Interpretation Normal (test code = 86232-1) [facility]wood[facility]-TERMINAL [id number] 17:28:24 Test Item Value Reference Range Interpretation Comments NT-proBNP (test code 1490 pg/mL See_Comment H [Autom ated = 3285412506) message] The system which generated this result transmitted reference range : <=450. The reference range was not used to interpret this result as normal/abnormal . EUGENIO (test code = EUGENIO) Biotin has been reported to cause a negative bias, interpret results relative to patient's use of biotin. Lab Interpretation Abnormal (test code = 28133-0) [facility] [id number] 17:28:24 Test Item Value Reference Range Interpretation Comments NT-proBNP (test code 1490 pg/mL See_Comment H [Autom ated = 2163500826) message] The system which generated this result transmitted reference range : <=450. The reference range was not used to interpret this result as normal/abnormal . EUGENIO (test code = EUGENIO) Biotin has been reported to cause a negative bias, interpret results relative to patient's use of biotin. Lab Interpretation Abnormal (test code = 38335-0) [facility]woodCB WITH [id number] 17:04:37 Test Item Value Reference Range Interpretation Comments WBC (test code = See_Comment H [Automated 3990-2) message] The sy stem which generated this result transmitted reference range : 4.30 - 11.10 10*3/?L. The reference range was not used to interpret this result as normal/abnormal . RBC (test code = See_Comment L [Automated 789-8) message] The sy stem which generated this result transmitted reference range : 3.93 - 5.25 10*6/?L. The reference range was not used to interpret this result as normal/abnormal . HGB (test code = 10.4 g/dL 11.6-15.0 L 718-7) HCT (test code = 29.3 % 35.7-45.2 L 4544-3) MCV (test code = 80.3 fL 80.6-95.5 L 787-2) MCH (test code = 28.5 pg 25.9-32.8 785-6) MCHC (test code = 35.5 g/dL 31.6-35.1 H 786-4) RDW-SD (test code = 38.4 fL 39.0-49.9 L 77690-3) RDW-CV (test code = 13.2 % 12.0-15.5 788-0) PLT (test code = See_Comment [Automated 777-3) message] The sy stem which generated this result transmitted reference range : 166 - 358 10*3/ ?L. The reference r rigo was not used to interpret this result as normal/abnormal . MPV (test code = 8.7 fL 9.5-12.9 L 17903-6) NRBC/100 WBC (test See_Comment [Automat ed code = 9039549979) message] The system which generated this result transmitted reference range : 0.0 - 10.0 /100 WBCs. The refer ence range was not u sed to interpret th is result as normal/abnormal . NRBC x10^3 (test code <0.01 See_Comment [Auto mated = 7256934927) message] The s ystem which generated this result transmitted reference range : 10*3/?L. The reference range was not used to interpret this result as normal/abnormal . GRAN MAT (NEUT) % 70.8 % (test code = 770-8) IMM GRAN % (test code 1.70 % = 1390868387) LYMPH % (test code = 13.9 % 736-9) MONO % (test code = 9.3 % 5905-5) EOS % (test code = 4.1 % 713-8) BASO % (test code = 0.2 % 706-2) GRAN MAT x10^3(ANC) 8.53 10*3/uL 1.88-7.09 H (test code = 5602348712) IMM GRAN x10^3 (test 0.20 10*3/uL 0.00-0.06 H code = 8597221550) LYMPH x10^3 (test code 1.67 10*3/uL 1.32-3.29 = 731-0) MONO x10^3 (test code 1.12 10*3/uL 0.33-0.92 H = 742-7) EOS x10^3 (test code = 0.49 10*3/uL 0.03-0.39 H 711-2) BASO x10^3 (test code <0.03 0.01-0.07 = 704-7) Lab Interpretation Abnormal (test code = 58953-0) [facility] WITH [id number] 17:04:37 Test Item Value Reference Range Interpretation Comments WBC (test code = See_Comment H [Automated 6690-2) message] The sy stem which generated this result transmitted reference range : 4.30 - 11.10 10*3/?L. The reference range was not used to interpret this result as normal/abnormal . RBC (test code = See_Comment L [Automated 789-8) message] The sy stem which generated this result transmitted reference range : 3.93 - 5.25 10*6/?L. The reference range was not used to interpret this result as normal/abnormal . HGB (test code = 10.4 g/dL 11.6-15.0 L 718-7) HCT (test code = 29.3 % 35.7-45.2 L 4544-3) MCV (test code = 80.3 fL 80.6-95.5 L 787-2) MCH (test code = 28.5 pg 25.9-32.8 785-6) MCHC (test code = 35.5 g/dL 31.6-35.1 H 786-4) RDW-SD (test code = 38.4 fL 39.0-49.9 L 79022-5) RDW-CV (test code = 13.2 % 12.0-15.5 788-0) PLT (test code = See_Comment [Automated 777-3) message] The sy stem which generated this result transmitted reference range : 166 - 358 10*3/ ?L. The reference r rigo was not used to interpret this result as normal/abnormal . MPV (test code = 8.7 fL 9.5-12.9 L 78578-4) NRBC/100 WBC (test See_Comment [Automat ed code = 3275349836) message] The system which generated this result transmitted reference range : 0.0 - 10.0 /100 WBCs. The refer ence range was not u sed to interpret th is result as normal/abnormal . NRBC x10^3 (test code <0.01 See_Comment [Auto mated = 4121182235) message] The s ystem which generated this result transmitted reference range : 10*3/?L. The reference range was not used to interpret this result as normal/abnormal . GRAN MAT (NEUT) % 70.8 % (test code = 770-8) IMM GRAN % (test code 1.70 % = 7684371987) LYMPH % (test code = 13.9 % 736-9) MONO % (test code = 9.3 % 5905-5) EOS % (test code = 4.1 % 713-8) BASO % (test code = 0.2 % 706-2) GRAN MAT x10^3(ANC) 8.53 10*3/uL 1.88-7.09 H (test code = 3598039850) IMM GRAN x10^3 (test 0.20 10*3/uL 0.00-0.06 H code = 5482665293) LYMPH x10^3 (test code 1.67 10*3/uL 1.32-3.29 = 731-0) MONO x10^3 (test code 1.12 10*3/uL 0.33-0.92 H = 742-7) EOS x10^3 (test code = 0.49 10*3/uL 0.03-0.39 H 711-2) BASO x10^3 (test code <0.03 0.01-0.07 = 704-7) Lab Interpretation Abnormal (test code = 68155-0) [facility] GLUCOSE (AUTOMATED)2022-01-05 17:44:16 Test Item Value Reference Range Interpretation Comments POCT GLU (test code = 3003182537) 239 mg/dL 70-110 H Lab Interpretation (test code = Abnormal 05347-4) [facility] GLUCOSE (AUTOMATED)2022-01-05 14:43:53 Test Item Value Reference Range Interpretation Comments POCT GLU (test code = 5702158708) 138 mg/dL 70-110 H Lab Interpretation (test code = Abnormal 35154-1) [facility] GLUCOSE (AUTOMATED)2022-01-05 14:07:01 Test Item Value Reference Range Interpretation Comments POCT GLU (test code = 5173017243) 152 mg/dL 70-110 H Lab Interpretation (test code = Abnormal 38197-5) [facility] METABOLIC PANEL (NA, K, CL, CO2, GLUCOSE, BUN, CREATININE, CA)2022-01-05 12:30:01 Test Item Value Reference Range Interpretation Comments NA (test code = 128 mmol/L 135-145 L 3282327088) K (test code = 4.3 mmol/L 3.5-5.0 0763818009) CL (test code = 89 mmol/L 98-108 L 6555439803) CO2 TOTAL (test code = 33 mmol/L 23-31 H 2734756099) AGAP (test code = 2-16 4926898323) BUN (test code = 29 mg/dL 7-23 H 1666860629) GLUCOSE (test code = 174 mg/dL 70-110 H 9982936459) CREATININE (test code = 0.80 mg/dL 0.50-1.04 2098512578) CALCIUM (test code = 9.1 mg/dL 8.6-10.6 8265597753) eGFR (test code = mL/min/1.73m2 5976489228) EUGENIO (test code = EUGENIO) Association of Glomerular Filtration Rate (GFR) and Staging of Kidney Disease* + --+ --+ ------+| GFR (mL/min/1.73 m2) ?| With Kidney Damage ?| ?Without Kidney Damage+ --------+ --------+ +| ?>90 ?| ?Stage one ?| ? Normal ?+ ---+ ---+ -------+| ?60-89 ?| ?Stage two ?| ? Decreased GFR ? + --+ --+ ------+| ?30-59 ?| ?Stage three ?| ? Stage three ? + --+ --+ ------+| ?15-29 ?| ?Stage four ? | ? Stage four ?+ ---+ ---+ -------+| ?<15 (or dialysis) ? ?| ?Stage five ? | ? Stage five ?+ ---+ ---+ -------+ *Each stage assumes the associated GFR level has been in effect for at least three months. ?Stages 1 to 5, with or without kidney disease, indicate chronic kidney disease. Notes: Determination of stages one and two (with eGFR >59mL/min/1.73 m2) requires estimation of kidney damage for at least three months as defined by structural or functional abnormalities of the kidney, manifested by either:Pathological abnormalities or Markers of kidney damage (including abnormalities in the composition of the blood or urine or abnormalities in imaging tests). Lab Interpretation Abnormal (test code = 93469-5) [facility] 12:30:01 Test Item Value Reference Range Interpretation Comments MAGNESIUM (test code = 9583878163) 2.1 mg/dL 1.7-2.4 Lab Interpretation (test code = Normal 19482-6) [facility]woodPhosph[facility] [id number] 12:29:40 Test Item Value Reference Range Interpretation Comments PHOSPHORUS (test code = 8731229067) 4.5 mg/dL 2.5-5.0 Lab Interpretation (test code = Normal 12281-8) [facility] WITH [id number] 10:41:24 Test Item Value Reference Range Interpretation Comments WBC (test code = See_Comment H [Automated 8090-2) message] The sy stem which generated this result transmitted reference range : 4.30 - 11.10 10*3/?L. The reference range was not used to interpret this result as normal/abnormal . RBC (test code = See_Comment [Automated 214-8) message] The sy stem which generated this result transmitted reference range : 3.93 - 5.25 10*6/?L. The reference range was not used to interpret this result as normal/abnormal . HGB (test code = 12.2 g/dL 11.6-15.0 718-7) HCT (test code = 36.9 % 35.7-45.2 4544-3) MCV (test code = 85.4 fL 80.6-95.5 787-2) MCH (test code = 28.2 pg 25.9-32.8 785-6) MCHC (test code = 33.1 g/dL 31.6-35.1 786-4) RDW-SD (test code = 43.9 fL 39.0-49.9 03859-6) RDW-CV (test code = 14.1 % 12.0-15.5 788-0) PLT (test code = See_Comment [Automated 777-3) message] The sy stem which generated this result transmitted reference range : 166 - 358 10*3/ ?L. The reference r rigo was not used to interpret this result as normal/abnormal . MPV (test code = 9.1 fL 9.5-12.9 L 12122-6) NRBC/100 WBC (test See_Comment [Automat ed code = 1992833161) message] The system which generated this result transmitted reference range : 0.0 - 10.0 /100 WBCs. The refer ence range was not u sed to interpret th is result as normal/abnormal . NRBC x10^3 (test code <0.01 See_Comment [Auto mated = 1539645505) message] The s ystem which generated this result transmitted reference range : 10*3/?L. The reference range was not used to interpret this result as normal/abnormal . GRAN MAT (NEUT) % 85.3 % (test code = 770-8) IMM GRAN % (test code 0.60 % = 1333283454) LYMPH % (test code = 9.3 % 736-9) MONO % (test code = 4.7 % 5905-5) EOS % (test code = 0.0 % 713-8) BASO % (test code = 0.1 % 706-2) GRAN MAT x10^3(ANC) 9.73 10*3/uL 1.88-7.09 H (test code = 2842389344) IMM GRAN x10^3 (test 0.07 10*3/uL 0.00-0.06 H code = 2190424434) LYMPH x10^3 (test code 1.06 10*3/uL 1.32-3.29 L = 731-0) MONO x10^3 (test code 0.54 10*3/uL 0.33-0.92 = 742-7) EOS x10^3 (test code = <0.03 0.03-0.39 L 711-2) BASO x10^3 (test code <0.03 0.01-0.07 = 704-7) Lab Interpretation Abnormal (test code = 41061-6) [facility]woodKappa[facility]Lambda Quant. FLC with [id number] 06:15:29 Test Item Value Reference Range Interpretation Comments Gays Qnt Free Light 29.72 mg/L 3.30-19.40 H INTERPR ETIVE Chains (test code = INFORMAT ION: Gays 12536-8) Qnt Free Light Chains Undetect ed antigen excess is a rare event but cannot be exclu ded. Free light faisal n results should always be interpreted in conjunction wit h other clinical and laboratory find ings. Lambda Qnt Free Light 18.23 mg/L 5.71-26.30 INTERP RETIVE Chains (test code = INFORMAT ION: Lambda 12636-6) Qnt Free Light Chains Undetect ed antigen excess is a rare event but cannot be exclu ded. Free light faisal n results should always be interpreted in conjunction wit h other clinical and laboratory find ings. Gays/Lambda Free Light 0.26-1.65 Perf ormed By: [facility] Chain Ratio (test code Labor [id number] = 25399-8) [place], [place] [address]Swzqpalibj Director: Yaneli Peña MD Lab Interpretation Abnormal (test code = 57417-1) [facility] GLUCOSE (AUTOMATED)2022-01-05 02:22:11 Test Item Value Reference Range Interpretation Comments POCT GLU (test code = 5009984066) 166 mg/dL 70-110 H Lab Interpretation (test code = Abnormal 23203-5) [facility] GLUCOSE (AUTOMATED)2022-01-04 22:39:00 Test Item Value Reference Range Interpretation Comments POCT GLU (test code = 8205635094) 239 mg/dL 70-110 H Lab Interpretation (test code = Abnormal 85521-7) [facility]woodRPR (QUANTITATIVE)2022-01-04 21:15:56 Test Item Value Reference Range Interpretation Comments RPR (Quantitative) (test code = Nonreactive Nonreactive 31296-2) Lab Interpretation (test code = Normal 12623-0) [facility]woodANTI-NUCLEAR ANTIBODY [id number] 19:27:50 Test Item Value Reference Range Interpretation Comments VALE (test code = Negative Negative 5563534671) EUGENIO (test code = EUGENIO) Negative - No Anti-Nuclear Antibodies detected by IFA.Positive - VALE IFA screen performed with a 1:80 dilution in adults and a 1:40 dilution in pediatrics. Any VALE "Positive" will have titer performed and reported separately.Negative - No Anti-Nuclear Antibodies detected by IFA.Positive - VALE IFA screen performed with a 1:80 dilution in adults and a 1:40 dilution in pediatrics. Any VALE "Positive" will have titer performed and reported separately. Lab Interpretation (test Normal code = 91861-7) [facility]woodPOTASSIUM [id number] 18:38:39 Test Item Value Reference Range Interpretation Comments K (test code = 8698425157) 4.6 mmol/L 3.5-5.0 Lab Interpretation (test code = Normal 92356-0) [facility] (NA, K, CL, CO2, GLUCOSE, BUN, CREATININE, CA)2022-01-04 13:14:56 Test Item Value Reference Range Interpretation Comments NA (test code = 127 mmol/L 135-145 L 4588998322) K (test code = 4.6 mmol/L 3.5-5.0 6153895836) CL (test code = 89 mmol/L 98-108 L 5759348829) CO2 TOTAL (test code = 31 mmol/L 23-31 0466002522) AGAP (test code = 2-16 7345435292) BUN (test code = 29 mg/dL 7-23 H 2218714063) GLUCOSE (test code = 216 mg/dL 70-110 H 5625265998) CREATININE (test code = 0.72 mg/dL 0.50-1.04 8677790522) CALCIUM (test code = 8.5 mg/dL 8.6-10.6 L 1964229342) eGFR (test code = mL/min/1.73m2 3118701943) EUGENIO (test code = EUGENIO) Association of Glomerular Filtration Rate (GFR) and Staging of Kidney Disease* + --+ --+ ------+| GFR (mL/min/1.73 m2) ?| With Kidney Damage ?| ?Without Kidney Damage+ --------+ --------+ +| ?>90 ?| ?Stage one ?| ? Normal ?+ ---+ ---+ -------+| ?60-89 ?| ?Stage two ?| ? Decreased GFR ? + --+ --+ ------+| ?30-59 ?| ?Stage three ?| ? Stage three ? + --+ --+ ------+| ?15-29 ?| ?Stage four ? | ? Stage four ?+ ---+ ---+ -------+| ?<15 (or dialysis) ? ?| ?Stage five ? | ? Stage five ?+ ---+ ---+ -------+ *Each stage assumes the associated GFR level has been in effect for at least three months. ?Stages 1 to 5, with or without kidney disease, indicate chronic kidney disease. Notes: Determination of stages one and two (with eGFR >59mL/min/1.73 m2) requires estimation of kidney damage for at least three months as defined by structural or functional abnormalities of the kidney, manifested by either:Pathological abnormalities or Markers of kidney damage (including abnormalities in the composition of the blood or urine or abnormalities in imaging tests). Lab Interpretation Abnormal (test code = 21327-2) [facility] B Core Antibody, [id number] 17:01:07 Test Item Value Reference Range Interpretation Comments HBC (test code = 8882066780) Negative HBC Semi-Quantitative (test code = 2782090023) [facility] B Surface Antibody (HBsAb)2022-01-03 17:01:06 Test Item Value Reference Range Interpretation Comments HBsAB (test code = Negative 6815728998) HBsAb mIU/mL Semi-Quantitative (test code = 4570019856) EUGENIO (test code = Interpretation: EUGENIO) ?Hepatitis B Surface Antibody ? Negative - Patient is considered to be not immune to infection with HBV. ? ? Positive - Anti-HBs detected at greater than or equal to 12 mIU/mL. ?Patient is considered to be immune to infection with HBV. ? [facility]woodHCV [id number] 17:01:06 Test Item Value Reference Range Interpretation Comments HCV Ab (test code = 15713-4) Negative HCV Semi-Quantitative (test code = 88582-6) [facility] B Surface Antigen (HBsAg)2022-01-03 16:43:02 Test Item Value Reference Range Interpretation Comments HBsAg Semi-Quantitative (test code = Negative Negative 5195-3) [facility]woodHI 1/2 AG-AB WITH [id number] 13:26:29 Test Item Value Reference Range Interpretation Comments HIV Negative Negative Semi-quantitative (test code = 14209-5) EUGENIO (test code = Non-reactive for HIV-1 EUGENIO) antigen and HIV-1/HIV-2 antibodies. ?No laboratory evidence of HIV infection. ?Repeat in 2-4 weeks if acute HIV infection is suspected. [facility] BrownwoodN-TERMINAL [id number] 12:55:08 Test Item Value Reference Range Interpretation Comments NT-proBNP (test code 1580 pg/mL See_Comment H [Autom ated = 6269776755) message] The system which generated this result transmitted reference range : <=450. The reference range was not used to interpret this result as normal/abnormal . EUGENIO (test code = EUGENIO) Biotin has been reported to cause a negative bias, interpret results relative to patient's use of biotin. Lab Interpretation Abnormal (test code = 53053-7) [facility]woodMAGNESIUM2022-03-10 12:46:05 Test Item Value Reference Range Interpretation Comments MAGNESIUM (test code = 2627637188) 1.9 mg/dL 1.7-2.4 Lab Interpretation (test code = Normal 34323-8) [facility]woodCOMP. METABOLIC PANEL (88372)2022-01-03 12:46:05 Test Item Value Reference Range Interpretation Comments NA (test code = 129 mmol/L 135-145 L 4765228721) K (test code = 3.9 mmol/L 3.5-5.0 1334989117) CL (test code = 90 mmol/L 98-108 L 7855975772) CO2 TOTAL (test code = 32 mmol/L 23-31 H 3437527904) AGAP (test code = 2-16 3327432939) BUN (test code = 17 mg/dL 7-23 8672481628) GLUCOSE (test code = 192 mg/dL 70-110 H 1728718365) CREATININE (test code = 0.66 mg/dL 0.50-1.04 3145604875) TOTAL BILI (test code = 0.4 mg/dL 0.1-1.1 7536903915) CALCIUM (test code = 8.6 mg/dL 8.6-10.6 4639018949) T PROTEIN (test code = 5.7 g/dL 6.3-8.2 L 4656808596) ALBUMIN (test code = 3.1 g/dL 3.5-5.0 L 8988889859) ALK PHOS (test code = 60 U/L 34-122 9022799426) ALTv (test code = 20 U/L 5-35 1742-6) AST(SGOT) (test code = 28 U/L 13-40 2024462381) eGFR (test code = mL/min/1.73m2 3767249015) EUGENIO (test code = EUGENIO) Association of Glomerular Filtration Rate (GFR) and Staging of Kidney Disease* + --+ --+ ------+| GFR (mL/min/1.73 m2) ?| With Kidney Damage ?| ?Without Kidney Damage+ --------+ --------+ +| ?>90 ?| ?Stage one ?| ? Normal ?+ ---+ ---+ -------+| ?60-89 ?| ?Stage two ?| ? Decreased GFR ? + --+ --+ ------+| ?30-59 ?| ?Stage three ?| ? Stage three ? + --+ --+ ------+| ?15-29 ?| ?Stage four ? | ? Stage four ?+ ---+ ---+ -------+| ?<15 (or dialysis) ? ?| ?Stage five ? | ? Stage five ?+ ---+ ---+ -------+ *Each stage assumes the associated GFR level has been in effect for at least three months. ?Stages 1 to 5, with or without kidney disease, indicate chronic kidney disease. Notes: Determination of stages one and two (with eGFR >59mL/min/1.73 m2) requires estimation of kidney damage for at least three months as defined by structural or functional abnormalities of the kidney, manifested by either:Pathological abnormalities or Markers of kidney damage (including abnormalities in the composition of the blood or urine or abnormalities in imaging tests). Lab Interpretation Abnormal (test code = 76052-2) [facility]woodPHOSPHORUS2022-[facility]-10 12:45:45 Test Item Value Reference Range Interpretation Comments PHOSPHORUS (test code = 5080463101) 3.8 mg/dL 2.5-5.0 Lab Interpretation (test code = Normal 00848-5) [facility] WITH [id number] 12:11:15 Test Item Value Reference Range Interpretation Comments WBC (test code = See_Comment [Automated 9890-2) message] The sy stem which generated this result transmitted reference range : 4.30 - 11.10 10*3/?L. The reference range was not used to interpret this result as normal/abnormal . RBC (test code = See_Comment L [Automated 789-8) message] The sy stem which generated this result transmitted reference range : 3.93 - 5.25 10*6/?L. The reference range was not used to interpret this result as normal/abnormal . HGB (test code = 10.7 g/dL 11.6-15.0 L 718-7) HCT (test code = 32.0 % 35.7-45.2 L 4544-3) MCV (test code = 84.7 fL 80.6-95.5 787-2) MCH (test code = 28.3 pg 25.9-32.8 785-6) MCHC (test code = 33.4 g/dL 31.6-35.1 786-4) RDW-SD (test code = 44.3 fL 39.0-49.9 04131-3) RDW-CV (test code = 14.4 % 12.0-15.5 788-0) PLT (test code = See_Comment [Automated 777-3) message] The sy stem which generated this result transmitted reference range : 166 - 358 10*3/ ?L. The reference r rigo was not used to interpret this result as normal/abnormal . MPV (test code = 9.4 fL 9.5-12.9 L 36407-8) NRBC/100 WBC (test See_Comment [Automat ed code = 9623772785) message] The system which generated this result transmitted reference range : 0.0 - 10.0 /100 WBCs. The refer ence range was not u sed to interpret th is result as normal/abnormal . NRBC x10^3 (test code <0.01 See_Comment [Auto mated = 8717762837) message] The s ystem which generated this result transmitted reference range : 10*3/?L. The reference range was not used to interpret this result as normal/abnormal . GRAN MAT (NEUT) % 87.4 % (test code = 770-8) IMM GRAN % (test code 1.10 % = 8715861527) LYMPH % (test code = 8.0 % 736-9) MONO % (test code = 3.4 % 5905-5) EOS % (test code = 0.0 % 713-8) BASO % (test code = 0.1 % 706-2) GRAN MAT x10^3(ANC) 7.95 10*3/uL 1.88-7.09 H (test code = 6362325968) IMM GRAN x10^3 (test 0.10 10*3/uL 0.00-0.06 H code = 5168254974) LYMPH x10^3 (test code 0.73 10*3/uL 1.32-3.29 L = 731-0) MONO x10^3 (test code 0.31 10*3/uL 0.33-0.92 L = 742-7) EOS x10^3 (test code = <0.03 0.03-0.39 L 711-2) BASO x10^3 (test code <0.03 0.01-0.07 = 704-7) Lab Interpretation Abnormal (test code = 19731-3) [facility]woodOSMOLALITY, SERUM OR [id number] 08:10:51 Test Item Value Reference Range Interpretation Comments OSMOLALITY (test code = See_Comment [Au tomated message] 7552-2) The system IPXI generated this result transmitted ref erence range: 278 - 30 5 mOsm/kg. The re ference range was not u sed to interpret this result as normal/abnor mal. Lab Interpretation (test Normal code = 57530-4) [facility]woodELECTROLYTES PANEL (46221)(NA, K, CL, CO2) 2022-01-03 01:25:15 Test Item Value Reference Range Interpretation Comments NA (test code = 0481456353) 125 mmol/L 135-145 L K (test code = 4838384441) 4.3 mmol/L 3.5-5.0 CL (test code = 9175214746) 89 mmol/L 98-108 L CO2 TOTAL (test code = 3305281494) 34 mmol/L 23-31 H AGAP (test code = 9696029170) 2-16 Lab Interpretation (test code = Abnormal 46025-1) [facility]woodTransthoracic echo (TTE)2022-01-03 00:14:52 Test Item Value Reference Range Interpretation Comments LVIDD (test code = 3.50 cm 1885221908) IVS (test code = 1.54 cm 0295121388) Interventricular Septum 1.54 cm Diastolic Thickness by 2D (test code = 8525797) LVPWD (test code = 1.24 cm 1729434523) PW (test code = 1.24 cm 0.6-1.2 2844218597) EF(Teich) (test code = 64.30 % 7367024960) LVIDS (test code = 2.33 cm 3432088392) FS (test code = 34 % 2934106156) EF - 2D (test code = 64.30 % 04690799) LVOT diameter (test code 1.97 cm = 6102077619) ACS (test code = 1.29 cm 5719015422) Ao root annulus (test 2.8 cm code = 8237057586) Ao root diam (test code 2.80 cm = 4988422180) Aortic root (test code = 2.8 cm 9822229280) LA size (test code = 4.5 cm 7375821299) E wave decelartion time 0.39 s (test code = 1243145969) MV Peak E Inessa (test code 100.8 cm/s = 4922786112) MV Peak A Inessa (test code 136.3 cm/s = 6288117415) E/A ratio (test code = ratio 2980064955) MR max PG (test code = 51.00 mm[Hg] 7242444472) MR max inessa (test code = 357.20 cm/s 6906840910) Mr max inessa (test code = 357.2 m/s 4939226846) MV Prop V (test code = 30.50 cm/s 6416675662) Tapse (test code = 2.23 cm 1621260366) TR Peak Inessa (test code = 177.9 cm/s 5943425957) Triscuspid Valve mmHg Regurgitation Peak Gradient (test code = 4408787028) LVOT stroke volume (test 104.10 cm3 code = 0353961549) LVOT peak inessa (test code 134.4 cm/s = 6553164991) LVOT mn grad (test code mmHg = 2812326845) AV LVOT peak gradient mmHg (test code = 1303626865) LVOT peak VTI (test code 34.0 cm = 5696638961) LV V1 mean (test code = 99.90 cm/s 7572377132) AV regurgitation 354.4 ms pressure 1/2 time (test code = 5503323066) AI dec slope (test code 277.60 cm/s2 = 9960970462) AI max inessa (test code = 335.80 cm/s 6291974001) AI max PG (test code = 45.10 mm[Hg] 8793225170) Aortic valve mean 145.9 cm/s velocity (test code = 2081044383) Ao peak inessa (test code = 223.6 cm/s 2789120315) Ao VTI (test code = 53.2 cm 3889083739) AV area by cont VTI 2.0 cm2 (test code = 3372076507) AV area peak inessa (test 1.8 cm2 code = 7499951802) Ao max PG (test code = 20.00 mm[Hg] 5873390209) AV peak gradient (test mmHg code = 9344715576) AV valve area (test code 1.96 cm2 = 9991132800) AV mean gradient (test mmHg code = 3265866536) Radiology Study observation (narrative) (test code = 57483-8) EUGENIO (test code = EUGENIO) ?Left?Ventricle: Left ventricle is normal in size and function. Mildly increased wall thickness. Moderate septal thickening. Normal systolic function with a visually estimated EF of 55 - 60%. There is impaired relaxation. ?Right?Ventricle: Right ventricle is normal in size and function. ?Tricuspid?Valve: Tricuspid valve is grossly normal. Trace transvalvular regurgitation. Right ventricular systolic pressure is 15-20 mmHg. ?IVC/SVC: Estimated RA pressure 5 mmHG. ?Left?Atrium: Left atrium is mildly dilated. ?Aortic?Valve: Mild transvalvular regurgitation. VitalsHeight Weight BSA (Calculated - sq m) BP Pulse 4' 11" (1.499 m) 110 lb (49.9 kg) 1.44 sq meters 165/93 82 [facility]woodPROCALCITONIN2022-03-09 16:38:43 Test Item Value Reference Range Interpretation Comments Procalcitonin (test 0.02 ng/mL <0.07 code = 3841879914) EUGENIO (test code = EUGENIO) INTERPRETATION OF PROCALCITONIN RESULTS IN ADULTS >= 18 YEARS OF AGE Initiation and discontinuation of antibiotics on patients with suspected or confirmed Lower Respiratory Tract Infection in Adults >= 18 years of age. + +-------- --------+ + -----+|Procalcitonin |Interpretation ?|Antibiotic ? ? |Considerations ? |ng/mL ? | ?|recommendation | ? + +-------- --------+ + -----+| <0.1 ? | Bacterial ? ? ?| Strongly ? ? ?| ? | ?| infection very | discouraged ? | Overruling: ? | ?| unlikely ? ? ? | ? | ? Clinically unstable ? ? ? + +-------- --------+ + ? High risk for adverse ? ? | <0.25 ?| Bacterial ? ? ?| Discouraged ? | ? outcome ? | ?| infection ? ? ?| ? | ? SEE IMPORTANT NOTE ?| ?| unlikely ? ? ? | ? | ? + +-------- --------+ + -----+| >=0.25 ? ? ? | Bacterial ? ? ?| Encouraged ? ?| ? | ?| infection ? ? ?| ? | ? | ?| likely ? | ? | Consider treatment failure ?+ +------- ---------+ -+ if levels does not decrease | >0.5 ? | Bacterial ? ? ?| Strongly ? ? ?| appropriately ? | ?| infection very | encouraged ? ?| ? | ?| likely ? | ? | ? + +-------- --------+ + -----+ Discontinuation of antibiotics in high-acuity patients with suspected or confirmed sepsis in Adults >= 18 years of age. + +-------- --------+ + -----+|Procalcitonin |Interpretation ?|Antibiotic ? ? |Considerations ? |ng/mL ? | ?|recommendation | ? + +-------- --------+ + -----+| <0.25 ?| Bacterial ? ? ?| Strongly ? ? ?| ? | ?| infection very | discouraged ? | Overruling: ? | ?| unlikely ? ? ? | ? | ? Clinically unstable ? ? ? + +-------- --------+ + ? High risk for adverse ? ? | <0.5 or drop | Bacterial ? ? ?| Discouraged ? | ? outcome ? | >80% from ? ?| infection ? ? ?| ? | ? SEE IMPORTANT NOTE ?| highest PCT ?| unlikely ? ? ? | ? | ? | level ?| ?| ? | ? + +-------- --------+ + -----+| >=0.5 ?| Bacterial ? ? ?| Encouraged ? ?| ? | ?| infection ? ? ?| ? | ? | ?| likely ? | ? | Consider treatment failure ?+ +------- ---------+ -+ if levels does not decrease | >1.0 ? | Bacterial ? ? ?| Strongly ? ? ?| appropriately ? | ?| infection very | encouraged ? ?| ? | ?| likely ? | ? | ? + +-------- --------+ + -----+ Percentage of drop of Procalcitonin calculation for Discontinuation of antibiotics in high-acuity patients with suspected or confirmed sepsis in Adults >= 18 years of age. ? Procalcitonin highest{}-Procalcitonin current{}Delta Procalcitonin = x100% ? Procalcitonin current {} IMPORTANT NOTE: Procalcitonin may be elevated without bacterial infection by physiologic stress related to trauma, sánchez, chronic dialysis, metastatic cancer, surgery in the past seven days, malaria, some fungal infections, and some forms of vasculitis. The interpretation algorithm may not apply to patients with immunosuppression (equivalent of >10 mg of prednisone daily), HIV with CD4 cell count < 350 cells/mm3, active malignancy on systemic chemotherapy, solid organ transplant or hematopoietic stem cell transplantation, or hospital acquired pneumonia. Additionally, some clinical trials of procalcitonin have excluded patients with shock requiring vasopressor use, acute respiratory failure requiring mechanical ventilation, or those with known lung abscess/empyema. For further information please refer to:[email or web address] Lab Interpretation Normal (test code = 36418-3) [facility]woodTHYROID STIMULATING [id number] 16:28:12 Test Item Value Reference Range Interpretation Comments TSH (test code = See_Comment [Automated message] 4511797782) The system IPXI generated this result transmitted ref erence range: 0.45 - 4 .70 mIU/L. The refe rence range was not u sed to interpret this result as normal/abnor mal. Lab Interpretation (test Normal code = 82155-0) [facility]woodTROPONIN [id number] 16:10:46 Test Item Value Reference Interpretation Comments Range TROPONIN I (test <0.012 See_Comment [Automated code = 3982779245) message] The system which generated this result transmitted reference range : <=0.034 ng/mL. The reference range was not used to interpret this result as normal/abnormal . EUGENIO (test code = Reference (Normal) EUGENIO) Range (defined by the 99th percentile reference limit): <= 0.034 ng/mL Note: Cardiac troponin begins to rise 3-4 hours after the onset of ischemia. Repeat in 4-6 hours if the sample was drawn within 3-4 hours of the onset of the symptom and found normal. Diagnosis of myocardial injury is made with acute changes in cTn concentrations with at least one serial sample above the 99th percentile upper reference limit (URL), taken together with the patient's clinical presentation. Biotin has been reported to cause a negative bias, interpret results relative to patient's use of biotin. Lab Interpretation Normal (test code = 13019-8) [facility]woodOSMOLALITY, SERUM OR [id number] 16:01:38 Test Item Value Reference Range Interpretation Comments OSMOLALITY (test code = See_Comment L [Au tomated message] 2692-2) The system IPXI generated this result transmitted ref erence range: 278 - 30 5 mOsm/kg. The reference range was not used to int erpret this result as normal/abnormal . Lab Interpretation (test Abnormal code = 32545-3) [facility] BrownwoodLIPID PANEL (31096)(TOTAL CHOLESTEROL, TRIGLYCERIDES, HDL)2022-01-02 15:56:04 Test Item Value Reference Range Interpretation Comments CHOL (test code = 183 mg/dL 120-200 2014086915) HDL (test code = 81 mg/dL >50 8529264494) HDLC RATIO (test code = See_Comment [Au tomated message] 3161388706) The system IPXI generated this result transmit jasmin reference range : <=4.5. The refe rence range was not u sed to interpret th is result as normal/abnormal . TRIG (test code = 99 mg/dL 30-170 8543767216) LDL CHOL (test code = 82 mg/dL See_Comment [Auto mated message] 58532-2) The system IPXI generated this result transmit jasmin reference range : <=160. The refe rence range was not u sed to interpret th is result as normal/abnormal . VLDL (test code = 20 mg/dL 5-60 4609095179) Lab Interpretation (test Normal code = 37573-9) [facility]woodMAGNESIUM2022-03-09 15:06:18 Test Item Value Reference Range Interpretation Comments MAGNESIUM (test code = 6925739422) 1.7 mg/dL 1.7-2.4 Lab Interpretation (test code = Normal 24967-1) [facility]woodPHOSPHORUS2022-03-09 15:05:58 Test Item Value Reference Range Interpretation Comments PHOSPHORUS (test code = 2123366864) 3.4 mg/dL 2.5-5.0 Lab Interpretation (test code = Normal 29025-2) [facility] BrownwoodURIC [id number] 13:57:54 Test Item Value Reference Range Interpretation Comments URIC ACID (test code = 5964016348) 2.9 mg/dL 2.9-6.0 Lab Interpretation (test code = Normal 46251-3) [facility] BrownwoodTROPONIN [id number] 13:08:08 Test Item Value Reference Interpretation Comments Range TROPONIN I (test <0.012 See_Comment [Automated code = 1634480400) message] The system which generated this result transmitted reference range : <=0.034 ng/mL. The reference range was not used to interpret this result as normal/abnormal . EUGENIO (test code = Reference (Normal) EUGENIO) Range (defined by the 99th percentile reference limit): <= 0.034 ng/mL Note: Cardiac troponin begins to rise 3-4 hours after the onset of ischemia. Repeat in 4-6 hours if the sample was drawn within 3-4 hours of the onset of the symptom and found normal. Diagnosis of myocardial injury is made with acute changes in cTn concentrations with at least one serial sample above the 99th percentile upper reference limit (URL), taken together with the patient's clinical presentation. Biotin has been reported to cause a negative bias, interpret results relative to patient's use of biotin. Lab Interpretation Normal (test code = 27521-9) [facility]woodN-TERMINAL [id number] 13:04:47 Test Item Value Reference Range Interpretation Comments NT-proBNP (test code 1070 pg/mL See_Comment H [Autom ated = 6019886709) message] The system which generated this result transmitted reference range : <=450. The reference range was not used to interpret this result as normal/abnormal . EUGENIO (test code = EUGENIO) Biotin has been reported to cause a negative bias, interpret results relative to patient's use of biotin. Lab Interpretation Abnormal (test code = 79906-4) [facility]. METABOLIC PANEL (68507)2022-01-02 12:58:27 Test Item Value Reference Range Interpretation Comments NA (test code = 125 mmol/L 135-145 L 8886685053) K (test code = 3.2 mmol/L 3.5-5.0 L 4778386570) CL (test code = 87 mmol/L 98-108 L 9671425360) CO2 TOTAL (test code = 33 mmol/L 23-31 H 2511286850) AGAP (test code = 2-16 0803944848) BUN (test code = 9 mg/dL 7-23 4248670051) GLUCOSE (test code = 114 mg/dL 70-110 H 9285859195) CREATININE (test code = 0.52 mg/dL 0.50-1.04 6590052887) TOTAL BILI (test code = 0.6 mg/dL 0.1-1.1 5593111326) CALCIUM (test code = 8.3 mg/dL 8.6-10.6 L 5032014606) T PROTEIN (test code = 6.0 g/dL 6.3-8.2 L 0147560632) ALBUMIN (test code = 3.3 g/dL 3.5-5.0 L 4360900410) ALK PHOS (test code = 70 U/L 34-122 3917004116) ALTv (test code = 25 U/L 5-35 1742-6) AST(SGOT) (test code = 26 U/L 13-40 8648924592) eGFR (test code = mL/min/1.73m2 1342984808) EUGENIO (test code = EUGENIO) Association of Glomerular Filtration Rate (GFR) and Staging of Kidney Disease* + --+ --+ ------+| GFR (mL/min/1.73 m2) ?| With Kidney Damage ?| ?Without Kidney Damage+ --------+ --------+ +| ?>90 ?| ?Stage one ?| ? Normal ?+ ---+ ---+ -------+| ?60-89 ?| ?Stage two ?| ? Decreased GFR ? + --+ --+ ------+| ?30-59 ?| ?Stage three ?| ? Stage three ? + --+ --+ ------+| ?15-29 ?| ?Stage four ? | ? Stage four ?+ ---+ ---+ -------+| ?<15 (or dialysis) ? ?| ?Stage five ? | ? Stage five ?+ ---+ ---+ -------+ *Each stage assumes the associated GFR level has been in effect for at least three months. ?Stages 1 to 5, with or without kidney disease, indicate chronic kidney disease. Notes: Determination of stages one and two (with eGFR >59mL/min/1.73 m2) requires estimation of kidney damage for at least three months as defined by structural or functional abnormalities of the kidney, manifested by either:Pathological abnormalities or Markers of kidney damage (including abnormalities in the composition of the blood or urine or abnormalities in imaging tests). Lab Interpretation Abnormal (test code = 36464-9) [facility] 12[facility]58:27 Test Item Value Reference Range Interpretation Comments MAGNESIUM (test code = 6963887371) 1.8 mg/dL 1.7-2.4 Lab Interpretation (test code = Normal 34965-3) [facility] 12:58:07 Test Item Value Reference Range Interpretation Comments PHOSPHORUS (test code = 4063734485) 3.5 mg/dL 2.5-5.0 Lab Interpretation (test code = Normal 35686-1) [facility]woodPROTHROMBIN [facility] / [id number] 12:41:03 Test Item Value Reference Range Interpretation Comments PROTIME PATIENT (test See_Comment [Auto mated message] code = 5964-2) The system wh ich generated this result transmitted ref erence range: 12.0 - 1 4.7 Seconds. The re ference range was not u sed to interpret this result as normal/abnor mal. INR (test code = 6301-6) Nor mal INR <1.1; Warfarin Therap eutic range 2.0 to 3. 0 or 2.5 to 3.5, dep ending upon the indica tions. Lab Interpretation (test Normal code = 09356-7) [facility] WITH [id number] 12:23:20 Test Item Value Reference Range Interpretation Comments WBC (test code = See_Comment [Automated 6790-2) message] The sy stem which generated this result transmitted reference range : 4.30 - 11.10 10*3/?L. The reference range was not used to interpret this result as normal/abnormal . RBC (test code = See_Comment [Automated 539-8) message] The sy stem which generated this result transmitted reference range : 3.93 - 5.25 10*6/?L. The reference range was not used to interpret this result as normal/abnormal . HGB (test code = 11.3 g/dL 11.6-15.0 L 718-7) HCT (test code = 33.0 % 35.7-45.2 L 4544-3) MCV (test code = 83.5 fL 80.6-95.5 787-2) MCH (test code = 28.6 pg 25.9-32.8 785-6) MCHC (test code = 34.2 g/dL 31.6-35.1 786-4) RDW-SD (test code = 42.7 fL 39.0-49.9 16659-9) RDW-CV (test code = 13.9 % 12.0-15.5 788-0) PLT (test code = See_Comment [Automated 777-3) message] The sy stem which generated this result transmitted reference range : 166 - 358 10*3/ ?L. The reference r rigo was not used to interpret this result as normal/abnormal . MPV (test code = 9.6 fL 9.5-12.9 29200-6) NRBC/100 WBC (test See_Comment [Automat ed code = 7735582192) message] The system which generated this result transmitted reference range : 0.0 - 10.0 /100 WBCs. The refer ence range was not u sed to interpret th is result as normal/abnormal . NRBC x10^3 (test code <0.01 See_Comment [Auto mated = 3518635379) message] The s ystem which generated this result transmitted reference range : 10*3/?L. The reference range was not used to interpret this result as normal/abnormal . GRAN MAT (NEUT) % 78.2 % (test code = 770-8) IMM GRAN % (test code 0.40 % = 3424058940) LYMPH % (test code = 8.1 % 736-9) MONO % (test code = 6.3 % 5905-5) EOS % (test code = 6.7 % 713-8) BASO % (test code = 0.3 % 706-2) GRAN MAT x10^3(ANC) 7.12 10*3/uL 1.88-7.09 H (test code = 8956575057) IMM GRAN x10^3 (test 0.04 10*3/uL 0.00-0.06 code = 0269913513) LYMPH x10^3 (test code 0.74 10*3/uL 1.32-3.29 L = 731-0) MONO x10^3 (test code 0.57 10*3/uL 0.33-0.92 = 742-7) EOS x10^3 (test code = 0.61 10*3/uL 0.03-0.39 H 711-2) BASO x10^3 (test code 0.03 10*3/uL 0.01-0.07 = 704-7) Lab Interpretation Abnormal (test code = 24860-2) [facility]woodTROPON[facility] [id number] 08:55:39 Test Item Value Reference Interpretation Comments Range TROPONIN I (test <0.012 See_Comment [Automated code = 3790086661) message] The system which generated this result transmitted reference range : <=0.034 ng/mL. The reference range was not used to interpret this result as normal/abnormal . EUGENIO (test code = Reference (Normal) EUGENIO) Range (defined by the 99th percentile reference limit): <= 0.034 ng/mL Note: Cardiac troponin begins to rise 3-4 hours after the onset of ischemia. Repeat in 4-6 hours if the sample was drawn within 3-4 hours of the onset of the symptom and found normal. Diagnosis of myocardial injury is made with acute changes in cTn concentrations with at least one serial sample above the 99th percentile upper reference limit (URL), taken together with the patient's clinical presentation. Biotin has been reported to cause a negative bias, interpret results relative to patient's use of biotin. Lab Interpretation Normal (test code = 54240-8) [facility]woodSEDIMENTATION [id number] 08:13:47 Test Item Value Reference Range Interpretation Comments ESR (test code = See_Comment H [Automated message] 2421999498) The system [employer] generated this result transmitted ref erence range: 0 - 20 m m/HR. The reference r rigo was not used to interpret this result as normal/abnor mal. Lab Interpretation (test Abnormal code = 10198-9) [facility]woodGLYCOSYL[facility] HEMOGLOBIN (A1C)2022-01-02 06:51:18 Test Item Value Reference Range Interpretation Comments HGB A1C (test code = 6.8 % 4.0-5.7 H 4548-4) EUGENIO (test code = EUGENIO) Reference RangesNormal: <5.7%Prediabetes: 5.7 - 6.4%Diabetes: > 6.5% Lab Interpretation (test Abnormal code = 91293-2) [facility]woodTROPON[facility] [id number] 01:10:13 Test Item Value Reference Interpretation Comments Range TROPONIN I (test 0.008 ng/mL See_Comment [Automated code = 0866939555) message] The system which generated this result transmitted reference range : <=0.034. The reference range was not used to interpret this result as normal/abnormal . EUGENIO (test code = Reference (Normal) EUGENIO) Range (defined by the 99th percentile reference limit): <= 0.034 ng/mL Note: Cardiac troponin begins to rise 3-4 hours after the onset of ischemia. Repeat in 4-6 hours if the sample was drawn within 3-4 hours of the onset of the symptom and found normal. Diagnosis of myocardial injury is made with acute changes in cTn concentrations with at least one serial sample above the 99th percentile upper reference limit (URL), taken together with the patient's clinical presentation. Biotin has been reported to cause a negative bias, interpret results relative to patient's use of biotin. Lab Interpretation Normal (test code = 59208-6) [facility]woodN-TERMINAL [id number] 01:06:51 Test Item Value Reference Range Interpretation Comments NT-proBNP (test code 833 pg/mL See_Comment H [Autom ated = 3987803745) message] The system which generated this result transmitted reference range : <=450. The reference range was not used to interpret this result as normal/abnormal . EUGENIO (test code = EUGENIO) Biotin has been reported to cause a negative bias, interpret results relative to patient's use of biotin. Lab Interpretation Abnormal (test code = 46161-4) [facility]woodCOMP. METABOLIC PANEL (45128)2022-01-02 00:57:52 Test Item Value Reference Range Interpretation Comments NA (test code = 123 mmol/L 135-145 L 3794658285) K (test code = 3.7 mmol/L 3.5-5.0 5081377334) CL (test code = 86 mmol/L 98-108 L 9546549315) CO2 TOTAL (test code = 31 mmol/L 23-31 1576488312) AGAP (test code = 2-16 3558431913) BUN (test code = 13 mg/dL 7-23 0845159723) GLUCOSE (test code = 132 mg/dL 70-110 H 4525282031) CREATININE (test code = 0.57 mg/dL 0.50-1.04 5311743618) TOTAL BILI (test code = 0.5 mg/dL 0.1-1.7 6222017038) CALCIUM (test code = 8.6 mg/dL 8.6-10.6 3877426316) T PROTEIN (test code = 5.8 g/dL 6.3-8.2 L 8934280371) ALBUMIN (test code = 3.4 g/dL 3.5-5.0 L 0599326639) ALK PHOS (test code = 75 U/L 34-122 9090957598) ALTv (test code = 27 U/L 5-35 2-6) AST(SGOT) (test code = 27 U/L 13-40 8323552547) eGFR (test code = mL/min/1.73m2 2139124808) EUGENIO (test code = EUGENIO) Association of Glomerular Filtration Rate (GFR) and Staging of Kidney Disease* + --+ --+ ------+| GFR (mL/min/1.73 m2) ?| With Kidney Damage ?| ?Without Kidney Damage+ --------+ --------+ +| ?>90 ?| ?Stage one ?| ? Normal ?+ ---+ ---+ -------+| ?60-89 ?| ?Stage two ?| ? Decreased GFR ? + --+ --+ ------+| ?30-59 ?| ?Stage three ?| ? Stage three ? + --+ --+ ------+| ?15-29 ?| ?Stage four ? | ? Stage four ?+ ---+ ---+ -------+| ?<15 (or dialysis) ? ?| ?Stage five ? | ? Stage five ?+ ---+ ---+ -------+ *Each stage assumes the associated GFR level has been in effect for at least three months. ?Stages 1 to 5, with or without kidney disease, indicate chronic kidney disease. Notes: Determination of stages one and two (with eGFR >59mL/min/1.73 m2) requires estimation of kidney damage for at least three months as defined by structural or functional abnormalities of the kidney, manifested by either:Pathological abnormalities or Markers of kidney damage (including abnormalities in the composition of the blood or urine or abnormalities in imaging tests). Lab Interpretation Abnormal (test code = 22634-9) [facility] WITH [id number] 00:48:46 Test Item Value Reference Range Interpretation Comments WBC (test code = See_Comment [Automated 6690-2) message] The sy stem which generated this result transmitted reference range : 4.30 - 11.10 10*3/?L. The reference range was not used to interpret this result as normal/abnormal . RBC (test code = See_Comment [Automated 789-8) message] The sy stem which generated this result transmitted reference range : 3.93 - 5.25 10*6/?L. The reference range was not used to interpret this result as normal/abnormal . HGB (test code = 11.5 g/dL 11.6-15.0 L 718-7) HCT (test code = 33.5 % 35.7-45.2 L 4544-3) MCV (test code = 82.3 fL 80.6-95.5 787-2) MCH (test code = 28.3 pg 25.9-32.8 785-6) MCHC (test code = 34.3 g/dL 31.6-35.1 786-4) RDW-SD (test code = 41.4 fL 39.0-49.9 71506-6) RDW-CV (test code = 13.8 % 12.0-15.5 788-0) PLT (test code = See_Comment [Automated 777-3) message] The sy stem which generated this result transmitted reference range : 166 - 358 10*3/ ?L. The reference r rigo was not used to interpret this result as normal/abnormal . MPV (test code = 8.9 fL 9.5-12.9 L 04610-0) NRBC/100 WBC (test See_Comment [Automat ed code = 6896728865) message] The system which generated this result transmitted reference range : 0.0 - 10.0 /100 WBCs. The refer ence range was not u sed to interpret th is result as normal/abnormal . NRBC x10^3 (test code <0.01 See_Comment [Auto mated = 7204335742) message] The s ystem which generated this result transmitted reference range : 10*3/?L. The reference range was not used to interpret this result as normal/abnormal . GRAN MAT (NEUT) % 67.2 % (test code = 770-8) IMM GRAN % (test code 0.70 % = 8545257598) LYMPH % (test code = 14.4 % 736-9) MONO % (test code = 9.3 % 5905-5) EOS % (test code = 7.9 % 713-8) BASO % (test code = 0.5 % 706-2) GRAN MAT x10^3(ANC) 7.18 10*3/uL 1.88-7.09 H (test code = 9223064336) IMM GRAN x10^3 (test 0.07 10*3/uL 0.00-0.06 H code = 7837196115) LYMPH x10^3 (test code 1.53 10*3/uL 1.32-3.29 = 731-0) MONO x10^3 (test code 0.99 10*3/uL 0.33-0.92 H = 742-7) EOS x10^3 (test code = 0.84 10*3/uL 0.03-0.39 H 711-2) BASO x10^3 (test code 0.05 10*3/uL 0.01-0.07 = 704-7) Lab Interpretation Abnormal (test code = 62107-1) [facility]
[2023-03-25] MEDS ORDERED: METHYLPREDNISOLONE 125 MG INJ ONE (10:41)
[2023-03-25] MEDS ORDERED: ALBUTEROL 2.5 MG/3 ML NEB SOL ONE (10:41)
[2023-03-25] MEDS ORDERED: IPRATROPIUM BROM 0.5MG/2.5ML ONE (10:41)
[2023-03-25] MEDS ORDERED: MAGNESIUM SULFATE 1 gm IVPB 1 GM/100 ML BAG IV ONE (10:41)
[2023-03-25 10:43] LABS: Absolute Lymphocytes (CBC) 0.8 K/uL (0.7-4.9); Hematocrit 25.4 % (36.0-45.0); Lymphocytes % 9.4 % (15.3-44.8); MPV 7.2 fL (7.6-11.3); RBC Red Blood Cell Count 3.13 M/uL (3.86-4.86)
[2023-03-25 10:48] LABS: Protime INR 1.07
--- NOTE | 2023-03-25 10:55 | RAD REPORT ---
EXAM DESCRIPTION: RADChest Single View03/25/2023 10:09 am CLINICAL HISTORY: DYSPNEA COMPARISON: Chest Single View dated 11/19/2022 TECHNIQUE: Portable AP view of the chest. FINDINGS: Patchy bilateral airspace opacities with interstitial prominence and suspected small bilat eral pleural effusions. Background interstitial coarsening. Diaphragmatic hernia noted. No pneumotho rax. Probable small effusions. . The heart is again at the upper limit of normal. Mediastinal contour s are unchanged. IMPRESSION: Patchy bilateral airspace opacities and small effusions. Interstitial prominence. Findin gs could reflect superimposed infectious or inflammatory process on a background of COPD, or central venous congestion.
[2023-03-25 11:01] LABS: Albumin 2.5 g/dL (3.4-5.0); Bilirubin Total 0.3 mg/dL (0.2-1.0); Potassium 3.7 mEq/L (3.5-5.1); Protein, Total 6.6 g/dL (6.4-8.2); Troponin High Sensitivity 12.8 pg/mL (<58.9)
[2023-03-25] MEDS ORDERED: NA CHLORIDE 0.9% 1,000 ML ONE (11:33)
[2023-03-25] MEDS ORDERED: NA CHLORIDE 0.9% 250 ML ONE ×2 (11:33→13:15)
--- NOTE | 2023-03-25 11:53 | EDPHYS ---
Physician Documentation [facility] Name: Trinidad Cardenas Age: 77 yrs Sex: Female : 1945 Arrival Date: 03/25/2023 Time: 09:29 Bed 16 Private MD: ED Physician Trino Lam HPI: 03/25 15:39 This 77 yrs old Female presents to ER via EMS with complaints of Shortness Of Breath. kb 15:39 The patient has shortness of breath at rest. Onset: The symptoms/episode began/occurred kb 4 day(s) ago. Duration: The symptoms are continuous. The patient's shortness of breath is aggravated by exertion, is alleviated by nothing. Associated signs and symptoms: Pertinent positives: chest pain. Severity of symptoms: At their worst the symptoms were moderate in the emergency department the symptoms are unchanged. The patient has not experienced similar symptoms in the past. The patient has not recently seen a physician. Pt reports shortness of breath for 4 days that got worse today with chest pain. EMS reports oxygen saturation 80% upon their arrival on scene just after completion of neb treatment. . Historical: - Allergies: 09:48 Sulfa (Sulfonamide Antibiotics); ld1 - PMHx: 09:48 Chronic Obstructive Pulmonary Disease; Cerebrovascular accident; Congestive heart ld1 failure; diabetes mellitus; Gastroesophageal reflux disease; Hypercholesterolemia; Hypothyroidism; - PSHx: 09:48 Total abdominal hysterectomy; Appendectomy; Cholecystectomy; ld1 - Immunization history:: Adult Immunizations up to date, Client reports receiving the 2nd dose of the Covid vaccine. - Social history:: Smoking status: Patient denies any tobacco usage or history of. Patient/guardian denies using alcohol. ROS: 15:39 Constitutional: Negative for fever, chills, and weight loss. kb 15:39 Cardiovascular: Positive for chest pain. 15:39 Respiratory: Positive for cough, shortness of breath. 15:39 All other systems are negative. Exam: 15:39 Constitutional: This is a well developed, well nourished patient who is awake, alert, kb and in no acute distress. Head/Face: Normocephalic, atraumatic. ENT: Moist Mucous membranes Cardiovascular: Regular rate and rhythm with a normal S1 and S2. No gallops, murmurs, or rubs. No pulse deficits. Abdomen/GI: Soft, non-tender. No distention Skin: Warm, dry with normal turgor. Normal color. MS/ Extremity: Pulses equal, no cyanosis. Neurovascular intact. Full, normal range of motion. Neuro: Awake and alert, GCS 15, oriented to person, place, time, and situation. Moves all extremities. Normal gait. 15:39 Respiratory: mild respiratory distress is noted, Respirations: normal, Breath sounds: wheezing: expiratory that is mild, is scattered. 15:41 ECG was reviewed by the Attending Physician. Vital Signs: 09:46 BP 167 / 57; Pulse 94; Resp 27; Temp 98.6(O); Pulse Ox 95% on 4 lpm NC; Weight 45.36 ld1 kg; Height 5 ft. 0 in. ; Pain 6/10; 10:46 BP 145 / 55; Pulse 88; Resp 18; Pulse Ox 98% on Nebulizer Mask; ld1 10:57 BP 145 / 55; Pulse 85; Resp 20; Pulse Ox 100% on Nebulizer Mask; ld1 09:46 Body Mass Index 19.53 (45.36 kg, 152.4 cm) ld1 09:46 Pain Scale: Adult ld1 MDM: 09:40 Patient medically screened. 12:39 Data reviewed: vital signs, nurses notes. Management of patient was discussed with the kb following: Hospitalist: TI Daniels accepts pt for admission to Dr Yang. 15:41 Differential diagnosis: Bronchitis CHF exacerbation, Chronic Obstructive Pulmonary kb Disease Myocardial Infarction pneumonia, pulmonary edema, Sepsis. Consideration of Admission/Observation Patient was admitted/placed on observation. Historians other than the Patient: EMS: [facility]. Counseling: I had a detailed discussion with the patient and/or guardian regarding: the historical points, exam findings, and any diagnostic results supporting the discharge/admit diagnosis, lab results, radiology results, the need for further work-up and treatment in the hospital. 03/25 09:41 Order name: Blood Culture Adult (2) 03/25 09:41 Order name: CBC with Diff; Complete Time: 10:48 kb 03/25 09:41 Order name: CMP; Complete Time: 11:05 kb 03/25 09:41 Order name: Lactate w/ 2H reflex if indic.; Complete Time: 11:00 kb 03/25 09:41 Order name: Protime (+inr); Complete Time: 10:48 kb 03/25 09:41 Order name: Ptt, Activated; Complete Time: 10:48 kb 03/25 09:41 Order name: Troponin High Sensitivity; Complete Time: 11:05 kb 03/25 09:41 Order name: BNP; Complete Time: 11:05 kb 03/25 10:39 Order name: Glucose, Ancillary Testing; Complete Time: 10:41 EDMS 03/25 13:51 Order name: Lactate Sepsis 2 HR Follow-up; Complete Time: 13:53 EDMS 03/25 09:41 Order name: Chest Single View XRAY; Complete Time: 10:58 kb 03/25 12:09 Order name: CT Chest For PE Angio; Complete Time: 12:43 kb 03/25 16:55 Order name: CT; Complete Time: 16:55 EDMS 03/25 09:41 Order name: EKG; Complete Time: 09:41 kb 03/25 13:21 Order name: 60g Consistent Carbohydrate (ADA 1800/1999) EDMS 03/25 09:41 Order name: Accucheck; Complete Time: 10:40 kb 03/25 09:41 Order name: Cardiac monitoring; Complete Time: 09:45 kb 03/25 09:41 Order name: EKG - Nurse/Tech; Complete Time: 10:00 kb 03/25 09:41 Order name: IV Saline Lock - Large Bore; Complete Time: 10:40 kb 03/25 09:41 Order name: Labs collected and sent; Complete Time: 10:40 kb 03/25 09:41 Order name: O2 Per Protocol; Complete Time: 09:46 kb 03/25 09:41 Order name: O2 Sat Monitoring; Complete Time: 09:46 kb 03/25 09:41 Order name: Vital Signs; Complete Time: 09:46 kb EC:41 Rate is 89 beats/min. Rhythm is regular. QRS [place] is Normal. MN interval is normal at kb 180 msec. QRS interval is normal at 82 msec. QT interval is normal at 423 msec. Administered Medications: 10:45 Drug: MethylPrednisoLONE IVP 125 mg Route: IVP; Site: left antecubital; ld1 10:45 Drug: Albuterol Inhalation 2.5 mg Route: Inhalation; ld1 10:46 Drug: Magnesium Sulfate IVPB 1 grams Route: IVPB; Infused Over: 1 hrs; Site: left ld1 antecubital; 10:46 Drug: Ipratropium Inhalation Aerosol 0.5 mg Route: Inhalation; ld1 11:29 Drug: NS 0.9% IV (30 ml/kg) 30 ml/kg Route: IV; Rate: bolus; Site: left antecubital; ld1 13:16 Drug: Rocephin IV 1 grams Route: IV; Rate: calculated rate; Site: right antecubital; ld1 13:16 Drug: Zithromax IVPB 500 mg Route: IVPB; Infused Over: 1 hrs; Site: right antecubital; ld1 Disposition: 17:07 Co-signature as Attending Physician, Trino Lam MD I reviewed the patient's care rn provided by the Advanced Practice Provider and agree with the diagnosis and treatment plan. Disposition Summary: 03/25/23 11:53 Hospitalization Ordered Hospitalization Status: Observation kb Provider: Deborah Yang Location: Telemetry/MedSurg (observation) kb Condition: Fair kb Problem: an acute exacerbation kb Symptoms: are unchanged kb Bed/Room Type: Standard Room Assignment: 217(03/25/23 15:53) bd Diagnosis - COPD/ Chronic obstructive pulmonary disease with (acute) exacerbation kb - Hypoxia kb Forms: - Medication Reconciliation Form kb - SBAR form kb Signatures: Dispatcher [employer] Yumiko Ralph FNP-C FNP-Ariana Bagley Roman, MD MD rn BarillasLatonya RN RN ld1 Corrections: (The following items were deleted from the chart) 15:53 11:53 kb bd
--- NOTE | 2023-03-25 11:53 | ER ---
Nurse's Notes [facility] Name: Trinidad Cardenas Age: 77 yrs Sex: Female : 1945 Arrival Date: 03/25/2023 Time: 09:29 Bed 16 Private MD: Diagnosis: COPD/ Chronic obstructive pulmonary disease with (acute) exacerbation;Hypoxia Presentation: 03/25 09:46 Chief complaint: EMS states: toned out to [facility] for SOB X 2-3 ld1 days. EMS reports SpO2 80% RA. Upon arrival to ER pt SpO2 95% 4L NC - C/O mild chest pain while breathing. Coronavirus screen: At this time, the client does not indicate any symptoms associated with coronavirus-19. Ebola Screen: No symptoms or risks identified at this time. Initial Sepsis Screen: Does the patient meet any 2 criteria? No. Patient's initial sepsis screen is negative. Does the patient have a suspected source of infection? No. Patient's initial sepsis screen is negative. Risk Assessment: Do you want to hurt yourself or someone else? Patient reports no desire to harm self or others. Onset of symptoms was March 25, 2023. 09:46 Method Of Arrival: EMS: [facility] ld1 09:46 Acuity: JOHN 3 ld1 Triage Assessment: 09:48 General: Appears in no apparent distress. comfortable, Behavior is calm, cooperative, ld1 appropriate for age. Pain: Complains of pain in chest Pain does not radiate. Pain currently is 6 out of 10 on a pain scale. Quality of pain is described as throbbing. EENT: No signs and/or symptoms were reported regarding the EENT system. Neuro: Level of Consciousness is awake, alert, obeys commands, Oriented to person, place, time, situation. Cardiovascular: Capillary refill < 3 seconds Patient's skin is warm and dry. Rhythm is sinus rhythm. Respiratory: Airway is patent Respiratory effort is even, labored, the patient has mild shortness of breath. GI: Abdomen is flat, non-distended. : No signs and/or symptoms were reported regarding the genitourinary system. Derm: No signs and/or symptoms reported regarding the dermatologic system. Musculoskeletal: No signs and/or symptoms reported regarding the musculoskeletal system. Historical: - Allergies: 09:48 Sulfa (Sulfonamide Antibiotics); ld1 - PMHx: 09:48 Chronic Obstructive Pulmonary Disease; Cerebrovascular accident; Congestive heart ld1 failure; diabetes mellitus; Gastroesophageal reflux disease; Hypercholesterolemia; Hypothyroidism; - PSHx: 09:48 Total abdominal hysterectomy; Appendectomy; Cholecystectomy; ld1 - Immunization history:: Adult Immunizations up to date, Client reports receiving the 2nd dose of the Covid vaccine. - Social history:: Smoking status: Patient denies any tobacco usage or history of. Patient/guardian denies using alcohol. Screenin:50 [facility] ED Fall Risk Assessment (Adult) History of falling in the last 3 months, ld1 including since admission. Abuse screen: Denies threats or abuse. Denies injuries from another. Nutritional screening: No deficits noted. Tuberculosis screening: No symptoms or risk factors identified. Assessment: 09:50 Reassessment: See triage assessment. ld1 10:46 Reassessment: Patient appears in no apparent distress at this time. No changes from ld1 previously documented assessment. Patient and/or family updated on plan of care and expected duration. Pain level reassessed. Patient is alert, oriented x 3, equal unlabored respirations, skin warm/dry/pink. Vital Signs: 09:46 BP 167 / 57; Pulse 94; Resp 27; Temp 98.6(O); Pulse Ox 95% on 4 lpm NC; Weight 45.36 ld1 kg; Height 5 ft. 0 in. ; Pain 6/10; 10:46 BP 145 / 55; Pulse 88; Resp 18; Pulse Ox 98% on Nebulizer Mask; ld1 10:57 BP 145 / 55; Pulse 85; Resp 20; Pulse Ox 100% on Nebulizer Mask; ld1 09:46 Body Mass Index 19.53 (45.36 kg, 152.4 cm) ld1 09:46 Pain Scale: Adult ld1 ED Course: 09:40 Patient arrived in ED. kb 09:40 Yumiko Veronica [facility]-C [facility]. kb 09:40 Trino Lam MD is Attending Physician. kb 09:45 Latonya Barillas, MONTEZ is Primary Nurse. ld1 09:48 Triage completed. ld1 09:48 Arm band placed on right wrist. ld1 09:50 Patient has correct armband on for positive identification. Placed in gown. Bed in low ld1 position. Call light in reach. Side rails up X2. card doffer on. Pulse ox on. NIBP on. Door closed. Noise minimized. Warm blanket given. 09:50 No provider procedures requiring assistance completed. ld1 10:11 Chest Single View XRAY In Process Unspecified. EDMS 11:52 Deborah Yang MD is Hospitalizing Provider. kb 12:30 CT Chest For PE Angio In Process Unspecified. EDMS 16:56 Patient admitted, IV remains in place. ld1 Administered Medications: 10:45 Drug: MethylPrednisoLONE IVP 125 mg Route: IVP; Site: left antecubital; ld1 10:45 Drug: Albuterol Inhalation 2.5 mg Route: Inhalation; ld1 10:46 Drug: Magnesium Sulfate IVPB 1 grams Route: IVPB; Infused Over: 1 hrs; Site: left ld1 antecubital; 10:46 Drug: Ipratropium Inhalation Aerosol 0.5 mg Route: Inhalation; ld1 11:29 Drug: NS 0.9% IV (30 ml/kg) 30 ml/kg Route: IV; Rate: bolus; Site: left antecubital; ld1 13:16 Drug: Rocephin IV 1 grams Route: IV; Rate: calculated rate; Site: right antecubital; ld1 13:16 Drug: Zithromax IVPB 500 mg Route: IVPB; Infused Over: 1 hrs; Site: right antecubital; ld1 Medication: 09:50 VIS not applicable for this client. ld1 Outcome: 11:53 Decision to Hospitalize by Provider. kb 16:56 Admitted to Med/surg via wheelchair, with chart, Report called to MONTEZ Rojas ld1 16:56 Condition: stable 16:56 Instructed on the need for admit. 16:56 Patient left the ED. ld1 Signatures: Dispatcher [employer] EDYumiko Harkins, RESIDENTIAL TREATMENT SPECIALIST-C RESIDENTIAL TREATMENT SPECIALIST-Latonya Harper RN RN ld1
--- NOTE | 2023-03-25 12:40 | RAD REPORT ---
EXAM DESCRIPTION: CT - Chest For Pe Angio - 03/25/2023 12:29 pm CLINICAL HISTORY: DYSPNEA COMPARISON: Chest Single View dated 03/25/2023 TECHNIQUE: Thin axial CT images of the chest were obtained following administration of 75 mL Isovue 370 IV contrast. Multiplanar reconstructions, and maximum intensity projection reconstructions were g enerated and reviewed. Exam utilizes a protocol for optimal evaluation of pulmonary arterial tree. All CT scans are performed using dose optimization technique as appropriate and may include automated exposure control or mA/KV adjustment according to patient size. FINDINGS: Left diaphragmatic hernia containing most of the stomach and segments of mildly distended bowel, likely small bowel. Pulmonary arteries are normal. No emboli or other suspicious finding. No acute or significant aorta f indings. Right moderate and left small pleural effusions. Patchy alveolar opacities, throughout the right lung . Interlobular septal thickening. Segmental and subsegmental airspace opacities more pronounced on th e left. No pleural thickening or pleural effusion. No pneumothorax. Mildly prominent mediastinal and right hilar lymph nodes, largest in the subcarinal region measuring 1.7 centimeter in short axis, nonspecific, and probably reactive/inflammatory. No chest wall mass or abnormal axilliary lymphadenopathy. Diffuse body wall edema. IMPRESSION: No evidence of acute central pulmonary emboli. Bilateral pleural effusions larger on the right. Interlobular septal thickening. Findings suggest a d egree of pulmonary edema. Patchy alveolar opacities throughout the right lung could reflect superimposed pneumonia. Large left diaphragmatic hernia containing most of the stomach and segments of mildly distended bowel , likely small bowel.
[2023-03-25] MEDS ORDERED: CEFTRIAXONE 1000 MG/VIAL ONE (13:15)
[2023-03-25] MEDS ORDERED: AZITHROMYCIN 500 MG INJ IVPB ONE (13:15)
[2023-03-25] MEDS ORDERED: GLUCAGON 1 MG/VIAL IM PRN (13:19)
[2023-03-25] MEDS ORDERED: D10W 250 ML BAG IV PRN (13:19)
[2023-03-25] MEDS ORDERED: ONDANSETRON 4 MG/2 ML VIAL IV PRN (16:05)
--- NOTE | 2023-03-25 16:09 | P.HP ---
Certification for Inpatient Patient admitted to: Inpatient With expected LOS: >2 Midnights Patient will require the following post-hospital care: None Practitioner: I am a practitioner with admitting privileges, knowledge of patient current condition, hospital course, and medical plan of care. Services: Services provided to patient in accordance with Admission requirements found in Title 42 Section 412.3 of the Code of Federal Regulations Patient History Date of Service: 03/25/23 Reason for admission: SOB, cough History of Present Illness: Patient is a 77-year-old female with a past medical history significant for HLD, hypertension, GERD, CVA who presents with complaint of shortness of breath onset 4 days ago. Patient reported associated signs and symptoms of chest tightness, cough, diaphoresis and nausea. Patient denies any other signs and symptoms. Symptoms are aggravated or relieved by nothing. [facility] a [facility] a [facility]. Patient was brought to the hospital for medical evaluation. Allergies Sulfa (Sulfonamide Antibiotics) Allergy (Verified 11/18/22 18:57) Rash Home Medications: Acetaminophen [Tylenol] 650 mg PO Q6H PRN 11/18/22 Amlodipine [Norvasc*] 10 mg PO DAILY 11/18/22 Atorvastatin Calcium [Lipitor*] 20 mg PO BEDTIME 11/18/22 Carboxymethylcellulose Sodium [Artificial Tears] 1 drop EACH EYE TID 11/18/22 Carvedilol [Coreg] 25 mg PO BID 11/18/22 Cholecalciferol (Vitamin D3) [Vitamin D3] 50 mcg PO DAILY 11/18/22 Cranberry Conc/C/Bacill Coag [Cranberry Tablet] 450 mg PO DAILY 11/18/22 Fluticasone/Umeclidin/Vilanter [Trelegy Ellipta 100-62.5-25] 1 puff IH BID 11/18/22 Furosemide 40 mg PO DAILY 11/18/22 Hydralazine HCl 100 mg PO Q8H 11/18/22 Loratadine [Claritin*] 10 mg PO DAILY 11/18/22 Losartan Potassium [Cozaar*] 100 mg PO DAILY 11/18/22 Metformin HCl [Glucophage*] 500 mg PO BIDAC 11/18/22 Olopatadine HCl 1 gtt EACH EYE BID 11/18/22 Pantoprazole Sodium [Protonix] 20 mg PO DAILY 11/18/22 Polyethylene Glycol 3350 [Miralax] 17 gm PO DAILY PRN 11/18/22 Promethazine Tab [Phenergan*] 1 tab PO Q8H PRN 11/18/22 Spironolactone [Aldactone*] 25 mg PO DAILY 11/18/22 Aspirin Chewable [Aspirin Chewable*] 81 mg PO DAILY #30 tab.chew 11/20/22 Urea [Ure-Na] 15 gm PO DAILY #30 packet 11/20/22 - Past Medical/Surgical History Diabetic: No -: GERD -: HTN -: CVA -: HLD -: Gallbladder -: Hysterectomy -: Teeth pulled - Family History Father -: Heart disease, Liver disease Mother -: Heart disease Brother -: Diabetes, Cancer Notes: COPD - Social History Smoking Status: Former smoker Alcohol use: No CD- Drugs: No Caffeine use: Yes Place of Residence: Home Review of Systems General: Sweats Eyes: Unremarkable ENT: Unremarkable Respiratory: Shortness of Breath, Other (Chest tightness) Cardiovascular: Unremarkable Gastrointestinal: Nausea Genitourinary: Unremarkable Musculoskeletal: Unremarkable Integumentary: Unremarkable Neurological: Unremarkable Lymphatics: Unremarkable Physical Examination - Physical Exam General: Alert, In no apparent distress, Oriented x3, Cooperative HEENT: Atraumatic, PERRLA, Mucous membr. moist/pink, EOMI, Sclerae nonicteric Neck: Supple, 2+ carotid pulse no bruit, No LAD, Without JVD or thyroid abnormality Respiratory: Diminished Cardiovascular: No edema, Regular rate/rhythm, Normal S1 S2 Capillary refill: <2 Seconds Gastrointestinal: Normal bowel sounds, Soft and benign, Non-distended, No tenderness Musculoskeletal: No clubbing, No swelling, No tenderness Integumentary: No rashes, No significant lesion Neurological: Normal speech, Normal tone, Normal affect Lymphatics: No axilla or inguinal lymphadenopathy - Studies Laboratory Data (last 24 hrs) 03/25/23 10:28: PT 11.8, INR 1.07, APTT 27.3 03/25/23 10:28: Sodium 128 L D, Potassium 3.7, BUN 6 L, Creatinine 0.67, Glucose 152 H, Total Bilirubin 0.3, AST 16, ALT 16, Alkaline Phosphatase 86 03/25/23 10:28: WBC 8.70, Hgb 8.5 L, Hct 25.4 L, Plt Count 356 Assessment and Plan - Plan --Pneumonia. Noted on imaging. Patient placed on antibiotics and neb treatment with Atrovent\albuterol. Continue O2 therapy. Pulmonology consulted. We will await further recommendation. --Pleural effusion. Pulmonology on board. Imaging also indicates findings concerning for pulmonary edema. BNP is 7191. Echocardiogram pending to rule out CHF. Patient placed on Lasix. Daily weight. --Acute on chronic COPD exacerbation. Continue current treatment regimen. -- Mild hyponatremia. Likely secondary to volume overload. Continue diuresis with Lasix. Will reassess levels in a.m. --GERD. Continue Protonix. --Hyperlipidemia. Continue statin. --History of CVA. Continue aspirin and statin. --Hypertension. Poorly controlled. Continue home medications and hydralazine as needed. --DM2. BS monitor with sliding scale insulin. --Anemia of chronic disease. H&H stable. We will continue to monitor hemoglobin and transfuse if less than 7.0. --CKD 2. Stable we will continue to monitor renal functions. --DVT prophylaxis with Lovenox subQ. Discharge Plan: Home Plan to discharge in: Greater than 2 days - Advance Directives Does patient have a Living Will: No Does patient have a Durable POA for Healthcare: No - Code Status/Comfort Care Code Status Assessed: Yes Physician Review: Patient Assessed, Agree with Above Assessment and Plan Critical Care: No
[2023-03-25] MEDS: INSULIN -REGULAR HUMAN 50 UNIT/0.5 ML ML SQ SCH ×2 (16:30→21:36)
--- NOTE | 2023-03-25 16:55 | RAD REPORT ---
EXAM DESCRIPTION: CT - Abdomen Pelvis Wo Contrast - 03/25/2023 4:31 pm CLINICAL HISTORY: Abdominal pain COMPARISON: None TECHNIQUE: Computed axial tomography of the abdomen and pelvis was obtained. IV and oral contrast we re not requested. All CT scans are performed using dose optimization technique as appropriate and may include automated exposure control or mA/KV adjustment according to patient size. FINDINGS: The evaluation of solid organs, vessels and bowel is limited secondary to the lack of con trast administration. Small to moderate right and small left pleural effusions. Large diaphragmatic hernia contains predominantly stomach. A gastric volvulus is present. A small por tion of small bowel within left diaphragmatic hernia. Liver, spleen, pancreas and adrenals appear grossly normal. Left kidney is small. Small right renal cyst. Contrast from a prior CT within the genitourinary syste m. Calcifications involving the abdominal aorta and iliac arteries resulting in high-grade stenoses. No bowel obstruction. No evidence of diverticulitis IMPRESSION: Large diaphragmatic hernia containing a stomach volvulus. I suspect this is chronic whic h should be correlated clinically. Calcifications involving the abdominal aorta and iliac arteries resulting in high-grade stenoses.
[2023-03-25] MEDS ORDERED: METRONIDAZOLE 500mg IVPB 500 MG/100 ML BAG IV ONE (16:56)
[2023-03-25] MEDS ORDERED: NA CHLORIDE 0.9% 2,000 ML ONE (16:56)
[2023-03-25 17:17] VITALS: BMI 19.5
[2023-03-25] MEDS: FUROSEMIDE 40 MG/4 ML VIAL IV SCH (17:43)
[2023-03-25] MEDS: ENOXAPARIN 40 MG/0.4 ML SQ SCH (17:43)
[2023-03-25] MEDS: IPRATROPIUM BROM 0.5MG/2.5ML NEB SCH (20:00)
[2023-03-25] MEDS: ALBUTEROL 2.5 MG/3 ML NEB SOL NEB SCH (20:00)
[2023-03-25] MEDS ORDERED: POTASSIUM CL SA 10 MEQ TAB PO ONE (21:00)
[2023-03-25 21:11] LABS: Magnesium 1.6 mg/dL (1.6-2.4); Phosphorus 3.6 mg/dL (2.5-4.9); Thyroid Stimulating Hormone 0.974 uIU/mL (0.358-3.740)
[2023-03-26] MEDS: ALBUTEROL 2.5 MG/3 ML NEB SOL NEB SCH ×4 (02:40→20:48)
[2023-03-26] MEDS: IPRATROPIUM BROM 0.5MG/2.5ML NEB SCH ×4 (02:40→20:48)
[2023-03-26] MEDS ORDERED: MAGNESIUM SULFATE 1 gm IVPB 1 GM/100 ML BAG IV ONE (03:24)
[2023-03-26 03:40] LABS: Absolute Lymphocytes (CBC) 0.6 K/uL (0.7-4.9); Hematocrit 24.1 % (36.0-45.0); Lymphocytes % 9.5 % (15.3-44.8); MCV 81.4 fL (80-100); MPV 7.7 fL (7.6-11.3); RBC Red Blood Cell Count 2.96 M/uL (3.86-4.86)
[2023-03-26 04:02] LABS: Albumin 2.3 g/dL (3.4-5.0); Bilirubin Total 0.2 mg/dL (0.2-1.0); Potassium 3.8 mEq/L (3.5-5.1)
[2023-03-26 04:29] LABS: Blood Morphology Comment NOTED (NOT SEEN); Burr Cells 2+; Platelet Estimate ADEQ
[2023-03-26] MEDS ORDERED: NA CHLORIDE 0.9% 250 ML ONE (04:48)
--- NOTE | 2023-03-26 07:08 | EKG ---
Test Date: 2023-03-25 Test Time: 10:14:51 Rail Signal Mechanic: TOPHER MEASUREMENT RESULTS: Intervals: Rate: 89 IA: 180 QRSD: 82 QT: 348 QTc: 423 Vendor: P: 60 IA: 180 QRS: 13 T: 58 INTERPRETIVE STATEMENTS: Sinus rhythm with premature atrial complexes Otherwise normal ECG No previous ECG available for comparison Electronically Signed On 03-26-23 07:06:37 CDT by Mateusz Osei
[2023-03-26] MEDS: ASPIRIN 81 MG CHEWABLE TABLET PO SCH (08:24)
[2023-03-26] MEDS: HYDRALAZINE HCL 20 MG/ML VIAL IV PRN (08:24)
[2023-03-26] MEDS: HYDROCODONE/APAP 5/325 MG TAB PO PRN (08:25)
[2023-03-26] MEDS: FUROSEMIDE 40 MG/4 ML VIAL IV SCH ×2 (08:25→17:02)
[2023-03-26] MEDS: ENOXAPARIN 40 MG/0.4 ML SQ SCH (08:26)
[2023-03-26] MEDS: INSULIN -REGULAR HUMAN 50 UNIT/0.5 ML ML SQ SCH ×4 (08:26→22:15)
[2023-03-26] MEDS ORDERED: AZITHROMYCIN IV 500 MG in NA CHLORIDE 0.9% 250 ML IVPB SCH (09:00)
[2023-03-26] MEDS ORDERED: CEFTRIAXONE 1,000 MG in NA CHLORIDE 0.9% 50 ML IVPB SCH (09:00)
[2023-03-26] MEDS ORDERED: POTASSIUM CL SA 10 MEQ TAB PO ONE (09:00)
[2023-03-26] MEDS ORDERED: METOPROLOL TAR 50 MG TAB PO ONE (11:27)
[2023-03-26] MEDS ORDERED: METOPROLOL TARTRATE 5 MG/5 ML INJ IV STA (11:27)
--- NOTE | 2023-03-26 12:03 | P.CNS ---
Date of Consult: 03/19/23 Reason for Consult: Bilateral pleural effusions possible pneumonia Chief Complaint: SOB, cough History of Present Illness: Patient is 77 years of age admitted with worsening dyspnea over the past 4 days is a history of congestive heart failure also complained of some chills no cough no chest pain planing of orthopnea patient has been compliant with her Lasix history of COPD on Trelegy Allergies Sulfa (Sulfonamide Antibiotics) Allergy (Verified 11/18/22 18:57) Rash Home Medications: Acetaminophen [Tylenol] 650 mg PO Q6H PRN 11/18/22 Amlodipine [Norvasc*] 10 mg PO DAILY 11/18/22 Atorvastatin Calcium [Lipitor*] 20 mg PO BEDTIME 11/18/22 Carboxymethylcellulose Sodium [Artificial Tears] 1 drop EACH EYE TID 11/18/22 Carvedilol [Coreg] 25 mg PO BID 11/18/22 Cholecalciferol (Vitamin D3) [Vitamin D3] 50 mcg PO DAILY 11/18/22 Cranberry Conc/C/Bacill Coag [Cranberry Tablet] 450 mg PO DAILY 11/18/22 Fluticasone/Umeclidin/Vilanter [Trelegy Ellipta 100-62.5-25] 1 puff IH BID 11/18/22 Furosemide 40 mg PO DAILY 11/18/22 Hydralazine HCl 100 mg PO Q8H 11/18/22 Loratadine [Claritin*] 10 mg PO DAILY 11/18/22 Losartan Potassium [Cozaar*] 100 mg PO DAILY 11/18/22 Metformin HCl [Glucophage*] 500 mg PO BIDAC 11/18/22 Olopatadine HCl 1 gtt EACH EYE BID 11/18/22 Pantoprazole Sodium [Protonix] 20 mg PO DAILY 11/18/22 Polyethylene Glycol 3350 [Miralax] 17 gm PO DAILY PRN 11/18/22 Promethazine Tab [Phenergan*] 1 tab PO Q8H PRN 11/18/22 Spironolactone [Aldactone*] 25 mg PO DAILY 11/18/22 Aspirin Chewable [Aspirin Chewable*] 81 mg PO DAILY #30 tab.chew 11/20/22 Urea [Ure-Na] 15 gm PO DAILY #30 packet 11/20/22 - Past Medical/Surgical History Diabetic: No -: GERD -: HTN -: CVA -: HLD -: COPD -: Gallbladder -: Hysterectomy -: Teeth pulled - Family History Father Medical History: Heart disease, Liver disease Mother Medical History: Heart disease Brother Medical History: Diabetes, Cancer Notes: COPD - Social History Alcohol use: No CD- Drugs: No Caffeine use: Yes Place of Residence: Home Review of Systems 10-point ROS is otherwise unremarkable General: Weakness Respiratory: Shortness of Breath Physical Examination Temp Pulse Resp BP Pulse Ox 97.8 F 115 H 14 195/78 H 94 03/26/23 08:00 03/26/23 08:25 03/26/23 08:25 03/26/23 08:25 03/26/23 08:00 General: Alert, Oriented x3 Neck: Supple Respiratory: Crackles/rales, Expiratory wheezes Cardiovascular: Regular rate/rhythm, Normal S1 S2 Gastrointestinal: Normal bowel sounds, Soft and benign, Non-distended - Problems (1) CHF (congestive heart failure) Current Visit: Yes Status: Acute Plan: Patient is 77 years of age history of congestive heart failure admitted with worsening dyspnea orthopnea bilateral pleural effusion and opacities on the right side possibility of superimposed pneumonia pulmonary edema continue with diuresis 2D echocardiogram pending changed to p.o. antibiotics White count is normal patient's blood pressure is elevated she is a little tachycardic resume patient's antihypertensive medications continue with diuresis labs reviewed mildly anemic Qualifiers: Heart failure type: unspecified
[2023-03-26] MEDS ORDERED: AMLODIPINE 10 MG TAB PO SCH (12:06)
[2023-03-26] MEDS ORDERED: CEFUROXIME 250 MG TAB PO SCH (13:00)
[2023-03-26] MEDS ORDERED: SPIRONOLACTONE 25 MG TABLET PO SCH (13:00)
[2023-03-26] MEDS ORDERED: carvediloL 25 MG TAB PO SCH (13:00)
[2023-03-26] MEDS ORDERED: LOSARTAN POTASSIUM 50 MG TABLET PO SCH (13:00)
[2023-03-26] MEDS ORDERED: cloNIDine HCL 0.1 MG TAB PO ONE (14:00)
[2023-03-26] MEDS ORDERED: cloNIDine HCL 0.1 MG TAB PO SCH (21:00)
[2023-03-26] MEDS: CEFUROXIME 250 MG TAB PO SCH (22:15)
[2023-03-27] MEDS: IPRATROPIUM BROM 0.5MG/2.5ML NEB SCH ×4 (01:39→19:40)
[2023-03-27] MEDS: ALBUTEROL 2.5 MG/3 ML NEB SOL NEB SCH ×4 (01:39→19:40)
--- NOTE | 2023-03-27 05:26 | P.PN ---
Date of Service: 03/26/23 Subjective Patient is feeling better; no new c/o; Physical Examination - Physical Exam General: Alert, In no apparent distress, Oriented x3, Cooperative Respiratory: Diminished Cardiovascular: No edema, Regular rate/rhythm, Normal S1 S2 Gastrointestinal: Normal bowel sounds, Soft and benign, Non-distended, No tenderness Musculoskeletal: No clubbing, No swelling, No tenderness Neurological: Generalized weakness. Assessment and Plan - Assessment/Plan --Pneumonia. Continue nebs and antibiotics along with O2 per to keep sats greater than 95%. Sputum sample pending. Patient improving. --Pleural effusion. Continue to gently diurese. Repeat BNP level --Acute on chronic COPD exacerbation. Continue current treatment regimen. --Mild hyponatremia. reassess sodium level in the morning --GERD. Continue Protonix. --Hyperlipidemia. Continue statin. --History of CVA. Continue aspirin and statin. --Hypertension. Poorly controlled. Continue home medications and hydralazine as needed. --DM2. BS monitor with sliding scale insulin. --Anemia of chronic disease. H&H stable decreased; continue to follow. We will continue to monitor hemoglobin and transfuse if less than 7.0. --CKD 2. Stable we will continue to monitor renal functions. --DVT prophylaxis with Lovenox subQ. Discharge Plan: Home Plan to discharge in: Greater than 2 days - Advance Directives Does patient have a Living Will: No Does patient have a Durable POA for Healthcare: No - Code Status/Comfort Care Code Status Assessed: Yes Physician Review: Patient Assessed, Agree with Above Assessment and Plan Critical Care: No
[2023-03-27 06:52] LABS: Absolute Lymphocytes (CBC) 1.1 K/uL (0.7-4.9); Hematocrit 22.1 % (36.0-45.0); Lymphocytes % 12.7 % (15.3-44.8); MCV 80.6 fL (80-100); MPV 7.3 fL (7.6-11.3); RBC Red Blood Cell Count 2.74 M/uL (3.86-4.86)
[2023-03-27 07:07] LABS: Albumin 2.3 g/dL (3.4-5.0); Bilirubin Total 0.3 mg/dL (0.2-1.0); C-Reactive Protein 22.8 mg/L (<3.00); Magnesium 1.7 mg/dL (1.6-2.4); Potassium 3.4 mEq/L (3.5-5.1); Protein, Total 5.6 g/dL (6.4-8.2); Troponin High Sensitivity 12.9 pg/mL (<58.9)
[2023-03-27] MEDS: INSULIN -REGULAR HUMAN 50 UNIT/0.5 ML ML SQ SCH ×4 (07:30→21:00)
--- NOTE | 2023-03-27 07:55 | RAD REPORT ---
EXAM DESCRIPTION: RAD - Chest Single View - 03/27/2023 4:45 am CLINICAL HISTORY: pneumonia COMPARISON: Chest Single View dated 03/25/2023; Chest Single View dated 11/19/2022; Chest For Pe Angio dated 03/25/2023 FINDINGS: Lines: None. Lungs: Ill-defined airspace disease, right greater the left common is similar to 03/25/2023. Diffuse prominence of the pulmonary interstitium. Pleural: Small bilateral effusions. Cardiac: Similar size and configuration . Mediastinum: Within normal limits. Bones: No acute fractures. Other: None IMPRESSION: No significant change in aeration lungs with a combination of pneumonia and edema likely . Small bilateral pleural effusions.
[2023-03-27] MEDS ORDERED: AMLODIPINE 10 MG TAB PO SCH (09:00)
[2023-03-27] MEDS ORDERED: SPIRONOLACTONE 25 MG TABLET PO SCH (09:00)
[2023-03-27] MEDS ORDERED: LOSARTAN POTASSIUM 50 MG TABLET PO SCH (09:00)
[2023-03-27] MEDS ORDERED: POTASSIUM CL SA 10 MEQ TAB PO ONE (09:00)
[2023-03-27] MEDS ORDERED: MAGNESIUM SULFATE 1 gm IVPB 1 GM/100 ML BAG IV ONE (09:00)
[2023-03-27] MEDS ORDERED: BENZONATATE 100 MG CAP PO PRN (11:05)
[2023-03-27] MEDS: AZITHROMYCIN 250 MG TAB PO SCH (11:09)
[2023-03-27] MEDS: FUROSEMIDE 40 MG/4 ML VIAL IV SCH ×2 (11:09→16:16)
[2023-03-27] MEDS: CEFUROXIME 250 MG TAB PO SCH ×2 (11:09→20:31)
[2023-03-27] MEDS: ASPIRIN 81 MG CHEWABLE TABLET PO SCH (11:09)
[2023-03-27] MEDS: ENOXAPARIN 40 MG/0.4 ML SQ SCH (11:10)
--- NOTE | 2023-03-27 12:25 | ECHO ---
HEIGHT: 5 ft 0 in WEIGHT: 106 lb 4.8 oz DATE OF STUDY: 03/27/[address]: Murali Shrestha 2-DIMENSIONAL: YES M.MODE: YES DOPPLER: YES COLOR FLOW: YES TDS: PORTABLE: YES DEFINITY: BUBBLE STUDY: DIAGNOSIS: CONGESTIVE HEART FAILURE CARDIAC HISTORY: CATHERIZATION: SURGERY: PROSTHETIC VALVE: PACEMAKER: MEASUREMENTS (cm) DIASTOLIC (NORMALS) SYSTOLIC (NORMALS) IVSd 0.8 (0.6-1.2) LA Diam 3.6 (1.9-4.0) LVEF 74% LVIDd 4.3 (3.5-5.7) LVIDs 2.5 (2.0-3.5) %FS 42% LVPWd 0.8 (0.6-1.2) Ao Diam 2.6 (2.0-3.7) 2 DIMENSIONAL ASSESSMENT: RIGHT ATRIUM: NORMAL LEFT ATRIUM: NORMAL RIGHT VENTRICLE: NORMAL LEFT VENTRICLE: NORMAL TRICUSPID VALVE: NORMAL MITRAL VALVE: MITRAL ANNULAR CALCIFICATION PULMONIC VALVE: NORMAL AORTIC VALVE: STENOTIC PERICARDIAL EFFUSION: NONE AORTIC ROOT: NORMAL LEFT VENTRICULAR WALL MOTION: DECREASED LEFT VENTRICULAR COMPLIANCE. NORMAL EJECTION FRACTION. DOPPLER/COLOR FLOW: MODERATE AORTIC STENOSIS. 1.0 CENTIMETERS SQUARED. COMMENTS: 1. MODERATE AORTIC STENOSIS. 1.0 CENTIMETERS SQUARED 2. DIASTOLIC DYSFUNCTION 3. NORMAL EJECTION FRACTION TECHNOLOGIST: VANDANA VALVERDE
[2023-03-27] MEDS ORDERED: CYANOCOBALAMIN 1000MCG/ML INJ IM ONE (13:44)
[2023-03-27] MEDS ORDERED: SOD FERRIC GLUC COMPLX/SUCROSE 125 MG in NA CHLORIDE 0.9% 100 ML IV ONE (13:45)
[2023-03-27 17:58] LABS: Specific Gravity < 1.005 (1.005-1.030); Urine Bacteria <20 /HPF (<20); Urine Bilirubin NEGATIVE (Negative); Urine Blood Negative (Negative); Urine Clarity Clear (Clear); Urine Color Colorless (Yellow); Urine Glucose NEGATIVE (Negative); Urine Mucus Slight /HPF (None Seen); Urine Protein NEGATIVE (Negative); Urine RBC <5 /HPF (None Seen); Urine Urobilinogen Normal (Normal); Urine pH 6.5 (5.0-7.0)
[2023-03-28] MEDS: IPRATROPIUM BROM 0.5MG/2.5ML NEB SCH ×4 (00:30→20:05)
[2023-03-28] MEDS: ALBUTEROL 2.5 MG/3 ML NEB SOL NEB SCH ×4 (00:30→20:05)
[2023-03-28] MEDS: HYDRALAZINE HCL 20 MG/ML VIAL IV PRN ×3 (00:34→23:47)
[2023-03-28] MEDS: HYDROCODONE/APAP 5/325 MG TAB PO PRN (04:16)
[2023-03-28 05:49] LABS: Hematocrit 24.6 % (36.0-45.0); Lymphocytes % 12.6 % (15.3-44.8); MCV 79.8 fL (80-100); MPV 7.1 fL (7.6-11.3); RBC Red Blood Cell Count 3.08 M/uL (3.86-4.86)
[2023-03-28 05:55] LABS: Protime INR 1.03
[2023-03-28 06:07] LABS: Magnesium 1.7 mg/dL (1.6-2.4)
[2023-03-28 06:14] LABS: Albumin 2.4 g/dL (3.4-5.0); Bilirubin Total 0.3 mg/dL (0.2-1.0); Potassium 2.9 mEq/L (3.5-5.1)
[2023-03-28] MEDS ORDERED: MAGNESIUM SULFATE 1 gm IVPB 1 GM/100 ML BAG IV ONE (06:52)
--- NOTE | 2023-03-28 07:42 | RAD REPORT ---
EXAM DESCRIPTION: Yuliana Single View03/28/2023 4:46 am CLINICAL HISTORY: Shortness breath COMPARISON: March 27, 2023 FINDINGS: Moderate bilateral patchy lung opacities at equivocally mildly worsened Cardiomegaly. Small pleural effusions IMPRESSION: Equivocal mild worsening in moderate bilateral pulmonary opacities represent pulmonary e michelle or pneumonia
--- NOTE | 2023-03-28 08:25 | P.PN ---
Date of Service: 03/27/23 Subjective Patient states that she is feeling better. She is very pleasant and she states that she still has a little bit of a cough but overall her symptoms are improved. Still requiring some oxygen. Continue to wean her down. She should be rated get back to [place] in the next 48 hours. Repeat chest x-ray in the morning. Echocardiogram results are pending. Appreciate Pulmonary input. Physical Examination - Physical Exam General: Alert, In no apparent distress, Oriented x3, Cooperative Respiratory: Diminished But otherwise clear Cardiovascular: No edema, Regular rate/rhythm, Normal S1 S2 Gastrointestinal: Normal bowel sounds, Soft and benign, Non-distended, No tenderness Musculoskeletal: No clubbing, No swelling, No tenderness Neurological: Generalized weakness. Assessment and Plan - Assessment/Plan --Pneumonia. Continue nebs and antibiotics along with O2 per to keep sats greater than 92%. Sputum sample pending. Patient improving. --Pleural effusion. Continue to gently diurese. --Acute on chronic COPD exacerbation. Continue current treatment regimen. --Mild hyponatremia. reassess sodium level in the morning --GERD. Continue Protonix. --Hyperlipidemia. Continue statin. --History of CVA. Continue aspirin and statin. --Hypertension. Poorly controlled. Continue home medications and hydralazine as needed. --DM2. BS monitor with sliding scale insulin. --Anemia of chronic disease. H&H stable decreased; continue to follow. Transfuse if less than 7.0. --CKD 2. Stable. Mmonitor renal functions. --DVT prophylaxis with Lovenox subQ. Discharge Plan: Home Plan to discharge in: Greater than 2 days - Advance Directives Does patient have a Living Will: No Does patient have a Durable POA for Healthcare: No - Code Status/Comfort Care Code Status Assessed: Yes Physician Review: Patient Assessed, Agree with Above Assessment and Plan Critical Care: No
[2023-03-28] MEDS: KCL 20 MEQ/100 mL IVPB 20 MEQ/100 ML BAG IV SCH ×3 (09:16→14:57)
[2023-03-28] MEDS: CEFUROXIME 250 MG TAB PO SCH ×2 (09:17→21:38)
[2023-03-28] MEDS: ASPIRIN 81 MG CHEWABLE TABLET PO SCH (09:18)
[2023-03-28] MEDS: ENOXAPARIN 40 MG/0.4 ML SQ SCH (09:18)
[2023-03-28] MEDS: AZITHROMYCIN 250 MG TAB PO SCH (09:18)
[2023-03-28] MEDS: INSULIN -REGULAR HUMAN 50 UNIT/0.5 ML ML SQ SCH ×4 (09:19→21:00)
[2023-03-28] MEDS: FUROSEMIDE 40 MG/4 ML VIAL IV SCH (09:19)
[2023-03-28] MEDS ORDERED: NA CHLORIDE 0.9% 1,000 ML ONE (09:22)
--- NOTE | 2023-03-28 11:37 | P.PN ---
Subjective Date of Service: 03/28/23 Chief Complaint: COPD exacerbation/CHF Subjective: Improving (Patient is improving doing well ambulating no new complaints) Review of Systems General: Weakness Respiratory: Shortness of Breath Physical Examination - Vital Signs Temperature: 98.9 F Blood Pressure: 181/69 Pulse: 96 Respirations: 16 Pulse Ox (%): 96 - Physical Exam General: Alert, Oriented x3 Neck: Supple Respiratory: Clear to auscultation bilaterally, Diminished Cardiovascular: No edema, Regular rate/rhythm Assessment And Plan - Current Problems (Diagnosis) (1) CHF (congestive heart failure) Current Visit: Yes Status: Acute Plan: Patient is doing better feeling better oxygenation has improved echocardiogram I have added spironolactone /patient is hypokalemic I suspect is from the Lasix stable discharge tomorrow MODERATE AORTIC STENOSIS. 1.0 CENTIMETERS SQUARED 2. DIASTOLIC DYSFUNCTION 3. NORMAL EJECTION FRACTION Chest x-ray still shows CHF also has a history of COPD no evidence of currently underlying sepsis patient to resume her trilogy at home Also added scheduled potassium reduce the dose of Lasix Possible underlying pneumonia continue with antibiotics at home also add low- dose prednisone 10 mg twice a day at the time of discharge in addition to Lasix 40 mg and spironolactone 25 twice daily Qualifiers: Heart failure type: unspecified Physician Review: Patient Assessed, Agree with Above Assessment and Plan
[2023-03-28] MEDS: SPIRONOLACTONE 25 MG TABLET PO SCH ×2 (13:31→21:38)
[2023-03-28] MEDS: POTASSIUM 25 MEQ EFFERV TAB PO SCH ×2 (13:32→21:38)
--- NOTE | 2023-03-28 13:34 | P.PN ---
Subjective Date of Service: 03/28/23 Chief Complaint: COPD exacerbation/CHF Subjective: No new changes, Improving Physical Examination - Vital Signs Temperature: 98.9 F Blood Pressure: 156/69 Pulse: 81 Respirations: 16 Pulse Ox (%): 96 - Physical Exam General: Alert, Oriented x3 HEENT: Atraumatic, Normocephalic Neck: Supple Respiratory: Diminished Cardiovascular: Regular rate/rhythm, Normal S1 S2 Gastrointestinal: Soft and benign Musculoskeletal: No swelling Neurological: Normal speech Assessment And Plan - Plan Assessment and Plan - Assessment/Plan --Pneumonia. Continue nebs and antibiotics along with O2 per to keep sats greater than 92%. Improving symptoms, pulmonary physician following. --Pleural effusion. Continue to gently diurese. --Acute on chronic COPD exacerbation. Continue current treatment regimen. --Mild hyponatremia. Stable serum sodium. Monitor daily labs. --Hypokalemia: Pulmonary physician started aldactone, we will follow closely. --GERD. Continue Protonix. --Hyperlipidemia. Continue statin. --History of CVA. Continue aspirin and statin. --Hypertension. Poorly controlled. Continue home medications and hydralazine as needed. --DM2. BS monitor with sliding scale insulin. --Anemia of chronic disease. H&H stable decreased; continue to follow. Transfuse if less than 7.0. --CKD 2. Stable. monitor renal functions. --DVT prophylaxis with Lovenox subQ. Physician Review: Patient Assessed, Agree with Above Assessment and Plan
[2023-03-28] MEDS: HOME MED 1 EA UNK (Fluticasone/Umeclidin/Vilanter [Trelegy Ellipta 100-62.5-25] Blst.W.Dev IH SCH (21:00)
[2023-03-28] MEDS ORDERED: guaiFENesin 100 MG/5 ML UCUP PO PRN (21:25)
[2023-03-28] MEDS ORDERED: MELATONIN 5 MG TABLET PO SCH (21:30)
[2023-03-28] MEDS: ACETAMINOPHEN 325 MG TABLET PO PRN (21:41)
[2023-03-28] MEDS: HYDRALAZINE HCL 25 MG TABLET PO SCH (21:55)
[2023-03-28] MEDS ORDERED: PARoxetine HCL 10 MG TAB PO SCH (22:00)
[2023-03-29] MEDS: IPRATROPIUM BROM 0.5MG/2.5ML NEB SCH ×3 (01:25→13:00)
[2023-03-29] MEDS: ALBUTEROL 2.5 MG/3 ML NEB SOL NEB SCH ×3 (01:25→13:00)
[2023-03-29 03:39] LABS: Albumin 2.4 g/dL (3.4-5.0); Bilirubin Total 0.3 mg/dL (0.2-1.0); Potassium 4.3 mEq/L (3.5-5.1); Protein, Total 6.3 g/dL (6.4-8.2)
[2023-03-29] MEDS: HYDRALAZINE HCL 25 MG TABLET PO SCH ×2 (05:44→14:06)
[2023-03-29] MEDS: INSULIN -REGULAR HUMAN 50 UNIT/0.5 ML ML SQ SCH ×3 (07:30→16:17)
[2023-03-29] MEDS ORDERED: LORATADINE 10 MG TAB PO SCH (09:00)
[2023-03-29] MEDS ORDERED: DOCUSATE NA/SENNA CONC 1 TAB PO SCH (09:00)
[2023-03-29] MEDS: HOME MED 1 EA UNK (Fluticasone/Umeclidin/Vilanter [Trelegy Ellipta 100-62.5-25] Blst.W.Dev IH SCH (09:00)
[2023-03-29] MEDS ORDERED: ASPIRIN 81 MG CHEWABLE TABLET PO SCH (09:00)
[2023-03-29] MEDS ORDERED: FUROSEMIDE 40 MG/4 ML VIAL IV SCH (09:00)
[2023-03-29] MEDS: AZITHROMYCIN 250 MG TAB PO SCH (09:57)
[2023-03-29] MEDS: SPIRONOLACTONE 25 MG TABLET PO SCH (09:57)
[2023-03-29] MEDS: CEFUROXIME 250 MG TAB PO SCH (09:57)
[2023-03-29] MEDS: POTASSIUM 25 MEQ EFFERV TAB PO SCH (09:58)
[2023-03-29] MEDS: ASPIRIN 81 MG CHEWABLE TABLET PO SCH (09:58)
[2023-03-29] MEDS: ENOXAPARIN 40 MG/0.4 ML SQ SCH (09:59)
--- NOTE | 2023-03-29 10:00 | P.DS ---
Admission Date: 03/25/23 Discharge Date: 03/29/23 Disposition: ROUTINE DISCHARGE Discharge Condition: GOOD Reason for Admission: COPD exacerbation/CHF Brief History of Present Illness: 77-year-old female patient with medical history significant for hypertension, hyperlipidemia, COPD, history of CVA was evaluated for episode of shortness of breath and cough. She was found to have pneumonia and she was started on a breathing treatment and oxygen therapy with antibiotics. She was admitted for inpatient care. Hospital Course: She was started on breathing treatment with antibiotics and also supplemental o xygen. She did have episode of rales on she was continued on pulmonary toileting with significant improvement in symptomatology. I work of breathing improved significantly and oxygen needs were able to be detailed down to 2 L/min by nasal cannula. She was deemed stable for discharge to complete antibiotic at the [facility] and to continue breathing treatments she will follow-up with pulm physician as scheduled. Vital Signs/Physical Exam: Temp Pulse Resp BP Pulse Ox 98.7 F 94 H 18 179/73 H 96 03/29/23 08:00 03/29/23 08:00 03/29/23 08:00 03/29/23 08:00 03/29/23 08:00 General: Alert, Cooperative HEENT: Atraumatic, Normocephalic Neck: Supple Respiratory: Normal air movement Cardiovascular: Regular rate/rhythm, Normal S1 S2 Gastrointestinal: Soft and benign Musculoskeletal: No swelling Neurological: Normal speech Laboratory Data at Discharge: WBC 8.00 thou/uL (4.3-10.9) 03/28/23 05:32 Hgb 8.2 g/dL (12.0-15.0) L D 03/28/23 05:32 Hct 24.6 % (36.0-45.0) L 03/28/23 05:32 Plt Count 364 thou/uL (152-406) 03/28/23 05:32 PT 11.3 SECONDS (9.5-12.5) 03/28/23 05:32 INR 1.03 03/28/23 05:32 APTT 28.1 SECONDS (24.3-36.9) 03/28/23 05:32 Sodium 129 mEq/L (136-145) L 03/29/23 02:58 Potassium 4.3 mEq/L (3.5-5.1) 03/29/23 02:58 BUN 10 mg/dL (7-18) 03/29/23 02:58 Creatinine 0.47 mg/dL (0.55-1.02) L 03/29/23 02:58 Glucose 128 mg/dL (74-106) H 03/29/23 02:58 Phosphorus 3.6 mg/dL (2.5-4.9) 03/25/23 20:40 Magnesium 2.0 mg/dL (1.6-2.4) 03/29/23 02:58 Total Bilirubin 0.3 mg/dL (0.2-1.0) 03/29/23 02:58 AST 14 U/L (15-37) L 03/29/23 02:58 ALT 16 U/L (13-56) 03/29/23 02:58 Alkaline Phosphatase 69 U/L (45-117) 03/29/23 02:58 Triglycerides 58 mg/dL (<150) 03/26/23 02:40 Cholesterol 129 mg/dL (<200) 03/26/23 02:40 HDL Cholesterol 60 mg/dL (40-60) 03/26/23 02:40 Cholesterol/HDL Ratio 2.15 03/26/23 02:40 Home Medications: Acetaminophen [Tylenol] 650 mg PO Q6H PRN 11/18/22 Amlodipine [Norvasc*] 10 mg PO DAILY 11/18/22 Atorvastatin Calcium [Lipitor*] 20 mg PO BEDTIME 11/18/22 Carboxymethylcellulose Sodium [Artificial Tears] 1 drop EACH EYE TID 11/18/22 Carvedilol [Coreg] 25 mg PO BID 11/18/22 Cholecalciferol (Vitamin D3) [Vitamin D3] 50 mcg PO DAILY 11/18/22 Cranberry Conc/C/Bacill Coag [Cranberry Tablet] 450 mg PO DAILY 11/18/22 Fluticasone/Umeclidin/Vilanter [Trelegy Ellipta 100-62.5-25] 1 puff IH BID 11/18/22 Hydralazine HCl 100 mg PO Q8H 11/18/22 Loratadine [Claritin*] 10 mg PO DAILY 11/18/22 Losartan Potassium [Cozaar*] 100 mg PO DAILY 11/18/22 Metformin HCl [Glucophage*] 500 mg PO BIDAC 11/18/22 Olopatadine HCl 1 gtt EACH EYE BID 11/18/22 Aspirin Chewable [Aspirin Chewable*] 81 mg PO DAILY #30 tab.chew 11/20/22 Ipratropium/Albuterol Sulfate [Iprat-Albut 0.5-3(2.5) mg/3 ml] 3 ml IH Q6H 03/26/23 Melatonin 5 mg PO BEDTIME 03/26/23 PARoxetine HCL [Paxil*] 10 mg PO BEDTIME 03/26/23 Psyllium Husk [Metamucil] 0.4 gm PO DAILY 03/26/23 Sennosides/Docusate Sodium [Senna Plus 8.6-50 mg Softgel] 1 each PO DAILY 03/26/23 Sodium Chloride Tab [Sodium Chloride*] 1 gm PO TID 03/26/23 Benzonatate [Tessalon Perle*] 100 mg PO TID PRN 7 Days #30 cap 03/29/23 Cefuroxime [Ceftin*] 500 mg PO BID #10 tab 03/29/23 New Medications: Cefuroxime [Ceftin*] 500 mg PO BID #10 tab Benzonatate [Tessalon Perle*] 100 mg PO TID PRN 7 Days #30 cap PRN Reason: Cough Diet: ADA Activity: Ad bryce Followup: NONE,NONE [Primary Care Provider] -
[2023-03-29] MEDS: HYDRALAZINE HCL 20 MG/ML VIAL IV PRN (10:03)
[2023-03-29 12:02] VITALS: O2SAT 93
[2023-03-29] MEDS: ACETAMINOPHEN 325 MG TABLET PO PRN (14:04)
[2023-03-29 16:25] VITALS: BP 173/73; TEMP 97.2
[2023-03-29] MEDS ORDERED: ATORVASTATIN 20 MG TAB PO SCH (21:00)
== END 2023-03-29 17:02 | DRG 193 ==
LOC: ER 09:29 → ERHOLD 14:13 → 2ND 16:47
PROVIDERS: ADMIT Hospitalist; ATTEND Internal Medicine Nephrology
DX: J18.9 Pneumonia, unspecified organism (principal); I50.33 Acute on chronic diastolic (congestive) heart failure; E87.1 Hypo-osmolality and hyponatremia; J44.1 Chronic obstructive pulmonary disease with (acute) exacerbation; I13.0 Hypertensive heart and chronic kidney disease with heart failure and stage 1 through stage 4 chronic kidney disease, or unspecified chronic kidney disease; J44.0 Chronic obstructive pulmonary disease with (acute) lower respiratory infection; N18.2 Chronic kidney disease, stage 2 (mild); E11.22 Type 2 diabetes mellitus with diabetic chronic kidney disease; D63.1 Anemia in chronic kidney disease; E87.6 Hypokalemia; K21.9 Gastro-esophageal reflux disease without esophagitis; E03.9 Hypothyroidism, unspecified; E78.00 Pure hypercholesterolemia, unspecified; Z88.1 Allergy status to other antibiotic agents; Z90.49 Acquired absence of other specified parts of digestive tract; Z79.84 Long term (current) use of oral hypoglycemic drugs; Z86.73 Personal history of transient ischemic attack (TIA), and cerebral infarction without residual deficits; Z79.82 Long term (current) use of aspirin; Z79.899 Other long term (current) drug therapy; Z90.710 Acquired absence of both cervix and uterus; Z87.891 Personal history of nicotine dependence
CPT/HCPCS: 36415; 71045; 71275; 74176; 80048; 80053; 80061; 81001; 82533; 82607; 82947; 83540; 83605; 83735; 83880; 84100; 84132; 84145; 84439; 84443; 84484; 85025; 85044; 85610; 85730; 86140; 86850; 86900; 86901; 87040; 93005; 93306; 99285; J0360; J0696; J1650; J1815; J1940; J2916; J2930; J3420; J3475; J3480; J7030; J7050; J7613; J7644; Q9967